=== PATIENT | female | born 1965 | race Caucasian/White ===

== ENCOUNTER 2025-02-22 12:58 | Outpatient (BNV) | payer MEDICAID, SELFPAY | END 2025-02-26 21:43 | PROVIDERS: Admitting Provider Psychiatry & Neurology Psychiatry; Visit Provider Internal Medicine Cardiovascular Disease | DX: R94.31 Abnormal electrocardiogram [ECG] [EKG] (principal); Z86.79 Personal history of other diseases of the circulatory system | CPT/HCPCS: 93010 ==

== ENCOUNTER 2025-02-22 12:58 | Inpatient (IN) | payer MEDICAID, SELFPAY ==
--- OUTSIDE RECORDS SUMMARY | 2025-02-15 17:17 | XMS_ITS | Encounter Summary ---
Author Organization [employer] Address [address] [place] [address] Care Team Providers Care Intellectual Property Paralegal Name Role Phone Physician, No Pcp Primary Care Provider Unavaila ble Reason for Visit * Reason Comments Drug Overdose * Auth/Cert (Routine) Specialty Diagnoses / Procedures Referred By Contac t Referred To Contact Diagnoses Acute on chronic renal insufficiency Acute on chronic renal failure (CMS/HCC V24) Acute drug overdose, intentional self-harm, initial encounter ([facility] V24, [facility] V28) Procedures . Jim Burns MD [address] [place] [id number] Phone: tel: fax: [facility] [address] [place] [phone] Phone: tel: Referral ID Status Reason Start Date Expiration Date Visits Re quested Visits Authorized [id number] 1 1 Encounter Details Date Type Department Care Team (Late st Contact Info) Description 02/15/2025 5:17 PM EDT - Present Hospital Encounter [facility] [address] [place] [phone] Alberto Phelps MD [address] [place] [phone] Jim Burns MD [address] [place] [address] [place] [address] Sunil Tang MD [address] [place] [address] Lex Cain MD [address] [place] [address] Acute on chronic renal insufficiency (Primary Dx); Acute drug overdose, intentional self-harm, initial encounter ([facility] V24, [facility] V28); Type 2 diabetes mellitus without complication, with long-term current use of insulin ([facility] V24, [facility] V28); Secondary hypertension; Depression, unspecified depression type Social History Tobacco Use Types Packs/Day Years Used Date Smoking Tobacco: Former Cigarettes Q uit: 06/27/2005 Alcohol Use Standard Drinks/Week Comments No 0 (1 standard drink = 0.6 oz pur e alcohol) Food Risk Answer Date Recorded Within the past 12 months we worried whether our food would run out before we got money to buy more. Never true 02/18/2025 Within the past 12 months th e food we bought just didn't last and we didn't have money to get more. Never true 02/18/2025 Interpersonal Safety Answer Date Record ed Physical Abuse 02/16/2025 Verbal Abuse 02/16/2025 Comments Unknown Sex and Gender Information Value Date Recorded Sex Assigned at Not on file Legal Sex Female 10:02 AM EST Gender Identity Not on file Sexual Orientation Not on file documented as of this encounter Last Filed Vital Signs Vital Sign Reading Time Taken Comments Blood Pressure 182/95 2025 11:00 AM EDT Pulse 70 2025 11:00 AM EDT Temperature 36.1 C (97 F) 2025 8:13 AM EDT Respiratory Rate 16 2025 8:13 AM EDT Oxygen Saturation 98% 2025 11:00 AM EDT Inhaled Oxygen Concentration - - Weight 95.3 kg (210 lb) 02/15/2025 5:35 PM EDT Height 165.1 cm (5' 5 ) 02/15/2025 5:35 PM EDT Body Mass Index 34.95 02/15/2025 5:35 PM EDT documented in this encounter Functional Status * Are you deaf or do you have serious difficulty hearing? Answer Date of Assessment Author No 12/05/2024 10:12 AM EDT Grayson Fletcher RN * Are you blind or do you have serious difficulty seeing, even when wearing glasses? Answer Date of Assessment Author No 12/05/2024 10:12 AM EDT Grayson Fletcher RN * Do you have serious difficulty walking or climbing stairs? Answer Date of Assessment Author No 12/05/2024 10:12 AM EDT Grayson Fletcher RN * Do you have serious difficulty dressing or bathing? Answer Date of Assessment Author No 12/05/2024 10:12 AM EDT Grayson Fletcher RN * Because of a physical, mental, or emotional condition, do you have serious difficulty doing errandsalone such as visiting the doctor? Answer Date of Assessment Author No 12/05/2024 10:12 AM EDT Grayson Fletcher RN documented as of this encounter Mental Status * Because of a physical, mental, or emotional condition, do you have serious difficulty concentrating, remembering, or making decisions? (5 years old or older) Answer Entry Date Author No 12/05/2024 10:12 AM Grayson Jones RN documented in this encounter Discharge Summaries * Lex Cain MD - 2025 10:46 AM EDT Images from the original note were not included. HOSPITAL MEDICINE DISCHARGE SUMMARY Patient Information Estephania Ryan : 1965 [60 y.o.] Admitting Provider Jim Burns MD Discharge Provider Lex Cain MD Primary Care Physician No Pcp Physician Admission Date 02/15/2025 Discharge Date 2025 Summary of Hospital Problems Primary Discharge Diagnosis: Acute drug overdose Secondary Discharge Diagnosis: Suicidal ideation Discharge Disposition Psychiatric hospital Code Status at Discharge: Full Code - Default Hospital Course Summary Presenting Problem/History of Present Illness Acute on chronic renal insufficiency [N28.9, N18.9] Acute on chronic renal failure (CMS/HCC V24) [N17.9, N18.9] Acute drug overdose, intentional self-harm, initial encounter ([facility] V24, [facility] V28) [I70.594F] Chief Complaint Patient presents with Drug Overdose HPI From admitting provider H&P: Ms. Estephania Ryan is a 59-year-old female with medical history significant for hypertension, hyperlipidemia, diabetes mellitus, atrial fibrillation on Eliquis, seizure disorder, who presented to the emergency department to be evaluated for intentional overdose with intent to cause self-harm. Per EDnotes, EMS were called to the home of the patient after her daughter reported she was lethargic andaltered. She reportedly took ten 500 mg Keppra tablets. Also reportedly took some lisinopril tablets as well. The patient reported suicidal ideation to EMS. GCS score in the ED was 13. On presentation to the ED, vital signs were remarkable for SpO2 87% improved to 94% with 2 L O2 NC,BP soft at 90/49. Laboratory work revealed creatinine 3.5, BUN 59, random glucose 206, alkaline phosphatase 134, white cell count 12.9 predominantly neutrophils, hemoglobin 10.3, hematocrit 33.9. Tylenol, salicylate, alcohol levels negative. Chest x-ray is questionable for mild pulmonary vascular versus bilateral infiltrates congestion. EKG showed normal sinus rhythm no ischemic changes. ED discussed case with poison control who recommended supportive care and electrolyte monitoring in 4 hours.Patient transferred to [place]. The patient was somnolent however arousable to verbal stimulus during our encounter. She denies anyspecific complaints. Only states that she has had many problems. She was tearful when I inquired whether she had any intention to harm herself. She did not elaborate further. Denies any chest or shortness of breath, abdominal pain, nausea, vomiting. Functional status prior to presentation: independent Hospital Course Estephania Ryan is a 59 y.o. female who has history of HTN, DM, A-fib on Eliquis, seizure disorder presented to ED with concern for intentional overdose. 1. Suicidal ideation Patient presented to ED lethargic and reports from EMS report that she took unknown quantity of lisinopril tablets and 10 Keppra tablets each 500 mg. She reported suicidal ideation to EMS. Psychiatrywas consulted. Patient met criteria for section 12. Patient was monitored with bedside sitter and suicide precautions. She has since denied feeling suicidal, also denied overdosing on her medications, insight is limited. She was continued on Zoloft 25 mg for anxiety. Psychiatrist recommended inpatient psychiatric care. 2. SONIA/metabolic acidosis-resolved Creatinine on admission of 3.5 and improved to 0.6 with IV fluid. Patient also had nongap metabolicacidosis which resolved with IV bicarbonate and IV fluid. 3. Hypotension-resolved Patient initially hypotensive which resolved. Is now hypertensive. 4. HTN Antihypertensives were resumed. Continue Imdur 60 mg and clonidine 0.1 mg twice daily, lisinopril 10 mg daily. 5. DM2 Maintained on glargine which was uptitrated to 26 units and sliding scale Humalog. Operative Procedures Performed: Consults: psychiatry LABS/IMAGING XR Chest 1 View Result Date: 02/16/2025 XR CHEST 1 VIEW INDICATION: pain Hypoxemia TECHNIQUE: XR CHEST 1 VIEW COMPARISON: No priors available. FINDINGS/IMPRESSION: Hypoventilatory examination with mild pulmonary vascular congestion and scattered opacities which could represent atelectasis, pneumonia or edema. No significant pleural effusion. Ascending aortic ectasia versus aneurysm. -------- FINAL REPORT -------- Dictated By: Topher Sebastian Dictated Date: 02/16/2025 10:09 ET Assigned Physician: Topher Sebastian Reviewed and Electronically Signed By: Topher Sebastian Signed Date: 02/16/2025 10:10 ET Workstation ID: [id number] Transcribed By: Self Edit Transcribed Date: 02/16/2025 10:09 ET Lab Results Component Value Date INR 0.9 02/16/2025 INR 1.1 12/21/2024 INR 1.2 12/20/2024 Lab Results Component Value Date NA 143 02/18/2025 K 4.6 02/18/2025 CL 110 02/18/2025 CO2 25 02/18/2025 GLUCOSE 152 (H) 2025 BUN 32 (H) 02/18/2025 CREATININE 0.61 02/18/2025 CALCIUM 8.9 02/18/2025 PROT 5.7 (L) 02/16/2025 ALBUMIN 3.1 (L) 02/16/2025 BILITOT 0.3 02/16/2025 AST 34 02/16/2025 ALT 25 02/16/2025 URICACID 12.2 (H) 12/05/2024 PHOS 2.6 02/18/2025 MG 2.3 02/18/2025 ALKPHOS 119 02/16/2025 CKTOTAL 133 12/20/2024 EGFR 104 02/18/2025 Lab Results Component Value Date WBC 8.9 02/21/2025 HGB 11.0 (L) 02/21/2025 HCT 35.5 02/21/2025 MCV 84.9 02/21/2025 PLT 298 02/21/2025 Discharge Medications Your medication list START taking these medications Instructions Last Dose Given Next Dose Due cloNIDine 0.1 mg tablet Commonly known as: CATAPRES Take 1 tablet (0.1 mg total) by mouth 2 (two) times a day. insulin glargine 100 unit/mL injection Commonly known as: LANTUS Replaces: insulin glargine 100 unit/mL (3 mL) injection pen Inject 26 Units under the skin at bedtime. lisinopriL 5 mg tablet Commonly known as: PRINIVIL,ZESTRIL Take 2 tablets (10 mg total) by mouth 1 (one) time each day. CHANGE how you take these medications Instructions Last Dose Given Next Dose Due sertraline 25 mg tablet Commonly known as: ZOLOFT What changed: medication strength how much to take when to take this Take 1 tablet (25 mg total) by mouth at bedtime. CONTINUE taking these medications Instructions Last Dose Given Next Dose Due apixaban 5 mg tablet Commonly known as: ELIQUIS Take 1 tablet (5 mg total) by mouth 2 times daily. aspirin 81 mg chewable tablet Chew 1 tablet (81 mg total) daily. atorvastatin 80 mg tablet Commonly known as: LIPITOR Take 1 tablet (80 mg total) by mouth daily. isosorbide mononitrate 30 mg 24 hr tablet Commonly known as: IMDUR Take 2 tablets (60 mg total) by mouth daily. naloxone 4 mg/0.1 mL nasal spray Commonly known as: NARCAN Administer 1 each (4 mg total) into affected nostril(s) if needed for opioid reversal or respiratory depression. Give 4 mg (1 spray) into one nostril. May repeat every 2-3 minutes if needed, alternating nostrils, until medical assistance becomes available. pantoprazole 40 mg EC tablet Commonly known as: PROTONIX Take 1 tablet (40 mg total) by mouth 1 (one) time each day before breakfast. STOP taking these medications insulin glargine 100 unit/mL (3 mL) injection pen Commonly known as: LANTUS SoloStar Replaced by: insulin glargine 100 unit/mL injection Keppra 500 mg tablet Generic drug: levETIRAcetam traZODone 50 mg tablet Commonly known as: DESYREL Where to Get Your Medications Information about where to get these medications is not yet available Ask your nurse or doctor about these medications cloNIDine 0.1 mg tablet insulin glargine 100 unit/mL injection lisinopriL 5 mg tablet sertraline 25 mg tablet Follow-Up Instructions and Recommendations No follow-up provider specified. No discharge procedures on file. There are no outpatient Patient Instructions on file for this admission. Outpatient Follow-Up No future appointments. @DCLABSOTHER@ Test Results Pending at Discharge Pending Labs Order Current Status Extra Tubes In process SST tube In process Physical Exam at time of Discharge Vitals Visit Vitals BP (!) 166/84 (BP Location: Left arm, Patient Position: Lying) Pulse 60 Temp 36.1 ??C (97 ??F) (Temporal) Resp 16 Temp (24hrs), Av.6 ??C (97.9 ??F), Min:36.1 ??C (97 ??F), Max:36.8 ??C (98.2 ??F) Body mass index is 34.95 kg/m??. No results found for: PTWT , PTHT Physical Exam Vitals and nursing note reviewed. Constitutional: Appearance: She is obese. She is not ill-appearing. HENT: Head: Normocephalic and atraumatic. Nose: Nose normal. Cardiovascular: Rate and Rhythm: Normal rate and regular rhythm. Pulmonary: Effort: Pulmonary effort is normal. Breath sounds: Normal breath sounds. Abdominal: General: There is no distension. Palpations: Abdomen is soft. Tenderness: There is no abdominal tenderness. Musculoskeletal: General: No swelling or deformity. Skin: General: Skin is warm and dry. Neurological: General: No focal deficit present. Mental Status: She is alert. Mental status is at baseline. I spoke with the patient regarding the discharge plan. The discharge plan was discussed with case management and nursing staff. Patient verbalized understanding and was agreeable with the discharge plan. Total Time Spent on Discharge Process: Greater than 30 minutes. Time was spent educating patient, making a comprehensive discharge plan, discussion with staff regarding the discharge plan, medication reconciliation and discharge summary. Lex Cain MD 2025 10:52 AM EDT documented in this encounter Ordered Prescriptions Prescription Sig Dispense Quantity Refills Last Filled Start Date End Date insulin glargine (LANTUS) 100 unit/mL injection Inject 26 Units under the skin at bedtime. 02/21/2025 6 lisinopriL (PRINIVIL,ZESTRIL) 5 mg tabletIndications: Secondary hypertension Take 2 tablets (10 mg total) by mouth 1 (one) time each day. 02/20/2025 6 sertraline (ZOLOFT) 25 mg tabletIndications: Depression, unspecified depression type Take 1 tablet (25 mg total) by mouth at bedtime. 02/19/2025 6 cloNIDine (CATAPRES) 0.1 mg tablet Take 1 tablet (0.1 mg total) by mouth 2 (two) times a day. 02/18/2025 6 insulin glargine (LANTUS) 100 unit/mL injection Inject 20 Units under the skin at bedtime. 02/19/2025 5 lisinopriL (PRINIVIL,ZESTRIL) 5 mg tabletIndications: Secondary hypertension Take 1 tablet (5 mg total) by mouth 1 (one) time each day. 02/19/2025 5 insulin glargine (LANTUS SoloStar) 100 unit/mL (3 mL) injection penIndications:Typ e 2 diabetes mellitus without complication, with long-term current use of insulin (CMS/[facility] V24, CMS/HCC V28) Inject 15 Units under the skin at bedtime. 02/18/2025 5 documented in this encounter Progress Notes * Jessy Warren RN - 2025 12:25 PM EDT D/c report given to ems, iv removed, all questions and concerns have been addressed at this time. * NING Escalante - 2025 11:17 AM EDT Discharge: 02/22/25 1116 Transportation Transportation at discharge [facility] providing transportation [facility] What day is the transport expected? 02/22/25 What time is the transport expected? 1200 Final Discharge Disposition Inpatient Behavioral Health ([facility] M3) Time Spent Time Spent (minutes) 40 minutes Discharge via Section 12 * Jessy Warren RN - 2025 11:09 AM EDT Problem: Falls: Fall Risk (Adult IP BH) Goal: (Goal) Patient will experience maximum safety and reduce risk for falls. Outcome: Adequate for Discharge Problem: Cognitive: Self Harm/Harm to Others Goal: Ability to identify and utilize available resources and services will improve Outcome: Adequate for Discharge Goals: Identify possible barriers to meeting goals/advancing plan of care: none Stability of the patient: Moderately Stable - Low risk of patient condition declining or worsening End of Shift Summary: Pt resting in bed at lowest position, call cain within reach, rings appropriately. Pt has scheduled d/c at noon via EMS to [facility] in pt psych, ready to d/c. * DHEERAJ Rayo - 2025 9:01 AM EDT Patient has been accepted to [facility] [address] Marco Chavira for an ETA of 11am today. [facility] nurse will call patient's nurse to get report. Hospital would like patient to take a PRNprior to transport to help with her anxiety during transport. It was a pleasure to assist in the care of Ms. Estephania Ryan during her stay here at [facility]. ESME Villeda, [facility] Behavioral Health Clinical Scholastic Aptitude Test Grader [facility] * Emma Escobar MD - 2025 8:45 AM EDT Connected to patient's room via I-pad with help from reproduction technician; assistance much appreciated. Patient consented verbally to visit via Telehealth video conferencing modality. Patient educated asto likely differences between Telehealth care and face to face care. Patient informed of the risks and benefits of using Telehealth services and procedures and likely risks and benefits of using alternatives to Telehealth services. Patient informed of the right to refuse Telehealth services at any time without jeopardizing his/her right to future care, services or benefits. Patient was informed that he/she is being seen solely by Emma Escobar MD today via secure audio/visual connection in alocked virtual exam room. Persons present on patient's end: Patient, sitter, patient's daughter Persons present on provider's end in [place]: Emma Escobar MD CHART REVIEWED, PATIENT INTERVIEWED. CHIEF COMPLAINT: Suicide attempt Time spent on encounter: 11 min (6 min face to face, 5 min in chart review and documentation) Billing: [facility] HISTORY OF PRESENT ILLNESS Estephania Ryan is a 60 y.o. female with psychiatric history significant for anxiety and medical history significant for but not limited to atrial fibrillation, DM, CAD, GERD, GI bleed, HTN, kidney stone, meningitis, RA, seizures, and stomach ulcer who was admitted following overdose. Psychiatry was consulted for suicidal ideations and concern for suicide attempt. The patient states that she didn'twant to be transferred so late at night (she reports that it was about 10:30 PM), so she refused tocooperate. She lay in bed worrying about it for a few hours after that and didn't get much sleep. She is amenable to the transfer today now that it is a new day. She feels much less anxious today than she felt last night. The patient denies any suicidal ideations, plan, or intent. REVIEW OF SYSTEMS CONSTITUTIONAL: The patient denies fevers, chills, sweats and body ache. HEENT: Denies CALVILLO, blurry vision, eye pain, tinnitus, vertigo, gingival bleeding, sore throat, neck or thyroid masses. RESPIRATORY: Denies cough, sputum, hemoptysis. CARDIAC: Denies chest pain, pressure, palpitations, irregular heartbeats. Denies lower extremity edema. GASTROINTESTINAL: Denies abdominal pain, changes in bowel habits or any bleeding on toilet paper. GENITOURINARY: Denies dysuria, hematuria, nocturia or frequency. NEUROLOGIC: Denies headaches, dizziness, syncope. MUSCULOSKELETAL: Negative for arthritis. Denies muscle weakness. No limitation in range of motion. VASCULAR: Denies claudication and cramping. ENDOCRINOLOGY: Denies heat or cold intolerance. HEMATOLOGY: Denies easy bleeding or blood transfusion. DERMATOLOGY: Denies changes in moles or pigmentation changes. Psychiatric ROS: Depression: See HPI. Edd: The patient denies elevated/expansive mood, decreased need for sleep, grandiosity, pressuredspeech, flight of ideas, distractibility, increase in goal directed activity, and hypersexuality. Psychosis: The patient denies audio or visual hallucinations, delusions, thought broadcasting, thought insertion, delusions of reference, catatonia, or disorganized speech or behavior. Anxiety: The patient denies any excessive worry, restlessness, fatigue, poor concentration, irritability, muscle tension, or anxiety-related sleep changes. Panic: The patient denies any recent panic episodes. PTSD: The patient does not endorse any current s/s related to PTSD. OCD: The patient denies intrusive thoughts, repetitive behaviors, counting, checking, washing, symmetry, or grouping and ordering that take up more than 1 hour of the day. Eating Disorder: The patient denies feeling overweight, excessive dieting or exercise to lose weight, overuse of laxatives, binging/purging behaviors, and amenorrhea. MEDICAL HISTORY Non-psychiatric medical history: Past Medical History: Diagnosis Date Angina pectoris ([facility] V24) DX:Angina pectoris ([facility]) Anxiety DX:Anxiety;COMMENT:mild Arthritis DX:Arthritis Atrial fibrillation ([facility] V24, [facility] V28) Borderline diabetes DX:Borderline diabetes Cholelithiasis DX:Cholelithiasis Coronary artery disease DX:Coronary artery disease Diabetes mellitus ([facility] V24, [facility] V28) GERD (gastroesophageal reflux disease) DX:GERD (gastroesophageal reflux disease) GI (gastrointestinal bleed) DX:GI (gastrointestinal bleed) Heart murmur DX:Heart murmur Hypertension DX:Hypertension Kidney stone DX:Kidney stone Meningitis spinal 2002 DX:Meningitis spinal Rheumatoid arthritis(714.0) DX:Rheumatoid arthritis(714.0) Seizures ([facility] V24, [facility] V28) 2002 DX:Seizures ([facility]);COMMENT:h/o spinal meningitis Stomach ulcer DX:Stomach ulcer Stomach ulcer DX:Stomach ulcer Current medications: apixaban, 5 mg, oral, BID aspirin, 81 mg, oral, Daily atorvastatin, 80 mg, oral, Nightly cloNIDine, 0.1 mg, oral, BID insulin glargine, 26 Units, subcutaneous, Nightly insulin lispro, 2-12 Units, subcutaneous, Before meals & nightly isosorbide mononitrate, 60 mg, oral, Daily lisinopriL, 10 mg, oral, Daily pantoprazole, 40 mg, oral, q AM AC sertraline, 25 mg, oral, Nightly sodium chloride, 10 mL, intravenous, BID ALLERGIES: Allergies Allergen Reactions Sumatriptan Unknown, Other and Palpitations Rapid heart rate hives Rapid heart rate Rapid heart rate Ibuprofen Nausea And Vomiting and Other History of peptic ulcer disease. MSE: Appearance: AOx4. Appears stated age, well groomed. Pleasant and cooperative. Adequate eye contact.No psychomotor agitation or retardation. No evidence of EPS. Muscle tone/station: WNL. Orientation: To person, place, time, and situation. Attention and Concentration: No deficits in attention and concentration. Speech: Normal rate, rhythm, volume, and tone. Mood: I'm better today. Affect: Dysphoric with restricted range, mood congruent. No lability noted. Thought Process: Coherent, linear, logical, and goal-directed. No FOI or CATIA. No thought blocking. Thought Content: Denies suicidal/homicidal ideation. Denies auditory/visual hallucinations. No delusions. No paranoia. Perception/associations: Denies hallucinations, somatic complaints, or tactile disturbances Suicidal Ideations: Pt denies SI, intent, or plan. Low acute risk. Currently is future oriented, motivated for treatment, and compliant with medications. Homicidal Ideations: Pt denies HI, intent, or plan. Low acute risk. No history of violence. No access to firearms. Behavior: No abnormal behavior during interview. Fund of Knowledge: Appropriate for age and level of education Intellect/Memory: Estimated as average based on interview. Immediate, recent, and remote memory is grossly intact. Language: No deficits Judgment/Insight: limited Musculoskeletal Exam: Movement: [x]normal []abnormal [-]dyskinesias [-]tremors [-]tics Station: [x]upright []hyperflexed/stooped []hyperextended Muscle strength [x]appears normal [-]appears abnormal Muscle tone: [x]normal [-]muscle rigidity LABS: Lab Results Component Value Date WBC 8.9 02/21/2025 HGB 11.0 (L) 02/21/2025 HCT 35.5 02/21/2025 PLT 298 02/21/2025 ALT 25 02/16/2025 AST 34 02/16/2025 NA 143 02/18/2025 K 4.6 02/18/2025 CL 110 02/18/2025 CREATININE 0.61 02/18/2025 BUN 32 (H) 02/18/2025 CO2 25 02/18/2025 TSH 0.27 (L) 12/20/2024 INR 0.9 02/16/2025 HGBA1C 11.5 (H) 12/11/2024 MICROALBUR 56.4 (H) 12/05/2024 VITALS: BP: 149/79 (02/22 351) Heart Rate: 64 (02/22 351) Temp: 36.8 ??C (98.2 ??F) (02/22 351) Temp Source: Oral (02/22 351) SpO2: 97 % (08/29 0351) ASSESSMENT: Estephania Ryan is a 60 y.o. female with psychiatric history significant for anxiety and medical history significant for but not limited to atrial fibrillation, DM, CAD, GERD, GI bleed, HTN, kidney stone, meningitis, RA, seizures, and stomach ulcer who was admitted following overdose. Psychiatry was consulted for suicidal ideations and concern for suicide attempt. DSM-5 DIAGNOSIS: Suspected intentional overdose/suicide attempt R/o borderline personality disorder Anxiety disorder, unspecified Atrial fibrillation, DM, CAD, GERD, GI bleed, HTN, kidney stone, meningitis, RA, seizures, and stomach ulcer Admitted following overdose on medication TREATMENT PLAN: Pt has verbalized understanding and given consent/agreement with medications and plan offered. LEVEL OF CARE: Continue current level of treatment. RECOMMENDATIONS: Continue Zoloft 25 mg PO qHS for anxiety. Discussed/Reviewed mechanism of action of SSRIs, expectedbenefits and time to response, common SEs including GI, CALVILLO, drowsiness or activation, sexual SEs, and more rare but serious adverse effects including agitation, edd, suicidal thoughts and behaviors. Of note, the patient meets criteria for Section 12 and cannot leave the hospital AMA. Continue sitter for safety. Psychiatric inpt bed search currently underway, per adolescent medicine specialist. Medication Education: Risks, benefits, alternatives, and potential side effects were discussed with the patient. Patient voiced understanding and agreed with medication regimen described above. LABS: Reviewed and discussed most recent labs results. MEDICATION CONTRACT: Patient agreed to take medication only as prescribed and acknowledges that services may be terminated if prescription abuse is observed. SAFETY PLAN: Patient is to alert team if symptoms worsen. Team will monitor for development of suicidal ideations or an acute medication reaction. - Call 911 or present to nearest Emergency Room in case of crisis / suicidal thoughts upon discharge. EDUCATION/CONSENT: Discussed and explained all diagnoses including differential diagnosis and treatment options. Discussed risks, benefits, potential side effects, contraindications, potential drug-drug interactions, alternatives to current medications and medication allergies as noted above. Discussed continuing to monitor for side effects and treatment efficacy prospectively and delineated patient's involvement and responsibility in monitoring for side effects and efficacy. Duane colbert expressed understanding of these recommendations. BARRIERS TO LEARNING: Patient demonstrates a readiness to learn. Patient verbalizes understanding and agrees to plan. No barriers to communication noted. MEDICATION RECONCILIATION: Medications were reviewed and reconciled with the patient. PREVENTATIVE RECOMMENDATIONS: Preventative Health Education Counseling: discussed proper diet/nutrition, exercise, and sleep hygiene. The patient was encouraged to avoid nicotine, alcohol and illicitdrugs at all times. The patient was made aware that records from the [facility] can be sent to his/her PCP at any time that he/she requests. * Michelle Lyn RN - 2025 4:19 AM EDT Problem: Falls: Fall Risk (Adult IP BH) Goal: (Goal) Patient will experience maximum safety and reduce risk for falls. Outcome: Progressing Problem: Cognitive: Self Harm/Harm to Others Goal: Ability to identify and utilize available resources and services will improve Outcome: Progressing Problem: Safety: Self Harm/Harm to Others Goal: Will remain free from injury to self Outcome: Progressing Goal: Will verbalize positive feelings about self Outcome: Progressing Goal: Provide emotional support and comfort Outcome: Progressing Goals: Identify possible barriers to meeting goals/advancing plan of care: Stability of the patient: Moderately Stable - Low risk of patient condition declining or worsening End of Shift Summary: VSS overnight. 1:1 sitter at the bedside for pt safety. Pt did request something to help her sleep. X1 dose of trazodone was order with good effect Pt states she takes it at home. Denies n/v or pain. Call cain within reach and encouraged. * Patricia Goins NP - 02/21/2025 10:31 PM EDT Notified by RN that patient was accepted by Dr. Marco Chavira at [facility], [address] - At this time, there is no pending discharge summary or note of transfer other than in psychiatry note stating that patient has a section 12 and would need inpatient psychiatric care. - Unclear if from a medical standpoint patient is cleared for transfer, I do not see that she has been restarted on antiepileptics, most recent documented blood pressure noted to be 170s. - Discussed with attending reed or wind instrument tuner, patient is extremly agitated at this time when she was informed of pending transfer to psychiatric facility and she would need to be heavily sedated for transfer to prevent injury to herself or others. - Risks outweigh the benefits of transferring patient tonight as it is unclear if there is a medical provider on staff at accepting facility who can evaluate patient when she arrives to different facility if sedation is provided. - Will defer transfer to a.m. rounding provider * Paula Clark RN - 02/21/2025 9:25 PM EDT Nurse to Nurse report given to Ángela at [address]. * Jessy Warren RN - 02/21/2025 4:20 PM EDT Updated dtr Lilian via phone call. * Jessy Warren RN - 02/21/2025 2:13 PM EDT Problem: Falls: Fall Risk (Adult IP BH) Goal: (Goal) Patient will experience maximum safety and reduce risk for falls. Outcome: Progressing Goals: Identify possible barriers to meeting goals/advancing plan of care: bed placement Stability of the patient: Moderately Stable - Low risk of patient condition declining or worsening End of Shift Summary: Pt cooperative with care, resting in bed at lowest position, call yaneth mckoy, care ongoing. * Lex Cain MD - 02/21/2025 1:16 PM EDT Images from the original note were not included. DAKSHA PROGRESS NOTE Date: 02/21/2025 Author: Lex Cain MD Patient ID: Estephania Ryan is a 59 y.o. female : 1965 MR#: [id number] ASSESSMENT & PLAN Assessment/Plan Principal Problem: Acute drug overdose Estephania Ryan is a 59 y.o. female who has history of HTN, DM, A-fib on Eliquis, seizure disorder presented to ED with concern for intentional overdose. 1. Suicidal ideation Patient presented to ED lethargic and reports from EMS report that she took unknown quantity of lisinopril tablets and 10 Keppra tablets each 500 mg. She reported suicidal ideation to EMS. Patient currently claims she is feeling well and not suicidal. 2. SONIA/metabolic acidosis-resolved Creatinine improved to 0.6. 3. Hypotension-resolved Patient is now hypertensive. 4. HTN Continue Imdur 60 mg and clonidine 0.1 mg twice daily, lisinopril 10 mg daily. 5. DM2 I will increase glargine to 26 units, continue sliding scale Humalog. SUBJECTIVE Subjective No events overnight. Patient denied any complaints. Denied suicidal ideation. Allergies Sumatriptan and Ibuprofen Current Medications: apixaban, 5 mg, oral, BID aspirin, 81 mg, oral, Daily atorvastatin, 80 mg, oral, Nightly cloNIDine, 0.1 mg, oral, BID insulin glargine, 20 Units, subcutaneous, Nightly insulin lispro, 2-12 Units, subcutaneous, Before meals & nightly isosorbide mononitrate, 60 mg, oral, Daily lisinopriL, 10 mg, oral, Daily pantoprazole, 40 mg, oral, q AM AC sertraline, 25 mg, oral, Nightly sodium chloride, 10 mL, intravenous, BID PRN medications: acetaminophen, dextrose 50%, dextrose 50%, dextrose, dextrose, glucagon injection,hydrALAZINE, ondansetron (ZOFRAN-ODT) disintegrating tablet OR ondansetron, prochlorperazine OR prochlorperazine OR prochlorperazine, [COMPLETED] Insert peripheral IV AND Maintain IV access AND [COMPLETED] Saline lock IV AND sodium chloride AND sodium chloride OBJECTIVE Vitals: 02/20/25 1545 02/20/25 2009 02/21/25 0241 02/21/25 0741 BP: (!) 142/90 (!) 150/84 (!) 157/89 (!) 155/94 BP Location: Right arm Left arm Left arm Right arm Patient Position: Sitting Sitting Lying Pulse: 93 89 64 70 Resp: 18 16 18 18 Temp: 36.4 ??C (97.5 ??F) 36.4 ??C (97.6 ??F) 36.9 ??C (98.4 ??F) 36.7 ??C (98 ??F) TempSrc: Temporal Temporal Temporal Temporal SpO2: 99% 99% 97% 98% Weight: Height: Physical Exam Vitals and nursing note reviewed. Constitutional: Appearance: She is obese. She is not ill-appearing. HENT: Head: Normocephalic and atraumatic. Nose: Nose normal. Cardiovascular: Rate and Rhythm: Normal rate and regular rhythm. Pulmonary: Effort: Pulmonary effort is normal. Breath sounds: Normal breath sounds. Abdominal: General: There is no distension. Palpations: Abdomen is soft. Tenderness: There is no abdominal tenderness. Musculoskeletal: General: No swelling or deformity. Skin: General: Skin is warm and dry. Neurological: General: No focal deficit present. Mental Status: She is alert. Mental status is at baseline. LABS HEMATOLOGY Lab Results Component Value Date WBC 9.1 02/18/2025 HGB 10.2 (L) 02/18/2025 HCT 33.7 (L) 02/18/2025 MCV 86.9 02/18/2025 PLT 274 02/18/2025 CHEMISTRY Lab Results Component Value Date GLUCOSE 308 (H) 02/21/2025 NA 143 02/18/2025 K 4.6 02/18/2025 CO2 25 02/18/2025 CL 110 02/18/2025 BUN 32 (H) 02/18/2025 CREATININE 0.61 02/18/2025 EGFR 104 02/18/2025 CALCIUM 8.9 02/18/2025 MG 2.3 02/18/2025 PHOS 2.6 02/18/2025 ANIONGAP 8 02/18/2025 No results found for this or any previous visit (from the past week). Imaging: XR Chest 1 View Narrative: XR CHEST 1 VIEW INDICATION: pain Hypoxemia TECHNIQUE: XR CHEST 1 VIEW COMPARISON: No priors available. Impression: FINDINGS/IMPRESSION: Hypoventilatory examination with mild pulmonary vascular congestion and scattered opacities which could represent atelectasis, pneumonia or edema. No significant pleural effusion. Ascending aortic ectasia versus aneurysm. -------- FINAL REPORT -------- Dictated By: Topher Sebastian Dictated Date: 02/16/2025 10:09 ET Assigned Physician: Topher Sebastian Reviewed and Electronically Signed By: Topher Sebastian Signed Date: 02/16/2025 10:10 ET Workstation ID: [id number] Transcribed By: Self Edit Transcribed Date: 02/16/2025 10:09 ET DAILY CARE CHECKLIST Length of Stay: 03d 22h 44m VTE Prophylaxis: Apixaban Resuscitation: Full Code - Default IV Access: Peripheral Tubes, Catheters, Devices: none PCP: No Pcp Physician Disposition: Pending inpatient psychiatric admission Lex Cain MD 02/21/25 1:16 PM EDT * Donwesley Ironuma - 02/21/2025 10:53 AM EDT SPIRITUAL CARE Date/Time:02/21/25 at 10:53 AM EDT Type of Visit: Initial Visit and [employer] [facility] Rounding Reason for Visit: Spiritual/Emotional Support and Spiritual Assessment Time Spent: 15 Minutes Location: [address] [place] [address] Sacramental Encounters: Sacrament of Sick-Anointing: Anointed Spiritual Distress Assessment: Spiritual Distress Assessment at beginning of visit Meaning - Overall Life Balance: Some evidence of unmet spiritual need Transcendence: No evidence of unmet spiritual need Values - Acknowledgement: No evidence of unmet spiritual need Values - Control: No evidence of unmet spiritual need Psycho-Social Identity: No evidence of unmet spiritual need SDAT Beginning of Visit Average Score: 0.2 Spiritual Distress Assessment at end of visit Meaning - Overall Life Balance: Some evidence of unmet spiritual need Transcendence: No evidence of unmet spiritual need Values - Acknowledgement: No evidence of unmet spiritual need Values - Control: No evidence of unmet spiritual need Psycho-Social Identity: No evidence of unmet spiritual need SDAT End of Visit Average Score: 0.2 Spiritual Assessment/Distress Spiritual Care Assessment: Assessment: Estephania, was awake, alert, sitting up in bed resting at the time of visit. Patient observer was in the room. Listen as Estephania, shared how she was feeling. Happy with the care given by caregivers, feels much better and doing well. Voiced strong family support and love. Raised no concern except wish and desire to keep getting better. Glo islam is Hoahaoism, expressed desire to receive anointing of the sick. Prayed for recovery and good health. Thankful for the visit. Intervention: NE Spiritual Care Interventions : provided support, explored hope, listened empathically, and provided prayer Outcomes: expressed gratitude and expressed peace Plan of Care: Visit as needed *Reference: Spiritual Distress Assessment Tool: The SDAT is a clinical tool used by chaplains to identify unmet spiritual and emotional needs that can impact Goals of Care in the following categories: Spiritual Distress Assessment Legend Spiritual Needs Related Questions Meaning Are you having difficulties coping with what is happening to your now? Does your hospitalization have any repercussions on the way you live usually? Transcendence Do you have a particular islam, glo, or spirituality? Is your islam/spirituality/glo challenged by what is happening to you now? Values Do you think that the health professionals caring for you know you well enough? Do you feel that you are participating in the decisions made about your care? Psycho-Social Identity Do you have any worries or difficulties regarding your family or other persons close to you? Do you feel lonely? Do you have links to your glo community? SCALE 0= no evidence of unmet spiritual needs 1= some evidence of unmet spiritual needs 2= substantial evidence of unmet spiritual needs 3= evidence of severe unmet spiritual needs * Paula Gamboa RD - 02/21/2025 10:45 AM EDT 02/21/2025 @ 10:45 AM EDT Nutrition Follow Up Note Reason for RD Intervention: Assessment Type: Follow-up Reason for Assessment: High MST Score Anthropometrics: Height: 165.1 cm (65 ) Weight: 95.3 kg (210 lb) Weight Method: Stated BMI (Calculated): 34.9 BMI Class: Obesity Class I IBW (lbs): 125 UBW (lbs): 220 Recent Weight Change: No Current Diet and Supplements: Dietary Orders (From admission, onward) Start Ordered 02/18/25 0831 Adult diet [facility]; Diabetic; 60 gm carb/Meal; Patient Safety Tray; Auto-Select Meals Diet effective now Question Answer Comment Location [facility] Diet Type (req) Diabetic Diabetic 60 gm carb/Meal Miscellaneous Patient Safety Tray Is the patient able to participate in meal ordering? Auto-Select Meals 02/18/25 0831 History of presenting illness: Patient is a 59 y.o. female with a history of Past Medical History: Diagnosis Date Angina pectoris ([facility] V24) DX:Angina pectoris ([facility]) Anxiety DX:Anxiety;COMMENT:mild Arthritis DX:Arthritis Atrial fibrillation ([facility] V24, [facility] V28) Borderline diabetes DX:Borderline diabetes Cholelithiasis DX:Cholelithiasis Coronary artery disease DX:Coronary artery disease Diabetes mellitus ([facility] V24, [facility] V28) GERD (gastroesophageal reflux disease) DX:GERD (gastroesophageal reflux disease) GI (gastrointestinal bleed) DX:GI (gastrointestinal bleed) Heart murmur DX:Heart murmur Hypertension DX:Hypertension Kidney stone DX:Kidney stone Meningitis spinal 2002 DX:Meningitis spinal Rheumatoid arthritis(714.0) DX:Rheumatoid arthritis(714.0) Seizures ([facility] V24, [facility] V28) 2002 DX:Seizures ([facility]);COMMENT:h/o spinal meningitis Stomach ulcer DX:Stomach ulcer Stomach ulcer DX:Stomach ulcer Past Surgical History: Procedure Laterality Date APPENDECTOMY PROCEDURE:APPENDECTOMY CARDIAC CATHETERIZATION 2010 PROCEDURE:CARDIAC CATHETERIZATION SECTION PROCEDURE: SECTION;COMMENT:x 2 CHOLECYSTECTOMY PROCEDURE:CHOLECYSTECTOMY HERNIA REPAIR date unknown PROCEDURE:HERNIA REPAIR KIDNEY STONE SURGERY PROCEDURE:KIDNEY STONE SURGERY SUPERIOR OBLIQUE RECESSION PROCEDURE:HYBRID ANGIOGRAM - FEMORAL TOTAL KNEE ARTHROPLASTY Left UPPER GASTROINTESTINAL ENDOSCOPY N/A 07/18/2015 PROCEDURE:UPPER GASTROINTESTINAL ENDOSCOPY;COMMENT:Procedure: UPPER ENDOSCOPY- EGD; Surgeon: Juve Clinton MD; Location: [facility]; Service: Gastroenterology; Laterality: N/A; admitted 02/15/2025 with Acute drug overdose. Food/Nutrition History: Previous Diet / Nutrition Education / Counseling: Pt reports she eats lots of fresh foods at home, prepares her own meals, and and follows a low sodium/low sugar diet. No reported food allergies. Appetite DEAN OF FACULTY: Good Intake DEAN OF FACULTY: Stable Vitamins/Minerals/Herbs: Pt does not take any supplements at home Weight History: Wt Readings from Last 10 Encounters: 02/15/25 95.3 kg (210 lb) 12/18/24 95.3 kg (210 lb) 12/14/24 96.3 kg (212 lb 6.4 oz) 11/24/24 93 kg (205 lb) Subjective Assessment: Appetite improved. Mild intermittent nausea/heartburn, PRN Zofran with good effect. No vomiting, abdominal pain or bowel issues. +BM 02/18. Last 5 POCT: 157, 246, 266, 206, 150mg/dl. Patient is medically stable for discharge, awaiting placement at a psychiatric facility. Nutrition-Related Lab Values: Results from last 7 days Lab Units 02/21/25 0743 02/18/25 0821 02/18/25 0550 02/16/25 0804 02/16/25 0619 SODIUM mmol/L -- -- 143 < > 138 POTASSIUM mmol/L -- -- 4.6 < > 4.8 PHOSPHORUS mg/dL -- -- 2.6 -- -- MAGNESIUM mg/dL -- -- 2.3 -- -- CHLORIDE mmol/L -- -- 110 < > 109 CO2 mmol/L -- -- 25 < > 19* BUN mg/dL -- -- 32* < > 63* CREATININE mg/dL -- -- 0.61 < > 2.62* EGFR mL/min/1.73m2 -- -- 104 < > 21* CALCIUM mg/dL -- -- 8.9 < > 8.1* BILIRUBIN TOTAL mg/dL -- -- -- -- 0.3 ALK PHOS unit/L -- -- -- -- 119 ALT unit/L -- -- -- -- 25 AST unit/L -- -- -- -- 34 POCT GLUCOSE mg/dL 157* < > -- < > -- GLUCOSE mg/dL -- -- 156* < > 156* WBC AUTO K/mcL -- -- 9.1 < > 11.1* < > = values in this interval not displayed. Lab Results Component Value Date LIPASE 13 12/05/2024 Medications: apixaban, 5 mg, oral, BID aspirin, 81 mg, oral, Daily atorvastatin, 80 mg, oral, Nightly cloNIDine, 0.1 mg, oral, BID insulin glargine, 20 Units, subcutaneous, Nightly insulin lispro, 2-12 Units, subcutaneous, Before meals & nightly isosorbide mononitrate, 60 mg, oral, Daily lisinopriL, 10 mg, oral, Daily pantoprazole, 40 mg, oral, q AM AC sertraline, 25 mg, oral, Nightly sodium chloride, 10 mL, intravenous, BID CONTINUOUS: PRN medications: acetaminophen, dextrose 50%, dextrose 50%, dextrose, dextrose, glucagon injection,hydrALAZINE, ondansetron (ZOFRAN-ODT) disintegrating tablet OR ondansetron, prochlorperazine OR prochlorperazine OR prochlorperazine, [COMPLETED] Insert peripheral IV AND Maintain IV access AND [COMPLETED] Saline lock IV AND sodium chloride AND sodium chloride Height: 165.1 cm (65 ) Minute Ventilation (L/min): 23.3 L/min Temp: 36.7 ??C (98 ??F) Food/Nutrition-Current Status: Intake Type: P.O. Current Diet Status: Appropriate Appetite: Fair Intake Amount (%): 50-75% Intake Assessment: Improved Main IVF: None Nutrition Focused Physical Findings: Overall Appearance: Pt sitting up in bed, no visible findings of fat or muscle loss noted Digestive System (Mouth to Rectum): Nausea (intermittent nausea/heartburn) Nerves and Cognition: Alert, Oriented Skin: No wounds documented Nutrition Diagnosis: Code Type: None Identified Status: Improvement Diagnosis: Inadequate Oral Intake Etiology: Changes in taste and appetite or preference Symptoms: Pt report of decreased appetite, suboptimal meal intake since admission. Nutrition Interventions: Meals/Snacks -Continue with therapeutic diet as ordered for blood sugar control (Diabetic 60gm carb/meal); oral nutrition supplements do not appear necessary at this time given improvement in meal intakes. Goals: Patient will consume greater than or equal to 75% meals., Monitor/control glucose levels, Electrolytes within normal range., Stooling appropriately., and Maintain skin integrity. Coordination of Patient Care: Care plan discussed with patient/family. Monitoring/Evaluation: Fluid/Beverage Intake, Food Intake, Weight, Renal/Electrolyte Profile, Gastrointestinal Profile Follow Up: Nutrition Priority Level: Moderate RD remains available and will continue to follow. Signature: Paula Gamboa RD * Emma Escobar MD - 02/21/2025 9:52 AM EDT Connected to patient's room via I-pad with help from reproduction technician; assistance much appreciated. Patient consented verbally to visit via Telehealth video conferencing modality. Patient educated asto likely differences between Telehealth care and face to face care. Patient informed of the risks and benefits of using Telehealth services and procedures and likely risks and benefits of using alternatives to Telehealth services. Patient informed of the right to refuse Telehealth services at any time without jeopardizing his/her right to future care, services or benefits. Patient was informed that he/she is being seen solely by Emma Escobar MD today via secure audio/visual connection in alocked virtual exam room. Persons present on patient's end: Patient Persons present on provider's end in [place]: Emma Escobar MD CHART REVIEWED, PATIENT INTERVIEWED. CHIEF COMPLAINT: Suicide attempt Time spent on encounter: 10 min (5 min face to face, 5 min in chart review and documentation) Billing: [facility] HISTORY OF PRESENT ILLNESS Estephania Ryan is a 59 y.o. female with psychiatric history significant for anxiety and medical history significant for but not limited to atrial fibrillation, DM, CAD, GERD, GI bleed, HTN, kidney stone, meningitis, RA, seizures, and stomach ulcer who was admitted following overdose. Psychiatry was consulted for suicidal ideations and concern for suicide attempt. The patient states that she is doing good this morning. She is tired of being in the hospital. She notes that her daughter and the SW are looking for a placement for her. She feels that her anxiety is mostly well controlled at present. She states that she can't recount the story of what happened prior to this admission because lucy doesn't remember. The patient denies any suicidal ideations, plan, or intent. REVIEW OF SYSTEMS CONSTITUTIONAL: The patient denies fevers, chills, sweats and body ache. HEENT: Denies CALVILLO, blurry vision, eye pain, tinnitus, vertigo, gingival bleeding, sore throat, neck or thyroid masses. RESPIRATORY: Denies cough, sputum, hemoptysis. CARDIAC: Denies chest pain, pressure, palpitations, irregular heartbeats. Denies lower extremity edema. GASTROINTESTINAL: Denies abdominal pain, changes in bowel habits or any bleeding on toilet paper. GENITOURINARY: Denies dysuria, hematuria, nocturia or frequency. NEUROLOGIC: Denies headaches, dizziness, syncope. MUSCULOSKELETAL: Negative for arthritis. Denies muscle weakness. No limitation in range of motion. VASCULAR: Denies claudication and cramping. ENDOCRINOLOGY: Denies heat or cold intolerance. HEMATOLOGY: Denies easy bleeding or blood transfusion. DERMATOLOGY: Denies changes in moles or pigmentation changes. Psychiatric ROS: Depression: The patient denies any depressed mood, anhedonia, depression-related sleep changes, feelings of guilt/worthlessness, fatigue, poor concentration, appetite changes, psychomotor agitation or retardation, or suicidal ideations. Edd: The patient denies elevated/expansive mood, decreased need for sleep, grandiosity, pressuredspeech, flight of ideas, distractibility, increase in goal directed activity, and hypersexuality. Psychosis: The patient denies audio or visual hallucinations, delusions, thought broadcasting, thought insertion, delusions of reference, catatonia, or disorganized speech or behavior. Anxiety: See HPI. Panic: The patient denies any recent panic episodes. PTSD: The patient does not endorse any current s/s related to PTSD. OCD: The patient denies intrusive thoughts, repetitive behaviors, counting, checking, washing, symmetry, or grouping and ordering that take up more than 1 hour of the day. Eating Disorder: The patient denies feeling overweight, excessive dieting or exercise to lose weight, overuse of laxatives, binging/purging behaviors, and amenorrhea. MEDICAL HISTORY Non-psychiatric medical history: Past Medical History: Diagnosis Date Angina pectoris ([facility] V24) DX:Angina pectoris ([facility]) Anxiety DX:Anxiety;COMMENT:mild Arthritis DX:Arthritis Atrial fibrillation ([facility] [place] V24, [facility] V28) Borderline diabetes DX:Borderline diabetes Cholelithiasis DX:Cholelithiasis Coronary artery disease DX:Coronary artery disease Diabetes mellitus ([facility] [place] V24, [facility] V28) GERD (gastroesophageal reflux disease) DX:GERD (gastroesophageal reflux disease) GI (gastrointestinal bleed) DX:GI (gastrointestinal bleed) Heart murmur DX:Heart murmur Hypertension DX:Hypertension Kidney stone DX:Kidney stone Meningitis spinal 2002 DX:Meningitis spinal Rheumatoid arthritis(714.0) DX:Rheumatoid arthritis(714.0) Seizures ([facility] V24, [facility] V28) 2002 DX:Seizures ([facility]);COMMENT:h/o spinal meningitis Stomach ulcer DX:Stomach ulcer Stomach ulcer DX:Stomach ulcer Current medications: apixaban, 5 mg, oral, BID aspirin, 81 mg, oral, Daily atorvastatin, 80 mg, oral, Nightly cloNIDine, 0.1 mg, oral, BID insulin glargine, 20 Units, subcutaneous, Nightly insulin lispro, 2-12 Units, subcutaneous, Before meals & nightly isosorbide mononitrate, 60 mg, oral, Daily lisinopriL, 10 mg, oral, Daily pantoprazole, 40 mg, oral, q AM AC sertraline, 25 mg, oral, Nightly sodium chloride, 10 mL, intravenous, BID ALLERGIES: Allergies Allergen Reactions Sumatriptan Unknown, Other and Palpitations Rapid heart rate hives Rapid heart rate Rapid heart rate Ibuprofen Nausea And Vomiting and Other History of peptic ulcer disease. MSE: Appearance: AOx4. Appears stated age, well groomed. Pleasant and cooperative. Adequate eye contact.No psychomotor agitation or retardation. No evidence of EPS. Muscle tone/station: WNL. Orientation: To person, place, time, and situation. Attention and Concentration: No deficits in attention and concentration. Speech: Normal rate, rhythm, volume, and tone. Mood: Fine. Affect: Mildly dysphoric and anxious with restricted range, mood congruent. No lability noted. Thought Process: Coherent, linear, logical, and goal-directed. No FOI or CATIA. No thought blocking. Thought Content: Denies suicidal/homicidal ideation. Denies auditory/visual hallucinations. No delusions. No paranoia. Perception/associations: Denies hallucinations, somatic complaints, or tactile disturbances Suicidal Ideations: Pt denies SI, intent, or plan. Low acute risk. Currently is future oriented, motivated for treatment, and compliant with medications. Homicidal Ideations: Pt denies HI, intent, or plan. Low acute risk. No history of violence. No access to firearms. Behavior: No abnormal behavior during interview. Fund of Knowledge: Appropriate for age and level of education Intellect/Memory: Estimated as average based on interview. Immediate, recent, and remote memory is grossly intact. Language: No deficits Judgment/Insight: limited Musculoskeletal Exam: Movement: [x]normal []abnormal [-]dyskinesias [-]tremors [-]tics Station: [x]upright []hyperflexed/stooped []hyperextended Muscle strength [x]appears normal [-]appears abnormal Muscle tone: [x]normal [-]muscle rigidity LABS: Lab Results Component Value Date WBC 9.1 02/18/2025 HGB 10.2 (L) 02/18/2025 HCT 33.7 (L) 02/18/2025 PLT 274 02/18/2025 ALT 25 02/16/2025 AST 34 02/16/2025 NA 143 02/18/2025 K 4.6 02/18/2025 CL 110 02/18/2025 CREATININE 0.61 02/18/2025 BUN 32 (H) 02/18/2025 CO2 25 02/18/2025 TSH 0.27 (L) 12/20/2024 INR 0.9 02/16/2025 HGBA1C 11.5 (H) 12/11/2024 MICROALBUR 56.4 (H) 12/05/2024 VITALS: BP: 155/94 (02/21 741) Heart Rate: 70 (02/21 741) Temp: 36.7 ??C (98 ??F) (02/21 741) Temp Source: Temporal (02/21 741) SpO2: 98 % (02/21 741) ASSESSMENT: Estephania Ryan is a 59 y.o. female with psychiatric history significant for anxiety and medical history significant for but not limited to atrial fibrillation, DM, CAD, GERD, GI bleed, HTN, kidney stone, meningitis, RA, seizures, and stomach ulcer who was admitted following overdose. Psychiatry was consulted for suicidal ideations and concern for suicide attempt. DSM-5 DIAGNOSIS: Suspected intentional overdose/suicide attempt R/o borderline personality disorder Anxiety disorder, unspecified Atrial fibrillation, DM, CAD, GERD, GI bleed, HTN, kidney stone, meningitis, RA, seizures, and stomach ulcer Admitted following overdose on medication TREATMENT PLAN: Pt has verbalized understanding and given consent/agreement with medications and plan offered. LEVEL OF CARE: Continue current level of treatment. RECOMMENDATIONS: Continue Zoloft 25 mg PO qHS for anxiety. Discussed/Reviewed mechanism of action of SSRIs, expectedbenefits and time to response, common SEs including GI, CALVILLO, drowsiness or activation, sexual SEs, and more rare but serious adverse effects including agitation, edd, suicidal thoughts and behaviors. Of note, the patient meets criteria for Section 12 and cannot leave the hospital AMA. Continue sitter for safety. Psychiatric inpt bed search currently underway, per adolescent medicine specialist. Medication Education: Risks, benefits, alternatives, and potential side effects were discussed withthe patient. Patient voiced understanding and agreed with medication regimen described above. LABS: Reviewed and discussed most recent labs results. MEDICATION CONTRACT: Patient agreed to take medication only as prescribed and acknowledges that services may be terminated if prescription abuse is observed. SAFETY PLAN: Patient is to alert team if symptoms worsen. Team will monitor for development of suicidal ideations or an acute medication reaction. - Call 911 or present to nearest Emergency Room in case of crisis / suicidal thoughts upon discharge. EDUCATION/CONSENT: Discussed and explained all diagnoses including differential diagnosis and treatment options. Discussed risks, benefits, potential side effects, contraindications, potential drug-drug interactions, alternatives to current medications and medication allergies as noted above. Discussed continuing to monitor for side effects and treatment efficacy prospectively and delineated patient's involvement and responsibility in monitoring for side effects and efficacy. Duane colbert expressed understanding of these recommendations. BARRIERS TO LEARNING: Patient demonstrates a readiness to learn. Patient verbalizes understanding and agrees to plan. No barriers to communication noted. MEDICATION RECONCILIATION: Medications were reviewed and reconciled with the patient. PREVENTATIVE RECOMMENDATIONS: Preventative Health Education Counseling: discussed proper diet/nutrition, exercise, and sleep hygiene. The patient was encouraged to avoid nicotine, alcohol and illicitdrugs at all times. The patient was made aware that records from the u/s can be sent to his/her PCP at any time that he/she requests. * Kurt Reddy RN - 02/20/2025 6:07 PM EDT Goals: Maintain patient safety until inpatient psychiatric placement can be found. Problem: Falls: Fall Risk (Adult IP BH) Goal: (Goal) Patient will experience maximum safety and reduce risk for falls. Outcome: Progressing Identify possible barriers to meeting goals/advancing plan of care: Drug seeking behavior, possibleself harm to obtain more oxycodone. Stability of the patient: Moderately Stable - Low risk of patient condition declining or worsening End of Shift Summary: Sitter maintained throughout the shift. Patient has not engaged in any additional self-harm or negative behaviors. She was hypertensive this afternoon and this morning requiringIV hydralazine 10 mg, to decreased BP. The patient also stated that she has been taking gabapentin at home three times a day, I was not able to locate any prescriptions or notes in which it was mentioned by a provider. Her room was rechecked for any possible items that could be used to inflict self-harm. As of the time this note was authored all such items have been removed. She is currently sitting up in bed watching television with a family member at the bedside. Call yaneth within reach, seizure pads in room. * Lex Cain MD - 02/20/2025 1:42 PM EDT Images from the original note were not included. DAKSHA PROGRESS NOTE Date: 02/20/2025 Author: Lex Cain MD Patient ID: Estephania Ryan is a 59 y.o. female : 1965 MR#: [id number] ASSESSMENT & PLAN Assessment/Plan Principal Problem: Acute drug overdose Estephania Ryan is a 59 y.o. female who has history of HTN, DM, A-fib on Eliquis, seizure disorder presented to ED with concern for intentional overdose. 1. Suicidal ideation Patient presented to ED lethargic and reports from EMS report that she took unknown quantity of lisinopril tablets and 10 Keppra tablets each 500 mg. She reported suicidal ideation to EMS. Patient currently denying any suicidal ideation, claimed that she does not remember overdosing on pills and everything that happened was a mistake. Pending psychiatric placement. 2. SONIA/metabolic acidosis-resolved Patient presented with creatinine of 3.5 which has improved to 0.6. Metabolic acidosis has resolved. IV fluid discontinued. Patient stable for discharge to inpatient psych facility. 3. Hypotension-resolved Patient is now hypertensive. 4. HTN Continue Imdur 60 mg and clonidine 0.1 mg twice daily. I will increase lisinopril to 10 mg daily. 5. DM2 Continue glargine 20 units and sliding scale Humalog. SUBJECTIVE Subjective No events overnight. Patient denied any complaints. Denied suicidal ideation. Allergies Sumatriptan and Ibuprofen Current Medications: apixaban, 5 mg, oral, BID aspirin, 81 mg, oral, Daily atorvastatin, 80 mg, oral, Nightly cloNIDine, 0.1 mg, oral, BID insulin glargine, 20 Units, subcutaneous, Nightly insulin lispro, 2-12 Units, subcutaneous, Before meals & nightly isosorbide mononitrate, 60 mg, oral, Daily lisinopriL, 5 mg, oral, Daily pantoprazole, 40 mg, oral, q AM AC sertraline, 25 mg, oral, Nightly sodium chloride, 10 mL, intravenous, BID PRN medications: acetaminophen, dextrose 50%, dextrose 50%, dextrose, dextrose, glucagon injection,hydrALAZINE, ondansetron (ZOFRAN-ODT) disintegrating tablet OR ondansetron, prochlorperazine OR prochlorperazine OR prochlorperazine, [COMPLETED] Insert peripheral IV AND Maintain IV access AND [COMPLETED] Saline lock IV AND sodium chloride AND sodium chloride OBJECTIVE Vitals: 02/19/25202702/19/25 2227 02/20/25 0449 02/20/25 0809 BP: (!) 207/89 (!) 157/82 (!) 188/91 (!) 172/88 BP Location: Right arm Right arm Left arm Patient Position: Lying Lying Sitting Pulse: 76 76 70 75 Resp: 16 18 16 Temp: 36.9 ??C (98.4 ??F) 36.9 ??C (98.4 ??F) 36.7 ??C (98.1 ??F) TempSrc: Oral Oral SpO2: 100% 94% 96% 99% Weight: Height: Physical Exam Vitals and nursing note reviewed. Constitutional: Appearance: She is obese. She is not ill-appearing. HENT: Head: Normocephalic and atraumatic. Nose: Nose normal. Cardiovascular: Rate and Rhythm: Normal rate and regular rhythm. Pulmonary: Effort: Pulmonary effort is normal. Breath sounds: Normal breath sounds. Abdominal: General: There is no distension. Palpations: Abdomen is soft. Tenderness: There is no abdominal tenderness. Musculoskeletal: General: No swelling or deformity. Skin: General: Skin is warm and dry. Neurological: General: No focal deficit present. Mental Status: She is alert. Mental status is at baseline. LABS HEMATOLOGY Lab Results Component Value Date WBC 9.1 02/18/2025 HGB 10.2 (L) 02/18/2025 HCT 33.7 (L) 02/18/2025 MCV 86.9 02/18/2025 PLT 274 02/18/2025 CHEMISTRY Lab Results Component Value Date GLUCOSE 206 (H) 02/20/2025 NA 143 02/18/2025 K 4.6 02/18/2025 CO2 25 02/18/2025 CL 110 02/18/2025 BUN 32 (H) 02/18/2025 CREATININE 0.61 02/18/2025 EGFR 104 02/18/2025 CALCIUM 8.9 02/18/2025 MG 2.3 02/18/2025 PHOS 2.6 02/18/2025 ANIONGAP 8 02/18/2025 No results found for this or any previous visit (from the past week). Imaging: XR Chest 1 View Narrative: XR CHEST 1 VIEW INDICATION: pain Hypoxemia TECHNIQUE: XR CHEST 1 VIEW COMPARISON: No priors available. Impression: FINDINGS/IMPRESSION: Hypoventilatory examination with mild pulmonary vascular congestion and scattered opacities which could represent atelectasis, pneumonia or edema. No significant pleural effusion. Ascending aortic ectasia versus aneurysm. -------- FINAL REPORT -------- Dictated By: Topher Sebastian Dictated Date: 02/16/2025 10:09 ET Assigned Physician: Topher Sebastian Reviewed and Electronically Signed By: Topher Sebastian Signed Date: 02/16/2025 10:10 ET Workstation ID: [id number] Transcribed By: Self Edit Transcribed Date: 02/16/2025 10:09 ET DAILY CARE CHECKLIST Length of Stay: 02d 23h 10m VTE Prophylaxis: Apixaban Resuscitation: Full Code - Default IV Access: Peripheral Tubes, Catheters, Devices: none PCP: No Pcp Physician Disposition: Pending inpatient psychiatric admission Lex Cain MD 02/20/25 1:42 PM EDT * NING Escalante - 02/20/2025 12:20 PM EDT Circular Ripsaw Operator- CM Progress Note Patient continues to require acute level hospital care. DENNISE: TBD Barriers: placement Disposition: psychiatric bed placement Patient with [place] insurance, behavioral health service states may be difficult placement in [place] hospital/ unit. They are continuing to search for placement. director patient financial services will remain available to assess, support, provide advocacy and assist with discharge planning as appropriate. * Emma Escobar MD - 02/20/2025 9:14 AM EDT The [facility] attempted to see the patient, but she declined the consult today. Her daughter (Lilian) ispresent and reports in the hallway that the patient is upset about having to go to a mental health unit. Her daughter is also concerned about the patient's drug use and is hopeful that the patient will ultimately agree to some [facility] treatment. Psychiatry will continue to follow. * Kurt Reddy RN - 02/19/2025 4:50 PM EDT Goals: Maintain safety. Identify possible barriers to meeting goals/advancing plan of care: Intentional self-harm to obtainnarcotic pain medication. Stability of the patient: Moderately Stable - Low risk of patient condition declining or worsening End of Shift Summary: The patient has a history of opiate abuse and has been frequently causally asking for Oxycodone. The patient's daughter, who is also her HCP, called and informed myself and the crisis team provider that Oxycodone is her drug of choice and she doctor shops to obtain the pills. Attending provider made aware and the order for Oxycodone has been discontinued to prevent the patient from relapsing. As the day has progressed she has become slightly agitated but otherwise is not exhibiting sign(s) that she is in withdrawal. Section [address] with a sitter at all times. Room checked for potential items that could be used for self harm, any items of such nature have been removed. It was also reported that overnight she struck her head against the wall in the bathroom in an attempt to gain more pain medication. She is currently resting in bed watching televisionin no apparent signs of distress. * Kayleen Cartagena CCC-DRY PAN OPERATOR - 02/19/2025 12:33 PM EDT Images from the original note were not included. Speech Language Pathology [facility] DRY PAN OPERATOR TREATMENT NOTE NAME: Estephania Ryan DATE OF : 1965 ROOM: [address] [place] [address] Pt ID by: Self, Full Name and DATE: 02/19/25 RECOMMENDATIONS: DIET SOLIDS RECOMMENDATIONS: IDDSI Level 7 Regular DIET LIQUIDS RECOMMENDATIONS: Thin liquids ASPIRATION RISK: Recommendations: Dysphagia treatment Diet Solids Recommendation: IDDSI Level 7 Regular Diet Liquids Recommendation: Thin liquids Liquid Administration Via: Spoon, Straw Compensatory Swallowing Strategies: Upright as possible for all oral intake, Remain upright for 20-30 minutes after meals, Alternate solids and liquids, Small bites/sips, Eat/feed slowly Recommended Medication Route: PO Recommended Medication Administration: One pill at a time (with liquid) IMPRESSIONS: DRY PAN OPERATOR ASSESSMENT: DRY PAN OPERATOR Assessment Results: Swallowing impairments Dysphagia Diagnosis: (Oropharyngeal dysphagia) Prognosis: Excellent Evaluation/Treatment Tolerance: Patient tolerated treatment well Comments: Pt tolerated all PO consistencies without any overt clinical s/s of pulmonary compromise.Used compensatory strategies independently. Medical Staff Made Aware: Yes Comments: RN and MD TIME CALCULATION: DRY PAN OPERATOR Start Time: 1145 DRY PAN OPERATOR Stop Time: 1200 DRY PAN OPERATOR Time Calculation (min): 15 min Apple Sorter Required: No ADMISSION DIAGNOSIS: Acute on chronic renal insufficiency [N28.9, N18.9] Acute on chronic renal failure ([facility] V24) [N17.9, N18.9] Acute drug overdose, intentional self-harm, initial encounter ([facility] V24, [facility] V28) [T50.902A] FAMILY/CAREGIVER PRESENT: No SUBJECTIVE SUBJECTIVE: Chart reviewed and cleared by RN for DRY PAN OPERATOR session. Upon arrival, pt seated upright in bed with sitter present. DRY PAN OPERATOR retrieved lunch tray for session. RESPIRATORY STATUS: Room air PRECAUTIONS: MENTAL STATUS Alert Responsive Cooperative OBJECTIVE PAIN: OXYGEN THERAPY: TREATMENTS: Treatments: Swallow Function SWALLOW FUNCTION: Swallow/Oral Function Treatment Time Entry: 15 Swallow Activity 1: Regular x 3 (chicken salad sandwich) Swallow Activity 2: Thin liquid via consecutive cup edge x 3 (~6 swallows) (juice) Swallow Comments: No overt clinical s/s of pulmonay compromise observed. ASPIRATION RISK: Recommendations: Dysphagia treatment Diet Solids Recommendation: IDDSI Level 7 Regular Diet Liquids Recommendation: Thin liquids Liquid Administration Via: Spoon, Straw Compensatory Swallowing Strategies: Upright as possible for all oral intake, Remain upright for 20-30 minutes after meals, Alternate solids and liquids, Small bites/sips, Eat/feed slowly Recommended Medication Route: PO Recommended Medication Administration: One pill at a time (with liquid) SPEECH AND LANGUAGE: CURRENT DIET ORDERED: Dietary Orders (From admission, onward) Start Ordered 02/18/25 0831 Adult diet [facility]; Diabetic; 60 gm carb/Meal; Patient Safety Tray; Auto-Select Meals Diet effective now Question Answer Comment Location [facility] Diet Type (req) Diabetic Diabetic 60 gm carb/Meal Miscellaneous Patient Safety Tray Is the patient able to participate in meal ordering? Auto-Select Meals 02/18/25 0831 PLAN DRY PAN OPERATOR PLAN: Treatment/Interventions: Swallow function DRY PAN OPERATOR Plan: Skilled DRY PAN OPERATOR DRY PAN OPERATOR Frequency: Follow-up visit only DRY PAN OPERATOR Duration of Sessions: 15-30 min per session DRY PAN OPERATOR Treatments per day: 1 time per day DRY PAN OPERATOR - Evaluation Status: Complete Diet Recommendations: Regular/thin (7/0) DRY PAN OPERATOR - OK to Discharge: Yes DISCHARGE RECOMMENDATIONS No Speech-Language Pathology (DRY PAN OPERATOR) services/needs at next level of care. EDUCATION EDUCATION: Education Documentation Modified Diet Training, taught by Kayleen Cartagena CCC-ELI at 02/19/2025 12:32 PM. Learner: Patient Readiness: Acceptance Method: Explanation Response: Verbalizes Understanding Education Comments No comments found. GOALS GOALS: Encounter Problems Encounter Problems (Active) There are no active problems. Encounter Problems (Resolved) Template: Speech Therapy Problem: Swallowing Dates: Start: 02/18/25 Resolved: 02/19/25 Goal: Patient will tolerate the least restrictive diet consistency to allow for safe consumption ofdaily meals (Resolved) Dates: Start: 02/18/25 Expected End: 02/20/25 Resolved: 02/19/25 Description: Goal Type: STG, Performance Level: Independent Outcomes Date/Time User Outcome 02/19/25 1232 ARUNA Ledesma Completed Goal: Patient will demonstrate safe swallowing Intervention/techniques (Resolved) Dates: Start: 02/18/25 Expected End: 02/20/25 Resolved: 02/19/25 Description: Goal Type: STG, Performance Level: Independent Outcomes Date/Time User Outcome 02/19/25 1232 ARUNA Ledesma Completed ARUNA Ledesma 02/19/2025 * Lex Cain MD - 02/19/2025 12:24 PM EDT Images from the original note were not included. DAKSHA PROGRESS NOTE Date: 02/19/2025 Author: Lex Cain MD Patient ID: Estephania Ryan is a 59 y.o. female : 1965 MR#: [id number] ASSESSMENT & PLAN Assessment/Plan Principal Problem: Acute drug overdose Estephania Ryan is a 59 y.o. female who has history of HTN, DM, A-fib on Eliquis, seizure disorder presented to ED with concern for intentional overdose. 1. Suicidal ideation Patient presented to ED lethargic and reports from EMS report that she took unknown quantity of lisinopril tablets and 10 Keppra tablets each 500 mg. She reported suicidal ideation to EMS. Patient currently denying any suicidal ideation, has no insight, claims she did not attempt suicide. Plan is for inpatient psychiatric admission. Patient is medically cleared. 2. SONIA/metabolic acidosis-resolved Patient presented with creatinine of 3.5 which has improved to 0.6. Metabolic acidosis has resolved. IV fluid discontinued. Patient stable for discharge to inpatient psych facility. 3. Hypotension-resolved Patient is now normotensive. Continue with home dose of Imdur 60 mg, lisinopril and clonidine. 4. DM2 Will increase glargine to 20 units. Continue with sliding scale Humalog. SUBJECTIVE Subjective No events overnight. Patient was comfortably in bed. Bedside sitter was present. She denied any complaints. She said she will not go to psychiatric facility. She has no nausea, vomiting, fever, chill, chest pain, shortness of breath, suicidal ideation. Allergies Sumatriptan and Ibuprofen Current Medications: apixaban, 5 mg, oral, BID aspirin, 81 mg, oral, Daily atorvastatin, 80 mg, oral, Nightly cloNIDine, 0.1 mg, oral, BID insulin glargine, 15 Units, subcutaneous, Nightly insulin lispro, 2-12 Units, subcutaneous, Before meals & nightly isosorbide mononitrate, 60 mg, oral, Daily lisinopriL, 5 mg, oral, Daily pantoprazole, 40 mg, oral, q AM AC sertraline, 25 mg, oral, Nightly sodium chloride, 10 mL, intravenous, BID PRN medications: acetaminophen, dextrose 50%, dextrose 50%, dextrose, dextrose, glucagon injection,hydrALAZINE, ondansetron (ZOFRAN-ODT) disintegrating tablet OR ondansetron, oxyCODONE, prochlorperazine OR prochlorperazine OR prochlorperazine, [COMPLETED] Insert peripheral IV AND Maintain IV access AND [COMPLETED] Saline lock IV AND sodium chloride AND sodium chloride OBJECTIVE Vitals: 02/18/25 2157 02/18/25 2336 02/19/25 0218 02/19/25 0801 BP: (!) 173/82 (!) 183/90 136/64 131/66 BP Location: Left arm Right arm Patient Position: Sitting Lying Pulse: 71 80 81 73 Resp: 18 18 18 17 Temp: 37.1 ??C (98.8 ??F) 36.8 ??C (98.2 ??F) TempSrc: Oral SpO2: 96% 98% 96% 99% Weight: Height: Physical Exam Vitals and nursing note reviewed. Constitutional: Appearance: She is obese. She is not ill-appearing. HENT: Head: Normocephalic and atraumatic. Nose: Nose normal. Cardiovascular: Rate and Rhythm: Normal rate and regular rhythm. Pulmonary: Effort: Pulmonary effort is normal. Breath sounds: Normal breath sounds. Abdominal: General: There is no distension. Palpations: Abdomen is soft. Tenderness: There is no abdominal tenderness. Musculoskeletal: General: No swelling or deformity. Skin: General: Skin is warm and dry. Neurological: General: No focal deficit present. Mental Status: She is alert. Mental status is at baseline. LABS HEMATOLOGY Lab Results Component Value Date WBC 9.1 02/18/2025 HGB 10.2 (L) 02/18/2025 HCT 33.7 (L) 02/18/2025 MCV 86.9 02/18/2025 PLT 274 02/18/2025 CHEMISTRY Lab Results Component Value Date GLUCOSE 205 (H) 02/19/2025 NA 143 02/18/2025 K 4.6 02/18/2025 CO2 25 02/18/2025 CL 110 02/18/2025 BUN 32 (H) 02/18/2025 CREATININE 0.61 02/18/2025 EGFR 104 02/18/2025 CALCIUM 8.9 02/18/2025 MG 2.3 02/18/2025 PHOS 2.6 02/18/2025 ANIONGAP 8 02/18/2025 No results found for this or any previous visit (from the past week). Imaging: XR Chest 1 View Narrative: XR CHEST 1 VIEW INDICATION: pain Hypoxemia TECHNIQUE: XR CHEST 1 VIEW COMPARISON: No priors available. Impression: FINDINGS/IMPRESSION: Hypoventilatory examination with mild pulmonary vascular congestion and scattered opacities which could represent atelectasis, pneumonia or edema. No significant pleural effusion. Ascending aortic ectasia versus aneurysm. -------- FINAL REPORT -------- Dictated By: Topher Sebastian Dictated Date: 02/16/2025 10:09 ET Assigned Physician: Topher Sebastian Reviewed and Electronically Signed By: Topher Sebastian Signed Date: 02/16/2025 10:10 ET Workstation ID: [id number] Transcribed By: Self Edit Transcribed Date: 02/16/2025 10:09 ET DAILY CARE CHECKLIST Length of Stay: 01d 21h 52m VTE Prophylaxis: Apixaban Resuscitation: Full Code - Default IV Access: Peripheral Tubes, Catheters, Devices: Alexander PCP: No Pcp Physician Disposition: Pending inpatient psychiatric admission Lex Cain MD 02/19/25 12:24 PM EDT * NING Escalante - 02/19/2025 9:36 AM EDT Circular Ripsaw Operator- CM Progress Note Patient continues to require acute level hospital care. DENNISE: tbd Barriers: inpatient psychiatric bed placement Disposition: Inpt psych This newswriter notified psychiatrist and Yulisa LANDRUM of patient's medical readiness. director patient financial services will remain available to assess, support, provide advocacy and assist with discharge planning as appropriate. * Emma Escobar MD - 02/19/2025 8:02 AM EDT Connected to patient's room via I-pad with help from reproduction technician; assistance much appreciated. Patient consented verbally to visit via Telehealth video conferencing modality. Patient educated asto likely differences between Telehealth care and face to face care. Patient informed of the risks and benefits of using Telehealth services and procedures and likely risks and benefits of using alternatives to Telehealth services. Patient informed of the right to refuse Telehealth services at any time without jeopardizing his/her right to future care, services or benefits. Patient was informed that he/she is being seen solely by Emma Escobar MD today via secure audio/visual connection in alocked virtual exam room. Persons present on patient's end: Patient, sitter Persons present on provider's end in [place]: Emma Escobar MD CHART REVIEWED, PATIENT INTERVIEWED. CHIEF COMPLAINT: AMS following overdose, possible suicide attempt Time spent on encounter: 10 min (5 min face to face, 5 min in chart review and documentation) Billing: [facility] HISTORY OF PRESENT ILLNESS Estephania Ryan is a 59 y.o. female with psychiatric history significant for anxiety and medical history significant for but not limited to atrial fibrillation, DM, CAD, GERD, GI bleed, HTN, kidney stone, meningitis, RA, seizures, and stomach ulcer who was admitted following overdose. Psychiatry was consulted for suicidal ideations and concern for suicide attempt. The patient states that it was dark in her room last night and she ran into the door casing to the bathroom. She feels that her mood is stable, and her anxiety is well controlled. The patient denies any suicidal ideations, plan, or intent. Per conversation with the sitter in the hallway, the patient admitted to her that she purposefully hit her head last night. Per nursing staff, the patient told them that she wanted to see if anyone would notice. REVIEW OF SYSTEMS CONSTITUTIONAL: The patient denies fevers, chills, sweats and body ache. HEENT: Denies CALVILLO, blurry vision, eye pain, tinnitus, vertigo, gingival bleeding, sore throat, neck or thyroid masses. RESPIRATORY: Denies cough, sputum, hemoptysis. CARDIAC: Denies chest pain, pressure, palpitations, irregular heartbeats. Denies lower extremity edema. GASTROINTESTINAL: Denies abdominal pain, changes in bowel habits or any bleeding on toilet paper. GENITOURINARY: Denies dysuria, hematuria, nocturia or frequency. NEUROLOGIC: Denies headaches, dizziness, syncope. MUSCULOSKELETAL: Negative for arthritis. Denies muscle weakness. No limitation in range of motion. VASCULAR: Denies claudication and cramping. ENDOCRINOLOGY: Denies heat or cold intolerance. HEMATOLOGY: Denies easy bleeding or blood transfusion. DERMATOLOGY: Bruise on forehead. Psychiatric ROS: Depression: The patient denies any depressed mood, anhedonia, depression-related sleep changes, feelings of guilt/worthlessness, fatigue, poor concentration, appetite changes, psychomotor agitation or retardation, or suicidal ideations. Edd: The patient denies elevated/expansive mood, decreased need for sleep, grandiosity, pressuredspeech, flight of ideas, distractibility, increase in goal directed activity, and hypersexuality. Psychosis: The patient denies audio or visual hallucinations, delusions, thought broadcasting, thought insertion, delusions of reference, catatonia, or disorganized speech or behavior. Anxiety: See HPI. Panic: The patient denies any recent panic episodes. PTSD: The patient does not endorse any current s/s related to PTSD. OCD: The patient denies intrusive thoughts, repetitive behaviors, counting, checking, washing, symmetry, or grouping and ordering that take up more than 1 hour of the day. Eating Disorder: The patient denies feeling overweight, excessive dieting or exercise to lose weight, overuse of laxatives, binging/purging behaviors, and amenorrhea. MEDICAL HISTORY Non-psychiatric medical history: Past Medical History: Diagnosis Date Angina pectoris ([facility] V24) DX:Angina pectoris ([facility]) Anxiety DX:Anxiety;COMMENT:mild Arthritis DX:Arthritis Atrial fibrillation ([facility] V24, [facility] V28) Borderline diabetes DX:Borderline diabetes Cholelithiasis DX:Cholelithiasis Coronary artery disease DX:Coronary artery disease Diabetes mellitus ([facility] V24, [facility] V28) GERD (gastroesophageal reflux disease) DX:GERD (gastroesophageal reflux disease) GI (gastrointestinal bleed) DX:GI (gastrointestinal bleed) Heart murmur DX:Heart murmur Hypertension DX:Hypertension Kidney stone DX:Kidney stone Meningitis spinal 2002 DX:Meningitis spinal Rheumatoid arthritis(714.0) DX:Rheumatoid arthritis(714.0) Seizures ([facility] V24, [facility] V28) 2002 DX:Seizures ([facility]);COMMENT:h/o spinal meningitis Stomach ulcer DX:Stomach ulcer Stomach ulcer DX:Stomach ulcer Current medications: apixaban, 5 mg, oral, BID aspirin, 81 mg, oral, Daily atorvastatin, 80 mg, oral, Nightly cloNIDine, 0.1 mg, oral, BID insulin glargine, 15 Units, subcutaneous, Nightly insulin lispro, 2-12 Units, subcutaneous, Before meals & nightly isosorbide mononitrate, 60 mg, oral, Daily lisinopriL, 5 mg, oral, Daily pantoprazole, 40 mg, oral, q AM AC sodium chloride, 10 mL, intravenous, BID ALLERGIES: Allergies Allergen Reactions Sumatriptan Unknown, Other and Palpitations Rapid heart rate hives Rapid heart rate Rapid heart rate Ibuprofen Nausea And Vomiting and Other History of peptic ulcer disease. MSE: Appearance: AOx4. Appears stated age, well groomed. Pleasant and cooperative. Adequate eye contact.No psychomotor agitation or retardation. No evidence of EPS. Muscle tone/station: WNL. Orientation: To person, place, time, and situation. Attention and Concentration: No deficits in attention and concentration. Speech: Normal rate, rhythm, volume, and tone. Mood: I'm fine. Affect: Mostly euthymic with access to full range, mood congruent. No lability noted. Thought Process: Coherent, linear, logical, and goal-directed. No FOI or CATIA. No thought blocking. Thought Content: Denies suicidal/homicidal ideation. Denies auditory/visual hallucinations. No delusions. No paranoia. Perception/associations: Denies hallucinations, somatic complaints, or tactile disturbances Suicidal Ideations: Pt denies SI, intent, or plan. Low acute risk. Currently is future oriented, motivated for treatment, and compliant with medications. Homicidal Ideations: Pt denies HI, intent, or plan. Low acute risk. No history of violence. No access to firearms. Behavior: No abnormal behavior during interview. Fund of Knowledge: Appropriate for age and level of education Intellect/Memory: Estimated as average based on interview. Immediate, recent, and remote memory is grossly intact. Language: No deficits Judgment/Insight: fair at present. Musculoskeletal Exam: Movement: [x]normal []abnormal [-]dyskinesias [-]tremors [-]tics Station: [x]upright []hyperflexed/stooped []hyperextended Muscle strength [x]appears normal [-]appears abnormal Muscle tone: [x]normal [-]muscle rigidity LABS: Lab Results Component Value Date WBC 9.1 02/18/2025 HGB 10.2 (L) 02/18/2025 HCT 33.7 (L) 02/18/2025 PLT 274 02/18/2025 ALT 25 02/16/2025 AST 34 02/16/2025 NA 143 02/18/2025 K 4.6 02/18/2025 CL 110 02/18/2025 CREATININE 0.61 02/18/2025 BUN 32 (H) 02/18/2025 CO2 25 02/18/2025 TSH 0.27 (L) 12/20/2024 INR 0.9 02/16/2025 HGBA1C 11.5 (H) 12/11/2024 MICROALBUR 56.4 (H) 12/05/2024 VITALS: BP: 131/66 (02/19 801) Heart Rate: 73 (02/19 801) Temp: 36.8 ??C (98.2 ??F) (02/19 801) Temp Source: Oral (02/19 218) SpO2: 99 % (02/19 801) FiO2 (%): 28 % (02/18 2000) O2 Flow Rate (L/min): 2 L/min (02/18 2000) O2 Delivery Method: Nasal cannula (02/17 306) ASSESSMENT: Estephania Ryan is a 59 y.o. female with psychiatric history significant for anxiety and medical history significant for but not limited to atrial fibrillation, DM, CAD, GERD, GI bleed, HTN, kidney stone, meningitis, RA, seizures, and stomach ulcer who was admitted following overdose. Psychiatry was consulted for suicidal ideations and concern for suicide attempt. The patient currently denies any suicidal ideations, plan, or intent, but she admitted to intentional overdose on some of her home medications upon initial arrival to the ED. She now has a large bruise on her forehead; she tells the u/s that it is from an accident while walking to the bathroom, but staff report that she told them itwas done on purpose and that she was waiting to see if anyone would notice. DSM-5 DIAGNOSIS: Suspected intentional overdose/suicide attempt R/o borderline personality disorder Anxiety disorder, unspecified Atrial fibrillation, DM, CAD, GERD, GI bleed, HTN, kidney stone, meningitis, RA, seizures, and stomach ulcer Admitted following overdose on medication TREATMENT PLAN: Pt has verbalized understanding and given consent/agreement with medications and plan offered. LEVEL OF CARE: Continue current level of treatment. RECOMMENDATIONS: Continue Zoloft 25 mg PO qHS for anxiety. Discussed/Reviewed mechanism of action of SSRIs, expectedbenefits and time to response, common SEs including GI, CALVILLO, drowsiness or activation, sexual SEs, and more rare but serious adverse effects including agitation, edd, suicidal thoughts and behaviors. Of note, the patient meets criteria for Section 12 and cannot leave the hospital AMA. Continue sitter for safety. Please alert the u/s once the patient has been medically cleared. At that time, will ask the adolescent medicine specialist to see the patient for possible transfer to a psychiatric unit following a likely suicide attempt. Medication Education: Risks, benefits, alternatives, and potential side effects were discussed withthe patient. Patient voiced understanding and agreed with medication regimen described above. LABS: Reviewed and discussed most recent labs results. MEDICATION CONTRACT: Patient agreed to take medication only as prescribed and acknowledges that services may be terminated if prescription abuse is observed. SAFETY PLAN: Patient is to alert team if symptoms worsen. Team will monitor for development of suicidal ideations or an acute medication reaction. - Call 911 or present to nearest Emergency Room in case of crisis / suicidal thoughts upon discharge. EDUCATION/CONSENT: Discussed and explained all diagnoses including differential diagnosis and treatment options. Discussed risks, benefits, potential side effects, contraindications, potential drug-drug interactions, alternatives to current medications and medication allergies as noted above. Discussed continuing to monitor for side effects and treatment efficacy prospectively and delineated patient's involvement and responsibility in monitoring for side effects and efficacy. Duane colbert expressed understanding of these recommendations. BARRIERS TO LEARNING: Patient demonstrates a readiness to learn. Patient verbalizes understanding and agrees to plan. No barriers to communication noted. MEDICATION RECONCILIATION: Medications were reviewed and reconciled with the patient. PREVENTATIVE RECOMMENDATIONS: Preventative Health Education Counseling: discussed proper diet/nutrition, exercise, and sleep hygiene. The patient was encouraged to avoid nicotine, alcohol and illicitdrugs at all times. The patient was made aware that records from the u/s can be sent to his/her PCP at any time that he/she requests. * Lex Cain MD - 02/19/2025 7:29 AM EDT [facility] Provider Response Note PATIENT: ESTEPHANIA RYAN : 1965 ADMIT DATE: 02/15/2025 7:25 PM DISCH DATE: RESPONDING PROVIDER #: [id number] PROVIDER RESPONSE TEXT: The patient has secondary hypercoagulable state due to atral fibrillation QUERY TEXT: The patient has an order for the following medication(s): apixaban (ELIQUIS) 5 mg tablet per EMR Please provide the corresponding diagnosis that supports the use of the following medication ordered and administered: H&P 02/15/2025 (4) Estephania Ryan is a 59-year-old female with medical history significant for hypertension, hyperlipidemia, diabetes mellitus, atrial fibrillation on Eliquis, seizure disorder...Atrial fibrillation Rate controlled On Eliquis ocean transportation intermediary use of anticoagulant in the form of Apixaban. [phone] The patient's clinical indicators include: Options provided: -- Secondary hypercoagulable state due to advance age -- Secondary hypercoagulable state due to atrial fibrillation -- Other - I will add my own diagnosis -- Disagree - Not applicable / Not valid Query created by: Abby Lea on 02/18/2025 1:21 PM Electronically signed by: LEX CAIN MD 02/19/2025 7:29 AM * Corrine Andrew RN - 02/19/2025 6:50 AM EDT Problem: Falls: Fall Risk (Adult IP BH) Goal: (Goal) Patient will experience maximum safety and reduce risk for falls. Outcome: Progressing Goals: Identify possible barriers to meeting goals/advancing plan of care: Stability of the patient: Moderately Stable - Low risk of patient condition declining or worsening End of Shift Summary: VSS, No issue overnight * NING Arguello - 02/18/2025 6:00 PM EDT Per psychiatry, patient continues to meet criteria for a Section 12 psychiatric admission. Bed search coordinated by [facility]. * Jessy Warren RN - 02/18/2025 1:50 PM EDT Problem: Falls: Fall Risk (Adult IP BH) Goal: (Goal) Patient will experience maximum safety and reduce risk for falls. Outcome: Progressing Problem: Falls: Fall Risk (Adult IP BH) Goal: (Goal) Patient will experience maximum safety and reduce risk for falls. Outcome: Progressing Goals: Identify possible barriers to meeting goals/advancing plan of care: none Stability of the patient: Moderately Stable - Low risk of patient condition declining or worsening End of Shift Summary: Pt resting comfortably in bed at lowest position, call cain within reach, care ongoing. * Lex Cain MD - 02/18/2025 1:22 PM EDT [facility] Provider Response Note PATIENT: ESTEPHANIA RYAN : 1965 ADMIT DATE: 02/15/2025 7:25 PM DISCH DATE: RESPONDING PROVIDER #: [id number] PROVIDER RESPONSE TEXT: Unable to specify QUERY TEXT: Acute Kidney Failure is documented in the medical record. Please specify the associated condition such as: H&P 02/15/2025 SONIA on CKD Creatinine is 3.5 compared with 1.75 (11/2024). Likely prerenal. Hold lisinopril Gentle IV fluids Recheck creatinine Progress Notes 02/17/2025 Non-anion gap metabolic acidosis SONIA - VBG pH low at 7.19 with serum bicarb of 21 with normal anion gap. No history of diarrhea. Suspecting renal tubular acidosis. Initially patient was on bicarb drip which was discontinued and started on LR today. -Creatinine was elevated on admission to 3.5. Downtrending on hydration Creatinine (mg/dL) 02/18: 0.61 02/17: 0.97 02/16: 3.12 per EMR Creatinine (mg/dL) 02/16: 2.62 02/15: 3.50 per EMR URINALYSIS WITH REFLEX MICROSCOPIC 02/15/2025 23:26 Bacteria, Urine (/HPF) Negative Bilirubin, Urine Negative Blood, Urine Negative Glucose, Urine (mg/dL) >=1000A Hyaline Casts, Urine (/LPF) 7.6 Ketones, Urine (mg/dL) TraceA Leukocytes, Urine Negative Nitrite, Urine Negative pH, Urine (pH) 5.0 Protein, Urine (mg/dL) 30A RBC, Urine (/HPF) 2.3 Specific [place] Urine 1.025 Squamous Epithelial, Urine (/LPF) 39 Urobilinogen, Urine (mg/dL) 0.2 WBC, Urine (/HPF) 5.6 The patient's clinical indicators include: Options provided: -- Acute Cortical Necrosis -- Tubular Necrosis -- Papillary or Medullary Necrosis -- Other - I will add my own diagnosis -- Disagree - Not applicable / Not valid Query created by: Abby Lea on 02/18/2025 1:16 PM Electronically signed by: LEX CAIN MD 02/18/2025 1:21 PM * Lex Cain MD - 02/18/2025 1:16 PM EDT [facility] Provider Response Note PATIENT: ESTEPHANIA RYAN : 1965 ADMIT DATE: 02/15/2025 7:25 PM DISCH DATE: RESPONDING PROVIDER #: [id number] PROVIDER RESPONSE TEXT: SONIA QUERY TEXT: Chronic Kidney Disease (CKD) is documented in the medical record. Please specify the disease stage such as: H&P 02/15/2025 (1) Constitutional: SONIA on CKD Creatinine is 3.5 compared with 1.75 (11/2024). Likely prerenal. Hold lisinopril Gentle IV fluids Recheck creatinine Progress Notes 02/17/2025 Principal Problem: Acute on chronic renal failure ([facility] V24)...Non-anion gap metabolic acidosis SONIA - VBG pH low at 7.19 with serum bicarb of 21 with normal anion gap. No history of diarrhea. Suspecting renal tubular acidosis. Initially patient was on bicarb drip which was discontinued and started on LR today. -Creatinine was elevated on admission to 3.5. Downtrending on hydration 02/18-02/15 eGFR (mL/min/1.73m2) 02/18: 104 02/17: 68 02/16: 17 02/16: 21 02/15: 15 Stages are defined by the [employer] as follows: -- CKD Stage 1: GFR >= 90 ml / min per 1.73 m2 and persistent albuminuria -- CKD Stage 2: GFR between 60 and 89 with persistent albuminuria -- CKD Stage 3 , unspecified: GFR between 30 and 59 -- CKD Stage 3a: GFR between 45 and 59 -- CKD Stage 3b: GFR between 30 and 44 -- CKD Stage 4 GFR between 15 and 29 -- CKD Stage 5 GFR between less than 15 -- End Stage Renal Disease [phone] The patient's clinical indicators include: Options provided: -- Chronic kidney disease Stage 1 -- Chronic kidney disease Stage 2 -- Chronic kidney disease Stage 3 -- Chronic kidney disease Stage 3a -- Chronic kidney disease Stage 3b -- Chronic kidney disease Stage 4 -- Chronic kidney disease Stage 5 -- Chronic kidney disease Stage 5, requiring dialysis -- End stage renal disease -- Other - I will add my own diagnosis -- Disagree - Not applicable / Not valid Query created by: Abby Lea on 02/18/2025 1:10 PM Electronically signed by: LEX CAIN MD 02/18/2025 1:15 PM * Elyssa Smart RD - 02/18/2025 1:05 PM EDT 02/18/2025 @ 1:06 PM EDT Nutrition Initial Assessment Reason for RD Intervention: Assessment Type: Nutrition Trigger Reason for Assessment: High MST Score Anthropometrics: Height: 165.1 cm (65 ) Weight: 95.3 kg (210 lb) Weight Method: Stated BMI (Calculated): 34.9 BMI Class: Obesity Class I IBW (lbs): 125 UBW (lbs): 220 Recent Weight Change: No Current Diet and Supplements: Dietary Orders (From admission, onward) Start Ordered 02/18/25 0831 Adult diet [facility]; Diabetic; 60 gm carb/Meal; Patient Safety Tray; Auto-Select Meals Diet effective now Question Answer Comment Location [facility] Diet Type (req) Diabetic Diabetic 60 gm carb/Meal Miscellaneous Patient Safety Tray Is the patient able to participate in meal ordering? Auto-Select Meals 02/18/25 0831 History of presenting illness: Patient is a 59 y.o. female with a history of Past Medical History: Diagnosis Date Angina pectoris ([facility] V24) DX:Angina pectoris ([facility]) Anxiety DX:Anxiety;COMMENT:mild Arthritis DX:Arthritis Atrial fibrillation ([facility] V24, [facility] V28) Borderline diabetes DX:Borderline diabetes Cholelithiasis DX:Cholelithiasis Coronary artery disease DX:Coronary artery disease Diabetes mellitus ([facility] V24, [facility] V28) GERD (gastroesophageal reflux disease) DX:GERD (gastroesophageal reflux disease) GI (gastrointestinal bleed) DX:GI (gastrointestinal bleed) Heart murmur DX:Heart murmur Hypertension DX:Hypertension Kidney stone DX:Kidney stone Meningitis spinal 2002 DX:Meningitis spinal Rheumatoid arthritis(714.0) DX:Rheumatoid arthritis(714.0) Seizures ([facility] V24, [facility] V28) 2002 DX:Seizures ([facility]);COMMENT:h/o spinal meningitis Stomach ulcer DX:Stomach ulcer Stomach ulcer DX:Stomach ulcer Past Surgical History: Procedure Laterality Date APPENDECTOMY PROCEDURE:APPENDECTOMY CARDIAC CATHETERIZATION 2010 PROCEDURE:CARDIAC CATHETERIZATION SECTION PROCEDURE: SECTION;COMMENT:x 2 CHOLECYSTECTOMY PROCEDURE:CHOLECYSTECTOMY HERNIA REPAIR date unknown PROCEDURE:HERNIA REPAIR KIDNEY STONE SURGERY PROCEDURE:KIDNEY STONE SURGERY SUPERIOR OBLIQUE RECESSION PROCEDURE:HYBRID ANGIOGRAM - FEMORAL TOTAL KNEE ARTHROPLASTY Left UPPER GASTROINTESTINAL ENDOSCOPY N/A 07/18/2015 PROCEDURE:UPPER GASTROINTESTINAL ENDOSCOPY;COMMENT:Procedure: UPPER ENDOSCOPY- EGD; Surgeon: Juve Clinton MD; Location: [facility]; Service: Gastroenterology; Laterality: N/A; admitted 02/15/2025 with Acute on chronic renal failure ([facility] V24). Food/Nutrition History: Previous Diet / Nutrition Education / Counseling: Pt reports she eats lots of fresh foods at home, prepares her own meals, and and follows a low sodium/low sugar diet. No reported food allergies. Appetite DEAN OF FACULTY: Good Intake DEAN OF FACULTY: Stable Vitamins/Minerals/Herbs: Pt does not take any supplements at home Social Influencers of Health & Nutrition - Hunger Vital Signs: Within the past 12 months we worried whether our food would run out before we got money to buy more: Never true Within the past 12 months the food we bought just didn't last and we didn't have money to get more: Never true Who obtained answers? Hunger vital signs completed by RD. Assistance: No assistance needed at this time Weight History: Wt Readings from Last 10 Encounters: 02/15/25 95.3 kg (210 lb) 12/18/24 95.3 kg (210 lb) 12/14/24 96.3 kg (212 lb 6.4 oz) 11/24/24 93 kg (205 lb) Subjective Assessment: Pt admitted for intentional overdose, on suicide precautions. Pt reports appetite is okay, not great, but eating some of meals. She reports her appetite was better prior to admission. Pt reports somenausea in the morning, but ate some of her breakfast. Pt denies chew/swallow issues, denies diarrhea /constipation. Last +BM this morning, reports it was soft. Pt reports usual weight of about 220 lbsand stable. Offered oral nutrition supplement given inadequate intake; pt agreeable to try. Possible anticipated discharge; will request consult for nutrition supplement if pt is not discharged. Nutrition-Related Lab Values: Results from last 7 days Lab Units 02/18/25 1110 02/18/25 0821 02/18/25 0550 02/16/25 0804 02/16/25 0619 SODIUM mmol/L -- -- 143 < > 138 POTASSIUM mmol/L -- -- 4.6 < > 4.8 PHOSPHORUS mg/dL -- -- 2.6 -- -- MAGNESIUM mg/dL -- -- 2.3 -- -- CHLORIDE mmol/L -- -- 110 < > 109 CO2 mmol/L -- -- 25 < > 19* BUN mg/dL -- -- 32* < > 63* CREATININE mg/dL -- -- 0.61 < > 2.62* EGFR mL/min/1.73m2 -- -- 104 < > 21* CALCIUM mg/dL -- -- 8.9 < > 8.1* BILIRUBIN TOTAL mg/dL -- -- -- -- 0.3 ALK PHOS unit/L -- -- -- -- 119 ALT unit/L -- -- -- -- 25 AST unit/L -- -- -- -- 34 POCT GLUCOSE mg/dL 169* < > -- < > -- GLUCOSE mg/dL -- -- 156* < > 156* WBC AUTO K/mcL -- -- 9.1 < > 11.1* < > = values in this interval not displayed. Lab Results Component Value Date LIPASE 13 12/05/2024 Medications: apixaban, 5 mg, oral, BID aspirin, 81 mg, oral, Daily atorvastatin, 80 mg, oral, Nightly cloNIDine, 0.1 mg, oral, BID insulin glargine, 15 Units, subcutaneous, Nightly insulin lispro, 2-12 Units, subcutaneous, Before meals & nightly isosorbide mononitrate, 30 mg, oral, Daily lisinopriL, 5 mg, oral, Daily pantoprazole, 40 mg, oral, q AM AC sodium chloride, 10 mL, intravenous, BID CONTINUOUS: PRN medications: acetaminophen, dextrose 50%, dextrose 50%, dextrose, dextrose, glucagon injection,hydrALAZINE, ondansetron (ZOFRAN-ODT) disintegrating tablet OR ondansetron, prochlorperazine OR prochlorperazine OR prochlorperazine, [COMPLETED] Insert peripheral IV AND Maintain IV access AND [COMPLETED] Saline lock IV AND sodium chloride AND sodium chloride Food/Nutrition-Current Status: Intake Type: P.O. Current Diet Status: Appropriate Appetite: Fair Intake Amount (%): 25-50% (per pt report; %meal intake not recorded) Intake Assessment: Variable Main IVF: None Nutrition Focused Physical Findings: Overall Appearance: Pt sitting up in bed, no visible findings of fat or muscle loss noted Digestive System (Mouth to Rectum): Appetite change, Nausea Nerves and Cognition: Alert, Oriented Skin: No wounds documented Nutrition Diagnosis: Code Type: None Identified Status: New Diagnosis: Inadequate Oral Intake Etiology: Changes in taste and appetite or preference Symptoms: Pt report of decreased appetite, suboptimal meal intake since admission. Nutrition Interventions: Medical Food Supplement, Meals/Snacks Monitor adequacy of PO intake; consider offering snacks/supplements if pt consuming <65% of meals on follow up. Will request nutrition consult for oral nutrition supplements if intake <65% of meals. Monitor labs, POCs Nutrition Education Education not provided at this time. Goals: Patient will consume greater than or equal to 75% meals., Monitor/control glucose levels, Electrolytes within normal range., Maintain weight., Stooling appropriately., and Maintain skin integrity. Coordination of Patient Care: Care plan discussed with patient/family. Monitoring/Evaluation: Fluid/Beverage Intake, Food Intake, Gastrointestinal Profile Follow Up: Nutrition Priority Level: Moderate RD remains available and will continue to follow. Signature: Elyssa Smart RD * Lex Cain MD - 02/18/2025 12:40 PM EDT Images from the original note were not included. DAKSHA PROGRESS NOTE Date: 02/18/2025 Author: Lex Cain MD Patient ID: Estephania Ryan is a 59 y.o. female : 1965 MR#: [id number] ASSESSMENT & PLAN Assessment/Plan Principal Problem: Acute on chronic renal failure (CMS/HCC V24) Estephania Ryan is a 59 y.o. female who has history of HTN, DM, A-fib on Eliquis, seizure disorder presented to ED with concern for intentional overdose. 1. Suicidal ideation Patient presented to ED lethargic and reports from EMS report that she took unknown quantity of lisinopril tablets and 10 Keppra tablets each 500 mg. She reported suicidal ideation to EMS. Patient currently denying any suicidal ideation. Plan is for inpatient psychiatric admission. 2. SONIA/metabolic acidosis-resolved Patient presented with creatinine of 3.5 which has improved to 0.6. Metabolic acidosis has resolved. IV fluid discontinued. Patient stable for discharge to inpatient psych facility. 3. Hypotension-resolved Patient is now hypotensive. I have resumed Imdur 30 mg daily, continue lisinopril 5 mg daily and clonidine 0.1 mg twice daily. Will continue to monitor BP and uptitrate medications. 4. DM2 Continue with glargine 15 units and sliding scale Humalog. SUBJECTIVE Subjective No events overnight. Patient was sitting up in bed. She denied any complaints. She denies suicidal ideation, denied overdosing on her medications, denied depression. She has no fever, chill, nausea, vomit, chest pain, shortness of breath. Allergies Sumatriptan and Ibuprofen Current Medications: apixaban, 5 mg, oral, BID aspirin, 81 mg, oral, Daily atorvastatin, 80 mg, oral, Nightly cloNIDine, 0.1 mg, oral, BID insulin glargine, 15 Units, subcutaneous, Nightly insulin lispro, 2-12 Units, subcutaneous, Before meals & nightly isosorbide mononitrate, 30 mg, oral, Daily lisinopriL, 5 mg, oral, Daily pantoprazole, 40 mg, oral, q AM AC sodium chloride, 10 mL, intravenous, BID PRN medications: acetaminophen, dextrose 50%, dextrose 50%, dextrose, dextrose, glucagon injection,hydrALAZINE, ondansetron (ZOFRAN-ODT) disintegrating tablet OR ondansetron, prochlorperazine OR prochlorperazine OR prochlorperazine, [COMPLETED] Insert peripheral IV AND Maintain IV access AND [COMPLETED] Saline lock IV AND sodium chloride AND sodium chloride OBJECTIVE Vitals: 02/17/25 2225 02/17/25 2351 02/18/25 0303 02/18/25 0820 BP: (!) 175/76 (!) 183/81 (!) 157/80 (!) 168/97 BP Location: Left arm Left arm Patient Position: Lying Lying Pulse: 80 86 75 84 Resp: 18 15 Temp: 36.9 ??C (98.4 ??F) 36.7 ??C (98.1 ??F) TempSrc: Temporal Temporal SpO2: 99% 94% 95% Weight: Height: Physical Exam Vitals and nursing note reviewed. Constitutional: Appearance: She is obese. She is not ill-appearing. HENT: Head: Normocephalic and atraumatic. Nose: Nose normal. Cardiovascular: Rate and Rhythm: Normal rate and regular rhythm. Pulmonary: Effort: Pulmonary effort is normal. Breath sounds: Normal breath sounds. Abdominal: General: There is no distension. Palpations: Abdomen is soft. Tenderness: There is no abdominal tenderness. Musculoskeletal: General: No swelling or deformity. Skin: General: Skin is warm and dry. Neurological: General: No focal deficit present. Mental Status: She is alert. Mental status is at baseline. LABS HEMATOLOGY Lab Results Component Value Date WBC 9.1 02/18/2025 HGB 10.2 (L) 02/18/2025 HCT 33.7 (L) 02/18/2025 MCV 86.9 02/18/2025 PLT 274 02/18/2025 CHEMISTRY Lab Results Component Value Date GLUCOSE 169 (H) 02/18/2025 NA 143 02/18/2025 K 4.6 02/18/2025 CO2 25 02/18/2025 CL 110 02/18/2025 BUN 32 (H) 02/18/2025 CREATININE 0.61 02/18/2025 EGFR 104 02/18/2025 CALCIUM 8.9 02/18/2025 MG 2.3 02/18/2025 PHOS 2.6 02/18/2025 ANIONGAP 8 02/18/2025 No results found for this or any previous visit (from the past week). Imaging: XR Chest 1 View Narrative: XR CHEST 1 VIEW INDICATION: pain Hypoxemia TECHNIQUE: XR CHEST 1 VIEW COMPARISON: No priors available. Impression: FINDINGS/IMPRESSION: Hypoventilatory examination with mild pulmonary vascular congestion and scattered opacities which could represent atelectasis, pneumonia or edema. No significant pleural effusion. Ascending aortic ectasia versus aneurysm. -------- FINAL REPORT -------- Dictated By: Topher Sebastian Dictated Date: 02/16/2025 10:09 ET Assigned Physician: Topher Sebastian Reviewed and Electronically Signed By: Topher Sebastian Signed Date: 02/16/2025 10:10 ET Workstation ID: [id number] Transcribed By: Self Edit Transcribed Date: 02/16/2025 10:09 ET DAILY CARE CHECKLIST Length of Stay: 22h 08m VTE Prophylaxis: Apixaban Resuscitation: Full Code - Default IV Access: Peripheral Tubes, Catheters, Devices: Alexander PCP: No Pcp Physician Disposition: Pending inpatient psychiatric admission Lex Cain MD 02/18/25 12:40 PM EDT * Kayleen Cartagena CCC-DRY PAN OPERATOR - 02/18/2025 10:19 AM EDT Images from the original note were not included. Speech Language Pathology . [facility] DRY PAN OPERATOR BEDSIDE SWALLOW EVALUATION NAME: Estephania Ryan DATE OF : 1965 ROOM: 8/558-1 RECOMMENDATIONS Recommendations: Dysphagia treatment Diet Solids Recommendation: IDDSI Level 7 Regular Diet Liquids Recommendation: Thin liquids Liquid Administration Via: Cup, Straw Compensatory Swallowing Strategies: Upright as possible for all oral intake, Remain upright for 20-30 minutes after meals, Alternate solids and liquids, Small bites/sips, Eat/feed slowly Recommended Medication Route: PO Recommended Medication Administration: One pill at a time (with liquid) DRY PAN OPERATOR ASSESSMENT: DRY PAN OPERATOR Assessment Results: Swallowing impairments Evaluation/Treatment Tolerance: Patient tolerated treatment well Comments: Pt without report of swallowing difficulties with liquids, solids, and medications. Upon inquiry, pt reported reflux medication manages symptoms well. Pt self fed all provided trials. No overt clinical s/s of pulmonary compromise observed across consistencies. Mildly prolonged masticationnoted with solid (toast); however, pt independently completed liquid wash to ais in oral clearance. Pt ID by: Self, Full Name and DRY PAN OPERATOR Received On: 02/18/25 Apple Sorter Required: No TIME IN: 0900 TIME OUT: 09 TOTAL TIME: 30 min SUBJECTIVE: Chart reviewed and patient cleared by RN for swallow evaluation. Patient seen at bedside in room. Pt reported no swallowing difficulties at baseline. Patient goal stated: To swallow foods and liquids SWALLOW SCREEN: Principal Problem: Acute on chronic renal failure ([place] [id number]) Date Noted: 02/15/2025 Resolved Problems: * No resolved hospital problems. * Acute on chronic renal insufficiency [N28.9, N18.9] Acute on chronic renal failure ([place] [id number]) [N17.9, N18.9] Acute drug overdose, intentional self-harm, initial encounter ([facility] V24, [place] [id number]) [T50.902A] No admission procedures for hospital encounter. Past Medical History Past Surgical History Past Medical History: Diagnosis Date Angina pectoris ([place] [id number]) DX:Angina pectoris ([facility]) Anxiety DX:Anxiety;COMMENT:mild Arthritis DX:Arthritis Atrial fibrillation ([facility] V24, [facility] V28) Borderline diabetes DX:Borderline diabetes Cholelithiasis DX:Cholelithiasis Coronary artery disease DX:Coronary artery disease Diabetes mellitus ([facility] V24, [facility] V28) GERD (gastroesophageal reflux disease) DX:GERD (gastroesophageal reflux disease) GI (gastrointestinal bleed) DX:GI (gastrointestinal bleed) Heart murmur DX:Heart murmur Hypertension DX:Hypertension Kidney stone DX:Kidney stone Meningitis spinal 2002 DX:Meningitis spinal Rheumatoid arthritis(714.0) DX:Rheumatoid arthritis(714.0) Seizures ([facility] V24, [facility] V28) 2002 DX:Seizures ([facility]);COMMENT:h/o spinal meningitis Stomach ulcer DX:Stomach ulcer Stomach ulcer DX:Stomach ulcer Past Surgical History: Procedure Laterality Date APPENDECTOMY PROCEDURE:APPENDECTOMY CARDIAC CATHETERIZATION 2010 PROCEDURE:CARDIAC CATHETERIZATION SECTION PROCEDURE: SECTION;COMMENT:x 2 CHOLECYSTECTOMY PROCEDURE:CHOLECYSTECTOMY HERNIA REPAIR date unknown PROCEDURE:HERNIA REPAIR KIDNEY STONE SURGERY PROCEDURE:KIDNEY STONE SURGERY SUPERIOR OBLIQUE RECESSION PROCEDURE:HYBRID ANGIOGRAM - FEMORAL TOTAL KNEE ARTHROPLASTY Left UPPER GASTROINTESTINAL ENDOSCOPY N/A 07/18/2015 PROCEDURE:UPPER GASTROINTESTINAL ENDOSCOPY;COMMENT:Procedure: UPPER ENDOSCOPY- EGD; Surgeon: Juve Clinton MD; Location: [facility]; Service: Gastroenterology; Laterality: N/A; PRIOR LEVEL OF FUNCTIONING: Regular/thin IMAGING RESULTS MRI Brain No results found for this or any previous visit. CT Head Results for orders placed during the hospital encounter of 12/05/24 CT Head wo Contrast Narrative History: Altered mental status of unknown cause. Comparison: 11/24/24 Technique: Contiguous axial images were obtained at 2.5 mm intervals through the posterior fossa and at 5 mm intervals through the remainder of the brain without intravenous contrast. DLP: 716.71 mGy/cm [employer] VCT Iterative reconstruction technique Findings: The study is mildly degraded by motion artifact. The ventricular system is normal in size and configuration. There are mild to moderate cortical involutional changes for the stated age, favoring the frontal and temporal lobes. Field-white differentiation is maintained. No abnormal intra- or extra-axial masses or fluid collections are seen. There is no evidence of acute intracranial hemorrhage. Minimal mucoperiosteal thickening is seen in the left ethmoid sinus, consistent with sinusitis. Themastoid air cells are clear. The calvarium is intact. Impression Impression: No acute hemorrhage or intracranial mass effect. No significant change. [employer] DUANE ([id number]) -------- FINAL REPORT -------- Dictated By: Fatuma Mcfarland Dictated Date: 12/05/2024 08:33 ET Assigned Physician: Fatuma Mcfarland Reviewed and Electronically Signed By: Fatuma Mcfarland Signed Date: 12/05/2024 08:41 ET Workstation ID: [id number] Transcribed By: Self Edit Transcribed Date: 12/05/2024 08:33 ET Chest Portable Results for orders placed during the hospital encounter of 02/15/25 XR Chest 1 View Narrative XR CHEST 1 VIEW INDICATION: pain Hypoxemia TECHNIQUE: XR CHEST 1 VIEW COMPARISON: No priors available. Impression FINDINGS/IMPRESSION: Hypoventilatory examination with mild pulmonary vascular congestion and scattered opacities which could represent atelectasis, pneumonia or edema. No significant pleural effusion. Ascending aortic ectasia versus aneurysm. -------- FINAL REPORT -------- Dictated By: Topher Sebastian Dictated Date: 02/16/2025 10:09 ET Assigned Physician: Topher Sebastian Reviewed and Electronically Signed By: Topher Sebastian Signed Date: 02/16/2025 10:10 ET Workstation ID: [id number] Transcribed By: Self Edit Transcribed Date: 02/16/2025 10:09 ET Chest 2 View Results for orders placed during the hospital encounter of 12/05/24 XR Chest 2 Views Narrative HISTORY: The patient is a 59-year-old female with dyspnea. FINDINGS: Sitting AP radiograph of the chest demonstrates degenerative changes of the thoracic spine as also seen on the prior study performed 12/10/2024. The cardiac silhouette remains at the upper limits of normal allowing for AP technique. The descending thoracic aorta is somewhat tortuous. Therehas been significant improvement in diffuse bilateral alveolar infiltrates since the prior study. No consolidation, mass, pulmonary vascular congestion, or pleural effusion is demonstrated. Impression Significant improvement in diffuse bilateral alveolar infiltrates since 12/10/2024 consistent with improving pneumonia. Code 67989 -------- FINAL REPORT -------- Dictated By: James Mcnamara Dictated Date: 12/12/2024 12:09 ET Assigned Physician: James Mcnamara Reviewed and Electronically Signed By: James Mcnamara Signed Date: 12/12/2024 12:12 ET Workstation ID: [id number] Transcribed By: Self Edit Transcribed Date: 12/12/2024 12:[address] Results for orders placed during the hospital encounter of 12/05/24 CT Angio Chest wo and/or w Contrast Narrative PROCEDURE: CT ANGIO CHEST INDICATION: Respiratory failure r/o PE, eval for deam vs pneumonia. COMPARISON: 12/05/2024. TECHNIQUE: CT pulmonary angiogram performed following uneventful IV administration of ISOVUE contrast material with bolus timing technique from the thoracic inlet through the lung bases. 3-D multiplanar reformations were obtained by the technologist on an independent workstation. [employer] VCT dose reduction utilizing iterative reconstruction. Total exam DLP 730 (mGy-cm) FINDINGS: There is no CT evidence of acute pulmonary embolism to the lobar level. Evaluation of the segmentaland subsegmental pulmonary arteries is limited due to motion artifact and small peripheral pulmonary emboli cannot be excluded. Cardiomegaly with coronary artery and valvular calcifications. No aortic dissection.. There is no evidence for mediastinal or hilar lymphadenopathy. Worsening confluent opacities throughout the lungs some of these demonstrate a crazy paving pattern. There are no pleural effusions. Stable left adrenal nodule. Cholecystectomy The included skeletal structures are within normal limits for technique. Impression No acute pulmonary embolism. Worsening multifocal infectious/inflammatory process. -------- FINAL REPORT -------- Dictated By: Topher Sebastian Dictated Date: 12/08/2024 12:18 ET Assigned Physician: Topher Sebastian Reviewed and Electronically Signed By: Topher Sebastian Signed Date: 12/08/2024 12:20 ET Workstation ID: [id number] Transcribed By: Self Edit Transcribed Date: 12/08/2024 12:18 ET ALLERGIES: Allergies Allergen Reactions Sumatriptan Unknown, Other and Palpitations Rapid heart rate hives Rapid heart rate Rapid heart rate Ibuprofen Nausea And Vomiting and Other History of peptic ulcer disease. OBJECTIVE OXYGEN THERAPY: Oxygen Therapy: None (Room air) PAIN ASSESSMENT: TRACHEOSTOMY: DYSPHAGIA SYMPTOMS REPORTED: None FEEDING METHOD: Independent ENDURANCE DURING MEALS: Good MENTAL STATUS: Alert Responsive Cooperative SWALLOW BASELINE ASSESSMENT: Respiratory Status: Room air Behavior/Cognition: Alert, Cooperative, Pleasant mood Dentition: Some missing teeth Patient Positioning: Upright in bed Baseline Vocal Quality: Within Functional Limits Baseline Comments: Pt reported she eats regular/thin at home; currently on regular/thin diet. CURRENT DIET: Dietary Orders (From admission, onward) Start Ordered 02/18/25 0831 Adult diet [facility]; Diabetic; 60 gm carb/Meal; Patient Safety Tray; Auto-Select Meals Diet effective now Question Answer Comment Location [facility] Diet Type (req) Diabetic Diabetic 60 gm carb/Meal Miscellaneous Patient Safety Tray Is the patient able to participate in meal ordering? Auto-Select Meals 02/18/25 0831 MOTOR SPEECH: Labial ROM: Within Functional Limits Labial Symmetry: Within Functional Limits Labial Strength: Within Functional Limits Lingual ROM: Within Functional Limits Lingual Symmetry: Within Functional Limits Lingual Strength: Within Functional Limits Facial Symmetry: Within Functional Limits Vocal Quality: Within Functional Limits Intelligibility: Intelligible 100% CONSISTENCIES ASSESSED Yes Thin Presentation: Cup, Straw Oral: Within functional limits Pharyngeal: Within Functional Limits Amount: x 3 small, single sips cup edge, x 4 small, single sips straw Puree Presentation: Self Fed, Spoon Oral: Within functional limits Pharyngeal: Within Functional Limits Amount: x 3 bites Solid/Regular Presentation: Self Fed, Bite Oral: Other (Comment) (mildly prolonged mastication) Pharyngeal: Within Functional Limits Amount: x 3 bites COGNITION: Arousal/Alertness: Appropriate responses to stimuli Orientation Level: (Oriented x 2) Following Commands: Follows all commands and directions without difficulty DRY PAN OPERATOR ASSESSMENT: DRY PAN OPERATOR Assessment Results: Swallowing impairments Evaluation/Treatment Tolerance: Patient tolerated treatment well Comments: Pt without report of swallowing difficulties with liquids, solids, and medications. Upon inquiry, pt reported reflux medication manages symptoms well. Pt self fed all provided trials. No overt clinical s/s of pulmonary compromise observed across consistencies. Mildly prolonged masticationnoted with solid (toast); however, pt independently completed liquid wash to ais in oral clearance. PLAN OF CARE DRY PAN OPERATOR PLAN Treatment/Interventions: Swallow function DRY PAN OPERATOR Plan: Skilled DRY PAN OPERATOR DRY PAN OPERATOR Frequency: Follow-up visit only DRY PAN OPERATOR Duration of Sessions: 15-30 min per session DRY PAN OPERATOR Treatments per day: 1 time per day DRY PAN OPERATOR - Evaluation Status: Complete Diet Recommendations: Regular/thin (7/0) DISCHARGE RECOMMENDATIONS No Speech-Language Pathology (DRY PAN OPERATOR) services/needs at next level of care. EDUCATION Education Documentation Modified Diet Training, taught by Kayleen Cartagena CCC-ELI at 02/18/2025 10:25 AM. Learner: Patient Readiness: Acceptance Method: Explanation Response: Verbalizes Understanding Comment: Education provided regarding seizure disorder and risks for aspiration if food/drink is inoral cavity during seizure. Upon inquiry, pt reported she has not had a seizure or ~1.5 years, and she can feel them coming on before they occur and stops all PO. Modified Diet Training, taught by ARUNA Ledesma at 02/18/2025 10:17 AM. Learner: Patient Readiness: Acceptance Method: Explanation Response: Verbalizes Understanding Education Comments No comments found. GOALS Encounter Problems Encounter Problems (Active) Template: Speech Therapy Problem: Swallowing Dates: Start: 02/18/25 Goal: Patient will tolerate the least restrictive diet consistency to allow for safe consumption ofdaily meals Dates: Start: 02/18/25 Expected End: 02/20/25 Description: Goal Type: STG, Performance Level: Independent Goal: Patient will demonstrate safe swallowing Intervention/techniques Dates: Start: 02/18/25 Expected End: 02/20/25 Description: Goal Type: STG, Performance Level: Independent Encounter Problems (Resolved) There are no resolved problems. VALE LedesmaDRY PAN OPERATOR 02/18/2025 * Corrine Andrew RN - 02/18/2025 6:46 AM EDT Problem: Falls: Fall Risk (Adult IP BH) Goal: (Goal) Patient will experience maximum safety and reduce risk for falls. Outcome: Progressing Goals: Identify possible barriers to meeting goals/advancing plan of care: Medical clearance for inpatientbehavioral health Stability of the patient: Moderately Stable - Low risk of patient condition declining or worsening End of Shift Summary: VSS, no issue overnight. * Sunil Tang MD - 02/17/2025 12:02 PM EDT Images from the original note were not included. DAKSHA PROGRESS NOTE Date: 02/17/2025 Author: Sunil Tang MD Patient ID: Estephania Ryan is a 59 y.o. female : 1965 MR#: [id number] SUBJECTIVE Subjective Patient seen and examined bedside this morning. She has bedside sitter present. Patient denies any suicidal ideation. Does not want to go to psych facility and wants to go home. Oriented to time place and person but she is not sure how she ended up in the hospital. She denies any overdose Objective Allergy- Sumatriptan and Ibuprofen OBJECTIVE Vitals: 02/16/25 2302 02/17/25 0306 02/17/25 0723 02/17/25 0800 BP: 119/56 113/62 (!) 147/72 BP Location: Left arm Left arm Patient Position: Lying Lying Pulse: 78 78 79 Resp: 18 18 16 Temp: 36.2 ??C (97.2 ??F) 36.6 ??C (97.9 ??F) 36.4 ??C (97.5 ??F) TempSrc: Temporal Temporal SpO2: 99% 98% 94% 94% Weight: Height: Temp (24hrs), Av.2 ??C (97.2 ??F), Min:35.9 ??C (96.6 ??F), Max:36.6 ??C (97.9 ??F) Physical Exam General-appears not in any acute distress, lying in the bed comfortably. Bedside sitter present HEENT-NCAT Eyes-anicteric Lungs-clear to auscultation bilaterally Heart-no significant cardiac murmur appreciated Abdomen-nondistended nontender Extremity-no significant lower extremity edema noted Neuro-patient is awake and alert. Oriented to time place and person Skin-warm and dry Lab Results: CBC BMP Results from last 7 days Lab Units 02/17/25 04402/16/25 0619 02/15/25 1745 WBC AUTO K/mcL 9.0 11.1* 12.9* HEMOGLOBIN g/dL 9.1* 9.1* 10.3* HEMATOCRIT % 29.9* 30.7* 33.9* PLATELETS K/mcL 232 226 287 LYMPHS PCT AUTO % -- 10.0 8.8 MONO PCT AUTO % -- 8.6 7.7 EOS PCT AUTO % -- 1.3 1.3 Results from last 7 days Lab Units 02/17/25 0446 02/16/25 0619 02/16/25 0003 02/15/25 1745 SODIUM mmol/L 142 138 136 134 POTASSIUM mmol/L 4.6 4.8 4.8 4.8 CHLORIDE mmol/L 112* 109 107 104 CO2 mmol/L 25 19* 19* 21 ANION GAP 5 10 10 9 BUN mg/dL 52* 63* 64* 59* CREATININE mg/dL 0.97 2.62* 3.12* 3.50* CALCIUM mg/dL 8.2* 8.1* 7.7* 8.3* MAGNESIUM mg/dL -- -- -- 2.5 Results from last 7 days Lab Units 02/17/25 0724 02/17/25 0446 02/16/25 1958 02/16/25 1700 02/16/25 1239 POCT GLUCOSE mg/dL 138* -- 226* 131* 149* GLUCOSE mg/dL -- 126* -- -- -- Results from last 7 days Lab Units 02/16/25 0619 02/15/25 1745 AST unit/L 34 26 ALT unit/L 25 24 Scheduled Medications PRN Medications IV Medications apixaban, 5 mg, BID insulin lispro, 2-12 Units, Before meals & nightly sodium chloride, 10 mL, BID acetaminophen, 650 mg, q4h PRN dextrose 50%, 12.5 g, q15 min PRN dextrose 50%, 25 g, q15 min PRN dextrose, 15 g, q15 min PRN dextrose, 30 g, q15 min PRN glucagon injection, 1 mg, Once PRN ondansetron (ZOFRAN-ODT) disintegrating tablet, 4 mg, q8h PRN Or ondansetron, 4 mg, q8h PRN prochlorperazine, 10 mg, q6h PRN Or prochlorperazine, 10 mg, q6h PRN Or prochlorperazine, 25 mg, q12h PRN sodium chloride, 10 mL, PRN lactated Ringer's, Last Rate: 100 mL/hr (02/17/25 0910) ASSESSMENT & PLAN Assessment/Plan Principal Problem: Acute on chronic renal failure (CMS/[facility] V24) No problem-specific Assessment & Plan notes found for this encounter. Patient a 59-year-old female with medical history significant for hypertension, hyperlipidemia, diabetes mellitus, atrial fibrillation on Eliquis, seizure disorder, who presented to the emergency department to be evaluated for intentional overdose with intent to cause self-harm. Intentional substance overdose Suicidal ideation - History of overdose. Presents with concern of Keppra overdose. -Conservative management. Continue monitoring. Suicide precautions; one-to-one sitter. - Psychiatry consulted; plan for inpatient admission. Patient cannot leave AMA. Added Keppra levels Non-anion gap metabolic acidosis SONIA - VBG pH low at 7.19 with serum bicarb of 21 with normal anion gap. No history of diarrhea. Suspecting renal tubular acidosis. Initially patient was on bicarb drip which was discontinued and started on LR today. -Creatinine was elevated on admission to 3.5. Downtrending on hydration Hypotension-blood pressure on the lower side. Asymptomatic. On IV fluid. Holding antihypertensive medications Paroxysmal atrial fibrillation-on Eliquis. Monitor on cardiac telemetry. Diabetes-insulin sliding scale. VTE Prophylaxis: Eliquis Diet: Regular Resuscitation: Full code Discharge barrier-once medically clear for discharge plan is to transfer patient to inpatient psychfacility. Section 12 All labs, imaging, relevant history personally reviewed by me. Please be aware that the above note was completed using voice recognition software. If you have anyquestions please contact the author of this note for clarification. * Yary Gooden RN - 02/16/2025 8:39 PM EDT Goals: Improve mood Identify possible barriers to meeting goals/advancing plan of care: Medical clearance for inpatientbehavioral health. Electrolytes Stability of the patient: Moderately Stable - Low risk of patient condition declining or worsening End of Shift Summary: Pt Alert to self,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 Vomiting and Other History of peptic ulcer disease. FAMILY HISTORY: Family History Problem Relation Name Age of Onset Stroke Father Heart disease Father Hypertension Sister Mya Diabetes Sister Mya Stroke Sister Odilis Heart disease Sister Odilis Hypertension Sister Niomi Hyperlipidemia Sister Niomi Cancer Sister Lizeth Hypertension Sister Lizeth Heart disease Sister Lizeth Opioid use disorder - daughter MSE: Appearance: AOx4. Appears stated age, well groomed. Pleasant and cooperative. Adequate eye contact.No psychomotor agitation or retardation. No evidence of EPS. Muscle tone/station: WNL. Orientation: To person, place, time, and situation. Attention and Concentration: No deficits in attention and concentration. Speech: Normal rate, rhythm, volume, and tone. Mood: I'm fine. Affect: Mostly euthymic with access to full range, mood congruent. No lability noted. Thought Process: Coherent, linear, logical, and goal-directed. No FOI or CATIA. No thought blocking. Thought Content: Denies suicidal/homicidal ideation. Denies auditory/visual hallucinations. No delusions. No paranoia. Perception/associations: Denies hallucinations, somatic complaints, or tactile disturbances Suicidal Ideations: Pt denies SI, intent, or plan. Low acute risk. Currently is future oriented, motivated for treatment, and compliant with medications. Homicidal Ideations: Pt denies HI, intent, or plan. Low acute risk. No history of violence. No access to firearms. Behavior: No abnormal behavior during interview. Fund of Knowledge: Appropriate for age and level of education Intellect/Memory: Estimated as average based on interview. Immediate, recent, and remote memory is grossly intact. Language: No deficits Judgment/Insight: fair at present. Musculoskeletal Exam: Movement: [x]normal []abnormal [-]dyskinesias [-]tremors [-]tics Station: [x]upright []hyperflexed/stooped []hyperextended Muscle strength [x]appears normal [-]appears abnormal Muscle tone: [x]normal [-]muscle rigidity LABS: Lab Results Component Value Date WBC 9.1 02/18/2025 HGB 10.2 (L) 02/18/2025 HCT 33.7 (L) 02/18/2025 PLT 274 02/18/2025 ALT 25 02/16/2025 AST 34 02/16/2025 NA 143 02/18/2025 K 4.6 02/18/2025 CL 110 02/18/2025 CREATININE 0.61 02/18/2025 BUN 32 (H) 02/18/2025 CO2 25 02/18/2025 TSH 0.27 (L) 12/20/2024 INR 0.9 02/16/2025 HGBA1C 11.5 (H) 12/11/2024 MICROALBUR 56.4 (H) 12/05/2024 VITALS: BP: 157/80 (02/18 303) Heart Rate: 75 (02/18 303) Heart Rate Source: Monitor (02/17 312) Temp: 36.9 ??C (98.4 ??F) (02/18 303) Temp Source: Temporal (02/18 303) SpO2: 94 % (02/18 303) FiO2 (%): 28 % (02/18 2000) O2 Flow Rate (L/min): 2 L/min (02/18 2000) O2 Delivery Method: Nasal cannula (02/17 306) ASSESSMENT: Estephania Ryan is a 59 y.o. female with psychiatric history significant for anxiety and medical history significant for but not limited to atrial fibrillation, DM, CAD, GERD, GI bleed, HTN, kidney stone, meningitis, RA, seizures, and stomach ulcer who was admitted following intentional overdose. Psychiatry was consulted for suicidal ideations and concern for suicide attempt. The patient now downplays the events leading up to her overdose, and the report she gives today is not consistent with information in the chart and her previous reports. DSM-5 DIAGNOSIS: Suspected intentional overdose/suicide attempt Anxiety disorder, unspecified Atrial fibrillation, DM, CAD, GERD, GI bleed, HTN, kidney stone, meningitis, RA, seizures, and stomach ulcer Admitted following overdose on medication TREATMENT PLAN: Pt has verbalized understanding and given consent/agreement with medications and plan offered. LEVEL OF CARE: Continue current level of treatment. RECOMMENDATIONS: The patient agrees to a retrial of Zoloft. Initiate Zoloft 25 mg PO qHS for anxiety. Discussed/Reviewed mechanism of action of SSRIs, expected benefits and time to response, common SEs including GI, CALVILLO, drowsiness or activation, sexual SEs, and more rare but serious adverse effects including agitation, edd, suicidal thoughts and behaviors. Of note, the patient meets criteria for Section 12 and cannot leave the hospital AMA. Continue sitter for safety. Please alert the u/s once the patient has been medically cleared. At that time, will ask the adolescent medicine specialist to see the patient for possible transfer to a psychiatric unit following a likely suicide attempt. Medication Education: Risks, benefits, alternatives, and potential side effects were discussed withthe patient. Patient voiced understanding and agreed with medication regimen described above. LABS: Reviewed and discussed most recent labs results. MEDICATION CONTRACT: Patient agreed to take medication only as prescribed and acknowledges that services may be terminated if prescription abuse is observed. SAFETY PLAN: Patient is to alert team if symptoms worsen. Team will monitor for development of suicidal ideations or an acute medication reaction. - Call 911 or present to nearest Emergency Room in case of crisis / suicidal thoughts upon discharge. EDUCATION/CONSENT: Discussed and explained all diagnoses including differential diagnosis and treatment options. Discussed risks, benefits, potential side effects, contraindications, potential drug-drug interactions, alternatives to current medications and medication allergies as noted above. Discussed continuing to monitor for side effects and treatment efficacy prospectively and delineated patient's involvement and responsibility in monitoring for side effects and efficacy. Duane colbert expressed understanding of these recommendations. BARRIERS TO LEARNING: Patient demonstrates a readiness to learn. Patient verbalizes understanding and agrees to plan. No barriers to communication noted. MEDICATION RECONCILIATION: Medications were reviewed and reconciled with the patient. PREVENTATIVE RECOMMENDATIONS: Preventative Health Education Counseling: discussed proper diet/nutrition, exercise, and sleep hygiene. The patient was encouraged to avoid nicotine, alcohol and illicitdrugs at all times. The patient was made aware that records from the u/s can be sent to his/her PCP at any time that he/she requests. * Idalmis Terrazas NP - 02/16/2025 10:01 AM EDT Consults Psychiatry Consultation Reason For Consult Suicide attempt via overdose History Of Present Illness Estephania Ryan is a 59 y.o. female who presented to [facility] after intentionally overdosing on her medications. Patient continues to present confused. She states My boyfriend wasn't coming to see me and Ifelt he was doing that not to become family. When inquiring about the medication she intentionallyingested, she responds by stating I think it was [employer] . Psychiatric and Substance Abuse History Unable to assess. Past Medical History She has a past medical history of Angina pectoris (CMS/HCC V24), Anxiety, Arthritis, Atrial fibrillation (CMS/HCC V24, CMS/HCC V28), Borderline diabetes, Cholelithiasis, Coronary artery disease, Diabetes mellitus (CMS/HCC V24, CMS/HCC V28), GERD (gastroesophageal reflux disease), GI (gastrointestinal bleed), Heart murmur, Hypertension, Kidney stone, Meningitis spinal (2002), Rheumatoid arthritis(714.0), Seizures (CMS/HCC V24, CMS/HCC V28) (2002), Stomach ulcer, and Stomach ulcer. She has no past medical history of Bronchitis, chronic (CMS/HCC V24, CMS/HCC V28), Diverticulosis, Gout, Hyperlipidemia, Infectious viral hepatitis, or Pancreatitis. Surgical History She has a past surgical history that includes Cholecystectomy; Appendectomy; Superior oblique recession; Kidney stone surgery; Hernia repair (date unknown); Section; Cardiac catheterization (2010); Upper gastrointestinal endoscopy (N/A, 07/18/2015); and Total knee arthroplasty (Left). Social History Patient was able to tell me she lives in [place]. Allergies Sumatriptan and Ibuprofen Medications Medications Prior to Admission Medication Sig Dispense Refill Last Dose/Taking apixaban (ELIQUIS) 5 mg tablet Take 1 tablet (5 mg total) by mouth 2 times daily. aspirin 81 mg chewable tablet Chew 1 tablet (81 mg total) daily. atorvastatin (LIPITOR) 80 mg tablet Take 1 tablet (80 mg total) by mouth daily. insulin glargine (LANTUS SoloStar) 100 unit/mL (3 mL) injection pen Inject 24 Units under the skin daily. isosorbide mononitrate (IMDUR) 30 mg 24 hr tablet Take 2 tablets (60 mg total) by mouth daily. Keppra 500 mg tablet Take 1 tablet (500 mg total) by mouth 2 times daily. naloxone (NARCAN) 4 mg/0.1 mL nasal spray Administer 1 each (4 mg total) into affected nostril(s) if needed for opioid reversal or respiratory depression. Give 4 mg (1 spray) into one nostril. May repeat every 2-3 minutes if needed, alternating nostrils, until medical assistance becomes available. 2 each 11 pantoprazole (PROTONIX) 40 mg EC tablet Take 1 tablet (40 mg total) by mouth 1 (one) time each day before breakfast. 30 tablet 0 sertraline (ZOLOFT) 50 mg tablet Take 3 tablets (150 mg total) by mouth daily. traZODone (DESYREL) 50 mg tablet Take 1 tablet (50 mg total) by mouth daily. New Medications Ordered This Visit Medications sodium chloride 0.9 % bolus 1,000 mL AND Linked Order Group sodium chloride 0.9 % flush 10 mL sodium chloride 0.9 % flush 10 mL acetaminophen (TYLENOL) tablet 650 mg OR Linked Order Group ondansetron ODT (ZOFRAN-ODT) disintegrating tablet 4 mg ondansetron (PF) (ZOFRAN) injection 4 mg OR Linked Order Group prochlorperazine (COMPAZINE) tablet 10 mg prochlorperazine (COMPAZINE) injection 10 mg prochlorperazine (COMPAZINE) suppository 25 mg lactated Ringer's infusion insulin lispro injection 2-12 Units Order Specific Question: Correction Scale: Answer: Moderate Dose Order Specific Question: Blood Glucose Level LESS than OR equal to 150 mg/dL Answer: 0 Units Order Specific Question: Blood Glucose Level 151 - 200 mg/dL Answer: 2 Units Order Specific Question: Blood Glucose Level 201 - 250 mg/dL Answer: 4 Units Order Specific Question: Blood Glucose Level 251 - 300 mg/dL Answer: 6 Units Order Specific Question: Blood Glucose Level 301 - 350 mg/dL Answer: 8 Units Order Specific Question: Blood Glucose Level 351 - 400 mg/dL Answer: 10 Units Order Specific Question: Blood Glucose Level GREATER than OR equal to 401 mg/dL Answer: 12 Units Order Specific Question: Blood Glucose Level GREATER than OR equal to 401 mg/dL Answer: *Notify Provider* dextrose 15 gram/60 mL oral solution 15 g Order Specific Question: *Patient conscious AND able to drink and swallow safely* Answer: Blood Glucose in mg/dL Order Specific Question: For Blood Glucose 54 - 69 mg/dL Answer: *15g of glucose* = ?? cup (4 ounces) apple juice or ?? cup (4 ounces) cranberry juice or ??cup (4 ounces) reg, non-cola soda Order Specific Question: For Blood Glucose LESS than 54 mg/dL Answer: *30g of glucose* = 1 cup (8 ounces) apple juice or 1 cup (8 ounces) cranberry juice or 1 cup (8 ounces) regular, non-cola soda dextrose 15 gram/60 mL oral solution 30 g Order Specific Question: *Patient conscious AND able to drink and swallow safely* Answer: Blood Glucose in mg/dL Order Specific Question: For Blood Glucose 54 - 69 mg/dL Answer: *15g of glucose* = ?? cup (4 ounces) apple juice or ?? cup (4 ounces) cranberry juice or ??cup (4 ounces) reg, non-cola soda Order Specific Question: For Blood Glucose LESS than 54 mg/dL Answer: *30g of glucose* = 1 cup (8 ounces) apple juice or 1 cup (8 ounces) cranberry juice or 1 cup (8 ounces) regular, non-cola soda dextrose (D50W) 50% injection 12.5 g Order Specific Question: *Patient is Unconscious, NPO, unable to swallow: BG LESS than 54 mg/dL* Answer: Blood Glucose in mg/dL Order Specific Question: *Patient is Unconscious, NPO, unable to swallow: BG LESS than 54 mg/dL* Answer: D50W Dose Order Specific Question: For Blood Glucose 54 - 69 mg/dL Answer: 25 mL (12.5 grams) IV PUSH syringe, Once, STAT Order Specific Question: For Blood Glucose LESS than 54 mg/dL Answer: 50 mL (25 grams) IV PUSH syringe, Once, STAT dextrose (D50W) 50% injection 25 g Order Specific Question: *Patient is Unconscious, NPO, unable to swallow: BG LESS than 54 mg/dL* Answer: Blood Glucose in mg/dL Order Specific Question: *Patient is Unconscious, NPO, unable to swallow: BG LESS than 54 mg/dL* Answer: D50W Dose Order Specific Question: For Blood Glucose 54 - 69 mg/dL Answer: 25 mL (12.5 grams) IV PUSH syringe, Once, STAT Order Specific Question: For Blood Glucose LESS than 54 mg/dL Answer: 50 mL (25 grams) IV PUSH syringe, Once, STAT glucagon HCL injection 1 mg sodium bicarbonate 1 mEq/mL (8.4 %) 75 mEq in sodium chloride 0.45 % 1,075 mL infusion Review of Systems Physical Exam Mental Status Exam: General Observations Appearance and Build: overweight Eye Contact: Average Activity: Slowed Speech: soft Behavior: psychomotor retardation Mood: Unable to assess Affect: Restricted Thought Process: poor concentration, confused, disorganized Thought Content: Delusions: Unable to assess Self Abuse: Unable to assess Aggressive: none reported Cognition: Impairment of: orientation, memory, and attention/concentration Intelligence Estimate: Not formally assessed Sensorium/Orientation: Said she was born in year 1977 ; said she was in [facility] Hallucinations: Unable to assess Insight/Judgment: Impaired/poor Last Recorded Vitals Blood pressure (!) 82/46, pulse 86, temperature 36.2 ??C (97.2 ??F), temperature source Temporal, resp. rate 12, height 1.651 m (65 ), weight 95.3 kg (210 lb), SpO2 97%. Collateral call with Lilian (patient's daughter-[phone]) Lilian states All I know she abuses her medications. Recently she expressed she wanted help but not really wanting help. Last time she was at the hospital they ended up giving her Suboxone. That was a month and a half ago. I don't know what happened after that. She told me she wanted to come to [place] for help. But she's an addict and that's what addicts do. She is super depressed. She's an addict and I'm not sure what comes first. She has a boyfriend, Javier. They do live together. He doesn't use drugs. He's kind of new to the relationship. Impression: Acute encephalopathy (delirium) Depression Plan: 1) Once determined medically appropriate contact BH team for inpatient psychiatric hospitalization for patient safety and medication management. 2) Maintain 1:1 for safety, patient on Section 12 and may not leave AMA. Idalmis Terrazas NP documented in this encounter Plan of Treatment Pending Results Name Type Priority Associated Diagnoses Date /Time Extra Tubes Lab Routine 02/16/2025 11 :53 PM EDT SST tube Lab Routine 02/16/2025 11: 53 PM EDT Scheduled Orders Name Type Priority Associated Diagnoses Order Schedule POC glucose manually resulted Point of Care Testing STAT Once for 1 Occurrences starting 02/15/2025 until 02/15/2025 ECG 12 lead PRN ECG Routine As needed until discontinued starting 02/15/2025 Oxygen Therapy, Adult - Device: Nasal Cannula; Rate in liters per minute: 2 lpm Respiratory Care Routine For RT freque ncy use only for continuous procedures with task-based reminders at 8a and 8p until discontinued starting 02/15/2025, 14 completed POCT Glucose, blood Point of Care Testing-Docked Device Routine TID AC until discontinued starting 02/16/2025, 20 completed Extra Tubes Lab Routine Once for 1 Occurrences starting 02/16/2025 until 02/16/2025 SST tube Lab Routine Once for 1 Occurrences starting 02/16/2025 until 02/16/2025, 1 completed documented as of this encounter Procedures * The patient is currently admitted. The information in this section might not be complete until the patient is discharged. Procedure Name Priority Date/Time Associated Diagnosis Comments POCT GLUCOSE BLOOD Routine 2025 11 :29 AM EDT POCT GLUCOSE BLOOD Routine 2025 8: 25 AM EDT POCT GLUCOSE BLOOD Routine 02/21/2025 8: 23 PM EDT COMPLETE BLOOD COUNT Routine 02/21/2025 6:32 PM EDT POCT GLUCOSE BLOOD Routine 02/21/2025 4: 11 PM EDT POCT GLUCOSE BLOOD Routine 02/21/2025 11 :49 AM EDT OXYGEN THERAPY, ADULT Routine 02/21/2025 8:02 AM EDT POCT GLUCOSE BLOOD Routine 02/21/2025 7: 43 AM EDT POCT GLUCOSE BLOOD Routine 02/20/2025 8: 31 PM EDT OXYGEN THERAPY, ADULT Routine 02/20/2025 8:00 PM EDT POCT GLUCOSE BLOOD Routine 02/20/2025 4: 21 PM EDT POCT GLUCOSE BLOOD Routine 02/20/2025 11 :27 AM EDT POCT GLUCOSE BLOOD Routine 02/20/2025 8: 09 AM EDT OXYGEN THERAPY, ADULT Routine 02/20/2025 8:02 AM EDT OXYGEN THERAPY, ADULT Routine 02/19/2025 8:00 PM EDT POCT GLUCOSE BLOOD Routine 02/19/2025 7: 59 PM EDT POCT GLUCOSE BLOOD Routine 02/19/2025 4: 19 PM EDT POCT GLUCOSE BLOOD Routine 02/19/2025 11 :11 AM EDT POCT GLUCOSE BLOOD Routine 02/19/2025 8: 03 AM EDT OXYGEN THERAPY, ADULT Routine 02/19/2025 8:02 AM EDT POCT GLUCOSE BLOOD Routine 02/18/2025 8: 27 PM EDT OXYGEN THERAPY, ADULT Routine 02/18/2025 8:00 PM EDT POCT GLUCOSE BLOOD Routine 02/18/2025 4: 02 PM EDT POCT GLUCOSE BLOOD Routine 02/18/2025 11 :10 AM EDT POCT GLUCOSE BLOOD Routine 02/18/2025 8: 21 AM EDT OXYGEN THERAPY, ADULT Routine 02/18/2025 8:02 AM EDT COMPLETE BLOOD COUNT Routine 02/18/2025 5:50 AM EDT PHOSPHORUS Routine 02/18/2025 5:50 AM EDT MAGNESIUM Routine 02/18/2025 5:50 AM EDT BASIC METABOLIC PANEL Routine 02/18/2025 5:50 AM EDT POCT GLUCOSE BLOOD Routine 02/17/2025 8: 55 PM EDT OXYGEN THERAPY, ADULT Routine 02/17/2025 8:00 PM EDT POCT GLUCOSE BLOOD Routine 02/17/2025 4: 28 PM EDT POCT GLUCOSE BLOOD Routine 02/17/2025 12 :08 PM EDT OXYGEN THERAPY, ADULT Routine 02/17/2025 8:00 AM EDT POCT GLUCOSE BLOOD Routine 02/17/2025 7: 24 AM EDT COMPLETE BLOOD COUNT Routine 02/17/2025 4:46 AM EDT BASIC METABOLIC PANEL Routine 02/17/2025 4:46 AM EDT OXYGEN THERAPY, ADULT Routine 02/16/2025 8:00 PM EDT POCT GLUCOSE BLOOD Routine 02/16/2025 7: 58 PM EDT POCT GLUCOSE BLOOD Routine 02/16/2025 5: 00 PM EDT LEVETIRACETAM LEVEL Timed 02/16/2025 1 :28 PM EDT POCT GLUCOSE BLOOD Routine 02/16/2025 12 :39 PM EDT LACTATE Routine 02/16/2025 12:26 PM EDT POCT GLUCOSE BLOOD Routine 02/16/2025 8: 04 AM EDT OXYGEN THERAPY, ADULT Routine 02/16/2025 8:00 AM EDT VENOUS BLOOD GAS Routine 02/16/2025 7:53 AM EDT CBC WITH AUTO DIFFERENTIAL Routine 02/16/2025 6:19 AM EDT CBC AND DIFFERENTIAL Routine 02/16/2025 6:19 AM EDT COMPREHENSIVE METABOLIC PANEL Routine 02/16/2025 6:19 AM EDT POCT GLUCOSE BLOOD Routine 02/16/2025 4: 47 AM EDT VENOUS BLOOD GAS Routine 02/16/2025 12:0 8 AM EDT PROTHROMBIN TIME WITH INR Routine 02/16/2025 12:04 AM EDT BASIC METABOLIC PANEL Routine 02/16/2025 12:03 AM EDT URINALYSIS WITH REFLEX MICROSCOPIC Routine 02/15/2025 11:26 PM EDT URINALYSIS WITH REFLEX MICROSCOPIC Routine 02/15/2025 11:26 PM EDT DRUG ABUSE SCREEN 8A PANEL, URINE STAT 02/15/2025 11:26 PM EDT BUPRENORPHINE SCREEN, URINE STAT 02/15/2025 11:26 PM EDT METHADONE SCREEN, URINE STAT 02/15/2025 11:26 PM EDT PROTEIN AND CREATININE WITH RATIO, URINE STAT 02/15/2025 11:26 PM EDT SODIUM, URINE, RANDOM STAT 02/15/2025 11:26 PM EDT PHENCYCLIDINE, URINE STAT 02/15/2025 11:26 PM EDT CREATININE, URINE, RANDOM STAT 02/15/2025 11:26 PM EDT POCT GLUCOSE BLOOD Routine 02/15/2025 9: 50 PM EDT OXYGEN THERAPY, ADULT Routine 02/15/2025 8:00 PM EDT OXYGEN THERAPY, ADULT Routine 02/15/2025 7:25 PM EDT OXYGEN THERAPY, ADULT Routine 02/15/2025 7:25 PM EDT XR CHEST 1 VIEW STAT 02/15/2025 6:24 PM EDT ECG 12-LEAD STAT 02/15/2025 6:10 PM EDT PROCALCITONIN STAT Add-on 02/15/2025 5:45 PM EDT CBC WITH AUTO DIFFERENTIAL STAT 02/15/2025 5:45 PM EDT CBC AND DIFFERENTIAL STAT 02/15/2025 5:45 PM EDT MAGNESIUM Add-On 02/15/2025 5:45 PM EDT ETHANOL STAT 02/15/2025 5:45 PM EDT ACETAMINOPHEN LEVEL STAT 02/15/2025 5 :45 PM EDT SALICYLATE LEVEL STAT 02/15/2025 5:45 PM EDT COMPREHENSIVE METABOLIC PANEL STAT 02/15/2025 5:45 PM EDT documented in this encounter Results * (ABNORMAL) POCT Glucose, blood (2025 11:29 AM EDT) [facility] Signature Glucose POCT 275(H) 70 - 100 mg/dL 2025 11:30 AM EDT [facility] Blood Capillary blood specimen / Unknown 2025 11:29 AM EDT 2025 11:31 AM EDT us Lex Cain MD LAB POINT OF CARE TE ST DOCKED DEVICE UNSOLICITED RESULTS Final Result Performing Organization Address City/[facility]/ZIP Co de Phone Number [facility] [address] [place] [address], [place] [phone] * (ABNORMAL) POCT Glucose, blood (2025 8:25 AM EDT) Glucose POCT 152(H) 70 - 100 mg/dL 2025 8:29 AM EDT [facility] Blood Capillary blood specimen / Unknown 2025 8:25 AM EDT 2025 8:30 AM EDT us Lex Cain MD LAB POINT OF CARE TE ST DOCKED DEVICE UNSOLICITED RESULTS Final Result Performing Organization Address [facility] Co de Phone Number [facility] [address] [place] [address], [place] [phone] * (ABNORMAL) POCT Glucose, blood (02/21/2025 8:23 PM EDT) Glucose POCT 303(H) 70 - 100 mg/dL 02/21/2025 8:23 PM EDT [facility] Blood Capillary blood specimen / Unknown 02/21/2025 8:23 PM EDT 02/21/2025 8:24 PM EDT us Lex Cain MD LAB POINT OF CARE TE ST DOCKED DEVICE UNSOLICITED RESULTS Final Result Performing Organization Address City/[facility]/ZIP Co de Phone Number [facility] [address] [place] [address], * (ABNORMAL) Complete blood count (02/21/2025 6:32 PM EDT) [facility] WBC 8.9 4.8 - 10.8 K/mcL LAB HEMETOLOGY METHOD 02/21/2025 6:41 PM EDT [facility] RBC 4.20 3.80 - 4.80 M/mcL LAB HEMETOLOGY METHOD 02/21/2025 6:41 PM EDT [facility] Hemoglobin 11.0(L) 11.5 - 16.0 g/dL LAB HEMETOLOGY METHOD 02/21/2025 6[facility] Hematocrit 35.5 35.0 - 47.0 % LAB HEMETOLOGY METHOD 02/21/2025 6:[facility] MCV 84.9 79.0 - 98.0 FL LAB HEMETOLOGY METHOD 02/21/2025 6:[facility] MCH 26.3(L) 27.0 - 32.0 pcg LAB HEMETOLOGY METHOD 02/21/2025 6:41 [facility] MCHC 31.0(L) 32.0 - 37.0 g/dL LAB HEMETOLOGY METHOD 02/21/2025 6:41 PM [facility] RDW 15.8(H) 11.0 - 15.0 % LAB HEMETOLOGY METHOD 02/21/2025 6:41 PM EDT [facility] Platelets 298 130 - 400 K/mcL LAB HEMETOLOGY METHOD 02/21/2025 6:[facility] MPV 9.6 7.0 - 11.0 FL LAB HEMETOLOGY METHOD 02/21/2025 6:41 [facility] NRBC 0.0 <1.0 % LAB HEMETOLOGY METHOD 02/21/2025 6:41 PM EDT [facility] NRBC Absolute 0.00 <0.10 K/[facility] LAB HEMETOLOGY METHOD 02/21/2025 6:41 PM EDT [facility] Blood Venous blood specimen / Unknown Venipuncture / Unknown 02/21/2025 6:32 PM EDT 02/21/2025 6:37 PM EDT us Lex Cain MD LAB BLOOD ORDERABLES Final Re sult Performing Organization Address [facility]/ZIP Co de Phone Number [facility] [address] [place] [address], [place] [phone] * (ABNORMAL) POCT Glucose, blood (02/21/2025 4:11 PM EDT) Glucose POCT 164(H) 70 - 100 mg/dL 02/21/2025 4:12 PM EDT [facility] Blood Capillary blood specimen / Unknown 02/21/2025 4:11 PM EDT 02/21/2025 4:13 PM EDT us Lex Cain MD LAB POINT OF CARE TE ST DOCKED DEVICE UNSOLICITED RESULTS Final Result Performing Organization Address [facility]/ZIP Co de Phone Number [facility] [address] [place] [address], [place] [phone] * (ABNORMAL) POCT Glucose, blood (02/21/2025 11:49 AM EDT) Glucose POCT 308(H) 70 - 100 mg/dL 02/21/2025 11:49 AM EDT [facility] Blood Capillary blood specimen / Unknown 02/21/2025 11:49 AM EDT 02/21/2025 11:50 AM EDT us Lex Cain MD LAB POINT OF CARE TE ST DOCKED DEVICE UNSOLICITED RESULTS Final Result Performing Organization Address City/[facility]/ZIP Co de Phone Number [facility] [address] [place] [address], [place] [phone] * (ABNORMAL) POCT Glucose, blood (02/21/2025 7:43 AM EDT) Glucose POCT 157(H) 70 - 100 mg/dL 02/21/2025 7:45 AM EDT [facility] Blood Capillary blood specimen / Unknown 02/21/2025 7:43 AM EDT 02/21/2025 7:46 AM EDT us Lex Cain MD LAB POINT OF CARE TE ST DOCKED DEVICE UNSOLICITED RESULTS Final Result Performing Organization Address [facility]/ZIP Co de Phone Number [facility] [address] [place] [address], [place] [phone] * (ABNORMAL) POCT Glucose, blood (02/20/2025 8:31 PM EDT) Glucose POCT 246(H) 70 - 100 mg/dL 02/20/2025 8:31 PM EDT [facility] Blood Capillary blood specimen / Unknown 02/20/2025 8:31 PM EDT 02/20/2025 8:32 PM EDT us Lex Cain MD LAB POINT OF CARE TE ST DOCKED DEVICE UNSOLICITED RESULTS Final Result Performing Organization Address City/[facility]/ZIP Co de Phone Number [facility] [address] [place] [address], [place] [phone] * (ABNORMAL) POCT Glucose, blood (02/20/2025 4:21 PM EDT) Glucose POCT 266(H) 70 - 100 mg/dL 02/20/2025 4:22 PM EDT [facility] Blood Capillary blood specimen / Unknown 02/20/2025 4:21 PM EDT 02/20/2025 4:23 PM EDT us Lex Cain MD LAB POINT OF CARE TE ST DOCKED DEVICE UNSOLICITED RESULTS Final Result Performing Organization Address [facility]/ZIP Co de Phone Number [facility] [address] [place] [address], [place] [phone] * (ABNORMAL) POCT Glucose, blood (02/20/2025 11:27 AM EDT) Glucose POCT 206(H) 70 - 100 mg/dL 02/20/2025 11:33 AM EDT [facility] Blood Capillary blood specimen / Unknown 02/20/2025 11:27 AM EDT 02/20/2025 11:35 AM EDT us Lex Cain MD LAB POINT OF CARE TE ST DOCKED DEVICE UNSOLICITED RESULTS Final Result Performing Organization Address City/[facility]/ZIP Co de Phone Number [facility] [address] [place] [address], [place] [phone] * (ABNORMAL) POCT Glucose, blood (02/20/2025 8:09 AM EDT) Glucose POCT 150(H) 70 - 100 mg/dL 02/20/2025 11:15 AM EDT [facility] Blood Capillary blood specimen / Unknown 02/20/2025 8:09 AM EDT 02/20/2025 11:17 AM EDT us Lex Cain MD LAB POINT OF CARE TE ST DOCKED DEVICE UNSOLICITED RESULTS Final Result Performing Organization Address City/[facility]/ZIP Co de Phone Number [facility] [address] [place] [address], [place] [phone] * (ABNORMAL) POCT Glucose, blood (02/19/2025 7:59 PM EDT) Glucose POCT 168(H) 70 - 100 mg/dL 02/19/2025 8:00 PM EDT [facility] Blood Capillary blood specimen / Unknown 02/19/2025 7:59 PM EDT 02/19/2025 8:01 PM EDT us Lex Cain MD LAB POINT OF CARE TE ST DOCKED DEVICE UNSOLICITED RESULTS Final Result [facility] [address] [place] [address], [place] [phone] * (ABNORMAL) POCT Glucose, blood (02/19/2025 4:19 PM EDT) Glucose POCT 154(H) 70 - 100 mg/dL 02/19/2025 4:21 PM EDT [facility] Blood Capillary blood specimen / Unknown 02/19/2025 4:19 PM EDT 02/19/2025 4:22 PM EDT us Lex Cain MD LAB POINT OF CARE TE ST DOCKED DEVICE UNSOLICITED RESULTS Final Result [facility] [address] [place] [address], [place] [phone] * (ABNORMAL) POCT Glucose, blood (02/19/2025 11:11 AM EDT) Glucose POCT 205(H) 70 - 100 mg/dL 02/19/2025 11:12 AM EDT [facility] Blood Capillary blood specimen / Unknown 02/19/2025 11:11 AM EDT 02/19/2025 11:14 AM EDT us Lex Cain MD LAB POINT OF CARE TE ST DOCKED DEVICE UNSOLICITED RESULTS Final Result Performing Organization Address [facility]/ZIP Co de Phone Number [facility] [address] [place] [address], [place] [phone] * (ABNORMAL) POCT Glucose, blood (02/19/2025 8:03 AM EDT) Glucose POCT 153(H) 70 - 100 mg/dL 02/19/2025 8:03 AM EDT [facility] Blood Capillary blood specimen / Unknown 02/19/2025 8:03 AM EDT 02/19/2025 8:06 AM EDT us Lex Cain MD LAB POINT OF CARE TE ST DOCKED DEVICE UNSOLICITED RESULTS Final Result Performing Organization Address [facility]/ZIP Co de Phone Number [facility] [address] [place] [address], [place] [phone] * (ABNORMAL) POCT Glucose, blood (02/18/2025 8:27 PM EDT) Glucose POCT 193(H) 70 - 100 mg/dL 02/18/2025 8:28 PM EDT [facility] Blood Capillary blood specimen / Unknown 02/18/2025 8:27 PM EDT 02/18/2025 8:29 PM EDT us Lex Cain MD LAB POINT OF CARE TE ST DOCKED DEVICE UNSOLICITED RESULTS Final Result [facility] [address] [place] [address], [place] [phone] * (ABNORMAL) POCT Glucose, blood (02/18/2025 4:02 PM EDT) Glucose POCT 152(H) 70 - 100 mg/dL 02/18/2025 4:04 PM EDT [facility] Blood Capillary blood specimen / Unknown 02/18/2025 4:02 PM EDT 02/18/2025 4:05 PM EDT us Lex Cain MD LAB POINT OF CARE TE ST DOCKED DEVICE UNSOLICITED RESULTS Final Result Performing Organization Address City/[facility]/ZIP Co de Phone Number [facility] [address] [place] [address], * (ABNORMAL) POCT Glucose, blood (02/18/2025 11:10 AM EDT) Glucose POCT 169(H) 70 - 100 mg/dL 02/18/2025 11:12 AM EDT [facility] Blood Capillary blood specimen / Unknown 02/18/2025 11:10 AM EDT 02/18/2025 11:13 AM EDT us Lex Cain MD LAB POINT OF CARE TE ST DOCKED DEVICE UNSOLICITED RESULTS Final Result Performing Organization Address [facility] Co de Phone Number [facility] [address] [place] [address], * (ABNORMAL) POCT Glucose, blood (02/18/2025 8:21 AM EDT) Glucose POCT 225(H) 70 - 100 mg/dL 02/18/2025 8:21 AM EDT [facility] Blood Capillary blood specimen / Unknown 02/18/2025 8:21 AM EDT 02/18/2025 8:23 AM EDT us Lex Cain MD LAB POINT OF CARE TE ST DOCKED DEVICE UNSOLICITED RESULTS Final Result Performing Organization Address City/[facility]/ZIP Co de Phone Number [facility] [address] [place] [address], [place] [phone] * Magnesium (02/18/2025 5:50 AM EDT) [facility] Magnesium 2.3 1.9 - 2.6 mg/dL LAB CHEMISTRY METHOD 02/18/2025 7:10 AM [facility] Blood Venous blood specimen / Unknown Venipuncture / Unknown 02/18/2025 5:50 AM EDT 02/18/2025 6:16 AM EDT Sunil Tang MD LAB BLOOD ORDERABLE S Final Result [facility] [address] [place] [address], [place] [phone] * (ABNORMAL) Basic metabolic panel (02/18/2025 5:50 AM EDT) [facility] Sodium 143 133 - 145 mmol/L LAB CHEMISTRY METHOD 02/18/2025 7:10 AM [facility] Potassium 4.6 3.5 - 5.5 mmol/L LAB CHEMISTRY METHOD 02/18/2025 7:10 AM [facility] Chloride 110 96 - 110 mmol/L LAB CHEMISTRY METHOD 02/18/2025 7:10 AM [facility] CO2 25 21 - 32 mmol/L LAB CHEMISTRY METHOD 02/18/2025 7:10 AM [facility] Anion Gap 8 3 - 11 LAB CHEMISTRY METHOD 02/18/2025 7:10 AM [facility] Glucose 156(H) 70 - 100 mg/dL LAB CHEMISTRY METHOD 02/18/2025 7:10 AM [facility] BUN 32(H) 5 - 25 mg/dL LAB CHEMISTRY METHOD 02/18/2025 7:10 AM [facility] Creatinine 0.61 0.50 - 1.10 mg/dL LAB CHEMISTRY METHOD 02/18/2025 7:10 AM EDT [facility] eGFR 104 >=60 mL/min/1. 73m2 LAB CHEMISTRY METHOD 02/18/2025 7:10 AM EDT [facility] Comment:Calculation based on the Chronic Kidney Disease Epidemiology Collaboration (CKD-EPI) equation refit without adjustment for race. BUN/Creatinine Ratio 52.5 LAB CHEMISTRY METHOD 02/18/2025 7:10 AM EDT [facility] Calcium 8.9 8.5 - 10.5 mg/dL LAB CHEMISTRY METHOD 02/18/2025 7:10 AM EDT [facility] Blood Venous blood specimen / Unknown Venipuncture / Unknown 02/18/2025 5:50 AM EDT 02/18/2025 6:16 AM EDT Sunil Tang MD LAB BLOOD ORDERABLE S Final Result [facility] [address] [place] [address], [place] [phone] * (ABNORMAL) Complete blood count (02/18/2025 5:50 AM EDT) WBC 9.1 4.8 - 10.8 K/[facility] HEMETOLOGY METHOD 02/18/2025 6:31 AM EDT [facility] RBC 3.90 3.80 - 4.80 M/[facility] LAB HEMETOLOGY METHOD 02/18/2025 6:31 AM EDT [facility] Hemoglobin 10.2(L) 11.5 - 16.0 g/dL LAB HEMETOLOGY METHOD 02/18/2025 6:31 AM EDT [facility] Hematocrit 33.7(L) 35.0 - 47.0 % LAB HEMETOLOGY METHOD 02/18/2025 6:31 AM EDT [facility] MCV 86.9 79.0 - 98.0 FL LAB HEMETOLOGY METHOD 02/18/2025 6:31 AM EDT [facility] MCH 26.3(L) 27.0 - 32.0 pcg LAB HEMETOLOGY METHOD 02/18/2025 6:31 AM EDT [facility] MCHC 30.3(L) 32.0 - 37.0 g/dL LAB HEMETOLOGY METHOD 02/18/2025 6:31 AM EDT [facility] RDW 15.9(H) 11.0 - 15.0 % LAB HEMETOLOGY METHOD 02/18/2025 6:31 AM EDT [facility] Platelets 274 130 - 400 K/mcL LAB HEMETOLOGY METHOD 02/18/2025 6:31 AM EDT [facility] MPV 10.1 7.0 - 11.0 FL LAB HEMETOLOGY METHOD 02/18/2025 6:31 AM EDT [facility] NRBC 0.0 <1.0 % LAB HEMETOLOGY METHOD 02/18/2025 6:31 AM EDT [facility] NRBC Absolute 0.00 <0.10 K/mcL LAB HEMETOLOGY METHOD 02/18/2025 6:[facility] Blood Venous blood specimen / Unknown Venipuncture / Unknown 02/18/2025 5:50 AM EDT 02/18/2025 6:16 AM EDT us Sunil Tang MD LAB BLOOD ORDERABLE S Final Result [facility] [address] [place] [address], * Phosphorus (02/18/2025 5:50 AM EDT) Phosphorus 2.6 2.5 - 4.5 mg/dL LAB CHEMISTRY METHOD 02/18/2025 7:10 AM EDT [facility] Blood Venous blood specimen / Unknown Venipuncture / Unknown 02/18/2025 5:50 AM EDT 02/18/2025 6:16 AM EDT us Sunil Tang MD LAB BLOOD ORDERABLE S Final Result Performing Organization Address City/[facility]/ZIP Co de Phone Number [facility] [address] [place] [address], [place] [phone] * (ABNORMAL) POCT Glucose, blood (02/17/2025 8:55 PM EDT) Glucose POCT 181(H) 70 - 100 mg/dL 02/17/2025 8:56 PM EDT [facility] Blood Capillary blood specimen / Unknown 02/17/2025 8:55 PM EDT 02/17/2025 8:57 PM EDT us Sunil Tang MD LAB POINT O F CARE TEST DOCKED DEVICE UNSOLICITED RESULTS Final Result Performing Organization Address [facility] Co de Phone Number [facility] [address] [place] [address], [place] [phone] * (ABNORMAL) POCT Glucose, blood (02/17/2025 4:28 PM EDT) Glucose POCT 153(H) 70 - 100 mg/dL 02/17/2025 4:29 PM EDT [facility] Blood Capillary blood specimen / Unknown 02/17/2025 4:28 PM EDT 02/17/2025 4:30 PM EDT us Sunil Tang MD LAB POINT O F CARE TEST DOCKED DEVICE UNSOLICITED RESULTS Final Result Performing Organization Address City/[facility] Co de Phone Number [facility] [address] [place] [address], [place] [phone] * (ABNORMAL) POCT Glucose, blood (02/17/2025 12:08 PM EDT) Glucose POCT 133(H) 70 - 100 mg/dL 02/17/2025 12:09 PM EDT [facility] Blood Capillary blood specimen / Unknown 02/17/2025 12:08 PM EDT 02/17/2025 12:10 PM EDT us Sunil Tang MD LAB POINT O F CARE TEST DOCKED DEVICE UNSOLICITED RESULTS Final Result Performing Organization Address [facility]/ZIP Co de Phone Number [facility] [address] [place] [address], [place] [phone] * (ABNORMAL) POCT Glucose, blood (02/17/2025 7:24 AM EDT) Glucose POCT 138(H) 70 - 100 mg/dL 02/17/2025 7:25 AM EDT [facility] Blood Capillary blood specimen / Unknown 02/17/2025 7:24 AM EDT 02/17/2025 7:26 AM EDT us Sunil Tang MD LAB POINT O F CARE TEST DOCKED DEVICE UNSOLICITED RESULTS Final Result [facility] [address] [place] [address], [place] [phone] * (ABNORMAL) Basic metabolic panel (02/17/2025 4:46 AM EDT) Sodium 142 133 - 145 mmol/L LAB CHEMISTRY METHOD 02/17/2025 6:31 AM EDT [facility] Potassium 4.6 3.5 - 5.5 mmol/L LAB CHEMISTRY METHOD 02/17/2025 6:31 AM [facility] Chloride 112(H) 96 - 110 mmol/L LAB CHEMISTRY METHOD 02/17/2025 6:31 AM [facility] CO2 25 21 - 32 mmol/L LAB CHEMISTRY METHOD 02/17/2025 6:31 AM [facility] Anion Gap 5 3 - 11 LAB CHEMISTRY METHOD 02/17/2025 6:31 AM [facility] Glucose 126(H) 70 - 100 mg/dL LAB CHEMISTRY METHOD 02/17/2025 6:31 AM [facility] BUN 52(H) 5 - 25 mg/dL LAB CHEMISTRY METHOD 02/17/2025 6:31 AM [facility] Creatinine 0.97 0.50 - 1.10 mg/dL LAB CHEMISTRY METHOD 02/17/2025 6:31 AM [facility] eGFR 68 >=60 mL/min/1. 73m2 LAB CHEMISTRY METHOD 02/17/2025 6:31 AM [facility] Comment:Calculation based on the Chronic Kidney Disease Epidemiology Collaboration (CKD-EPI) equation refit without adjustment for race. BUN/Creatinine Ratio 53.6 LAB CHEMISTRY METHOD 02/17/2025 6:31 AM [facility] Calcium 8.2(L) 8.5 - 10.5 mg/dL LAB CHEMISTRY METHOD 02/17/2025 6:31 AM [facility] Blood Venous blood specimen / Unknown Venipuncture / Unknown 02/17/2025 4:46 AM EDT 02/17/2025 5:55 AM EDT us Sunil Tang MD LAB BLOOD ORDERABLE S Final Result [facility] [address] [place] [address], * (ABNORMAL) Complete blood count (02/17/2025 4:46 AM EDT) [facility] WBC 9.0 4.8 - 10.8 K/mcL LAB HEMETOLOGY METHOD 02/17/2025 6:02 AM [facility] RBC 3.40(L) 3.80 - 4.80 M/mcL LAB HEMETOLOGY METHOD 02/17/2025 6:02 AM [facility] Hemoglobin 9.1(L) 11.5 - 16.0 g/dL LAB HEMETOLOGY METHOD 02/17/2025 6:02 AM [facility] Hematocrit 29.9(L) 35.0 - 47.0 % LAB HEMETOLOGY METHOD 02/17/2025 6:02 AM [facility] MCV 87.4 79.0 - 98.0 FL LAB HEMETOLOGY METHOD 02/17/2025 6:02 AM [facility] MCH 26.6(L) 27.0 - 32.0 pcg LAB HEMETOLOGY METHOD 02/17/2025 6:02 AM [facility] MCHC 30.4(L) 32.0 - 37.0 g/dL LAB HEMETOLOGY METHOD 02/17/2025 6:02 AM [facility] RDW 16.1(H) 11.0 - 15.0 % LAB HEMETOLOGY METHOD 02/17/2025 6:02 AM [facility] Platelets 232 130 - 400 K/mcL LAB HEMETOLOGY METHOD 02/17/2025 6:02 AM [facility] MPV 10.3 7.0 - 11.0 FL LAB HEMETOLOGY METHOD 02/17/2025 6:02 AM [facility] NRBC 0.0 <1.0 % LAB HEMETOLOGY METHOD 02/17/2025 6:02 AM [facility] NRBC Absolute 0.00 <0.10 K/mcL LAB HEMETOLOGY METHOD 02/17/2025 6:02 AM EDT [facility] Blood Venous blood specimen / Unknown Venipuncture / Unknown 02/17/2025 4:46 AM EDT 02/17/2025 5:55 AM EDT us Sunil Tang MD LAB BLOOD ORDERABLE S Final Result Performing Organization Address [facility]/ZIP Co de Phone Number [facility] [address] [place] [address], [place] [phone] * (ABNORMAL) POCT Glucose, blood (02/16/2025 7:58 PM EDT) Glucose POCT 226(H) 70 - 100 mg/dL 02/16/2025 7:58 PM EDT [facility] Blood Capillary blood specimen / Unknown 02/16/2025 7:58 PM EDT 02/16/2025 8:00 PM EDT us Sunil Tang MD LAB POINT O F CARE TEST DOCKED DEVICE UNSOLICITED RESULTS Final Result Performing Organization Address [facility] Co de Phone Number [facility] [address] [place] [address], [place] [phone] * (ABNORMAL) POCT Glucose, blood (02/16/2025 5:00 PM EDT) Glucose POCT 131(H) 70 - 100 mg/dL 02/16/2025 5:01 PM EDT [facility] POCT Comment RN Notified 02/16/2025 5:01 PM EDT [facility] Blood Capillary blood specimen / Unknown 02/16/2025 5:00 PM EDT 02/16/2025 5:02 PM EDT Sunil Tang MD LAB POINT O F CARE TEST DOCKED DEVICE UNSOLICITED RESULTS Final Result [facility] [address] [place] [address], [place] [phone] * Levetiracetam level (02/16/2025 1:28 PM EDT) Levetiracetam <1.0 3.0 - 60.0 ug/mL 02/20/2025 5:35 AM EDT [facility] Comment: Steady state trough serum or plasma levels following doses of 1000 to 3000 mg/Day: 3 to 37 ug/mL. The same dosage regimen will typically result in peak levels of 10 to 60 ug/mL, at approximately 1.5 hours post dose. If applicable, any drug confirmation testing reported here was developed and the performance characteristics determined by [facility]. This confirmation testing has not been cleared or approved by the FDA. The laboratory is regulated under CLIA as qualified to perform high-complexity testing. This test is used for patient testing purposes. It should not be regarded as investigational or for research. Test performed at [facility], [address] , [place] [address] Neris Ramirez MD, PhD - Training Director Blood Venous blood specimen / Unknown Venipuncture / Unknown 02/16/2025 1:28 PM EDT 02/16/2025 1:50 PM EDT Sunil Tang MD LAB BLOOD ORDERABLE S Final Result [facility] [address] [place] [address] * (ABNORMAL) POCT Glucose, blood (02/16/2025 12:39 PM EDT) Glucose POCT 149(H) 70 - 100 mg/dL 02/16/2025 12:40 PM EDT [facility] POCT Comment RN Notified 02/16/2025 12:40 PM EDT [facility] Blood Capillary blood specimen / Unknown 02/16/2025 12:39 PM EDT 02/16/2025 12:41 PM EDT us Sunil Tang MD LAB POINT O F CARE TEST DOCKED DEVICE UNSOLICITED RESULTS Final Result Performing Organization Address [facility]/ZIP Co de Phone Number [facility] [address] [place] [address], [place] [phone] * Lactate (02/16/2025 12:26 PM EDT) Lactate 0.7 0.4 - 2.0 mmol/L LAB CHEMISTRY METHOD 02/16/2025 1:03 PM EDT [facility] Blood Venous blood specimen / Unknown Venipuncture / Unknown 02/16/2025 12:26 PM EDT 02/16/2025 12:49 PM EDT us Sunil Tang MD LAB BLOOD ORDERABLE S Final Result Performing Organization Address [facility] de Phone Number [facility] [address] [place] [address], [place] [phone] * (ABNORMAL) POCT Glucose, blood (02/16/2025 8:04 AM EDT) Glucose POCT 146(H) 70 - 100 mg/dL 02/16/2025 8:05 AM EDT [facility] Blood Capillary blood specimen / Unknown 02/16/2025 8:04 AM EDT 02/16/2025 8:06 AM EDT us Sunil Tang MD LAB POINT O F CARE TEST DOCKED DEVICE UNSOLICITED RESULTS Final Result Performing Organization Address City/[facility] Co de Phone Number [facility] [address] [place] [address], * (ABNORMAL) Venous blood gas (02/16/2025 7:53 AM EDT) pH, Cory 7.20(L) 7.32 - 7.42 pH 02/16/2025 8:04 AM EDT [facility] pCO2, Cory 50 41 - 51 mmHg 02/16/2025 8:04 AM EDT [facility] [facility] pO2, Cory 46(H) 25 - 40 mmHg 02/16/2025 8:04 AM EDT [facility] HCO3, Venous 17.9(L) 22.0 - 26.0 mmol/L 02/16/2025 8:04 AM EDT [facility] O2 Sat, Cory 78.7 % 02/16/2025 8:04 AM EDT [facility] Base Excess, Cory -8.4(L) -2.0 - 2.0 mmol/L 02/16/2025 8:04 AM EDT [facility] Blood Venous blood specimen / Unknown Venipuncture / Unknown 02/16/2025 7:53 AM EDT 02/16/2025 7:59 AM EDT Jim Burns MD LAB BLOOD ORDERABLES Final Result [facility] [address] [place] [address], * (ABNORMAL) CBC auto differential (02/16/2025 6:19 AM EDT) Pathologist [facility] [place] WBC 11.1(H) 4.8 - 10.8 K/[facility] LAB HEMETOLOGY METHOD 02/16/2025 7:52 AM EDT [facility] RBC 3.50(L) 3.80 - 4.80 M/mcL LAB HEMETOLOGY METHOD 02/16/2025 7:52 AM [facility] Hemoglobin 9.1(L) 11.5 - 16.0 g/dL LAB HEMETOLOGY METHOD 02/16/2025 7:52 AM [facility] Hematocrit 30.7(L) 35.0 - 47.0 % LAB HEMETOLOGY METHOD 02/16/2025 7:52 AM [facility] MCV 88.2 79.0 - 98.0 FL LAB HEMETOLOGY METHOD 02/16/2025 7:52 AM [facility] MCH 26.1(L) 27.0 - 32.0 pcg LAB HEMETOLOGY METHOD 02/16/2025 7:52 AM [facility] MCHC 29.6(L) 32.0 - 37.0 g/dL LAB HEMETOLOGY METHOD 02/16/2025 7:52 AM [facility] RDW 16.4(H) 11.0 - 15.0 % LAB HEMETOLOGY METHOD 02/16/2025 7:52 AM [facility] Platelets 226 130 - 400 K/mcL LAB HEMETOLOGY METHOD 02/16/2025 7:52 AM [facility] MPV 10.2 7.0 - 11.0 FL LAB HEMETOLOGY METHOD 02/16/2025 7:52 AM [facility] NRBC 0.0 <1.0 % LAB HEMETOLOGY METHOD 02/16/2025 7:52 AM [facility] NRBC Absolute 0.00 <0.10 K/mcL LAB HEMETOLOGY METHOD 02/16/2025 7:52 AM [facility] Neutrophils Relative 79.1 % LAB HEMETOLOGY METHOD 02/16/2025 7:52 AM [facility] Lymphocytes Relative 10.0 % LAB HEMETOLOGY METHOD 02/16/2025 7:52 AM [facility] Monocytes Relative 8.6 % LAB HEMETOLOGY METHOD 02/16/2025 7:52 AM [facility] Eosinophils Relative 1.3 % LAB HEMETOLOGY METHOD 02/16/2025 7:52 AM [facility] Basophils Relative 0.3 % LAB HEMETOLOGY METHOD 02/16/2025 7:52 AM [facility] Immature Granulocytes Relative 0.7 % LAB HEMETOLOGY METHOD 02/16/2025 7:52 AM [facility] Neutrophils Absolute 8.80(H) 1.50 - 7.00 K/mcL LAB HEMETOLOGY METHOD 02/16/2025 7:52 AM [facility] Lymphocytes Absolute 1.11 1.00 - 5.00 K/mcL LAB HEMETOLOGY METHOD 02/16/2025 7:52 AM [facility] Monocytes Absolute 0.96 0.20 - 1.00 K/mcL LAB HEMETOLOGY METHOD 02/16/2025 7:52 AM [facility] Eosinophils Absolute 0.15 0.00 - 0.50 K/mcL LAB HEMETOLOGY METHOD 02/16/2025 7:52 AM [facility] Basophils Absolute 0.03 0.00 - 0.20 K/mcL LAB HEMETOLOGY METHOD 02/16/2025 7:52 AM [facility] Immature Granulocytes Absolute 0.08(H) 0.00 - 0.03 K/mcL LAB HEMETOLOGY METHOD 02/16/2025 7:52 AM [facility] Blood Venous blood specimen / Unknown Venipuncture / Unknown 02/16/2025 6:19 AM EDT 02/16/2025 7:38 AM EDT us Jim Burns MD LAB BLOOD ORDERABLES Final Result [facility] [address] [place] [address], * (ABNORMAL) Comprehensive metabolic panel (02/16/2025 6:19 AM EDT) Sodium 138 133 - 145 mmol/L LAB CHEMISTRY METHOD 02/16/2025 8:42 AM [facility] Potassium 4.8 3.5 - 5.5 mmol/L LAB CHEMISTRY METHOD 02/16/2025 8:42 AM [facility] Chloride 109 96 - 110 mmol/L LAB CHEMISTRY METHOD 02/16/2025 8:42 AM [facility] CO2 19(L) 21 - 32 mmol/L LAB CHEMISTRY METHOD 02/16/2025 8:42 AM [facility] Anion Gap 10 3 - 11 LAB CHEMISTRY METHOD 02/16/2025 8:42 AM [facility] Glucose 156(H) 70 - 100 mg/dL LAB CHEMISTRY METHOD 02/16/2025 8:42 AM [facility] BUN 63(H) 5 - 25 mg/dL LAB CHEMISTRY METHOD 02/16/2025 8:42 AM [facility] Creatinine 2.62(H) 0.50 - 1.10 mg/dL LAB CHEMISTRY METHOD 02/16/2025 8:42 AM [facility] eGFR 21(L) >=60 mL/min/1. 73m2 LAB CHEMISTRY METHOD 02/16/2025 8:42 AM [facility] Comment:Calculation based on the Chronic Kidney Disease Epidemiology Collaboration (CKD-EPI) equation refit without adjustment for race. BUN/Creatinine Ratio 24.0 LAB CHEMISTRY METHOD 02/16/2025 8:42 AM [facility] Calcium 8.1(L) 8.5 - 10.5 mg/dL LAB CHEMISTRY METHOD 02/16/2025 8:42 AM EDT [facility] AST (SGOT) 34 10 - 42 unit/L LAB CHEMISTRY METHOD 02/16/2025 8:42 AM EDT [facility] ALT (SGPT) 25 10 - 60 unit/L LAB CHEMISTRY METHOD 02/16/2025 8:42 AM EDT [facility] Alkaline Phosphatase 119 42 - 121 unit/L LAB CHEMISTRY METHOD 02/16/2025 8:42 AM EDT [facility] Total Protein 5.7(L) 6.0 - 8.0 g/dL LAB CHEMISTRY METHOD 02/16/2025 8:42 AM EDT [facility] Albumin 3.1(L) 3.2 - 5.0 g/dL LAB CHEMISTRY METHOD 02/16/2025 8:42 AM [facility] Total Bilirubin 0.3 0.0 - 1.4 mg/dL LAB CHEMISTRY METHOD 02/16/2025 8:42 AM T [facility] Blood Venous blood specimen / Unknown Venipuncture / Unknown 02/16/2025 6:19 AM EDT 02/16/2025 7:38 AM EDT us Jim Burns MD LAB BLOOD ORDERABLES Final Result [facility] [address] [place] [address], * (ABNORMAL) POCT Glucose, blood (02/16/2025 4:47 AM EDT) Glucose POCT 174(H) 70 - 100 mg/dL 02/16/2025 4:47 AM EDT [facility] Blood Capillary blood specimen / Unknown 02/16/2025 4:47 AM EDT 02/16/2025 4:48 AM EDT us Jim Burns MD LAB POINT OF CARE T EST DOCKED DEVICE UNSOLICITED RESULTS Final Result [facility] [address] [place] [address], [place] [phone] * (ABNORMAL) Venous blood gas (02/16/2025 12:08 AM EDT) pH, Cory 7.19(LL) 7.32 - 7.42 pH 02/16/2025 12:26 AM EDT [facility] pCO2, Cory 53(H) 41 - 51 mmHg 02/16/2025 12:26 AM EDT [facility] pO2, Cory 52(H) 25 - 40 mmHg 02/16/2025 12:26 AM EDT [facility] HCO3, Venous 18.3(L) 22.0 - 26.0 mmol/L 02/16/2025 12:26 AM EDT [facility] O2 Sat, Cory 82.0 % 02/16/2025 12:26 AM EDT [facility] Base Excess, Cory -8.0(L) -2.0 - 2.0 mmol/L 02/16/2025 12:26 AM EDT [facility] Blood Venous blood specimen / Unknown Venipuncture / Unknown 02/16/2025 12:08 AM EDT 02/16/2025 12:13 AM EDT [facility] BLOOD ORDERABLES Final Res ult [facility] [address] [place] [address], [place] [phone] * Prothrombin time with INR (02/16/2025 12:04 AM EDT) Protime 11.6 10.6 - 13.9 sec LAB COAGULATION METHOD 02/16/2025 12:22 AM EDT [facility] INR 0.9 LAB COAGULATION METHOD 02/16/2025 12:22 AM [facility] Blood Venous blood specimen / Unknown Venipuncture / Unknown 02/16/2025 12:04 AM EDT 02/16/2025 12:13 AM EDT us Jim Burns MD LAB BLOOD ORDERABLES Final Result [facility] [address] [place] [address], [place] [phone] * (ABNORMAL) Basic metabolic panel (02/16/2025 12:03 AM EDT) Sodium 136 133 - 145 mmol/L LAB CHEMISTRY METHOD 02/16/2025 12:36 AM [facility] Potassium 4.8 3.5 - 5.5 mmol/L LAB CHEMISTRY METHOD 02/16/2025 12:36 AM [facility] Chloride 107 96 - 110 mmol/L LAB CHEMISTRY METHOD 02/16/2025 12:36 AM [facility] CO2 19(L) 21 - 32 mmol/L LAB CHEMISTRY METHOD 02/16/2025 12:36 AM [facility] Anion Gap 10 3 - 11 LAB CHEMISTRY METHOD 02/16/2025 12:36 AM [facility] Glucose 152(H) 70 - 100 mg/dL LAB CHEMISTRY METHOD 02/16/2025 12:36 AM [facility] BUN 64(H) 5 - 25 mg/dL LAB CHEMISTRY METHOD 02/16/2025 12:36 AM [facility] Creatinine 3.12(H) 0.50 - 1.10 mg/dL LAB CHEMISTRY METHOD 02/16/2025 12:36 AM [facility] eGFR 17(L) >=60 mL/min/1. 73m2 LAB CHEMISTRY METHOD 02/16/2025 12:36 AM T [facility] Comment:Calculation based on the Chronic Kidney Disease Epidemiology Collaboration (CKD-EPI) equation refit without adjustment for race. BUN/Creatinine Ratio 20.5 LAB CHEMISTRY METHOD 02/16/2025 12:36 AM [facility] Calcium 7.7(L) 8.5 - 10.5 mg/dL LAB CHEMISTRY METHOD 02/16/2025 12:36 AM T [facility] Blood Venous blood specimen / Unknown Venipuncture / Unknown 02/16/2025 12:03 AM EDT 02/16/2025 12:13 AM EDT us Jim Burns MD LAB BLOOD ORDERABLES Final Result [facility] [address] [place] [address], * (ABNORMAL) Urinalysis with reflex microscopic (02/15/2025 11:26 PM EDT) Specific [place] Urine 1.025 1.003 - 1.030 LAB URINALYSIS - AUTOMATED METHOD 02/16/2025 12:59 AM [facility] pH, Urine 5.0 5.0 - 8.0 pH LAB URINALYSIS - AUTOMATED METHOD 02/16/2025 12:59 AM [facility] Leukocytes, Urine Negative Negative LAB URINALYSIS - AUTOMATED METHOD 02/16/2025 12:59 AM [facility] Nitrite, Urine Negative Negative LAB URINALYSIS - AUTOMATED METHOD 02/16/2025 12:59 AM [facility] Protein, Urine 30(A) <=Trace mg/dL LAB URINALYSIS - AUTOMATED METHOD 02/16/2025 12:59 AM [facility] Glucose, Urine >=1000(A) Negative mg/dL LAB URINALYSIS - AUTOMATED METHOD 02/16/2025 12:59 AM [facility] Ketones, Urine Trace(A) Negative mg/dL LAB URINALYSIS - AUTOMATED METHOD 02/16/2025 12:59 AM [facility] Urobilinogen , Urine 0.2 0.2 - 1.0 mg/dL LAB URINALYSIS - AUTOMATED METHOD 02/16/2025 12:59 AM [facility] Bilirubin, Urine Negative Negative LAB URINALYSIS - AUTOMATED METHOD 02/16/2025 12:59 AM [facility] Blood, Urine Negative Negative LAB URINALYSIS - AUTOMATED METHOD 02/16/2025 12:59 AM [facility] RBC, Urine 2.3 0 - 4 /HPF LAB URINALYSIS - AUTOMATED METHOD 02/16/2025 12:59 AM [facility] WBC, Urine 5.6(H) 0 - 4 /HPF LAB URINALYSIS - AUTOMATED METHOD 02/16/2025 12:59 AM [facility] Squamous Epithelial, Urine 39 0 - 60 /LPF LAB URINALYSIS - AUTOMATED METHOD 02/16/2025 12:59 AM [facility] Bacteria, Urine Negative Negative /HPF LAB URINALYSIS - AUTOMATED METHOD 02/16/2025 12:59 AM [facility] Hyaline Casts, Urine 7.6(H) 0 - 3 /LPF LAB URINALYSIS - AUTOMATED METHOD 02/16/2025 12:59 AM [facility] Urine Urine specimen from urinary conduit / Unknown Non-blood Collection / Unknown 02/15/2025 11:26 PM EDT 02/16/2025 12:17 AM EDT us Jim Burns MD LAB URINE ORDERABLES Final Result [facility] [address] [place] [address], [place] [phone] * Creatinine, urine, random (02/15/2025 11:26 PM EDT) Creatinine, Urine 165.0 mg/dL LAB CHEMISTRY METHOD 02/16/2025 12:54 AM EDT [facility] Urine Urine specimen from urinary conduit / Unknown Non-blood Collection / Unknown 02/15/2025 11:26 PM EDT 02/16/2025 12:17 AM EDT Jim Burns MD LAB URINE ORDERABLES Final Result [facility] [address] [place] [address], [place] [phone] * (ABNORMAL) Protein and creatinine with ratio, urine (02/15/2025 11:26 PM EDT) Protein, Urine 48 mg/dL LAB CHEMISTRY METHOD 02/16/2025 12:54 AM EDT [facility] Prot/Creat, Ur 0.29(H) <=0.20 mg/mg creat LAB CHEMISTRY METHOD 02/16/2025 12:54 AM EDT [facility] Creatinine, Urine 165.0 mg/dL LAB CHEMISTRY METHOD 02/16/2025 12:54 AM EDT [facility] Urine Urine specimen from urinary conduit / Unknown Non-blood Collection / Unknown 02/15/2025 11:26 PM EDT 02/16/2025 12:17 AM EDT Jim Burns MD LAB URINE ORDERABLES Final Result Performing Organization Address City/[facility]/ZIP Co de Phone Number [facility] [address] [place] [address], [place] [phone] * Sodium, urine, random (02/15/2025 11:26 PM EDT) Sodium, Ur 7 mmol/L LAB CHEMISTRY METHOD 02/16/2025 12:54 AM EDT [facility] Urine Urine specimen from urinary conduit / Unknown Non-blood Collection / Unknown 02/15/2025 11:26 PM EDT 02/16/2025 12:17 AM EDT us Jim Burns MD LAB URINE ORDERABLES Final Result [facility] [address] [place] [address], * (ABNORMAL) Drug abuse screen 8a panel, urine (02/15/2025 11:26 PM EDT) Amphetamine Screen, Ur Negative Negative LAB CHEMISTRY METHOD 12:56 AM [facility] Comment:Certain OTC medicati ons containing ephedrine, phenylephrine, pseudoephedrine and phenylpropanolamine can cause false positive results. Barbiturate Screen, Ur Negative Negative LAB CHEMISTRY METHOD 5 12:56 AM [facility] Benzodiazepine Screen, Ur Negative Negative LAB CHEMISTRY METHOD 5 12:56 AM [facility] Cocaine Screen, Ur Negative Negative LAB CHEMISTRY METHOD 5 12:56 AM [facility] Opiate Screen, Ur Positive(A ) Negative LAB CHEMISTRY METHOD 5 12:56 AM [facility] Cannabinoid (THC) Screen, Ur Negative Negative LAB CHEMISTRY METHOD 5 12:56 AM [facility] Comment:Specimens from patie nts taking pantoprazole sodium (Protonix) have been shown to produce false positive results. Oxycodone Screen, Ur Positive(A ) Negative LAB CHEMISTRY METHOD 5 12:56 AM [facility] Fentanyl, Ur Negative Negative LAB CHEMISTRY METHOD 5 12:56 AM [facility] Urine Urine specimen from urinary conduit / Unknown Non-blood Collection / Unknown 02/15/2025 11:26 PM EDT 02/16/2025 12:17 AM EDT Narrative [facility] - 02/16/2025 12:56 AM EDT Assay cutoffs: Amphetamines 1000 ng/mL Barbiturates 200 ng/mL Benzodiazepines 200 ng/mL Cocaine 300 ng/mL Fentanyl 1 ng/mL Opiates 300 ng/mL Oxycodone 100 ng/mL THC 50 ng/mL Semi-quantitative assay for screening purposes only. Unconfirmed screening result should not be used for non-medical purposes. *ALTERNATE METHOD CONFIRMATION DONE UPON REQUEST ONLY* us Jim Burns MD LAB URINE ORDERABLES Final Result Performing Organization Address [facility] Co de Phone Number [facility] [address] [place] [address], [place] [phone] * Methadone, urine (02/15/2025 11:26 PM EDT) Methadone Screen, Urine Negative Negative LAB CHEMISTRY METHOD 02/16/2025 12:54 AM EDT [facility] Comment: Assay cutoff 300 ng/mL Semi-quantitative assay for screening purposes only. Unconfirmed screening result should not be used for non-medical purposes. *ALTERNATE METHOD CONFIRMATION DONE UPON REQUEST ONLY* Urine Urine specimen from urinary conduit / Unknown Non-blood Collection / Unknown 02/15/2025 11:26 PM EDT 02/16/2025 12:17 AM EDT us Jim Burns MD LAB URINE ORDERABLES Final Result Performing Organization Address [facility]/ZIP Co de Phone Number [facility] [address] [place] [address], [place] [phone] * Phencyclidine, urine (02/15/2025 11:26 PM EDT) PCP Scrn, Ur Negative Negative LAB CHEMISTRY METHOD 02/16/2025 12:54 AM EDT [facility] Comment: Assay cutoff 25 ng/mL Semi-quantitative assay for screening purposes only. Unconfirmed screening result should not be used for non-medical purposes. *ALTERNATE METHOD CONFIRMATION DONE UPON REQUEST ONLY* Urine Urine specimen from urinary conduit / Unknown Non-blood Collection / Unknown 02/15/2025 11:26 PM EDT 02/16/2025 12:17 AM EDT us Jim Burns MD LAB URINE ORDERABLES Final Result Performing Organization Address [facility]/ZIP Co de Phone Number [facility] [address] [place] [address], [place] [phone] * Buprenorphine screen, urine (02/15/2025 11:26 PM EDT) Buprenorphine Screen Urine Negative Negative LAB CHEMISTRY METHOD 02/16/2025 12:54 AM EDT [facility] Urine Urine specimen from urinary conduit / Unknown Non-blood Collection / Unknown 02/15/2025 11:26 PM EDT 02/16/2025 12:17 AM EDT Narrative [facility] - 02/16/2025 12:54 AM EDT Assay cutoff 5 ng/mL Semi-quantitative assay for screening purposes only. Unconfirmed screening result should not be used for non-medical purposes. *ALTERNATE METHOD CONFIRMATION DONE UPON REQUEST ONLY* us Jim Burns MD LAB URINE ORDERABLES Final Result Performing Organization Address [facility]/ZIP Co de Phone Number [facility] [address] [place] [address], [place] [phone] * (ABNORMAL) POCT Glucose, blood (02/15/2025 9:50 PM EDT) Glucose POCT 207(H) 70 - 100 mg/dL 02/15/2025 9:51 PM EDT [facility] Blood Capillary blood specimen / Unknown 02/15/2025 9:50 PM EDT 02/15/2025 9:52 PM EDT us Jim Burns MD LAB POINT OF CARE T EST DOCKED DEVICE UNSOLICITED RESULTS Final Result [facility] [address] [place] [address], [place] [phone] * XR Chest 1 View (02/15/2025 6:24 PM EDT) Anatomical Region Laterality Modality Body Radiographic Amina ging 02/16/2025 10:0 9 AM EDT Impressions 02/16/2025 10:10 AM EDT FINDINGS/IMPRESSION: Hypoventilatory examination with mild pulmonary vascular congestion and scattered opacities which could represent atelectasis, pneumonia or edema. No significant pleural effusion. Ascending aortic ectasia versus aneurysm. -------- FINAL REPORT -------- Dictated By: Topher Sebastian Dictated Date: 02/16/2025 10:09 ET Assigned Physician: Topher Sebastian Reviewed and Electronically Signed By: Topher Sebastian Signed Date: 02/16/2025 10:10 ET Workstation ID: [id number] Transcribed By: Self Edit Transcribed Date: 02/16/2025 10:09 ET Narrative 02/16/2025 10:10 AM EDT XR CHEST 1 VIEW INDICATION: pain Hypoxemia TECHNIQUE: XR CHEST 1 VIEW COMPARISON: No priors available. Procedure Note Topher Sebastian MD - 02/16/2025 XR CHEST 1 VIEW INDICATION: pain Hypoxemia TECHNIQUE: XR CHEST 1 VIEW COMPARISON: No priors available. IMPRESSION: FINDINGS/IMPRESSION: Hypoventilatory examination with mild pulmonaryvascular congestion and scattered opacities which could representatelectasis, pneumonia or edema. No significant pleural effusion.Ascending aortic ectasia versus aneurysm. -------- FINAL REPORT -------- Dictated By: Topher Sebastian Dictated Date: 02/16/2025 10:09 ET Assigned Physician: Topher Sebastian Reviewed and Electronically Signed By: Topher Sebastian Signed Date: 02/16/2025 10:10 ET Workstation ID: [id number] Transcribed By: Self Edit Transcribed Date: 02/16/2025 10:09 ET us Jim Burns MD IMG XR PROCEDURES Final Res ult * ECG 12 lead (02/15/2025 6:10 PM EDT) Ventricular Rate ECG 88 BPM GEMUSE Atrial Rate 88 BPM GEMUSE P-R Interval 152 ms GEMUSE QRS Duration 90 ms GEMUSE Q-T Interval 378 ms GEMUSE QTc 457 ms GEMUSE P Wave [place] 39 degrees GEMUSE R [place] -21 degrees GEMUSE T [place] 50 degrees GEMUSE ECG Interpretation Normal sinus rhythm When compared with ECG of 18-DEC-2024 08:13, No significant change was found Confirmed by RUFUS BRAND ([id number]) on 02/16/2025 6:52:52 AM GEMUSE 02/15/2025 6:10 PM EDT 02/16/2025 6:52 AM EDT us Alberto Phelps MD ECG ORDERABLES Final Result G[facility] * (ABNORMAL) Procalcitonin (02/15/2025 5:45 PM EDT) Pathologist [facility] [place] Procalcitonin 0.36(H) <=0.16 ng/mL LAB CHEMISTRY METHOD 02/16/2025 7:27 AM EDT [facility] Blood Venous blood specimen / Unknown Venipuncture / Unknown 02/15/2025 5:45 PM EDT 02/15/2025 6:01 PM EDT Narrative [facility] - 02/16/2025 7:27 AM EDT Procalcitonin > 2.00 ng/ml: Procalcitonin Levels above 2.00 ng/ml, on the first day of ICU admission represent a high risk for progression to severe sepsis and/or septic shock. Procalcitonin < 0.50 ng/ml: Procalcitonin levels below 0.50 ng/ml on the first day of ICU admission represent a low risk for progression to severe sepsis and/or septic shock. Concentrations <0.5 ng/mL do not exclude an infection, on account of local ized infections (without systemic signs) which can be associated with such low concentrations, or a systemic infection in its initial stages (<6 hours). Furthermore, increased procalcitonin can occur without infection. PCT concentrations between 0.5 and 2.0 ng/mL should be interpreted taking into account the patient's history. It is recommended to retest PCT within 6-24 hours if any concentrations <2.0 ng/mL are obtained. [facility] BLOOD ORDERABLES Final Res ult Performing Organization Address City/[facility]/ZIP Co de Phone Number [facility] [address] [place] [address], [place] [phone] * Magnesium (02/15/2025 5:45 PM EDT) Magnesium 2.5 1.9 - 2.6 mg/dL LAB CHEMISTRY METHOD 02/15/2025 6:51 PM EDT [facility] Blood Venous blood specimen / Unknown Venipuncture / Unknown 02/15/2025 5:45 PM EDT 02/15/2025 6:01 PM EDT Alberto Phelps MD LAB BLOOD ORDERABLES Final Res ult Performing Organization Address [facility]/ZIP Co de Phone Number [facility] [address] [place] [address], [place] [phone] * (ABNORMAL) CBC auto differential (02/15/2025 5:45 PM EDT) WBC 12.9(H) 4.8 - 10.8 K/mcL LAB HEMETOLOGY METHOD 02/15/2025 6:15 PM EDT [facility] RBC 3.80 3.80 - 4.80 M/mcL LAB HEMETOLOGY METHOD 02/15/2025 6:15 PM EDT [facility] Hemoglobin 10.3(L) 11.5 - 16.0 g/dL LAB HEMETOLOGY METHOD 02/15/2025 6:15 PM EDT [facility] Hematocrit 33.9(L) 35.0 - 47.0 % LAB HEMETOLOGY METHOD 02/15/2025 6:[facility] MCV 89.0 79.0 - 98.0 FL LAB HEMETOLOGY METHOD 02/15/2025 6:15 PM EDT [facility] MCH 27.0 27.0 - 32.0 pcg LAB HEMETOLOGY METHOD 02/15/2025 6:15 PM [facility] MCHC 30.4(L) 32.0 - 37.0 g/dL LAB HEMETOLOGY METHOD 02/15/2025 6:15 PM [facility] RDW 15.9(H) 11.0 - 15.0 % LAB HEMETOLOGY METHOD 02/15/2025 6:[facility] Platelets 287 130 - 400 K/mcL LAB HEMETOLOGY METHOD 02/15/2025 6:15 PM [facility] MPV 10.5 7.0 - 11.0 FL LAB HEMETOLOGY METHOD 02/15/2025 6:15 PM [facility] NRBC 0.0 <1.0 % LAB HEMETOLOGY METHOD 02/15/2025 6:15 PM T [facility] NRBC Absolute 0.00 <0.10 K/mcL LAB HEMETOLOGY METHOD 02/15/2025 6:15 PM [facility] Neutrophils Relative 81.5 % LAB HEMETOLOGY METHOD 02/15/2025 6:15 [facility] Lymphocytes Relative 8.8 % LAB HEMETOLOGY METHOD 02/15/2025 6:15 PM [facility] Monocytes Relative 7.7 % LAB HEMETOLOGY METHOD 02/15/2025 6:15 PM EDT [facility] Eosinophils Relative 1.3 % LAB HEMETOLOGY METHOD 02/15/2025 6:15 PM EDT [facility] Basophils Relative 0.2 % LAB HEMETOLOGY METHOD 02/15/2025 6:15 PM EDT [facility] Immature Granulocytes Relative 0.5 % LAB HEMETOLOGY METHOD 02/15/2025 6:15 PM EDT [facility] Neutrophils Absolute 10.50(H) 1.50 - 7.00 K/mcL LAB HEMETOLOGY METHOD 02/15/2025 6:15 PM EDT [facility] Lymphocytes Absolute 1.14 1.00 - 5.00 K/mcL LAB HEMETOLOGY METHOD 02/15/2025 6:15 PM EDT [facility] Monocytes Absolute 0.99 0.20 - 1.00 K/mcL LAB HEMETOLOGY METHOD 02/15/2025 6:15 PM EDT [facility] Eosinophils Absolute 0.17 0.00 - 0.50 K/mcL LAB HEMETOLOGY METHOD 02/15/2025 6:15 PM EDT [facility] Basophils Absolute 0.03 0.00 - 0.20 K/mcL LAB HEMETOLOGY METHOD 02/15/2025 6:15 PM EDT [facility] Immature Granulocytes Absolute 0.07(H) 0.00 - 0.03 K/mcL LAB HEMETOLOGY METHOD 02/15/2025 6:15 PM EDT [facility] Blood Venous blood specimen / Unknown Venipuncture / Unknown 02/15/2025 5:45 PM EDT 02/15/2025 6:01 PM EDT us Alberto Phelps MD LAB BLOOD ORDERABLES Final Res ult [facility] [address] [place] [address], [place] [phone] * Salicylate level (02/15/2025 5:45 PM EDT) Salicylate Level 2.3 2.0 - 29.0 mg/dL LAB CHEMISTRY METHOD 02/15/2025 6:29 PM EDT [facility] Blood Venous blood specimen / Unknown Venipuncture / Unknown 02/15/2025 5:45 PM EDT 02/15/2025 6:01 PM EDT us Alberto Phelps MD LAB BLOOD ORDERABLES Final Res ult Performing Organization Address [facility]/ZIP Co de Phone Number [facility] [address] [place] [address], [place] [phone] * (ABNORMAL) Acetaminophen level (02/15/2025 5:45 PM EDT) Acetaminophen Level <2.0(L) 10.0 - 30.0 mcg/mL LAB CHEMISTRY METHOD 02/15/2025 6:29 PM EDT [facility] Blood Venous blood specimen / Unknown Venipuncture / Unknown 02/15/2025 5:45 PM EDT 02/15/2025 6:01 PM EDT us Alberto Phelps MD LAB BLOOD ORDERABLES Final Res ult [facility] [address] [place] [address], [place] [phone] * Ethanol (02/15/2025 5:45 PM EDT) Ethanol Level <3 0 - 10 mg/dL LAB CHEMISTRY METHOD 02/15/2025 6:29 PM EDT [facility] Blood Venous blood specimen / Unknown Venipuncture / Unknown 02/15/2025 5:45 PM EDT 02/15/2025 6:01 PM EDT us Alberto Phelps MD LAB BLOOD ORDERABLES Final Res ult [facility] [address] [place] [address], [place] [phone] * (ABNORMAL) Comprehensive metabolic panel (02/15/2025 5:45 PM EDT) Sodium 134 133 - 145 mmol/L LAB CHEMISTRY METHOD 02/15/2025 6:30 PM EDT [facility] Potassium 4.8 3.5 - 5.5 mmol/L LAB CHEMISTRY METHOD 02/15/2025 6:30 PM [facility] Chloride 104 96 - 110 mmol/L LAB CHEMISTRY METHOD 02/15/2025 6:30 PM [facility] CO2 21 21 - 32 mmol/L LAB CHEMISTRY METHOD 02/15/2025 6:30 PM [facility] Anion Gap 9 3 - 11 LAB CHEMISTRY METHOD 02/15/2025 6:30 PM [facility] Glucose 206(H) 70 - 100 mg/dL LAB CHEMISTRY METHOD 02/15/2025 6:30 PM [facility] BUN 59(H) 5 - 25 mg/dL LAB CHEMISTRY METHOD 02/15/2025 6:30 PM [facility] Creatinine 3.50(H) 0.50 - 1.10 mg/dL LAB CHEMISTRY METHOD 02/15/2025 6:30 PM [facility] eGFR 15(L) >=60 mL/min/1. 73m2 LAB CHEMISTRY METHOD 02/15/2025 6:30 PM [facility] Comment:Calculation based on the Chronic Kidney Disease Epidemiology Collaboration (CKD-EPI) equation refit without adjustment for race. BUN/Creatinine Ratio 16.9 LAB CHEMISTRY METHOD 02/15/2025 6:30 PM EDT [facility] Calcium 8.3(L) 8.5 - 10.5 mg/dL LAB CHEMISTRY METHOD 02/15/2025 6:30 PM EDT [facility] AST (SGOT) 26 10 - 42 unit/L LAB CHEMISTRY METHOD 02/15/2025 6:30 PM [facility] ALT (SGPT) 24 10 - 60 unit/L LAB CHEMISTRY METHOD 02/15/2025 6:30 PM EDT [facility] Alkaline Phosphatase 134(H) 42 - 121 unit/L LAB CHEMISTRY METHOD 02/15/2025 6:30 PM [facility] Total Protein 6.2 6.0 - 8.0 g/dL LAB CHEMISTRY METHOD 02/15/2025 6:30 PM [facility] Albumin 3.5 3.2 - 5.0 g/dL LAB CHEMISTRY METHOD 02/15/2025 6:30 PM [facility] Total Bilirubin 0.3 0.0 - 1.4 mg/dL LAB CHEMISTRY METHOD 02/15/2025 6:30 PM [facility] Blood Venous blood specimen / Unknown Venipuncture / Unknown 02/15/2025 5:45 PM EDT 02/15/2025 6:01 PM EDT Alberto Phelps MD LAB BLOOD ORDERABLES Final Res ult [facility] [address] [place] [address], [place] [phone] documented in this encounter Visit Diagnoses Diagnosis Acute drug overdose- Primary Poisoning by unspecified drug or medicinal substance Acute on chronic renal insufficiency Acute kidney failure, unspecified Acute drug overdose, intentional self-harm, initial encounter ([facility] V24, [facility] V28) Type 2 diabetes mellitus without complication, with long-term current use of insulin ([facility] V24, [facility] V28) Secondary hypertension Other secondary hypertension, unspecified Depression, unspecified depression type Acute on chronic renal failure ([facility] V24) Acute kidney failure, unspecified documented in this encounter Admitting Diagnoses Diagnosis Acute on chronic renal failure ([facility] V24) Acute kidney failure, unspecified Acute drug overdose Poisoning by unspecified drug or medicinal substance documented in this encounter Administered Medications Active Administered Medications - up to 3 most recent administrations Medication Order MAR Action Action Date Dose Rate Site acetaminophen (TYLENOL) tablet 650 mg 650 mg, oral, Every 4 hours PRN, mild pain, headaches, fever - temperature GREATER than 38 C (100.4 F), Starting on Tue02/15/25 at 1925 Given 02/21/2025 5:35 PM EDT 650 mg Given 02/20/2025 12:03 PM EDT 650 mg Given 02/19/2025 1:42 PM EDT 650 mg apixaban (ELIQUIS) tablet 5 mg 5 mg, oral, 2 times daily, First dose (after last modification) on Tue02/16/25 at 2100, Indication: Atrial Fibrillation Given 2025 9:05 AM EDT 5 mg Given 02/21/2025 8:41 PM EDT 5 mg Given 02/21/2025 9:42 AM EDT 5 mg aspirin chewable tablet 81 mg 81 mg, oral, Daily, First dose on Tue02/18/25 at 0900 Given 2025 9:05 AM EDT 81 mg Given 02/21/2025 9:42 AM EDT 81 mg Given 02/20/2025 8:30 AM EDT 81 mg atorvastatin (LIPITOR) tablet 80 mg 80 mg, oral, Nightly, First dose on Tue02/18/25 at 2100 Given 02/21/2025 8:41 PM EDT 80 mg Given 02/20/2025 10:12 PM EDT 80 mg Given 02/19/2025 8:54 PM EDT 80 mg cloNIDine (CATAPRES) tablet 0.1 mg 0.1 mg, oral, 2 times daily, First dose on Tue02/17/25 at 1945 Given 2025 9:05 AM EDT 0.1 mg Given 02/21/2025 8:41 PM EDT 0.1 mg Given 02/21/2025 9:42 AM EDT 0.1 mg gabapentin (NEURONTIN) capsule 400 mg 400 mg, oral, 3 times daily, First dose on Tue02/22/25 at 1015 Given 2025 12:17 PM EDT 400 mg hydrALAZINE (APRESOLINE) injection 10 mg 10 mg, intravenous, Every 6 hours PRN, systolic BP greater than:, SBP>160, Starting on 02/17/25 at 1917 Given 2025 12:18 PM EDT 10 mg Given 02/21/2025 8:40 PM EDT 10 mg Given 02/20/2025 5:01 PM EDT 10 mg insulin glargine (LANTUS) injection 26 Units 26 Units, subcutaneous, Nightly, First dose (after last modification) on Tue02/21/25 at 2100, Notify provider: -If patient is currently or will become NPO -If TPN was or will be interrupted or discontinued -For approval to hold long acting insulin Given 02/21/2025 8:40 PM EDT 26 Units Right Lower Abdomen insulin lispro injection 2-12 Units 2-12 Units, subcutaneous, 4 times daily before meals and nightly, First dose on Tue02/15/25 at 2100, Indication: Total Daily Dose (TDD) 40 - 80 units. Correction Scale: Moderate Dose Administer with meal and/or mealtime dose of insulin to correct high blood glucose If mealtime insulin dose not given (e.g. patient NPO or not eating), still administer correction factor for high blood glucose Given 2025 12:19 PM EDT 6 Units Right Upper Arm (Lisbet k) Given 2025 9:04 AM EDT 2 Units Le ft Upper Arm (Back) Given 02/21/2025 8:40 PM EDT 8 Units Ri ght Upper Arm (Back) isosorbide mononitrate (IMDUR) 24 hr tablet 60 mg 60 mg, oral, Daily, First dose (after last modification) on Tue02/19/25 at 0900, Do not crush or chew. Given 2025 9:05 AM EDT 60 mg Given 02/21/2025 9:42 AM EDT 60 mg Given 02/20/2025 8:30 AM EDT 60 mg lisinopriL (PRINIVIL,ZESTRIL) tablet 10 mg 10 mg, oral, Daily, First dose (after last modification) on Arlette 02/21/25 at 0900, Hold if systolic blood pressure is less than 90 mmHg Given 2025 9:05 AM EDT 10 mg Given 02/21/2025 9:42 AM EDT 10 mg ondansetron (PF) (ZOFRAN) injection 4 mg 4 mg, intravenous, Every 8 hours PRN, vomiting, nausea, Starting on Tue02/15/25 at 1925, -ONLY give IV if patient is unable to take orally. -If inadequate response within 30 minutes, proceed to next-line agent or contact provider if no further options ordered. Given 02/20/2025 5:13 PM EDT 4 mg Given 02/19/2025 6:50 PM EDT 4 mg Given 02/17/2025 11:47 PM EDT 4 mg ondansetron ODT (ZOFRAN-ODT) disintegrating tablet 4 mg 4 mg, oral, Every 8 hours PRN, vomiting, nausea, Starting on Tue02/15/25 at 1925, -Give IV if patient is unable to take orally. -If inadequate response within 30 minutes, proceed to next-line agent or contact provider if no further options ordered. For ODT tablets: -Do not remove from blister pack until just before administering. -Patient should allow tablet to dissolve on tongue. pantoprazole (PROTONIX) EC tablet 40 mg 40 mg, oral, Every morning before breakfast, First dose on 02/18/25 at 0830, Do not crush, chew, or split. Given 2025 6:27 AM EDT 40 mg Given 02/21/2025 6:29 AM EDT 40 mg Given 02/20/2025 6:09 AM EDT 40 mg prochlorperazine (COMPAZINE) injection 10 mg 10 mg, intravenous, Every 6 hours PRN, nausea, vomiting, Starting on Tue02/15/25 at 1925, 2nd Line Option: -ONLY give IV if patient is unable to take orally. -Give IM if patient does not have IV Access -If inadequate response within 30 minutes, proceed to next-line agent or contact provider if no further options ordered. prochlorperazine (COMPAZINE) suppository 25 mg 25 mg, rectal, Every 12 hours PRN, nausea, vomiting, Starting on Tue02/15/25 at 1925, 2nd Line Option: -ONLY give NJ if patient is unable to take orally and cannot receive IV/IM. -If inadequate response within 30 minutes, proceed to next-line agent or contact provider if no further options ordered. prochlorperazine (COMPAZINE) tablet 10 mg 10 mg, oral, Every 6 hours PRN, nausea, vomiting, Starting on Tue02/15/25 at 1925, 2nd Line Option: -Give IV or IM if patient is unable to take orally. -If inadequate response within 30 minutes, proceed to next-line agent or contact provider if no further options ordered. sertraline (ZOLOFT) tablet 25 mg 25 mg, oral, Nightly, First dose on Tue02/19/25 at 2100 Given 02/21/2025 8:41 PM EDT 25 mg Given 02/20/2025 10:11 PM EDT 25 mg Given 02/19/2025 8:54 PM EDT 25 mg sodium chloride 0.9 % flush 10 mL 10 mL, intravenous, 2 times daily, First dose on Tue02/15/25 at 2100 Given 2025 9:05 AM EDT 10 mL Given 02/21/2025 8:41 PM EDT 10 mL Given 02/21/2025 9:44 AM EDT 10 mL sodium chloride 0.9 % flush 10 mL 10 mL, intravenous, As needed, line care, Starting on Tue02/15/25 at 1925 Inactive Administered Medications - up to 3 most recent administrations Medication Order MAR Action Action Date Dose Rate Site insulin glargine (LANTUS) injection 15 Units 15 Units, subcutaneous, Nightly, First dose on Tue02/18/25 at 2100, Notify provider: -If patient is currently or will become NPO -If TPN was or will be interrupted or discontinued -For approval to hold long acting insulin Given 02/18/2025 8:40 PM EDT 15 Units Right Upper Arm (Back) insulin glargine (LANTUS) injection 20 Units 20 Units, subcutaneous, Nightly, First dose (after last modification) on Tue02/19/25 at 2100, Notify provider: -If patient is currently or will become NPO -If TPN was or will be interrupted or discontinued -For approval to hold long acting insulin Given 02/20/2025 10:12 PM EDT 20 Units Right Upper Arm (Back) Given 02/19/2025 8:54 PM EDT 20 Units Le ft Upper Arm (Back) isosorbide mononitrate (IMDUR) 24 hr tablet 30 mg 30 mg, oral, Daily, First dose on Tue02/18/25 at 0900, Do not crush or chew. Given 02/18/2025 8:50 AM EDT 30 mg lactated Ringer's infusion 75 mL/hr, intravenous, Continuous, Starting on Tue02/15/25 at 1926, For 10 hours Rate/Dose Change 02/15/2025 8:38 PM EDT 75 mL/hr 75 mL/hr New Bag 02/15/2025 8:07 PM EDT 100 mL/hr 100 mL/hr lactated Ringer's infusion 100 mL/hr, intravenous, Continuous, Starting on Tue02/17/25 at 0915, For 2 days New Bag 02/18/2025 5:25 AM EDT 100 mL/hr 100 mL/hr New Bag 02/17/2025 9:10 AM EDT 100 mL/hr 100 mL/hr lisinopriL (PRINIVIL,ZESTRIL) tablet 5 mg 5 mg, oral, Daily, First dose on Tue02/17/25 at 1345, Hold if systolic blood pressure is less than 90 mmHg Given 02/20/2025 8:30 AM EDT 5 mg Given 02/19/2025 8:31 AM EDT 5 mg Given 02/18/2025 8:50 AM EDT 5 mg LORazepam (ATIVAN) injection 1 mg 1 mg, intravenous, Once, On Tue02/22/25 at 1115, For 1 dose, Before ambulance transfer Prior to IV use, lorazepam injection should be DILUTED with an equal volume of compatible solution; Rate of administration should NOT exceed 2 mg/min. Given 2025 12:18 PM EDT 1 mg oxyCODONE (ROXICODONE) immediate release tablet 10 mg 10 mg, oral, Once, On Tue02/18/25 at 0115, For 1 dose Given 02/18/2025 1:30 AM EDT 10 mg oxyCODONE (ROXICODONE) immediate release tablet 5 mg 5 mg, oral, Every 6 hours PRN, severe pain, Starting on Tue02/18/25 at 1829 Given 02/19/2025 8:36 AM EDT 5 mg Given 02/18/2025 8:39 PM EDT 5 mg oxyCODONE (ROXICODONE) immediate release tablet 5 mg 5 mg, oral, Once, On Tu02/19/25 at 0030, For 1 dose Given 02/19/2025 1:01 AM EDT 5 mg oxyCODONE (ROXICODONE) immediate release tablet 5 mg 5 mg, oral, Once, On Arlette 02/21/25 at 2000, For 1 dose Given 02/21/2025 8:39 PM EDT 5 mg sodium bicarbonate 1 mEq/mL (8.4 %) 75 mEq in sodium chloride 0.45 % 1,075 mL infusion 75 mEq, intravenous, at 75 mL/hr, Continuous, Starting on 02/16/25 at 0830 New Bag 02/16/2025 11:00 PM EDT 75 mEq 75 mL/hr New Bag 02/16/2025 9:18 AM EDT 75 mEq 75 mL/hr sodium chloride 0.9 % bolus 1,000 mL 1,000 mL, intravenous, at 1,000 mL/hr, Administer over 1 Hours, Once, On Tue02/15/25 at 1846, For 1 dose New Bag 02/15/2025 6:51 PM EDT 1,000 mL 1000 mL/hr traZODone (DESYREL) tablet 25 mg 25 mg, oral, Once, On Tue02/18/25 at 0100, For 1 dose Given 02/18/2025 1:30 AM EDT 25 mg traZODone (DESYREL) tablet 25 mg 25 mg, oral, Once, On Tue02/18/25 at 2315, For 1 dose Given 02/18/2025 11:33 PM EDT 25 mg traZODone (DESYREL) tablet 25 mg 25 mg, oral, Once, On Tue02/20/25 at 2315, For 1 dose Given 02/21/2025 12:22 AM EDT 25 mg traZODone (DESYREL) tablet 25 mg 25 mg, oral, Once, On Tue02/22/25 at 0015, For 1 dose Given 2025 12:16 AM EDT 25 mg documented in this encounter Discontinued Medications Medication Sig Discontinue Reason Start Date End Da te insulin glargine (LANTUS SoloStar) 100 unit/mL (3 mL) injection pen Inject 24 Units under the skin daily. 11/16/2024 02/18/2025 insulin glargine (LANTUS SoloStar) 100 unit/mL (3 mL) injection penIndications:Type 2 diabetes mellitus without complication, with long-term current use of insulin ([facility] V24, [facility] V28) Inject 15 Units under the skin at bedtime. Stop Taking at Discharge 02/18/2025 02/19/2025 lisinopriL (PRINIVIL,ZESTRIL) 5 mg tabletIndications:Second chet hypertension Take 1 tablet (5 mg total) by mouth 1 (one) time each day. 02/19/2025 02/20/2025 insulin glargine (LANTUS) 100 unit/mL injection Inject 20 Units under the skin at bedtime. Stop Taking at Discharge 02/19/2025 02/21/2025 documented as of this encounter Historical Medications * This list may reflect changes made after this encounter. gabapentin (NEURONTIN) 400 mg capsule Take 1 capsule (400 mg total) by mouth 3 (three) times a day. 01/18/2025 added in this encounter Active and Recently Administered Medications Times are shown in EDT. Scheduled Medication Order 02/20/2025 02/21/2025 2025 apixaban (ELIQUIS) tablet 5 mg 5 mg, oral, 2 times daily, First dose (after last modification) on 02/16/25 at 2100, Indication: Atrial Fibrillation 0830 (Given - Provider: Kurt Reddy RN)2212 (Given - Provider: Mavis Bullard RN) 0942 (Given - Provider: Jessy Warren, ADDIS)204 (Given - Provider: Paula Clark RN) 0905 (Given - Provider: Jessy Warren RN)2100 (Due) aspirin chewable tablet 81 mg 81 mg, oral, Daily, First dose on 02/18/25 at 0900 0830 (Given - Provider: Kurt Reddy RN) 0942 (Given - Provider: Jessy Warren RN) 0905 (Given - Provider: Jessy Warren RN) atorvastatin (LIPITOR) tablet 80 mg 80 mg, oral, Nightly, First dose on Tue02/18/25 at 2100 2212 (Given - Provider: Mavis Bullard RN) 2040 (Given - Provider: Paula Clark RN) 2099 (Due) cloNIDine (CATAPRES) tablet 0.1 mg 0.1 mg, oral, 2 times daily, First dose on Tue02/17/25 at 1945 0830 (Given - Provider: Kurt Reddy RN)2211 (Given - Provider: Mavis Bullard RN) 0942 (Given - Provider: Jessy Warren RN)2040 (Given - Provider: Paula Clark RN) 09 (Given - Provider: Jessy Warren RN)2099 (Due) gabapentin (NEURONTIN) capsule 400 mg 400 mg, oral, 3 times daily, First dose on Tue02/22/25 at 1015 1217 (Given - Provider: Jessy Warren RN)1400 (Due)2099 (Due) insulin glargine (LANTUS) injection 20 Units (CANCELED) 20 Units, subcutaneous, Nightly, First dose (after last modification) on Tue02/19/25 at 2100, Notify provider: -If patient is currently or will become NPO -If TPN was or will be interrupted or discontinued -For approval to hold long acting insulin 2211 (Given - Provider: Mavis Bullard RN) insulin glargine (LANTUS) injection 26 Units 26 Units, subcutaneous, Nightly, First dose (after last modification) on Tue02/21/25 at 2100, Notify provider: -If patient is currently or will become NPO -If TPN was or will be interrupted or discontinued -For approval to hold long acting insulin 2039 (Given - Provider: Paula Clark RN) 2099 (Due) insulin lispro injection 2-12 Units 2-12 Units, subcutaneous, 4 times daily before meals and nightly, First dose on Tue02/15/25 at 2100, Indication: Total Daily Dose (TDD) 40 - 80 units. Correction Scale: Moderate Dose Administer with meal and/or mealtime dose of insulin to correct high blood glucose If mealtime insulin dose not given (e.g. patient NPO or not eating), still administer correction factor for high blood glucose 0835 (Not Given - Provider: Kurt Reddy RN - Reason: Order parameters not met - Comment: [phone] (Given - Provider: Kurt Reddy RN)1702 (Given - Provider: Kurt Reddy RN)2212 (Given - Provider: Mavis Bullard RN) 0941 (Given - Provider: Jessy Warren RN)1224 (Given - Provider: Jessy Warren RN)1730 (Given - Provider: Jessy Warren RN)2040 (Given - Provider: Paula Clark RN) 0904 (Given - Provider: Jessy Warren RN)1219 (Given - Provider: Jessy Warren RN)1630 (Due)2100 (Due) isosorbide mononitrate (IMDUR) 24 hr tablet 60 mg 60 mg, oral, Daily, First dose (after last modification) on Tue02/19/25 at 0900, Do not crush or chew. 0830 (Given - Provider: Kurt Reddy RN) 0942 (Given - Provider: Jessy Warren RN) 0905 (Given - Provider: Jessy Warren RN) lisinopriL (PRINIVIL,ZESTRIL) tablet 10 mg 10 mg, oral, Daily, First dose (after last modification) on Tue02/21/25 at 0900, Hold if systolic blood pressure is less than 90 mmHg 0942 (Given - Provider: Jessy Warren RN) 0905 (Given - Provider: Jessy Warren RN) lisinopriL (PRINIVIL,ZESTRIL) tablet 5 mg (CANCELED) 5 mg, oral, Daily, First dose on Tue02/17/25 at 1345, Hold if systolic blood pressure is less than 90 mmHg 0830 (Given - Provider: Kurt Reddy RN) LORazepam (ATIVAN) injection 1 mg (COMPLETED) 1 mg, intravenous, Once, On Tue02/22/25 at 1115, For 1 dose, Before ambulance transfer Prior to IV use, lorazepam injection should be DILUTED with an equal volume of compatible solution; Rate of administration should NOT exceed 2 mg/min. 1218 (Given - Provider: Jessy Warren, ADDIS) oxyCODONE (ROXICODONE) immediate release tablet 5 mg (COMPLETED) 5 mg, oral, Once, On Tue02/21/25 at 2000, For 1 dose 2038 (Given - Provider: Paula Clark, ADDIS) pantoprazole (PROTONIX) EC tablet 40 mg 40 mg, oral, Every morning before breakfast, First dose on Tue02/18/25 at 0830, Do not crush, chew, or split. 0609 (Given - Provider: Corrine Andrew RN) 0629 (Given - Provider: Mavis Bullard, ADDIS) 06 (Given - Provider: Michelle Lyn, ADDIS) sertraline (ZOLOFT) tablet 25 mg 25 mg, oral, Nightly, First dose on Tue02/19/25 at 2100 2211 (Given - Provider: Mavis Bullard RN) 2040 (Given - Provider: Paula Clark, ADDIS) 2099 (Due) sodium chloride 0.9 % flush 10 mL(Linked Group 1) 10 mL, intravenous, 2 times daily, First dose on Tue02/15/25 at 2100 0831 (Given - Provider: Kurt Reddy RN)2216 (Given - Provider: Mavis Bullard RN) 0944 (Given - Provider: Jessy Warren, ADDIS)2040 (Given - Provider: Paula Clark, ADDIS) 0905 (Given - Provider: Jessy Warren RN)2100 (Due) traZODone (DESYREL) tablet 25 mg (COMPLETED) 25 mg, oral, Once, On Tue02/20/25 at 2315, For 1 dose 0022 (Given - Provider: Mavis Bullard RN) traZODone (DESYREL) tablet 25 mg (COMPLETED) 25 mg, oral, Once, On Tue02/22/25 at 0015, For 1 dose 0016 (Given - Provider: Michelle Lyn RN) PRN Medication Order 02/20/2025 02/21/2025 2025 acetaminophen (TYLENOL) tablet 650 mg 650 mg, oral, Every 4 hours PRN, mild pain, headaches, fever - temperature GREATER than 38 C (100.4 F), Starting on Tue02/15/25 at 1925 1203 (Given - Provider: Kurt Reddy, RN) 1735 (Given - Provider: Jessy Warren, ADDIS) dextrose (D50W) 50% injection 12.5 g 12.5 g, intravenous, Every 15 min PRN, low blood sugar, moderate hypoglycemia *Patient is Unconscious, NPO, unable to swallow: BG 54 - 69 mg/dl*, Starting on Tue02/15/25 at 1925 dextrose (D50W) 50% injection 25 g 25 g, intravenous, Every 15 min PRN, low blood sugar, severe hypoglycemia *Patient is Unconscious, NPO, unable to swallow: BG LESS than 54 mg/dL*, Starting on Tue02/15/25 at 1924 dextrose 15 gram/60 mL oral solution 15 g 15 g, oral, Every 15 min PRN, low blood sugar, hypoglycemia *Patient conscious AND able to drink and swallow safely*, Starting on Tue02/15/25 at 1924 dextrose 15 gram/60 mL oral solution 30 g 30 g, oral, Every 15 min PRN, low blood sugar, hypoglycemia *Patient conscious AND able to drink and swallow safely*, Starting on Tue02/15/25 at 1925 glucagon HCL injection 1 mg 1 mg, intramuscular, Once as needed, low blood sugar, severe hypoglycemia, Starting on Tue02/15/25 at 1926, For 1 dose hydrALAZINE (APRESOLINE) injection 10 mg 10 mg, intravenous, Every 6 hours PRN, systolic BP greater than:, SBP>160, Starting on Tue02/17/25 at 1917 0608 (Given - Provider: Corrine Andrew RN)1701 (Given - Provider: Kurt Reddy, ADDIS) 2040 (Given - Provider: Paula Clark, ADDIS) 1218 (Given - Provider: Jessy Warren, ADDIS) ondansetron (PF) (ZOFRAN) injection 4 mg(Linked Group 2) 4 mg, intravenous, Every 8 hours PRN, vomiting, nausea, Starting on Tue02/15/25 at 1925, -ONLY give IV if patient is unable to take orally. -If inadequate response within 30 minutes, proceed to next-line agent or contact provider if no further options ordered. 1713 (Given - Provider: Kurt Reddy, ADDIS) ondansetron ODT (ZOFRAN-ODT) disintegrating tablet 4 mg(Linked Group 2) 4 mg, oral, Every 8 hours PRN, vomiting, nausea, Starting on Tue02/15/25 at 1925, -Give IV if patient is unable to take orally. -If inadequate response within 30 minutes, proceed to next-line agent or contact provider if no further options ordered. For ODT tablets: -Do not remove from blister pack until just before administering. -Patient should allow tablet to dissolve on tongue. 1713 (See Alternative - Provider: Kurt Reddy, RN) prochlorperazine (COMPAZINE) injection 10 mg(Linked Group 3) 10 mg, intravenous, Every 6 hours PRN, nausea, vomiting, Starting on Tue02/15/25 at 1924, 2nd Line Option: -ONLY give IV if patient is unable to take orally. -Give IM if patient does not have IV Access -If inadequate response within 30 minutes, proceed to next-line agent or contact provider if no further options ordered. prochlorperazine (COMPAZINE) suppository 25 mg(Linked Group 3) 25 mg, rectal, Every 12 hours PRN, nausea, vomiting, Starting on Tue02/15/25 at 1925, 2nd Line Option: -ONLY give NJ if patient is unable to take orally and cannot receive IV/IM. -If inadequate response within 30 minutes, proceed to next-line agent or contact provider if no further options ordered. prochlorperazine (COMPAZINE) tablet 10 mg(Linked Group 3) 10 mg, oral, Every 6 hours PRN, nausea, vomiting, Starting on Tue02/15/25 at 1925, 2nd Line Option: -Give IV or IM if patient is unable to take orally. -If inadequate response within 30 minutes, proceed to next-line agent or contact provider if no further options ordered. sodium chloride 0.9 % flush 10 mL(Linked Group 1) 10 mL, intravenous, As needed, line care, Starting on Tue02/15/25 at 1925 Linked Groups Order Group 1: Insert peripheral IV (COMPLETED) STAT, Once, On Tue02/15/25 at 1926, For 1 occurrence And Maintain IV access Until discontinued, Starting on Tue02/15/25 at 192, Until Specified And Saline lock IV (COMPLETED) Routine, Once, On Tue02/15/25 at 1926, For 1 occurrence And sodium chloride 0.9 % flush 10 mLJump to med 10 mL, intravenous, 2 times daily, First dose on Tue02/15/25 at 2100 And sodium chloride 0.9 % flush 10 mLJump to med 10 mL, intravenous, As needed, line care, Starting on Tue02/15/25 at 1925 Group 2: ondansetron ODT (ZOFRAN-ODT) disintegrating tablet 4 mgJump to med 4 mg, oral, Every 8 hours PRN, vomiting, nausea, Starting on Tue02/15/25 at 1925, -Give IV if patient is unable to take orally. -If inadequate response within 30 minutes, proceed to next-line agent or contact provider if no further options ordered. For ODT tablets: -Do not remove from blister pack until just before administering. -Patient should allow tablet to dissolve on tongue. Or ondansetron (PF) (ZOFRAN) injection 4 mgJump to med 4 mg, intravenous, Every 8 hours PRN, vomiting, nausea, Starting on Tue02/15/25 at 1925, -ONLY give IV if patient is unable to take orally. -If inadequate response within 30 minutes, proceed to next-line agent or contact provider if no further options ordered. Group 3: prochlorperazine (COMPAZINE) tablet 10 mgJump to med 10 mg, oral, Every 6 hours PRN, nausea, vomiting, Starting on Tue02/15/25 at 192, 2nd Line Option: -Give IV or IM if patient is unable to take orally. -If inadequate response within 30 minutes, proceed to next-line agent or contact provider if no further options ordered. Or prochlorperazine (COMPAZINE) injection 10 mgJump to med 10 mg, intravenous, Every 6 hours PRN, nausea, vomiting, Starting on Tue02/15/25 at 192, 2nd Line Option: -ONLY give IV if patient is unable to take orally. -Give IM if patient does not have IV Access -If inadequate response within 30 minutes, proceed to next-line agent or contact provider if no further options ordered. Or prochlorperazine (COMPAZINE) suppository 25 mgJump to med 25 mg, rectal, Every 12 hours PRN, nausea, vomiting, Starting on Tue02/15/25 at 1925, 2nd Line Option: -ONLY give NJ if patient is unable to take orally and cannot receive IV/IM. -If inadequate response within 30 minutes, proceed to next-line agent or contact provider if no further options ordered. documented in this encounter Orders Medications Ordered That Beto ht Not Have Been Administered Count Last Ordered Date First Ordered Date hydrALAZINE (APRESOLINE) injection 10 mg 1 02/21/2025 apixaban (ELIQUIS) tablet 5 mg 1 02/16/2025 lactated Ringer's infusion 1 02/16/2025 dextrose (D50W) 50% injection 12.5 g 1 01/26 dextrose (D50W) 50% injection 25 g 1 2024 dextrose 15 gram/60 mL oral solution 15 g 1 02/15/2025 dextrose 15 gram/60 mL oral solution 30 g 1 02/15/2025 glucagon HCL injection 1 mg 1 02/15/2025 ondansetron ODT (ZOFRAN-ODT) disintegrating tablet 4 mg 1 02/15/2025 prochlorperazine (COMPAZINE) injection 10 mg 1 02/15/2025 prochlorperazine (COMPAZINE) suppository 25 mg 1 02/15/2025 prochlorperazine (COMPAZINE) tablet 10 mg 1 02/15/2025 sodium chloride 0.9 % flush 10 mL 1 025 Diet Count Last Ordered Date First Orde red Date ADULT DIET 1 02/18/2025 Nursing Count Last Ordered Date First Orde red Date [id number] 1 02/18/2025 NEURO CHECKS 1 02/16/2025 STRAIGHT CATH 2 02/16/2025 ACTIVITY 1 02/15/2025 ELEVATE HOB 1 02/15/2025 INCENTIVE SPIROMETRY NURSING 1 02/15/2025 INTAKE AND OUTPUT 1 02/15/2025 MAINTAIN IV ACCESS 1 02/15/2025 NOTIFY PROVIDER - HYPO/HYPER GLYCEMIA 1 NOTIFY PROVIDER - IF PATIENT CHANGES TO NPO 1 02/15/2025 NOTIFY PROVIDER - VITAL SIGNS 1 02/15/2025 SEQUENTIAL COMPRESSION DEVICE 1 02/15/2025 VITAL SIGNS 1 02/15/2025 Code Status Count Last Ordered Date First Orde red Date FULL CODE DEFAULT 1 02/15/2025 Consult Count Last Ordered Date First Orde red Date IP CONSULT TO SOCIAL WORK 1 02/16/2025 IP CONSULT TO PSYCHIATRY 1 02/15/2025 DRY PAN OPERATOR Count Last Ordered Date First Orde red Date DRY PAN OPERATOR EVAL AND TREAT 1 02/16/2025 IV Count Last Ordered Date First Orde red Date INSERT PERIPHERAL IV 1 02/15/2025 SALINE LOCK IV 1 02/15/2025 Admission Count Last Ordered Date First Orde red Date ADMIT TO INPATIENT 1 02/15/2025 Transfer Count Last Ordered Date First Orde red Date TRANSFER PATIENT TO NEW UNIT 1 02/17/2025 ED TO FLOOR BED REQUEST 1 02/15/2025 Discharge Count Last Ordered Date First Orde red Date DISCHARGE PATIENT 1 2025 Precaution Count Last Ordered Date First Orde red Date ASPIRATION PRECAUTIONS 1 02/15/2025 FALL PRECAUTIONS 1 02/15/2025 SUICIDE PRECAUTIONS 2 02/15/2025 Privilege Level Count Last Ordered Date First O rdered Date PATIENT AN/SQQ 89(V)15 SONAR SYSTEM JOURNEYMAN 1 02/15/2025 PATIENT AN/SQQ 89(V)15 SONAR SYSTEM JOURNEYMAN 1:1 1 02/15/2025 documented in this encounter Care Teams Intellectual Property Paralegal Relationship Specialty Start Date End Date Physician, No Pcp PCP - General 11/24/24 documented as of this encounter
[2025-02-22 13:20] VITALS: BP 153/86; PULSE 83; RESP 16; TEMP 36.4; O2SAT 98
--- OUTSIDE RECORDS SUMMARY | 2025-02-22 13:27 | XMS_ITS | Encounter Summary ---
Author Organization [facility] Address [address] [place] [address] Care Team Providers Care Health Information Management Director Name Role Phone Unknown Primary Care Provider [phone] Pcp, No Primary Care Provider [facility] Primary Care Provider + Pcp, No [facility]inne Chappell APRN Primary Care Provider + Encounter Details Date Type Department Care Team (Late st Contact Info) Description 12/30/2016 Scanned Document [facility] Bariatric Surgery [address] [place] [address] Cierra Rich MD [address] [place] [address] Social History Tobacco Use Types Packs/Day Years Used Date Smoking Tobacco: Former Cigarettes 0.3 10 1 - 03/27/2015 Alcohol Use Standard Drinks/Week Comments No 0 (1 standard drink = 0.6 oz pur e alcohol) Comments Unknown Sex and Gender Information Value Date Recorded Sex Assigned at Female 11/08/2024 7:39 AM EDT Legal Sex Female 6:26 PM EDT Gender Identity Female 11/08/2024 7:39 AM EDT Sexual Orientation Heterosexual (straight) 11/08 7:39 AM EDT documented as of this encounter Plan of Treatment Upcoming Encounters Date Type Department Care Team (Late st Contact Info) Description 04/17/2025 1:15 PM EDT Office Visit [address], [place] [phone] Corinne Chappell APRN [address] [place] [address] documented as of this encounter Goals Goal Patient Goal Type Associated Problems Recent Progress Patient-Stated? Author Eat more fruits and vegetables Diet On track( 8:28 AM EDT) Marbella Kitchen RD Have 3 meals a day Diet On track( 8:28 AM EDT) Marbella Kitchen RD Increase physical activity Lifestyle On track( 8:28 AM EDT) Marbella Kitchen RD documented as of this encounter Visit Diagnoses Not on filedocumented in this encounter Care Teams Health Information Management Director Relationship Specialty Start Date End Date Unknown Unknow Provider Address PCP - General 11/17/17 02/19/20 Pcp, No PCP - General General Medicine 02/20/20 03/24/20 [facility] [address] [place] [id number] PCP - General 03/25/20 11/07/24 Pcp, No PCP - General 11/08/24 02/12/25 Corinne Chappell APRN [address] [place] [id number] PCP - General Internal Medicine 02/13/25 documented as of this encounter
--- OUTSIDE RECORDS SUMMARY | 2025-02-22 13:27 | XMS_ITS | Encounter Summary ---
Author Organization [facility] Address [address] [place] [address] Care Team Providers Care Turbine Subassembler Name Role Phone Unknown Primary Care Provider [phone] Pcp, No Primary Care Provider [facility] Primary Care Provider + Pcp, No Primary Care Provider [facility] APRN Primary Care Provider + Encounter Details Date Type Department Care Team (Late st Contact Info) Description 09/23/2017 Scanned Document [facility] Bariatric Surgery [address] [place] [place] [address] Provider, Generic Social History Tobacco Use Types Packs/Day Years Used Date Smoking Tobacco: Former Cigarettes 0.3 10 1 08/14/2005 - 06/13/2016 Smokeless Tobacco: Never Alcohol Use Standard Drinks/Week Comments No 0 (1 standard drink = 0.6 oz pur e alcohol) Comments No Sex and Gender Information Value Date Recorded Sex Assigned at Female 11/08/2024 7:39 AM EDT Legal Sex Female 6:26 PM EDT Gender Identity Female 11/08/2024 7:39 AM EDT Sexual Orientation Heterosexual (straight) 11/08 7:39 AM EDT documented as of this encounter Plan of Treatment Upcoming Encounters Date Type Department Care Team (Late st Contact Info) Description 04/17/2025 1:15 PM EDT Office Visit [facility] [address] [place] [address] Corinne Chappell APRN [address] [place] [address] documented as of this encounter Goals Goal [...] on filedocumented in this encounter Care Teams Turbine Subassembler Relationship Specialty Start Date End Date Unknown Unknow Provider Address PCP - General 11/17/17 02/19/20 Pcp, No PCP - General General Medicine 02/20/20 03/24/20 [facility] [address] [place] [id number] PCP - General 03/25/20 11/07/24 Pcp, No PCP - General 11/08/24 02/12/25 Corinne Chappell APRN [address] [place] [id number] PCP - General Internal Medicine 02/13/25 documented as of this encounter
--- OUTSIDE RECORDS SUMMARY | 2025-02-22 13:27 | XMS_ITS | Encounter Summary ---
Author Organization [facility] Address [address] [place] [address] Care Team Providers Care Soda Column Operator Name Role Phone Unknown Primary Care Provider [phone] Pcp, No Primary Care Provider [facility] Primary Care Provider + Pcp, No [facility]N Primary Care Provider + Encounter Details Date Type Department Care Team (Late st Contact Info) Description 05/10/2016 Prep for Surgery [facility] Bariatric Surgery [address] [place] [address] Cierra Rich MD [address] [place] [address] Social History Tobacco Use Types Packs/Day Years [...] Description 04/17/2025 1:15 PM EDT Office Visit [address], [place] [phone] Corinne Chappell APRN [address] [place] [address] documented as of this encounter Visit Diagnoses Not on filedocumented in this encounter Care Teams Soda Column Operator Relationship Specialty Start Date End Date Unknown Unknow Provider Address PCP - General 11/17/17 02/19/20 Pcp, No PCP - General General Medicine 02/20/20 03/24/[address] [facility] [place] [place] [address] [place] [id number] PCP - General 03/25/20 11/07/24 Pcp, No PCP - General 11/08/24 02/12/25 Corinne Chappell APRN [address] [place] [id number] PCP - General Internal Medicine 02/13/25 documented as of this encounter
--- OUTSIDE RECORDS SUMMARY | 2025-02-22 13:27 | XMS_ITS | Encounter Summary ---
Author Organization [facility] Address [address] [place] [address] Care Team Providers Care Fractionation Plant Supervisor Name Role Phone Unknown Primary Care Provider Pcp, No Primary Care Provider [facility] Primary Care Provider + Pcp, No [facility]inne Chappell APRN Primary Care Provider + Encounter Details Date Type Department Care Team (Late st Contact Info) Description 03/28/2017 Scanned Document [facility] Bariatric Surgery [address] [place] [address] Cierra Rich MD [address] [place] [address] Social History Tobacco Use Types Packs/Day Years Used Date Smoking Tobacco: Every Day Cigarettes 0.3 10 Started: 03/27/2005; Last attempted to quit: 03/27/2015 Smokeless Tobacco: Never Alcohol Use Standard Drinks/Week [...] Description 04/17/2025 1:15 PM EDT Office Visit [facility] [address] [facility], [place] [phone] Corinne Chappell APRN [address] [place], [place] documented as of this encounter Goals Goal [...] on filedocumented in this encounter Care Teams Fractionation Plant Supervisor Relationship Specialty Start Date End Date Unknown Unknow Provider Address PCP - General 11/17/17 02/19/20 Pcp, No PCP - General General Medicine 02/20/20 03/24/20 [facility] [address] [place] [address] PCP - General 03/25/20 11/07/24 Pcp, No PCP - General 11/08/24 02/12/25 Corinne Chappell APRN [address] [place], [place] PCP - General Internal Medicine 02/13/25 documented as of this encounter
--- OUTSIDE RECORDS SUMMARY | 2025-02-22 13:27 | XMS_ITS | Encounter Summary ---
Author Organization [facility] Address [address] [place] [address] Care Team Providers Care Emery Wheel Molder Name Role Phone Unknown Primary Care Provider [phone] Pcp, No Primary Care Provider [facility] Primary Care Provider + Pcp, No [facility]inne Chappell APRN Primary Care Provider + Encounter Details Date Type Department Care Team (Late st Contact Info) Description 09/24/2016 Scanned Document [facility] Specialty Clinics [address] [place] [address] [address] [place] [phone] Sandra Kunz MD [address] [place] [id number] Social History Tobacco Use Types Packs/Day Years [...] Description 04/17/2025 1:15 PM EDT Office Visit [address] [phone] Corinne Chappell APRN [address] [place] [address] documented as of this encounter Goals Goal [...] on filedocumented in this encounter Care Teams Emery Wheel Molder Relationship Specialty Start Date End Date Unknown Unknow Provider Address PCP - General 11/17/17 02/19/20 Pcp, No PCP - General General Medicine 02/20/20 03/24/20 [facility] [address] [place] [address] PCP - General 03/25/20 11/07/24 Pcp, No PCP - General 11/08/24 02/12/25 Corinne Chappell APRN [address] [place], [place] PCP - General Internal Medicine 02/13/25 documented as of this encounter
--- OUTSIDE RECORDS SUMMARY | 2025-02-22 13:27 | XMS_ITS | Encounter Summary ---
Author Organization [facility] Address [address] [place] [address] Care Team Providers Care Cement Sprayer Helper Name Role Phone Unknown Primary Care Provider Pcp, No Primary Care Provider [facility] Primary Care Provider + Pcp, No [facility] Corinne Chappell APRN Primary Care Provider + Encounter Details Date Type Department Care Team (Late st Contact Info) Description 03/09/2017 Scanned Document [facility] Bariatric Surgery [address] [place] [place] [address] Cierra Rich MD [address] [place] [address] Social History Tobacco Use Types Packs/Day Years [...] Description 04/17/2025 1:15 PM EDT Office Visit [facility] [address] [facility], [place] [phone] Corinne Chappell APRN [address] [place], [place] documented as of this encounter Goals [...] on filedocumented in this encounter Care Teams Cement Sprayer Helper Relationship Specialty Start Date End Date Unknown Unknow Provider Address PCP - General 11/17/17 02/19/20 Pcp, No PCP - General General Medicine 02/20/20 03/24/20 [facility] [address] [place] [address] PCP - General 03/25/20 11/07/24 Pcp, No PCP - General 11/08/24 02/12/25 Corinne Chappell APRN [address] [place], [place] PCP - General Internal Medicine 02/13/25 documented as of this encounter
--- OUTSIDE RECORDS SUMMARY | 2025-02-22 13:27 | XMS_ITS | Clinical Summary ---
Author Organization [facility] Address [address] [place] [address] Care Team Providers Care Metal Mixer Name Role Phone Unavailable Primary Care Provider Unavailabl e Allergies Active Allergy Reactions Criticality Noted Date Comments Sumatriptan Succinate 03/31/2020 hives Medications glimepiride (AMARYL) 4 mg tablet Take 0.5 tablets (2 mg total) by mouth Daily before breakfast. 30 tablet 1 8 Active Additional Information Patient taking differently: 4 mgoral Daily before breakfast, Reported on 03/31/2020 sitaGLIPtin (JANUVIA) 100 mg tablet Take 1 tablet (100 mg total) by mouth daily. 90 tablet 3 8 Active Additional Information Patient not taking.Reported on 03/31/2020 JARDIANCE 10 mg tablet TAKE 1 TABLET BY MOUTH EVERY DAY 30 tablet 8 Active amLODIPine (NORVASC) 10 mg tablet Take 1 tablet (10 mg total) by mouth daily. 90 tablet 3 8 Active losartan (COZAAR) 100 mg tablet TAKE 1 TABLET BY ORAL ROUTE EVERY DAY 90 tablet 3 8 Active spironolactone (ALDACTONE) 25 mg tablet Take 1 tablet (25 mg total) by mouth daily. 90 tablet 3 8 Active atorvastatin (LIPITOR) 20 mg tablet TAKE 1 TABLET BY MOUTH EVERY DAY 30 tablet 1 8 Active Additional Information Patient taking differently: 40 mg, Reported on 03/31/2020 carvedilol (COREG) 25 mg tablet TAKE 1 TABLET (25 MG TOTAL) BY MOUTH 2 (TWO) TIMES A DAY WITH MEALS. 30 tablet 8 Active oxyCODONE-aceta minophen (PERCOCET) 10-325 mg per tablet Take 1 every 12 hours for severe pain. 20 tablet 8 Active omeprazole (PriLOSEC) 20 mg capsule TAKE 1 CAPSULE BY MOUTH EVERY DAY 30 capsule 8 Active JARDIANCE 10 mg tablet TAKE 1 TABLET BY MOUTH EVERY DAY 30 tablet 8 Active cloNIDine (CATAPRES) 0.3 mg tablet Take 0.3 mg by mouth 2 (two) times a day. Active glyBURIDE (DIABETA) 2.5 mg tablet Take 2.5 mg by mouth daily with breakfast. Active levETIRAcetam (KEPPRA) 500 mg tabletIndicatio ns:Seizure disorder (HCC) Take 1 tablet (500 mg total) by mouth 2 (two) times a day. Take 750 mg bid 180 tablet 3 0 Active Active Problems Problem Noted Date Diagnosed Date Degenerative disc disease, lumbar 03/31/2020 Seizure disorder 03/31/2020 Gastroesophageal reflux dise ase with esophagitis and hemorrhage 03/31/2020 Gastroesophageal reflux dise ase with esophagitis and hemorrhage 03/31/2020 Type 2 diabetes mellitus wit hout complication, without long-term current use of insulin 03/31/2020 Essential hypertension 03/31/2020 Accidental drug overdose 11/17/2017 Overview (03/31/2020): Overview: Accidentally took double of all antihypertensives Acute respiratory failure with hypoxia and hyper capnia 11/17/2017 SONIA (acute kidney injury) 11/17/2017 Hypoglycemia due to insulin 11/17/2017 Cuenca's esophagus without dysplasia 06/06/2017 Contusion, hip and thigh 04/17/2017 Fall down stairs 04/17/2017 Acute pain due to trauma 04/17/2017 Arthritis of knee 05/10/2016 Family history of deep venous thrombosis 016 Hyperlipemia 05/10/2016 Morbid obesity with body mas s index (BMI) of 40.0 to 44.9 in adult 05/10/2016 Urinary, incontinence, stress female 01/27/2015 Pseudotumor cerebri syndrome 01/27/2015 Morbid obesity 01/27/2015 Acute peptic ulcer of stomach 12/11/2014 Overview (03/31/2020): Overview: Six months prior to admission she had 3 ulcers in her stomach. Chest pain 12/11/2014 Intermittent palpitations 12/11/2014 Radial styloid tenosynovitis 08/28/2014 Wrist joint pain 08/20/2014 Closed fracture of distal end of radius 07/11/19 15 Immunizations Immunization Administration Dates Next Due Pneumococcal Polysaccharide PCV-23 03/31/2020 Family History Medical History Relation Comments No Known Problems Daughter Heart disease Father Stroke Father No Known Problems Son Relation Status Comments Daughter Alive Father Mother Sister Alive Son Alive Social History Tobacco Use Types Packs/Day Years Used Date Smoking Tobacco: Light Smoker Smokeless Tobacco: Never Alcohol Use Standard Drinks/Week Comments Not Currently 0 (1 standard drink = 0.6 oz pur e alcohol) Comments Unknown Sex and Gender Information Value Date Recorded Sex Assigned at Not on file Legal Sex Female 5:11 AM EST Gender Identity Not on file Sexual Orientation Not on file Last Filed Vital Signs Vital Sign Reading Time Taken Comments Blood Pressure 134/89 03/31/2020 9:46 AM EDT Pulse 56 03/31/2020 9:46 AM EDT Temperature 33.4 C (92.1 F) 03/31/2020 9:46 AM EDT Respiratory Rate - - Oxygen Saturation 99% 03/31/2020 9:46 AM EDT Inhaled Oxygen Concentration - - Weight 95.7 kg (211 lb) 03/31/2020 9:46 AM EDT Height 165.1 cm (5' 5 ) 03/31/2020 9:46 AM EDT Body Mass Index 35.11 03/31/2020 9:46 AM EDT Plan of Treatment Upcoming Encounters Date Type Department Care Team (Late st Contact Info) Description 03/06/2025 3:00 PM EDT Office Visit [facility] Department of Internal Medicine [address] [place] [address] Kim Berumen MD [address] [place] [address] Health Maintenance Due Date Last Done Comments Breast Cancer Screening 1966 CT Colonography 1966 Colonoscopy 1966 Colorectal Cancer Screening 1966 Diabetes: Kidney Health Evaluation 1966 FIT-DNA (Cologuard) 1966 FIT 1966 FOBT 1966 Flex Sigmoidoscopy - 5y 1966 HIV Screening 1966 DTaP,Tdap,and Td Vaccines (1 - Tdap) 02/23/1984 Diabetes: Retinopathy Screening 02/23/1984 Hepatitis C Screening 02/23/1984 Hepatitis B Vaccines (1 of 3 - 19+ 3-dose series) 1985 Pap Smear 1987 Cervical Cancer Screening 02/23/1996 HPV/Cotest 02/23/1996 Zoster Vaccines (1 of 2) 02/23/2016 Pneumococcal Vaccine, 50+ Years (2 of 2 - PCV) 03/31/2021 03/31/2020 COVID-19 Vaccine (1 - 2023- season) 2024 Influenza Vaccine (#1) 2025 09/16/2024 Diabetes: Hemoglobin A1C 06/12/2025 025, 03/31/2020, 11/17/2017, Additional history exists Diabetes: Urine Microalbumin Discontinued 12/05/2024, 03/31/2020 HPV Vaccines Aged Out No longer eligi ble based on patient's age to complete this topic Hepatitis A Vaccines Aged Out No long er eligible based on patient's age to complete this topic MMR Vaccines Aged Out No longer eligi ble based on patient's age to complete this topic Meningococcal Vaccine Aged Out No diogenes teresita eligible based on patient's age to complete this topic Procedures Procedure Name Priority Date/Time Associated Diagnosis Comments MICROALBUMIN, URINE, RANDOM WITH CREATININE Routine 03/31/2020 11:15 AM EDT Type 2 diabetes mellitus without complication, without long-term current use of insulin ([facility]) Annual physical exam HEMOGLOBIN A1C Routine 03/31/2020 11:15 AM EDT Type 2 diabetes mellitus without complication, without long-term current use of insulin (HCC) Annual physical exam from Last 3 Months or Most Recently Relevant to Health Maintenance Results * Microalbumin/creatinine ratio (03/31/2020 11:15 AM EDT) Microalbumin/Creat Ratio 03/31/2020 1:[address] [facility] Comment:Unable to perform ca lculation, Urine Microalbumin < 0.5 mg/dl. Creatinine, Urine, Random 62 mg/dL 03/31/2020 1:[address] [facility] Comment:The laboratory does not have established reference ranges for this test. Interpretation of results is at the discretion of the ordering physician. Urine specimen (specimen) Urine specimen obtained by clean catch procedure / Unknown Non-blood Collection / Unknown 03/31/2020 11:15 AM EDT 03/31/2020 11:15 AM EDT us Nereida Lopez MD LAB URINE ORDERABLES Final Resu lt Performing Organization Address [facility]/ZIP Co de Phone Number [facility] [address] [place] [address], [place] [phone] * (ABNORMAL) Hemoglobin A1c (03/31/2020 11:15 AM EDT) Hemoglobin A1C 7.3(H) 4.4 - 6.4 % 03/31/2020 2:[address] [facility] Blood Venous blood specimen / Unknown Venipuncture / Unknown 03/31/2020 11:15 AM EDT 03/31/2020 11:[address] [facility] - 03/31/2020 2:05 PM EDT HbA1C greater than or equal to 6.5% diagnosis for Diabetes Mellitus. In the absence of unequivocal hyperglycemia, test should be confirmed by repeat testing. ADA Guidelines: Diagnosis and Classification of Diabetes Mellitus (position statement), Diabetes Care 2010; 33:S62-9. Hemoglobin A1C results may be inaccurate if abnormal hemoglobins are present. us Nereida Lopez MD LAB BLOOD ORDERABLES NO STAT Fi nal Result Performing Organization Address City/[facility]/ZIP Co de Phone Number [facility] [address] [place] [address], [place] [phone] from Last 3 Months or Most Recently Relevant to Health Maintenance
--- OUTSIDE RECORDS SUMMARY | 2025-02-22 13:27 | XMS_ITS | Clinical Summary ---
Author Organization [facility] Address [address] [address] Phone Care Team Providers Care Senior Abap Developer Name Role Phone Unavailable Primary Care Provider Unavailabl e Social History Tobacco Use Types Packs/Day Years Used Date Smoking Tobacco: Never Assessed Comments Unknown Sex and Gender Information Value Date Recorded Sex Assigned at Not on file Legal Sex Female 8:24 AM EDT Gender Identity Not on file Sexual Orientation Not on file Plan of Treatment Health Maintenance Due Date Last Done Comments Breast Cancer Screening 1966 Hepatitis B Vaccine (1 of 3 - 19+ 3-dose series) 02/22 Pneumococcal Vaccine: 50+ Years (1 of 2 - PCV) 985 Colorectal Cancer Screening: Annual FOBT 2015 Colorectal Cancer Screening: Colonoscopy 2015 Colorectal Cancer Screening: Sigmoidoscopy 2015 Influenza Vaccine (#1) [address] [facility] [place] [address] [place]
--- OUTSIDE RECORDS SUMMARY | 2025-02-22 13:27 | XMS_ITS | Encounter Summary ---
Author Organization [facility] Address [address] [place] [address] Care Team Providers Care Land Leasing Information Clerk Name Role Phone Unknown Primary Care Provider [phone] Pcp, No Primary Care Provider [facility] Primary Care Provider + Pcp, No [facility]inne Chappell APRN Primary Care Provider + Encounter Details Date Type Department Care Team (Late Contact Info) Description 10/27/2016 Scanned Document [facility] Bariatric Surgery [address] [place] [address] Manisha Shrestha, PhD [address] Psychiatry Dept [place] [phone] Social History Tobacco Use Types Packs/Day Years [...] Description 04/17/2025 1:15 PM EDT Office Visit [address] [place] [phone] Corinne Chappell APRN [address] [place] [address] documented as of this encounter Goals Goal [...] on filedocumented in this encounter Care Teams Land Leasing Information Clerk Relationship Specialty Start Date End Date Unknown Unknow Provider Address PCP - General 11/17/17 02/19/20 Pcp, No PCP - General General Medicine 02/20/20 03/24/20 [facility] [address] [id number] PCP - General 03/25/20 11/07/24 Pcp, No PCP - General 11/08/24 02/12/25 Corinne Chappell APRN [address] [place] [address] PCP - General Internal Medicine 02/13/25 documented as of this encounter
--- OUTSIDE RECORDS SUMMARY | 2025-02-22 13:27 | XMS_ITS | Encounter Summary ---
Author Organization [facility] Address [address] [place] [address] Care Team Providers Care Buffing Wheel Operator Name Role Phone Unknown Primary Care Provider Pcp, No Primary Care Provider [facility] Primary Care Provider + Pcp, No [facility] APRN Primary Care Provider + Encounter Details Date Type Department Care Team (Late st Contact Info) Description 03/09/2017 Scanned Document [facility] Bariatric Surgery [address] [place] [address] Cierra Rich MD [address] [place] [address] Social History Tobacco Use Types Packs/Day Years [...] Description 04/17/2025 1:15 PM EDT Office Visit [facility] [address] [facility] [place] [phone] Corinne Chappell APRN [address], [place] documented as of this encounter Goals [...] on filedocumented in this encounter Care Teams Buffing Wheel Operator Relationship Specialty Start Date End Date Unknown Unknow Provider Address PCP - General 11/17/17 02/19/20 Pcp, No PCP - General General Medicine 02/20/20 03/24/20 [facility] [address] [place] [address] PCP - General 03/25/20 11/07/24 Pcp, No PCP - General 11/08/24 02/12/25 Corinne Chappell APRN [address], [place] PCP - General Internal Medicine 02/13/25 documented as of this encounter
--- OUTSIDE RECORDS SUMMARY | 2025-02-22 13:28 | XMS_ITS ---
Author Name [facility] Organization Unknown Results Test Name/Text Value Interpretation Date Range Source Delta NO CHANGE 5 - 3 [facility] Troponin T SerPl-mCnc 19.0 ng/L Above high normal 5 - 15 [facility] Delta NO PREVIOUS RESULT 5 - 3 [facility] Troponin T SerPl-mCnc 19.0 ng/L Above high normal 5 - 15 [facility] BUN SerPl-mCnc 25.0 mg/dL Above high normal 11/24/19 2 5 8 - 21 [facility] Sodium SerPl-sCnc 141.0 mmol/L 5 136 - 145 [facility] Creat SerPl-mCnc 1.0 mg/dL 5 0.4 - 1.1 [facility] Calcium SerPl-mCnc 10.0 mg/dL 5 8.7 - 10.5 [facility] GFR/BSA.pred SerPlBld [id number] 65.0 5 59 - [facility] BUN/Creat SerPl 25.0 Ratio 5 10 - 25 [facility] CO2 SerPl-sCnc 21.0 mmol/L Below low normal 5 22 - 33 [facility] Anion Gap Bld-sCnc 16.0 5 7 - 17 [facility] Chloride SerPl-sCnc 104.0 mmol/L 11/24/19 2 5 98 - 107 [facility] Glucose SerPl-mCnc 283.0 mg/dL Above high normal 10/27 5 65 - 99 [facility] Potassium SerPl-sCnc 4.0 mmol/L 02 5 3.4 - 5.3 [facility] Basophils/leuk NFr Bld Auto 0.7 % 5 [facility] Basophils num Bld Auto 0.07 Thou/uL 5 0 - 0.2 [facility] Hct VFr Bld Auto 45.8 % 5 35 - 47 [facility]CT MCHC RBC Auto-mCnc 31.4 g/dL 5 30 - 36 [facility] Imm Granulocytes num Bld Auto 0.11 Thou/uL Above high normal 5 0 - 0.1 [facility]CT Eosinophil/leuk NFr Bld Auto 5.0 % 5 [facility] PMV Bld Auto 10.5 fL 5 7.5 - 12.5 [facility] Monocytes num Bld Auto 0.78 Thou/uL 5 0.2 - 1.5 [facility] RDW RBC Auto-Rto 13.6 % 5 11.5 - 14.5 [facility] Hgb Bld-mCnc 14.4 g/dL 5 11.7 - 15.7 [facility]CT MCH RBC Qn Auto 27.6 pg 5 27 - 31 [facility] Neutrophils num Bld Auto 6.55 Thou/uL 5 2 - 7.5 [facility] WBC num Bld Auto 10.0 Thou/uL 5 4 - 11 [facility] Lymphocytes/leuk NFr Bld Auto 19.5 % 5 [facility]CT Eosinophil num Bld Auto 0.5 Thou/uL 5 0 - 0.7 [facility]CT Lymphocytes num Bld Auto 1.94 Thou/uL 5 1.5 - 4.5 [facility] RBC num Bld Auto 5.21 Mil/uL 5 4 - 5.4 [facility] MCV RBC Auto 88.0 fL 5 80 - 100 [facility] Neutrophils/leuk NFr Bld Auto 65.9 % 5 [facility] Platelet num Bld Auto 286.0 Thou/uL 5 150 - 450 [facility] Monocytes/leuk NFr Bld Auto 7.8 % 5 [facility] Imm Granulocytes/leuk NFr Bld Auto 1.1 % 5 [facility] GFR/BSA.pred SerPlBld [id number] 74.0 5 59 - [facility]CT Chloride SerPl-sCnc 102.0 mmol/L 11/17/19 2 5 98 - 107 [facility] Calcium SerPl-mCnc 9.0 mg/dL 5 8.7 - 10.5 [facility] Glucose SerPl-mCnc 148.0 mg/dL Above high normal 10/26 5 65 - 99 [facility] Potassium SerPl-sCnc 4.3 mmol/L 02 5 3.4 - 5.3 [facility] Anion Gap Bld-sCnc 13.0 5 7 - 17 [facility] CO2 SerPl-sCnc 24.0 mmol/L 5 22 - 33 [facility] Sodium SerPl-sCnc 139.0 mmol/L 5 136 - 145 [facility] Creat SerPl-mCnc 0.9 mg/dL 5 0.4 - 1.1 [facility]CT BUN/Creat SerPl 28.0 Ratio Above high normal 02 5 10 - 25 [facility] BUN SerPl-mCnc 25.0 mg/dL Above high normal 11/17/19 2 5 8 - 21 [facility]CT Magnesium SerPl-mCnc 2.3 mg/dL 02 5 1.6 - 2.7 [facility] POC Glucose 165.0 mg/dL Above high normal 5 65 - 99 [facility] POC Glucose 211.0 mg/dL Above high normal 5 65 - 99 [facility] POC Glucose 237.0 mg/dL Above high normal 5 65 - 99 [facility] POC Glucose 100.0 mg/dL Above high normal 5 65 - 99 [facility] ISTAT Activated Clotting Time,Celite 282.0 seconds Above high normal 5 84 - 139 [facility] ISTAT Potassium 3.9 mmol/L 5 3.4 - 5.3 [facility] POC Glucose 143.0 mg/dL Above high normal 5 65 - 99 [facility] POC Glucose 157.0 mg/dL Above high normal 5 65 - 99 [facility] Anion Gap Bld-sCnc 14.0 5 7 - 17 [facility]CT Calcium SerPl-mCnc 8.7 mg/dL 5 8.7 - 10.5 [facility]CT Glucose SerPl-mCnc 144.0 mg/dL Above high normal 10/26 5 65 - 99 [facility] CO2 SerPl-sCnc 30.0 mmol/L 5 22 - 33 [facility]CT Potassium SerPl-sCnc 3.2 mmol/L Below low normal 5 3.4 - 5.3 [facility]CT BUN/Creat SerPl 28.0 Ratio Above high normal 02 5 10 - 25 [facility]CT BUN SerPl-mCnc 37.0 mg/dL Above high normal 11/16/19 2 5 8 - 21 [facility]CT Creat SerPl-mCnc 1.3 mg/dL Above high normal 5 0.4 - 1.1 [facility]CT GFR/BSA.pred SerPlBld [id number] 48.0 Below low normal 5 59 - HHCCT Sodium SerPl-sCnc 141.0 mmol/L 5 136 - 145 [facility]CT Chloride SerPl-sCnc 97.0 mmol/L Below low normal 10/26 5 98 - 107 [facility]CT Magnesium SerPl-mCnc 2.5 mg/dL 02 5 1.6 - 2.7 H[facility]CT LMWH PPP R And D Lab Technician-aCnc 0.53 IU/mL 5 HHCCT Anticoagulant IV HEPARIN, UNFRACTIONATED 5 [facility]CT Neutrophils/leuk NFr Bld Auto 49.5 % 5 [facility]CT PMV Bld Auto 10.6 fL 5 7.5 - 12.5 [facility]CT RBC num Bld Auto 4.7 Mil/uL 5 4 - 5.4 [facility]CT Eosinophil num Bld Auto 0.52 Thou/uL 5 0 - 0.7 [facility]CT Neutrophils num Bld Auto 3.78 Thou/uL 5 2 - 7.5 [facility]CT Basophils num Bld Auto 0.05 Thou/uL 5 0 - 0.2 [facility]CT MCH RBC Qn Auto 27.7 pg 5 27 - 31 [facility]CT Basophils/leuk NFr Bld Auto 0.7 % 5 [facility]CT Lymphocytes num Bld Auto 2.18 Thou/uL 5 1.5 - 4.5 [facility]CT RDW RBC Auto-Rto 14.2 % 5 11.5 - 14.5 [facility]CT Lymphocytes/leuk NFr Bld Auto 28.6 % 5 [facility]CT MCHC RBC Auto-mCnc 31.1 g/dL 5 30 - 36 [facility]CT Hgb Bld-mCnc 13.0 g/dL 5 11.7 - 15.7 HHCCT Hct VFr Bld Auto 41.8 % 5 35 - 47 [facility]CT Eosinophil/leuk NFr Bld Auto 6.8 % 5 [facility]CT WBC num Bld Auto 7.6 Thou/uL 5 4 - 11 [facility]CT Monocytes/leuk NFr Bld Auto 13.0 % 5 [facility] Platelet num Bld Auto 180.0 Thou/uL 5 150 - 450 [facility] Monocytes num Bld Auto 0.99 Thou/uL 5 0.2 - 1.5 [facility]CT Imm Granulocytes num Bld Auto 0.11 Thou/uL Above high normal 5 0 - 0.1 [facility]CT MCV RBC Auto 89.0 fL 5 80 - 100 [facility] Imm Granulocytes/leuk NFr Bld Auto 1.4 % 5 [facility] POC Glucose 288.0 mg/dL Above high normal 5 65 - 99 [facility] POC Glucose 199.0 mg/dL Above high normal 5 65 - 99 [facility]CT LMWH PPP R And D Lab Technician-aCnc 0.59 IU/mL 05/22/202 5 [facility]CT Anticoagulant IV HEPARIN, UNFRACTIONATED 5 [facility]HCCT POC Glucose 232.0 mg/dL Above high normal 5 65 - 99 [facility]CT LMWH PPP R And D Lab Technician-aCnc 0.68 IU/mL 5 HHCCT Anticoagulant IV HEPARIN, UNFRACTIONATED 5 [facility]HCCT POC Glucose 284.0 mg/dL Above high normal 5 65 - 99 [facility]CT Magnesium SerPl-mCnc 2.5 mg/dL 02 5 1.6 - 2.7 H[facility]CT BUN/Creat SerPl 34.0 Ratio Above high normal 02 5 10 - 25 [facility]CT BUN SerPl-mCnc 37.0 mg/dL Above high normal 11/15/19 2 5 8 - 21 [facility]CT CO2 SerPl-sCnc 27.0 mmol/L 5 22 - 33 [facility]CT Anion Gap Bld-sCnc 13.0 5 7 - 17 [facility]CT Potassium SerPl-sCnc 3.9 mmol/L 02 5 3.4 - 5.3 [facility]CT Calcium SerPl-mCnc 8.9 mg/dL 5 8.7 - 10.5 [facility]CT GFR/BSA.pred SerPlBld [id number] 58.0 Below low normal 5 59 - [facility]HCCT Creat SerPl-mCnc 1.1 mg/dL 5 0.4 - 1.1 [facility]CT Glucose SerPl-mCnc 174.0 mg/dL Above high normal 10/26 5 65 - 99 [facility]CT Sodium SerPl-sCnc 139.0 mmol/L 5 136 - 145 [facility]CT Chloride SerPl-sCnc 99.0 mmol/L 11/15/19 2 5 98 - 107 [facility] POC Glucose 188.0 mg/dL Above high normal 5 65 - 99 [facility]CT LMWH PPP R And D Lab Technician-aCnc 1.12 IU/mL 5 HHCCT Anticoagulant IV HEPARIN, UNFRACTIONATED 5 [facility]HCCT POC Glucose 227.0 mg/dL Above high normal 5 65 - 99 [facility]CT LMWH PPP R And D Lab Technician-aCnc 0.78 IU/mL 5 HHCCT Anticoagulant APIXABAN (ELIQUIS) 11/14/19 2 5 HHCCT aPTT PPP 38.0 seconds Above high normal 5 25 - 36 [facility] Anticoagulant IV HEPARIN, UNFRACTIONATED 5 HHCCT Prothrombin time 11.2 seconds 5 10 - 13.5 HHCCT INR PPP 1.0 5 [facility]CT Anticoagulant IV HEPARIN, UNFRACTIONATED 5 [facility]HCCT Eosinophil num Bld Auto 0.4 Thou/uL 5 0 - 0.7 [facility]CT Eosinophil/leuk NFr Bld Auto 5.5 % 5 [facility]CT MCV RBC Auto 88.0 fL 5 80 - 100 [facility]CT Lymphocytes/leuk NFr Bld Auto 26.8 % 5 [facility]CT Neutrophils/leuk NFr Bld Auto 53.8 % 5 [facility]CT Basophils num Bld Auto 0.05 Thou/uL 5 0 - 0.2 HHCCT MCH RBC Qn Auto 27.9 pg 5 27 - 31 [facility]CT Lymphocytes num Bld Auto 1.95 Thou/uL 5 1.5 - 4.5 HHCCT Hgb Bld-mCnc 13.3 g/dL 5 11.7 - 15.7 [facility]CT Basophils/leuk NFr Bld Auto 0.7 % 5 [facility] Platelet num Bld Auto 186.0 Thou/uL 5 150 - 450 [facility] Imm Granulocytes num Bld Auto 0.07 Thou/uL 5 0 - 0.1 [facility]HCCT RDW RBC Auto-Rto 14.2 % 5 11.5 - 14.5 H[facility]CT Monocytes num Bld Auto 0.89 Thou/uL 5 0.2 - 1.5 HHCCT Neutrophils num Bld Auto 3.91 Thou/uL 5 2 - 7.5 HHCCT Hct VFr Bld Auto 41.8 % 5 35 - 47 HHCCT PMV Bld Auto 10.8 fL 5 7.5 - 12.5 HHCCT RBC num Bld Auto 4.77 Mil/uL 5 4 - 5.4 HHCCT Imm Granulocytes/leuk NFr Bld Auto 1.0 % 5 [facility]CT MCHC RBC Auto-mCnc 31.8 g/dL 5 30 - 36 H[facility]CT WBC num Bld Auto 7.3 Thou/uL 5 4 - 11 [facility]CT Monocytes/leuk NFr Bld Auto 12.2 % 5 [facility]CT POC Glucose 106.0 mg/dL Above high normal 5 65 - 99 [facility]CT POC Glucose 167.0 mg/dL Above high normal 5 65 - 99 [facility]CT POC Glucose 125.0 mg/dL Above high normal 5 65 - 99 [facility]CT POC Glucose 182.0 mg/dL Above high normal 5 65 - 99 H[facility]CT Magnesium SerPl-mCnc 2.3 mg/dL 02 5 1.6 - 2.7 HHCCT GFR/BSA.pred SerPlBld BJN-[id number] 65.0 5 59 - HHCCT BUN SerPl-mCnc 34.0 mg/dL Above high normal 11/14/19 2 5 8 - 21 [facility]CT Calcium SerPl-mCnc 9.2 mg/dL 5 8.7 - 10.5 HHCCT Creat SerPl-mCnc 1.0 mg/dL 5 0.4 - 1.1 HHCCT BUN/Creat SerPl 34.0 Ratio Above high normal 02 5 10 - 25 [facility]CT Sodium SerPl-sCnc 139.0 mmol/L 5 136 - 145 H[facility]CT CO2 SerPl-sCnc 23.0 mmol/L 5 22 - 33 [facility]CT Chloride SerPl-sCnc 99.0 mmol/L 11/14/19 2 5 98 - 107 [facility]CT Glucose SerPl-mCnc 159.0 mg/dL Above high normal 10/26 0 5 65 - 99 [facility]CT Anion Gap Bld-sCnc 17.0 5 7 - 17 [facility]CT Potassium SerPl-sCnc 3.8 mmol/L 02 5 3.4 - 5.3 HHCCT RBC num Bld Auto 5.14 Mil/uL 5 4 - 5.4 [facility]CT Platelet num Bld Auto 205.0 Thou/uL 5 150 - 450 [facility]CT MCHC RBC Auto-mCnc 31.5 g/dL 5 30 - 36 HHCCT PMV Bld Auto 10.7 fL 5 7.5 - 12.5 HHCCT Hgb Bld-mCnc 14.2 g/dL 5 11.7 - 15.7 HHCCT MCV RBC Auto 88.0 fL 5 80 - 100 HHCCT WBC num Bld Auto 8.5 Thou/uL 5 4 - 11 HHCCT Hct VFr Bld Auto 45.1 % 5 35 - 47 HHCCT RDW RBC Auto-Rto 14.0 % 5 11.5 - 14.5 HHCCT MCH RBC Qn Auto 27.6 pg 5 27 - 31 [facility]CT POC Glucose 327.0 mg/dL Above high normal 5 65 - 99 [facility]CT POC Glucose 153.0 mg/dL Above high normal 5 65 - 99 [facility]CT POC Glucose 169.0 mg/dL Above high normal 5 65 - 99 [facility]CT POC Glucose 190.0 mg/dL Above high normal 5 65 - 99 HHCCT Alpha 1 globulin/Protein.tot al by Electrophoresis in Urine collected for unspecified duration 0.0 % 5 H[facility]CT Protein.monoclonal REPORT 5 H[facility]CT Albumin/Protein.tota l by Electrophoresis in Urine collected for unspecified duration 100.0 % 5 [facility]CT Creat Ur-mCnc 9.0 mg/dL Below low normal 5 20 - 275 H[facility]CT Prot Ur-mCnc <4.0 mg/dL 5 5 - 24 [facility]CT Prot/Creat Ur REPORT 5 [facility]HCCT Beta globulin/Protein.tot al by Electrophoresis in Urine collected for unspecified duration 0.0 % 5 [facility]CT Alpha 2 globulin/Protein.tot al by Electrophoresis in Urine collected for unspecified duration 0.0 % 5 H[facility]CT Gamma globulin/Protein.tot al by Electrophoresis in Urine collected for unspecified duration 0.0 % 5 [facility] Interpretation: REPORT 5 [facility]CT Protein/Creatinine Ratio REPORT 5 [facility]CT POC Glucose 171.0 mg/dL Above high normal 5 65 - 99 HHCCT pro BNP, N-terminal 121.0 pg/mL 11/13/19 2 5 - 125 [facility]CT Troponin T SerPl-mCnc 20.0 ng/L Above high normal 5 - 15 [facility]CT Delta NO PREVIOUS RESULT 5 - 3 HHCCT D dimer FEU PPP-mCnc 152.0 ng/mL DDU 10/25 5 - 230 [facility]HCCT POC Glucose 182.0 mg/dL Above high normal 5 65 - 99 HHCCT Magnesium SerPl-mCnc 2.3 mg/dL 02 5 1.6 - 2.7 HHCCT ALT SerPl-cCnc 58.0 U/L Above high normal 11/13/19 2 5 10 - 50 HHCCT GFR/BSA.pred SerPlBld [id number] 74.0 5 59 - HHCCT ALP SerPl-cCnc 142.0 U/L Above high normal 11/13/19 2 5 32 - 122 H[facility]CT Calcium SerPl-mCnc 9.4 mg/dL 5 8.7 - 10.5 HHCCT Creat SerPl-mCnc 0.9 mg/dL 5 0.4 - 1.1 HHCCT Albumin/Glob SerPl 1.6 Ratio 5 1 - 3 HHCCT BUN SerPl-mCnc 33.0 mg/dL Above high normal 11/13/19 2 5 8 - 21 HHCCT CO2 SerPl-sCnc 22.0 mmol/L 5 22 - 33 H[facility]CT BUN/Creat SerPl 37.0 Ratio Above high normal 02 5 10 - 25 HHCCT Bilirub SerPl-mCnc 0.2 mg/dL 5 0.2 - 1 HHCCT Potassium SerPl-sCnc 4.3 mmol/L 02 5 3.4 - 5.3 HHCCT Prot SerPl-mCnc 6.7 g/dL 5 6.3 - 8.3 HHCCT Glucose SerPl-mCnc 173.0 mg/dL Above high normal 10/25 5 65 - 99 HHCCT Sodium SerPl-sCnc 139.0 mmol/L 5 136 - 145 HHCCT Globulin Ser Calc-mCnc 2.6 g/dL 5 1.5 - 3.9 HHCCT Albumin SerPl-mCnc 4.1 g/dL 5 3.5 - 5 HHCCT Chloride SerPl-sCnc 102.0 mmol/L 11/13/19 2 5 98 - 107 HHCCT Anion Gap Bld-sCnc 15.0 5 7 - 17 HHCCT AST SerPl-cCnc 43.0 U/L 5 10 - 50 HHCCT Phosphate SerPl-mCnc 4.8 mg/dL Above high normal 5 2.7 - 4.5 HHCCT MCH RBC Qn Auto 28.0 pg 5 27 - 31 HHCCT RBC num Bld Auto 5.08 Mil/uL 5 4 - 5.4 HHCCT Hgb Bld-mCnc 14.2 g/dL 5 11.7 - 15.7 HHCCT Platelet num Bld Auto 193.0 Thou/uL 5 150 - 450 HHCCT RDW RBC Auto-Rto 13.9 % 5 11.5 - 14.5 HHCCT MCV RBC Auto 89.0 fL 5 80 - 100 HHCCT WBC num Bld Auto 7.5 Thou/uL 5 4 - 11 HHCCT Hct VFr Bld Auto 45.0 % 5 35 - 47 HHCCT MCHC RBC Auto-mCnc 31.6 g/dL 5 30 - 36 HHCCT PMV Bld Auto 11.0 fL 5 7.5 - 12.5 HHCCT POC Glucose 400.0 mg/dL Above high normal 5 65 - 99 [facility]HCCT POC Glucose 210.0 mg/dL Above high normal 5 65 - 99 [facility]CT POC Glucose 183.0 mg/dL Above high normal 5 65 - 99 [facility]HCCT POC Glucose 260.0 mg/dL Above high normal 5 65 - 99 [facility]HCCT POC Glucose 182.0 mg/dL Above high normal 5 65 - 99 HHCCT Magnesium SerPl-mCnc 2.3 mg/dL 02 5 1.6 - 2.7 HHCCT Phosphate SerPl-mCnc 4.8 mg/dL Above high normal 5 2.7 - 4.5 HHCCT BUN SerPl-mCnc 31.0 mg/dL Above high normal 11/12/19 2 5 8 - 21 HHCCT Calcium SerPl-mCnc 8.7 mg/dL 5 8.7 - 10.5 HHCCT Sodium SerPl-sCnc 139.0 mmol/L 5 136 - 145 HHCCT Bilirub SerPl-mCnc 0.2 mg/dL 5 0.2 - 1 HHCCT Albumin SerPl-mCnc 3.7 g/dL 5 3.5 - 5 HHCCT Potassium SerPl-sCnc 4.0 mmol/L 02 5 3.4 - 5.3 HHCCT Globulin Ser Calc-mCnc 2.1 g/dL 5 1.5 - 3.9 HHCCT Chloride SerPl-sCnc 105.0 mmol/L 11/12/19 2 5 98 - 107 HHCCT ALT SerPl-cCnc 49.0 U/L 5 10 - 50 HHCCT Glucose SerPl-mCnc 178.0 mg/dL Above high normal 10/25 5 65 - 99 HHCCT BUN/Creat SerPl 34.0 Ratio Above high normal 02 5 10 - 25 HHCCT Anion Gap Bld-sCnc 11.0 5 7 - 17 HHCCT AST SerPl-cCnc 39.0 U/L 5 10 - 50 HHCCT ALP SerPl-cCnc 126.0 U/L Above high normal 11/12/19 2 5 32 - 122 HHCCT Albumin/Glob SerPl 1.8 Ratio 5 1 - 3 HHCCT CO2 SerPl-sCnc 23.0 mmol/L 5 22 - 33 HHCCT Creat SerPl-mCnc 0.9 mg/dL 5 0.4 - 1.1 HHCCT Prot SerPl-mCnc 5.8 g/dL Below low normal 11/12/19 2 5 6.3 - 8.3 HHCCT GFR/BSA.pred SerPlBld VXL-IFN-SlLCuu 74.0 5 59 - HHCCT MCV RBC Auto 89.0 fL 5 80 - 100 HHCCT Hct VFr Bld Auto 41.7 % 5 35 - 47 HHCCT MCH RBC Qn Auto 27.7 pg 5 27 - 31 HHCCT WBC num Bld Auto 6.9 Thou/uL 5 4 - 11 HHCCT RDW RBC Auto-Rto 13.9 % 5 11.5 - 14.5 HHCCT Hgb Bld-mCnc 13.0 g/dL 5 11.7 - 15.7 HHCCT Platelet num Bld Auto 154.0 Thou/uL 5 150 - 450 HHCCT MCHC RBC Auto-mCnc 31.2 g/dL 5 30 - 36 HHCCT RBC num Bld Auto 4.7 Mil/uL 5 4 - 5.4 HHCCT PMV Bld Auto 11.1 fL 5 7.5 - 12.5 HHCCT POC Glucose 270.0 mg/dL Above high normal 5 65 - 99 [facility]HCCT POC Glucose 175.0 mg/dL Above high normal 5 65 - 99 [facility]HCCT POC Glucose 162.0 mg/dL Above high normal 5 65 - 99 [facility]CT POC Glucose 312.0 mg/dL Above high normal 5 65 - 99 [facility]HCCT POC Glucose 244.0 mg/dL Above high normal 5 65 - 99 HHCCT Calcium SerPl-mCnc 8.8 mg/dL 5 8.7 - 10.5 HHCCT ALP SerPl-cCnc 157.0 U/L Above high normal 11/11/19 2 5 32 - 122 HHCCT AST SerPl-cCnc 42.0 U/L 5 10 - 50 HHCCT Albumin SerPl-mCnc 3.9 g/dL 5 3.5 - 5 HHCCT BUN/Creat SerPl 30.0 Ratio Above high normal 02 5 10 - 25 HHCCT Prot SerPl-mCnc 6.2 g/dL Below low normal 11/11/19 2 5 6.3 - 8.3 HHCCT Sodium SerPl-sCnc 139.0 mmol/L 5 136 - 145 HHCCT BUN SerPl-mCnc 27.0 mg/dL Above high normal 11/11/19 2 5 8 - 21 HHCCT Potassium SerPl-sCnc 4.3 mmol/L 02 5 3.4 - 5.3 HHCCT GFR/BSA.pred SerPlBld [id number]-HyAHal 74.0 5 59 - HHCCT Globulin Ser Calc-mCnc 2.3 g/dL 5 1.5 - 3.9 HHCCT Anion Gap Bld-sCnc 13.0 5 7 - 17 HHCCT Creat SerPl-mCnc 0.9 mg/dL 5 0.4 - 1.1 HHCCT Chloride SerPl-sCnc 104.0 mmol/L 11/11/19 2 5 98 - 107 HHCCT Albumin/Glob SerPl 1.7 Ratio 5 1 - 3 HHCCT ALT SerPl-cCnc 52.0 U/L Above high normal 11/11/19 2 5 10 - 50 HHCCT Bilirub SerPl-mCnc 0.3 mg/dL 5 0.2 - 1 [facility]HCCT Glucose SerPl-mCnc 246.0 mg/dL Above high normal 10/25 5 65 - 99 HHCCT CO2 SerPl-sCnc 22.0 mmol/L 5 22 - 33 HHCCT Magnesium SerPl-mCnc 2.2 mg/dL 02 5 1.6 - 2.7 HHCCT Lymphocytes num Bld Auto 1.73 Thou/uL 5 1.5 - 4.5 HHCCT PMV Bld Auto 10.9 fL 5 7.5 - 12.5 HHCCT Platelet num Bld Auto 174.0 Thou/uL 5 150 - 450 HHCCT Monocytes/leuk NFr Bld Auto 8.0 % 5 HHCCT RDW RBC Auto-Rto 13.8 % 5 11.5 - 14.5 HHCCT MCV RBC Auto 88.0 fL 5 80 - 100 HHCCT Imm Granulocytes/leuk NFr Bld Auto 1.6 % 5 HHCCT MCH RBC Qn Auto 27.8 pg 5 27 - 31 HHCCT WBC num Bld Auto 7.0 Thou/uL 5 4 - 11 HHCCT Eosinophil num Bld Auto 0.48 Thou/uL 5 0 - 0.7 HHCCT Monocytes num Bld Auto 0.56 Thou/uL 5 0.2 - 1.5 HHCCT RBC num Bld Auto 4.97 Mil/uL 5 4 - 5.4 HHCCT Basophils/leuk NFr Bld Auto 0.7 % 5 HHCCT Eosinophil/leuk NFr Bld Auto 6.8 % 5 HHCCT Neutrophils/leuk NFr Bld Auto 58.3 % 5 HHCCT Lymphocytes/leuk NFr Bld Auto 24.6 % 5 HHCCT Hct VFr Bld Auto 43.9 % 5 35 - 47 HHCCT Basophils num Bld Auto 0.05 Thou/uL 5 0 - 0.2 HHCCT Imm Granulocytes num Bld Auto 0.11 Thou/uL Above high normal 5 0 - 0.1 HHCCT Neutrophils num Bld Auto 4.1 Thou/uL 5 2 - 7.5 HHCCT MCHC RBC Auto-mCnc 31.4 g/dL 5 30 - 36 HHCCT Hgb Bld-mCnc 13.8 g/dL 5 11.7 - 15.7 HHCCT POC Glucose 322.0 mg/dL Above high normal 5 65 - 99 HHCCT POC Glucose 317.0 mg/dL Above high normal 5 65 - 99 HHCCT POC Glucose 392.0 mg/dL Above high normal 5 65 - 99 HHCCT POC Glucose 296.0 mg/dL Above high normal 5 65 - 99 HHCCT POC Glucose 262.0 mg/dL Above high normal 5 65 - 99 HHCCT BUN/Creat SerPl 19.0 Ratio 5 10 - 25 HHCCT CO2 SerPl-sCnc 23.0 mmol/L 5 22 - 33 HHCCT Albumin SerPl-mCnc 3.6 g/dL 5 3.5 - 5 HHCCT GFR/BSA.pred SerPlBld [id number] 74.0 5 59 - HHCCT Anion Gap Bld-sCnc 12.0 5 7 - 17 HHCCT ALT SerPl-cCnc 25.0 U/L 5 10 - 50 HHCCT Potassium SerPl-sCnc 3.6 mmol/L 02 5 3.4 - 5.3 HHCCT ALP SerPl-cCnc 101.0 U/L 5 32 - 122 HHCCT Sodium SerPl-sCnc 136.0 mmol/L 5 136 - 145 HHCCT BUN SerPl-mCnc 17.0 mg/dL 5 8 - 21 HHCCT Globulin Ser Calc-mCnc 2.4 g/dL 5 1.5 - 3.9 HHCCT AST SerPl-cCnc 24.0 U/L 5 10 - 50 HHCCT Glucose SerPl-mCnc 246.0 mg/dL Above high normal 10/25 5 65 - 99 HHCCT Albumin/Glob SerPl 1.5 Ratio 5 1 - 3 HHCCT Creat SerPl-mCnc 0.9 mg/dL 5 0.4 - 1.1 HHCCT Calcium SerPl-mCnc 8.5 mg/dL Below low normal 11/09 5 8.7 - 10.5 HHCCT Prot SerPl-mCnc 6.0 g/dL Below low normal 11/10/19 2 5 6.3 - 8.3 HHCCT Chloride SerPl-sCnc 101.0 mmol/L 11/10/19 2 5 98 - 107 HHCCT Bilirub SerPl-mCnc 0.4 mg/dL 5 0.2 - 1 HHCCT Magnesium SerPl-mCnc 2.0 mg/dL 02 5 1.6 - 2.7 HHCCT Phosphate SerPl-mCnc 3.7 mg/dL 02 5 2.7 - 4.5 HHCCT WBC num Bld Auto 6.5 Thou/uL 5 4 - 11 HHCCT RBC num Bld Auto 4.91 Mil/uL 5 4 - 5.4 HHCCT PMV Bld Auto 10.6 fL 5 7.5 - 12.5 HHCCT MCV RBC Auto 87.0 fL 5 80 - 100 HHCCT MCHC RBC Auto-mCnc 32.1 g/dL 5 30 - 36 HHCCT MCH RBC Qn Auto 27.9 pg 5 27 - 31 HHCCT RDW RBC Auto-Rto 13.8 % 5 11.5 - 14.5 HHCCT Platelet num Bld Auto 161.0 Thou/uL 5 150 - 450 HHCCT Hct VFr Bld Auto 42.7 % 5 35 - 47 HHCCT Hgb Bld-mCnc 13.7 g/dL 5 11.7 - 15.7 HHCCT POC Glucose 232.0 mg/dL Above high normal 5 65 - 99 HHCCT Delta 4.0 Above high normal 5 - 3 HHCCT Troponin T SerPl-mCnc 25.0 ng/L Above high normal 5 - 15 HHCCT POC Glucose 362.0 mg/dL Above high normal 5 65 - 99 CCT POC Glucose 380.0 mg/dL Above high normal 5 65 - 99 HHCCT POC Glucose 464.0 mg/dL Above high normal 5 65 - 99 HHCCT AST SerPl-cCnc 20.0 U/L 5 10 - 50 HHCCT Est. average glucose Bld gHb Est-mCnc 361.0 mg/dL 5 HHCCT Hgb A1c MFr Bld 14.2 % Above high normal 02 5 - 5.7 HHCCT Monocytes num Bld Auto 0.57 Thou/uL 5 0.2 - 1.5 HHCCT Hgb Bld-mCnc 14.6 g/dL 5 11.7 - 15.7 HHCCT Hct VFr Bld Auto 44.6 % 5 35 - 47 HHCCT Basophils num Bld Auto 0.05 Thou/uL 5 0 - 0.2 HHCCT Monocytes/leuk NFr Bld Auto 7.3 % 5 HHCCT Eosinophil num Bld Auto 0.35 Thou/uL 5 0 - 0.7 HHCCT MCV RBC Auto 86.0 fL 5 80 - 100 HHCCT Lymphocytes/leuk NFr Bld Auto 23.6 % 5 HHCCT Imm Granulocytes num Bld Auto 0.1 Thou/uL 5 0 - 0.1 [facility] Neutrophils num Bld Auto 4.89 Thou/uL 5 2 - 7.5 [facility] Basophils/leuk NFr Bld Auto 0.6 % 5 [facility] MCHC RBC Auto-mCnc 32.7 g/dL 5 30 - 36 [facility] Eosinophil/leuk NFr Bld Auto 4.5 % 5 [facility] PMV Bld Auto 10.5 fL 5 7.5 - 12.5 [facility] Lymphocytes num Bld Auto 1.84 Thou/uL 5 1.5 - 4.5 [facility] MCH RBC Qn Auto 28.1 pg 5 27 - 31 [facility] WBC num Bld Auto 7.8 Thou/uL 5 4 - 11 [facility] RDW RBC Auto-Rto 13.5 % 5 11.5 - 14.5 [facility] Neutrophils/leuk NFr Bld Auto 62.7 % 5 [facility] RBC num Bld Auto 5.19 Mil/uL 5 4 - 5.4 [facility] Platelet num Bld Auto 162.0 Thou/uL 5 150 - 450 [facility] Imm Granulocytes/leuk NFr Bld Auto 1.3 % 5 [facility] CO2 BldV-sCnc 26.0 mmol/L 5 23 - 29 [facility] Base deficit BldA-sCnc 0.7 mmol/L 5 [facility] pCO2 BldV 44.0 mmHG 5 35 - 50 [facility] pH BldV 7.36 5 7.33 - 7.43 [facility] pO2 BldV 80.0 mmHG Above high normal 5 0 - 60 [facility] Respiratory Information ROOM AIR 5 [facility] POC Glucose >500.0 mg/dL Above high normal 5 65 - 99 [facility] Osmolality SerPl 312.0 mOsm/Kg Above high normal 11/08 5 275 - 295 [facility] Delta NO PREVIOUS RESULT 5 - 3 [facility] Troponin T SerPl-mCnc 21.0 ng/L Above high normal 5 - 15 [facility] B-OH-Butyr SerPl-sCnc 0.06 mmol/L 5 - 0.28 [facility] Magnesium SerPl-mCnc 2.0 mg/dL 02 5 1.6 - 2.7 [facility] GFR/BSA.pred SerPlBld IMG-GMN-GiICrd >90.0 5 59 - [facility] ALT SerPl-cCnc 30.0 U/L 5 10 - 50 [facility] Bilirub SerPl-mCnc 0.4 mg/dL 5 0.2 - 1 [facility] Albumin SerPl-mCnc 4.4 g/dL 5 3.5 - 5 [facility] ALP SerPl-cCnc 157.0 U/L Above high normal 11/09/19 2 5 32 - 122 [facility] CO2 SerPl-sCnc 20.0 mmol/L Below low normal 5 22 - 33 [facility] Sodium SerPl-sCnc 129.0 mmol/L Below low normal 5 136 - 145 [facility] BUN/Creat SerPl 24.0 Ratio 5 10 - 25 [facility] Creat SerPl-mCnc 0.7 mg/dL 5 0.4 - 1.1 [facility] Prot SerPl-mCnc 7.3 g/dL 5 6.3 - 8.3 [facility] Glucose SerPl-mCnc 488.0 mg/dL Critically high 5 65 - 99 [facility] Anion Gap Bld-sCnc 15.0 5 7 - 17 [facility] Potassium SerPl-sCnc 4.9 mmol/L 02 5 3.4 - 5.3 [facility] Calcium SerPl-mCnc 9.1 mg/dL 5 8.7 - 10.5 [facility] Globulin Ser Calc-mCnc 2.9 g/dL 5 1.5 - 3.9 [facility] AST SerPl-cCnc Specimen hemolyzed. Test not performed. 5 10 - 50 [facility] Albumin/Glob SerPl 1.5 Ratio 5 1 - 3 [facility] BUN SerPl-mCnc 17.0 mg/dL 5 8 - 21 [facility] Chloride SerPl-sCnc 94.0 mmol/L Below low normal 10/25 5 98 - 107 [facility] Hgb Bld-mCnc Specimen clotted. Test not performed. 5 11.7 - 15.7 [facility] nRBC num Bld Auto Specimen clotted. Test not performed. 5 0 - 0.02 [facility] Platelet num Bld Auto Specimen clotted. Test not performed. 5 150 - 450 [facility] WBC num Bld Auto Specimen clotted. Test not performed. 5 4 - 11 [facility] nRBC/100 WBC Bld Auto-Rto Specimen clotted. Test not performed. 5 0 - 0.1 [facility] Comment Specimen clotted. Test not performed. Abnormal 5 - [facility] Hct VFr Bld Auto Specimen clotted. Test not performed. 5 35 - 47 [facility] RBC num Bld Auto Specimen clotted. Test not performed. 5 4 - 5.4 [facility] Immature Platelet Fraction Specimen clotted. Test not performed. 5 1.2 - 8.6 [facility] RDW RBC Auto-Rto Specimen clotted. Test not performed. 5 11.5 - 14.5 [facility] MCH RBC Qn Auto Specimen clotted. Test not performed. 5 27 - 31 [facility] MCV RBC Auto Specimen clotted. Test not performed. 5 80 - 100 [facility] PMV Bld Auto Specimen clotted. Test not performed. 5 7.5 - 12.5 [facility] RBC Auto-mCnc Specimen clotted. Test not performed. 5 30 - 36 [facility] GLU[facility]SE 431.0 mg/dL Critically high 5 74 - 100 [facility] TROPONIN I HIGH SENSITIVE 15.86 pg/mL Normal 5 2.5 - 34 [facility] D-DIMER HIGH SENSITIVITY < 230 Normal 5 0 - 243 [facility] ABSOLUTE MONOS 0.6 K/uL Normal 5 0.2 - 1.5 [facility] RDW 14.2 % Above high normal 5 11.1 - 13.3 [facility] LYMPHS 19.0 % Normal 5 16 - 50 [facility] BASOPHILS 1.0 % Normal 5 0 - 2 [facility] WBC 7.3 K/uL Normal 5 3.7 - 10.3 [facility] MCV 88.0 fL Normal 5 83 - 102 [facility] MONOCYTES 8.0 % Normal 5 0 - 12 [facility] ABSOLUTE NUCLEATED RBC 0.0 K/uL Normal 5 0 - 0.012 [facility] NUCLEATED RBC 0.0 % Normal 5 0 - 0.2 [facility] IMMATURE GRANULOCYTES 1.0 % Above high normal 5 0 - 0.45 [facility] EOSINOPHILS 3.0 % Normal 5 0 - 6 [facility] HCT 48.5 % Above high normal 5 36 - 46 [facility] GRANULOCYTES 68.0 % Normal 5 23 - 78 [facility] MCH 29.0 PG Normal 5 27 - 34 [facility] PLATELET COUNT 185.0 K/uL Normal 5 150 - 480 [facility] MPV 11.0 fL Normal 5 8 - 12 [facility] ABSOLUTE BASO 0.1 K/uL Normal 5 0 - 0.2 [facility] HGB 15.9 g/dL Above high normal 5 12.1 - 15.7 [facility] MCHC 32.8 g/dL Normal 5 31 - 36 [facility] ABSOLUTE GRANULOCYTES 4.9 K/uL Normal 5 2.2 - 7.3 [facility] ABSOLUTE IMMATURE GRANULOCYTES 0.1 K/uL Normal 5 0 - 0.3 [facility] ABSOLUTE LYMPHS 1.4 K/uL Below low normal 09/13/19 2 5 1.5 - 4.9 [facility] RBC 5.53 M/uL Above high normal 5 4 - 5.4 [facility] ABSOLUTE EOS 0.3 K/uL Normal 5 0 - 0.7 [facility] ALBUMIN 4.8 g/dL Normal 5 3.2 - 4.8 [facility] GLOBULIN 2.1 g/dL Below low normal 5 2.2 - 3.5 [facility] BUN 19.0 mg/dL Normal 5 9 - 23 [facility] ALKALINE PHOSPHATASE 156.0 U/L Above high normal 5 45 - 129 [facility] SODIUM 136.0 mmol/L Normal 5 136 - 145 [facility] AST (SGOT) 19.0 U/L Normal 5 0 - 34 [facility] POTASSIUM SERUM 4.4 mmol/L Normal 5 3.5 - 5.1 [facility] ALT (SGPT) 27.0 U/L Normal 5 10 - 49 [facility] BUN/CREAT.RATIO 16.5 Normal 5 [facility] CREATININE 1.15 mg/dL Above high normal 5 0.55 - 1.02 [facility] GLUCOSE 455.0 mg/dL Above high normal 5 74 - 106 [facility] CHLORIDE 99.0 mmol/L Normal 5 98 - 107 [facility] CO2 26.0 mmol/L Normal 5 20 - 31 [facility] BILIRUBIN,TOTAL 0.4 mg/dL Normal 5 0.3 - 1.2 [facility] PROTEIN, TOTAL 6.9 g/dL Normal 5 5.7 - 8.2 [facility] A/G RATIO 2.3 g/dL Normal 5 [facility] PATIENT FASTING? UNKNOWN Normal 5 [facility] GFRE 52.0 Below low normal 5 60 - [facility] PHOSPHOROUS 3.5 mg/dL Normal 5 2.4 - 5.1 [facility] MAGNESIUM 1.96 mg/dL Normal 5 1.6 - 2.6 [facility] PRO B-TYPE NATRIURETIC PEPTIDE 492.0 pg/mL Normal 5 0 - 900 [facility] TROPONIN I HIGH SENSITIVE 17.33 pg/mL Normal 5 2.5 - 34 [facility] BY PCR INFLUENZA A NEGATIVE. Normal 5 [facility] INFLUENZA B BY PCR INFLUENZA B NEGATIVE. Normal 5 [facility] History of Medication Use Medication Directions Dispensed Refills Start Date End Date Stat cloNIDine (VSBAIGRC-MYV-8) 0.1 mg/[address] 1 patch on the skin once a week. 11/27/2024 active isosorbide mononitrate (IMDUR) 30 MG 24 hr tablet Take 2 tablets (60 mg total) by mouth daily. 11/27/2024 active atorvastatin (LIPITOR) 80 MG tablet Take 1 tablet (80 mg total) by mouth daily. 11/20/2024 active cephalexin (KEFLEX) 500 MG capsule Take 1 capsule (500 mg total) by mouth 4 (four) times a day. 11/20/2024 active Keppra 500 MG tablet Take 1 tablet (500 mg total) by mouth 2 (two) times a day. 11/20/2024 active aspirin 81 MG chewable tablet Chew 1 tablet (81 mg total) daily. 11/17/2024 active empagliflozin (JARDIANCE) 25 MG tablet Take 1 tablet (25 mg total) by mouth daily. 11/17/2024 active lisinopril (PRINIVIL,ZeSTRIL) 20 MG tablet Take 1 tablet (20 mg total) by mouth daily. Do not start before November 17, 2024. 11/17/2024 active PANTOprazole (PROTONIX) 40 MG EC tablet Take 1 tablet (40 mg total) by mouth daily. 11/17/2024 active Alcohol Swabs 70 % Pads Use as directed. active apixaban (ELIQUIS) 5 MG tablet Take 1 tablet (5 mg total) by mouth every 12 (twelve) hours around the clock. 11/16/2024 active cloNIDine (CATAPRES) 0.1 MG tablet Take 1 tablet (0.1 mg total) by mouth 2 (two) times a day. 11/16/2024 active furosemide (LASIX) 40 MG tablet Take 1 tablet (40 mg total) by mouth daily. 11/16/2024 active insulin glargine (LANtus/SEMGLEE SOLOSTAR) 100 units/mL prefilled pen injection Inject 24 Units under the skin daily. 11/16/2024 active insulin lispro (HumaLOG KWIKPEN) 100 UNIT/ML prefilled pen injection Inject 10 Units under the skin 3 (three) times a day before meals. 11/16/2024 active isosorbide mononitrate (IMDUR) 30 MG 24 hr tablet Take 1 tablet (30 mg total) by mouth daily. 11/16/2024 active oxyCODONE (ROXICODONE) 5 MG immediate release tablet Take 1 tablet (5 mg total) by mouth 3 times daily (every 8 hours) as needed for severe pain. Max Daily Amount: 15 mg 11/16/2024 active spironolactone (ALDACTONE) 25 MG tablet Take 1 tablet (25 mg total) by mouth every morning with breakfast. 11/16/2024 active Blood Glucose Monitoring Suppl (Yapta Verio Flex System) w/Device Kit 1 Device by Does not apply route 1 time. Use as directed. For lifetime. 11/12/2024 active Blood Pressure Monitoring (Blood Pressure Monitor Automat) Device For life use for hypertension. Check Bp once daily everyday for lifetime 11/12/2024 active ALPRAZolam (XANAX) 0.5 MG tablet Take 1 tablet (0.5 mg total) by mouth 2 (two) times a day as needed. 09/17/2024 active gabapentin (NEURONTIN) 400 MG capsule Take 1 capsule (400 mg total) by mouth 3 (three) times a day. 09/17/2024 active sertraline (ZOLOFT) 50 MG tablet Take 3 tablets (150 mg total) by mouth daily. 09/17/2024 active traZODone (DESYREL) 50 MG tablet Take 1 tablet (50 mg total) by mouth nightly. 09/17/2024 active cyclobenzaprine (FLEXERIL) 10 MG tablet Take 1 tablet (10 mg total) by mouth 2 times daily (every 12 hours) as needed for muscle spasms. 02/26/2020 active famotidine (PEPCID) 20 MG tablet Take 1 tablet (20 mg total) by mouth 2 (two) times a day. 02/23/2020 active ondansetron (ZOFRAN-ODT) 4 MG disintegrating tablet Take 1 tablet (4 mg total) by mouth 3 times daily (every 8 hours) as needed for nausea or vomiting. Place tablet on tongue to dissolve. 02/23/2020 active dicyclomine (BENTYL) 10 MG capsule Take 1 capsule (10 mg total) by mouth 4 (four) times a day. 2020 active HYDROcodone-acetaminoph en (NORCO) 5-325 mg per tablet Take 1 tablet by mouth 4 times daily (every 6 hours) as needed for severe pain (pain). Max Daily Amount: 4 tablets 02/20/2020 active JANUVIA 100 MG tablet Take 100 mg by mouth daily. 12/27/2016 active amLODIPine (NORVASC) 10 MG tablet Take 10 mg by mouth daily. 04/08/2016 active acetaminophen (TYLENOL) 325 MG tablet Take 650 mg by mouth 4 times daily (every 6 hours) as needed for mild pain. active albuterol (PROVENTIL HFA; VENTOLIN HFA) 108 (90 Base) MCG/ACT inhaler Inhale 2 puffs 4 (four) times a day as needed for wheezing or shortness of breath. active vilazodone (VIIBRYD) 40 MG tablet Take 40 mg by mouth daily. active Allergies Allergen Reaction Severity Comment Documented Date Source Statu s SUMATRIPTAN PALPITATIONS Rapid heart rate 05/10/2016 CCT active IBUPROFEN GI INTOLERANCE/NAUSEA/V OMITING [facility] of [facility] Problems Problem Status Onset Date Problem Type Date of Resoluti on Source Gastroesophageal reflux disease active 2016-05-10 [facility]Act [facility] Arthritis of knee active 2016-05-10 ProblemAct [facility] Hypoglycemia due to insulin active 2017-11-17 ProblemAct [facility] Paroxysmal atrial fibrillation active 2024-11-09 ProblemAct [facility] Morbid obesity with body mass index (BMI) of 40.0 to 44.9 in adult active 2016-05-10 ProblemAct [facility] Hypotension active 2017-11-17 ProblemAct [facility] SONIA (acute kidney injury) active 2017-11-17 ProblemAct [facility] Family history of deep venous thrombosis active 2016-05-10 ProblemAct [facility] Cuenca's esophagus without dysplasia active 2017-06-06 ProblemAct [facility] Controlled type 2 diabetes mellitus without complication active 2016-05-10 ProblemAct [facility] Hyperlipemia active 2016-05-10 ProblemAct [facility] Acute respiratory failure with hypoxia and hypercapnia active 2017-11-17 ProblemAct [facility] Essential hypertension active 2016-05-10 ProblemAct [facility] Accidental drug overdose active 2017-11-17 ProblemAct [facility] Hypertensive emergency active 2024-11-08 ProblemAct [facility] Encounters Encounter Type Encounter Reason Primary Diagnosis Location Date [facility] 02/15/2025 Ambulatory Persons encountering health services in other specified circumstances Persons encountering health services in other specified circumstances [facility] 02/13/2025 Ambulatory [facility] 01/17/2025 Ambulatory Pain in left hip Pain in left hip [facility] 01/17/2025 Ambulatory Unilateral primary osteoarthritis, unspecified knee Unilateral primary osteoarthritis, unspecified knee [facility] 11/27/2024 Emergency Headache, unspecified Headache, unspecified [facility] 11/23/2024 Ambulatory Other Other [facility] 11/21/2024 Ambulatory Cellulitis of unspecified part of limb Cellulitis of unspecified part of limb [facility] 11/20/2024 Inpatient Essential (primary) hypertension Essential (primary) hypertension [employer] 11/08/2024 Emergency [facility] 09/12/2024 Care Team Organization Name Specialty Phone Email Start Date End Da te [employer] [facility] MOI SCHULTZ Primary Care 02/13/2025 [facility] Social Media Marketing Analyst (ECMP) HECTOR Primary Care 02/11/2025 [facility] 01/24/2025 [employer] PCP Brick Baker 01/18/2025 [employer] [facility] CLYDE METCALF Primary Care 11/08/2024 [facility] NO PCP Primary Care 11/08/2024 [facility] CLYDE METCALF Primary Care 11/08/2024 [facility] provided,No Primary Care 09/13/2024 01/08/2025 [facility]. No provided Primary Care 09/12/2024 [facility] 10/25/2023 [facility] 01/07/2023
--- OUTSIDE RECORDS SUMMARY | 2025-02-22 13:28 | XMS_ITS | Encounter Summary ---
Author Organization [facility] Address [address] [place] [address] Care Team Providers Care Thermal Surfacing Machine Operator Name Role Phone Corinne Chappell APRN Primary Care Provider + Reason for Visit * Reason Comments Med Change Request Encounter Details Date Type Department Care Team ([facility] st Contact Info) Description 02/13/2025 [facility] [address] [place], [place] [phone] Corinne Chappell APRN [address] [place], [place] Type 2 diabetes mellitus with other specified complication, unspecified whether superintendent marine oil terminal insulin use (HCC) Social History Tobacco Use Types Packs/Day Years Used Date Smoking Tobacco: Former Cigarettes 0.3 10 1 08/14/2005 - 06/13/2016 Smokeless Tobacco: Never Alcohol Use Standard Drinks/Week Comments No 0 (1 standard drink = 0.6 oz pur e alcohol) [facility] Utilities Answer Date Recorded In the past 12 months has [employer] electric, gas, oil, or water company threatened to shut off services in your home? No 02/13/2025 Social Connection and Isolation Panel [NHANES] A nswer Date Recorded In a typical week, how many times do you talk on the phone with family, friends, or neighbors? Once a week 02/13/2025 Frequency of Social Gatherings with Friends and Family Not on file 02/13/2025 Attends [facility] Not on file 02/13 Active Member of Clubs or Organizations Not on f ile 02/13/2025 Attends Club or Organization Meetings Not on genny e 02/13/2025 Marital Status Not on file 02/13/2025 AUDIT-C Answer Date Recorded Q1: How often do you have a drink containing alc ohol? Monthly or less 02/13/2025 Q2: How many drinks containi ng alcohol do you have on a typical day when you are drinking? 1 or 2 02/13/2025 Q3: How often do you have si x or more drinks on one occasion? Less than monthly 02/13/2025 PHQ-2 Answer Date Recorded PHQ-2 Total Score 4 02/13/2025 Hunger Vital Sign Answer Date Recorded Within the past 12 months, y ou worried that your food would run out before you got the money to buy more. Sometimes true Within the past 12 months, t he food you bought just didn't last and you didn't have money to get more. Sometimes true PRAPARE - Transportation Answer Date Re corded In the past 12 months, has l ack of transportation kept you from medical appointments or from getting medications? Yes 01/26 In the past 12 months, has l ack of transportation kept you from meetings, work, or from getting things needed for daily living? Yes 02/13/2025 Housing Stability Vital Sign Answer Parvez e Recorded In the last 12 months, was t here a time when you were not able to pay the mortgage or rent on time? No 02/13/2025 In the past 12 months, how m any times have you moved where you were living? 0 02/13/2025 At any time in the past 12 m [facility], were you homeless or living in a penitentiary (including now)? No 02/13/2025 Education Answer Date Recorded What is the highest level of school you have completed or the highest degree you have received? 12th grade 02/13/2025 Comments No Sex and Gender Information Value Date Recorded Sex Assigned at Female 11/08/2024 7:39 AM EDT Legal Sex Female 6:26 PM EDT Gender Identity Female 11/08/2024 7:39 AM EDT Sexual Orientation Heterosexual (straight) 11/08 7:39 AM EDT documented as of this encounter Functional Status * Q1: How often do you have a drink containing alcohol? Answer Date of Assessment Author Monthly or less 02/13/2025 2:10 AM EDT [facility], Generic * Q2: How many drinks containing alcohol do you have on a typical day when you are drinking? Answer Date of Assessment Author 1 or 2 02/13/2025 2:10 AM EDT [facility], Generic * Over the past 2 weeks, how often have you been bothered by any of the following problems? Question Answer Date of Assessment Author Patient Health Questionnaire-2 Score 4 01/26 2:05 AM EDT [facility], Generic * Little interest or pleasure in doing things Answer Date of Assessment Author More than half the days 02/13/2025 2:05 AM EDT Kalyan reardont, Generic * Feeling down, depressed, or hopeless Answer Date of Assessment Author More than half the days 02/13/2025 2:05 AM EDT Kalyan reardont, Generic * Question Answer Date of Assessment Author Patient Health Questionnaire-9 Score 16 01/26 2:05 AM EDT [facility], Generic * Trouble falling or staying asleep, or sleeping too much Answer Date of Assessment Author More than half the days 02/13/2025 2:05 AM EDT Kalyan reardont, Generic * Feeling tired or having little energy Answer Date of Assessment Author Nearly every day 02/13/2025 2:05 AM EDT [facility], Generic * Poor appetite or overeating Answer Date of Assessment Author More than half the days 02/13/2025 2:05 AM EDT Kalyan reardont, Generic * Feeling bad about yourself - or that you are a failure or have let yourself or your family down Answer Date of Assessment Author More than half the days 02/13/2025 2:05 AM EDT Kalyan reardont, Generic * Trouble concentrating on things, such as reading the newspaper or watching television Answer Date of Assessment Author More than half the days 02/13/2025 2:05 AM EDT Kalyan reardont, Generic * Moving or speaking so slowly that other people could have noticed? Or the opposite - being so fidgety or restless that you have been moving around a lot more than usual. Answer Date of Assessment Author Several days 02/13/2025 2:05 AM EDT [facility], Generic * How difficult have these problems made it for you to do your work, take care of things at home, or get along with other people? Answer Date of Assessment Author Somewhat difficult 02/13/2025 2:05 AM EDT [facility], Generic * Over the last 2 weeks, how often have you been bothered by any of the following problems? Question Answer Date of Assessment Author WILLIE-7 Total Score 13 02/13/2025 2:06 AM EDT [facility], Generic * Feeling nervous, anxious, or on edge Answer Date of Assessment Author 3 02/13/2025 2:06 AM EDT [facility], Generic * Not being able to stop or control worrying Answer Date of Assessment Author 2 02/13/2025 2:06 AM EDT [facility], Generic * Worrying too much about different things Answer Date of Assessment Author 2 02/13/2025 2:06 AM EDT [facility], Generic * Trouble relaxing Answer Date of Assessment Author 2 02/13/2025 2:06 AM EDT [facility], Generic * Being so restless that it is hard to sit still Answer Date of Assessment Author 1 02/13/2025 2:06 AM EDT [facility], Generic * Becoming easily annoyed or irritable Answer Date of Assessment Author 2 02/13/2025 2:06 AM EDT [facility], Generic * Feeling afraid as if something awful might happen Answer Date of Assessment Author 1 02/13/2025 2:06 AM EDT [facility], Generic * Question Answer Date of Assessment Author Thoughts that you would be better off or hurting yourself in some way Not at all 02/13/2025 2:05 AM EDT Amy Olvera MA documented as of this encounter Miscellaneous Notes * Telephone Encounter - Lars Aquino RN - 02/18/2025 1:20 PM EDT [place] waiting documented in this encounter Plan of Treatment Upcoming Encounters Date Type Department Care Team (Late st Contact Info) Description 04/17/2025 1:15 PM EDT Office Visit [address] [phone] Corinne Chappell APRN [address] [place] [address] documented as of this encounter Goals Goal Patient Goal Type Associated Problems Recent Progress Patient-Stated? Author Eat more fruits and vegetables Diet On track( 8:28 AM EDT) Marbella Kitchen RD Have 3 meals a day Diet On track( 8:28 AM EDT) Marbella Kitchen RD Increase physical activity Lifestyle On track( 8:28 AM EDT) Marbella Kitchen RD documented as of this encounter Visit Diagnoses Diagnosis Type 2 diabetes mellitus with other specified complication, unspecified whether superintendent marine oil terminal insulin use (HCC) documented in this encounter Care Teams Thermal Surfacing Machine Operator Relationship Specialty Start Date End Date Corinne Chappell APRN [address] [place] [address] PCP - General Internal Medicine 02/13/25 documented as of this encounter
--- OUTSIDE RECORDS SUMMARY | 2025-02-22 13:28 | XMS_ITS | Encounter Summary ---
Author Organization [facility] Address [address] [place] [address] Care Team Providers Care Machine Fur Cleaner Name Role Phone Unknown Primary Care Provider [phone] Pcp, No Primary Care Provider [facility] Primary Care Provider + Pcp, No [facility]inne Chappell APRN Primary Care Provider + Encounter Details Date Type Department Care Team (Late st Contact Info) Description 07/13/2017 Scanned Document [facility] Bariatric Surgery [address] [place] [address] Cierra Rich MD [address] [place] [address] Social History Tobacco Use Types Packs/Day Years [...] 04/17/2025 1:15 PM EDT Office Visit [address] [place], [place] [phone] Corinne Chappell APRN [address] [place], [place] documented as of this encounter Goals [...] on filedocumented in this encounter Care Teams Machine Fur Cleaner Relationship Specialty Start Date End Date Unknown Unknow Provider Address PCP - General 11/17/17 02/19/20 Pcp, No PCP - General General Medicine 02/20/20 03/24/20 [facility] [address] [place] [address] PCP - General 03/25/20 11/07/24 Pcp, No PCP - General 11/08/24 02/12/25 Corinne Chappell APRN [address] [place] [address] PCP - General Internal Medicine 02/13/25 documented as of this encounter
--- OUTSIDE RECORDS SUMMARY | 2025-02-22 13:28 | XMS_ITS | Encounter Summary ---
Author Organization [facility] Address [address] [place] [address] Care Team Providers Care Co Founder Name Role Phone Unknown Primary Care Provider [phone] Pcp, No Primary Care Provider [facility] Primary Care Provider + Pcp, No [facility]inne [facility]appell APRN Primary Care Provider + Encounter Details Date Type Department Care Team (Late st Contact Info) Description 07/28/[address] [facility] Bariatric Surgery [address] [place] [address] Cierra Rich MD [address] [place] [address] Social History Tobacco Use Types Packs/Day Years [...] Description 04/17/2025 1:15 PM EDT Office Visit [address] [place], [place] [phone] Corinne Chappell APRN [address] [place], [place] documented as of this encounter Goals [...] on filedocumented in this encounter Care Teams Co Founder Relationship Specialty Start Date End Date Unknown Unknow Provider Address PCP - General 11/17/17 02/19/20 Pcp, No PCP - General General Medicine 02/20/20 03/24/20 [facility] [address] [place] [address] PCP - General 03/25/20 11/07/24 Pcp, No PCP - General 11/08/24 02/12/25 Corinne Chappell APRN [address] [place] [address] PCP - General Internal Medicine 02/13/25 documented as of this encounter
--- OUTSIDE RECORDS SUMMARY | 2025-02-22 13:28 | XMS_ITS | Encounter Summary ---
Author Organization [facility] Address [address] [place] [address] Care Team Providers Care Roofer Helper Vinyl Coating Name Role Phone Unknown Primary Care Provider [phone] Pcp, No Primary Care Provider [facility] Primary Care Provider + Pcp, No [facility]inne [facility]appell APRN Primary Care Provider + Encounter Details Date Type Department Care Team (Late st Contact Info) Description 06/10/2017 Scanned Document [facility] Bariatric Surgery [address] [place] [address] Cierra Rich MD [address] [place] [address] Social History Tobacco Use Types Packs/Day Years [...] Description 04/17/2025 1:15 PM EDT Office Visit [address] [place], [place] [phone] Corinne Chappell APRN [address] [place], [place] documented as of this encounter Goals [...] on filedocumented in this encounter Care Teams Roofer Helper Vinyl Coating Relationship Specialty Start Date End Date Unknown Unknow Provider Address PCP - General 11/17/17 02/19/20 Pcp, No PCP - General General Medicine 02/20/20 03/24/[address] [facility] [place] [address] [place] [address] PCP - General 03/25/20 11/07/24 Pcp, No PCP - General 11/08/24 02/12/25 Corinne Chappell APRN [address] [place] [address] PCP - General Internal Medicine 02/13/25 documented as of this encounter
--- OUTSIDE RECORDS SUMMARY | 2025-02-22 13:28 | XMS_ITS | Encounter Summary ---
Author Organization [facility] Address [address] [place] [address] Care Team Providers Care Mannequin Decorator Name Role Phone Unknown Primary Care Provider [phone] Pcp, No Primary Care Provider [facility] Primary Care Provider + Pcp, No [facility]inne Chappell APRN Primary Care Provider + Encounter Details Date Type Department Care Team (Late st Contact Info) Description 06/10/2017 Scanned Document [facility] Bariatric Surgery [address] [place] [address] Cierra Rich MD [address] [place] [address] Social History Tobacco Use Types Packs/Day Years [...] Description 04/17/2025 1:15 PM EDT Office Visit [address] [place], [place] [phone] Corinne Chappell APRN [address] [place], [place] documented as of this encounter Goals [...] on filedocumented in this encounter Care Teams Mannequin Decorator Relationship Specialty Start Date End Date Unknown Unknow Provider Address PCP - General 11/17/17 02/19/20 Pcp, No PCP - General General Medicine 02/20/20 03/24/20 [facility] [address] [place] [address] PCP - General 03/25/20 11/07/24 Pcp, No PCP - General 11/08/24 02/12/25 Corinne Chappell APRN [address] [place] [address] PCP - General Internal Medicine 02/13/25 documented as of this encounter
--- OUTSIDE RECORDS SUMMARY | 2025-02-22 13:28 | XMS_ITS | Clinical Summary ---
Author Organization [facility] Address [address] [place] [address] Care Team Providers Care Die Inspector Name Role Phone Lisa Grady MD Primary Care Provider [phone] Allergies Active Allergy Reactions Criticality Noted Date Comments Ibuprofen Other (See Comments) 12/11/2014 History of peptic ulcer disease. Sumatriptan Other (See Comments) 12/20/2014 Rapid heart rate Medications Medication Sig Dispensed Refills Start Date End Date Status omeprazole (PRILOSEC) 20 MG capsule Take 40 mg by mouth every 12 (twelve) hours. 0 Active carvedilol (COREG) 25 MG tablet Take 1 tablet (25 mg total) by mouth 2 (two) times a day with meals. 180 tablet 1 10/06/2015 Active cloNIDine (CATAPRES) tablet 0.1 mg Take 1 tablet (0.1 mg total) by mouth 2 (two) times a day. 180 tablet 1 10/06/2015 Active hydrochlorothiazide (MICROZIDE) 12.5 MG capsule Take 1 capsule (12.5 mg total) by mouth daily. 90 capsule 3 02/11/2016 Active cloNIDine (CATAPRES) tablet 0.1 mg Take 1 tablet (0.1 mg total) by mouth 2 (two) times a day. 180 tablet 3 03/09/2016 Active amLODIPine (NORVASC) tablet 10 mg Take 1 tablet (10 mg total) by mouth daily. Pt needs an appt no more refills 30 tablet 0 04/08/2016 Active losartan (COZAAR) 100 MG tablet TAKE 1 TABLET (100 MG TOTAL) BY MOUTH DAILY. 30 tablet 0 04/08/2016 Active Active Problems Problem Noted Date Diagnosed Date Fall down stairs 04/17/2017 Acute pain due to trauma 04/17/2017 Contusion, hip and thigh 04/17/2017 Diabetes mellitus type 2 in obese 05/12/2015 Morbid obesity 01/27/2015 GERD without esophagitis 01/27/2015 Urinary, incontinence, stress female 01/27/2015 Pseudotumor cerebri syndrome 01/27/2015 Chest pain 12/11/2014 Intermittent palpitations 12/11/2014 Hypertension 12/11/2014 Acute peptic ulcer of stomach 12/11/2014 Overview: Six months prior to admission she had 3 ulcers in her stomach. Family History Medical History Relation Name Comments Heart disease Father Stroke Father Diabetes Sister 1 Mya Hypertension Sister 1 Mya Heart disease Sister 2 Odilis Stroke Sister 2 Odilis Hyperlipidemia Sister 3 Niomi Hypertension Sister 3 Niomi Cancer Sister 4 Lizeth Heart disease Sister 4 Lizeth Hypertension Sister 4 Lizeth Relation Name Status Comments Father (Age 43) Sister 1 Mya Sister 2 Odilis (Age 41) Sister 3 Niomi Alive Sister 4 Lizeth Alive Social History Tobacco Use Types Packs/Day Years Used Date Smoking Tobacco: Former Cigarettes Q uit: 06/27/2005 Tobacco Cessation:Counseling Given: No Alcohol Use Standard Drinks/Week Comments No 0 (1 standard drink = 0.6 oz pur e alcohol) Sex and Gender Information Value Date Recorded Sex Assigned at Not on file Gender Identity Not on file Sexual Orientation Not on file Job Start Date Occupation Industry Not on file Not on file Not on file Last Filed Vital Signs Vital Sign Reading Time Taken Comments Blood Pressure 135/64 04/16/2017 4:00 AM EDT Pulse 64 04/16/2017 4:00 AM EDT Temperature 36.8 C (98.2 F) 04/16/2017 4:00 AM EDT Respiratory Rate 20 04/16/2017 4:00 AM EDT Oxygen Saturation 93% 04/16/2017 4:00 AM EDT Inhaled Oxygen Concentration - - Weight 123.4 kg (272 lb) 08/20/2015 10:12 AM EST Height 165.1 cm (5' 5 ) 08/20/2015 10:12 AM EST Body Mass Index 45.26 08/20/2015 10:12 AM EST Plan of Treatment Health Maintenance Due Date Last Done Comments Hepatitis B Vaccines (1 of 3 - 3-dose series) 1966 Hepatitis C Screening 1966 COVID-19 Vaccine (#1) 1966 Pneumococcal Vaccine (1 of 2 - PCV) 02/23/1972 Depression Screening 1978 Preventative Health Evaluation 02/23/1984 DTap / Tdap / Td (1 - Tdap) 1985 Cervical Cancer Screening (P ap Smear) 1987 Colon Cancer Screening (Colonoscopy) 2011 Breast Cancer Screening (Mammogram) 02/23/2016 Shingrix-Zoster Vaccine (1 of 2) 02/23/2016 Influenza Vaccine (#1) 2025 RSV Ped < 20 months Aged Out No longe r eligible based on patient's age to complete this topic Advance Directives For more information, please contact: [phone] Documents on File Type Date Recorded Patient Anaesthesiologist Expl anation Advance Directive and Living Will 02/12/2015 1:35 PM Latest Code Status on File Code Status Date Activated Date Inactivated Comments Full Code 04/16/2017 1:26 AM 04/16/2017 10:15 AM Th is code status was ascertained in the following way: discussion with patient . Code Status History Code Status Date Activated Date Inactivated Comments Full Code 07/18/2015 10:43 AM 07/18/2015 6:15 PM This code status was ascertained in the following way: discussion with patient. Full Code 07/18/2015 10:01 AM 07/18/2015 10:43 AM Thi s code status was ascertained in the following way: discussion with patient. Full Code 12/11/2014 6:29 PM 12/13/2014 1:13 AM This code status was ascertained in the following way: discussion with patient. Care Teams Die Inspector Relationship Specialty Start Date End Date Lisa Grady MD [address] [place] [address] PCP - General Internal Medicine 12/20/14
--- OUTSIDE RECORDS SUMMARY | 2025-02-22 13:29 | XMS_ITS | Clinical Summary ---
Author Organization [place] [email or web address] Address [address] [facility] [address] [place], [place] [address] Phone Care Team Providers Care Linux Engineer Name Role Phone Physician, No Pcp Primary Care Provider Unavaila ble Allergies Active Allergy Reactions Criticality Noted Date Comments Ibuprofen Nausea And Vomiting,Other Low 12/11/2014 History of peptic ulcer disease. Sumatriptan Unknown,Other,Palpit atio ns High 12/20/2014 Rapid heart rate hives Rapid heart rate Rapid heart rate Medications cloNIDine (CATAPRES) 0.1 mg tablet Take 1 tablet (0.1 mg total) by mouth 2 (two) times a day. 02/19/20 25 2025 Active sertraline (ZOLOFT) 25 mg tabletIndicatio ns:Depression, unspecified depression type Take 1 tablet (25 mg total) by mouth at bedtime. 02/20/20 25 2025 Active lisinopriL (PRINIVIL,ZESTR IL) 5 mg tabletIndicatio ns:Secondary hypertension Take 2 tablets (10 mg total) by mouth 1 (one) time each day. 02/21/20 25 2025 Active insulin glargine (LANTUS) 100 unit/mL injection Inject 26 Units under the skin at bedtime. 02/22/20 25 2025 Active apixaban (ELIQUIS) 5 mg tablet Take 1 tablet (5 mg total) by mouth 2 times daily. 04/17/20 Suspended aspirin 81 mg chewable tablet Chew 1 tablet (81 mg total) daily. 11/18/19 Suspended atorvastatin (LIPITOR) 80 mg tablet Take 1 tablet (80 mg total) by mouth daily. 04/17/20 Suspended insulin glargine (LANTUS SoloStar) 100 unit/mL (3 mL) injection pen Inject 24 Units under the skin daily. 11/17/19 25 2024 Discontinued isosorbide mononitrate (IMDUR) 30 mg 24 hr tablet Take 2 tablets (60 mg total) by mouth daily. 11/28/19 Suspended Keppra 500 mg tablet Take 1 tablet (500 mg total) by mouth 2 times daily. 03/31/20 Suspended sertraline (ZOLOFT) 50 mg tablet Take 3 tablets (150 mg total) by mouth daily. 09/18/19 Suspended traZODone (DESYREL) 50 mg tablet Take 1 tablet (50 mg total) by mouth daily. 09/18/19 Suspended pantoprazole (PROTONIX) 40 mg EC tabletIndicatio ns:Acute renal failure, unspecified acute renal failure type ([facility] V24) Take 1 tablet (40 mg total) by mouth 1 (one) time each day before breakfast. 30 tablet 12/22/19 Suspended naloxone (NARCAN) 4 mg/0.1 mL nasal sprayIndication s:opioid overdose,opioid -induced respiratory depression Administer 1 each (4 mg total) into affected nostril(s) if needed for opioid reversal or respiratory depression. Give 4 mg (1 spray) into one nostril. May repeat every 2-3 minutes if needed, alternating nostrils, until medical assistance becomes available. 2 each 12/22/19 25 2025 Suspended insulin glargine (LANTUS SoloStar) 100 unit/mL (3 mL) injection penIndications: Type 2 diabetes mellitus without complication, with long-term current use of insulin ([facility] V24, [facility] V28) Inject 15 Units under the skin at bedtime. 02/19/20 25 2024 Discontinued(S top Taking at Discharge) lisinopriL (PRINIVIL,ZESTR IL) 5 mg tabletIndicatio ns:Secondary hypertension Take 1 tablet (5 mg total) by mouth 1 (one) time each day. 02/20/202024 Discontinued insulin glargine (LANTUS) 100 unit/mL injection Inject 20 Units under the skin at bedtime. 02/20/202024 Discontinued(S top Taking at Discharge) gabapentin (NEURONTIN) 400 mg capsule Take 1 capsule (400 mg total) by mouth 3 (three) times a day. 01/19/20 Suspended Active Problems Problem Noted Date Diagnosed Date Acute drug overdose 02/18/2025 ARF (acute renal failure) ([facility] [place]) 12/19/19 SONIA (acute kidney injury) ([facility] V24) 12/06/19 Resolved Problems Problem Noted Date Diagnosed Date Resolved Date Acute on chronic renal failure ([facility]24) 02/18/2025 Encounters Date Type Department Care Team Description 02/15/2025 5:17 PM EDT - Present Hospital Encounter [facility] Urology [address] [place] [phone] Alberto Phelps MD Jones, Christopher, MD Kela, Kashyap Devendrabhai, MD Bell, Alistair A, MD Acute on chronic renal insufficiency (Primary Dx); Acute drug overdose, intentional self-harm, initial encounter ([facility] V24, [facility] V28); Type 2 diabetes mellitus without complication, with long-term current use of insulin ([facility] V24, [facility] V28); Secondary hypertension; Depression, unspecified depression type 12/18/2024 8:00 AM EDT - 12/21/2024 5:21 PM EDT Hospital Encounter [facility] Intermediate Care Unit [address] [place] [phone] Ravi Gan DO Bukalo, Nermina, MD Nasser, Nada S, MD SONIA (acute kidney injury) ([facility] V24) (Primary Dx); Hyperkalemia; Acidosis; Acute renal failure, unspecified acute renal failure type ([facility] V24) Discharge Disposition: Home-Health Care Svc 12/05/2024 7:44 AM EDT - 12/14/2024 4:23 PM EDT Hospital Encounter [facility] Medical Surgical [address] [place] [phone] Lukas Yan MD Kokosadze, Estate, MD Ishtiaq, Rizwan, MD Rasul, Yar M, MD Acute renal failure, unspecified acute renal failure type ([facility] V24) (Primary Dx); Acute respiratory failure with hypoxia ([facility] V24, [facility] V28); SONIA (acute kidney injury) ([facility] V24) Discharge Disposition: Home or Self Care 11/24/2024 5:33 PM EDT - 11/24/2024 9:59 PM EDT Emergency [facility] Emergency [address] [place] [phone] Karina Euceda, Hypertension, unspecified type (Primary Dx); Paronychia of finger of right hand; Nonintractable headache, unspecified chronicity pattern, unspecified headache type; Acute back pain, unspecified back location, unspecified back pain laterality Discharge Disposition: Home or Self Care from Last 3 Months Surgical History Surgery Date Site/Laterality Comments CHOLECYSTECTOMY PROCEDURE:CHOLECYSTECTOMY APPENDECTOMY PROCEDURE:APPENDECTOMY SUPERIOR OBLIQUE RECESSION PROCEDURE:HYBRID ANGIOGRAM - FEMORAL KIDNEY STONE SURGERY PROCEDURE:KIDNEY STONE SURGERY HERNIA REPAIR date unknown PROCEDURE:HERNIA REPAIR SECTION PROCEDURE: SECTION;COMMENT:x 2 CARDIAC CATHETERIZATION 2010 PROCEDURE:CARDIAC CATHETERIZATION UPPER GASTROINTESTINAL ENDOSCOPY 07/18/2015 N/A PROCEDURE:UPPER GASTROINTESTINAL ENDOSCOPY;COMMENT:Procedure: UPPER ENDOSCOPY-EGD; Surgeon: Juve Clinton MD; Location: [facility] ENDOSCOPY; Service: Gastroenterology; Laterality: N/A; TOTAL KNEE ARTHROPLASTY Left Medical History Medical History Date Comments Hypertension DX:Hypertension Heart murmur DX:Heart murmur Arthritis DX:Arthritis Stomach ulcer DX:Stomach ulcer Rheumatoid arthritis(714.0) DX:R heumatoid arthritis(714.0) Cholelithiasis DX:Cholelithiasi s GERD (gastroesophageal reflux disease) DX:GERD (gastroesophageal reflux disease) GI (gastrointestinal bleed) DX:G I (gastrointestinal bleed) Angina pectoris ([facility]24) DX :Angina pectoris ([facility]) Coronary artery disease DX:Coron chet artery disease Kidney stone DX:Kidney stone Stomach ulcer DX:Stomach ulcer Seizures ([facility] V24, [facility] V28) 2002 DX:Seizures ([facility]);COMMENT:h/o spinal meningitis Borderline diabetes DX:Borderlin e diabetes Meningitis spinal 2002 DX:Meningitis spinal Anxiety DX:Anxiety;COMME NT:mild Diabetes mellitus ([facility] V 24, [facility] V28) Atrial fibrillation ([facility] V24, [facility] V28) Family History Medical History Relation Name Comments Heart disease Father Stroke Father Hypertension Sister 1 Mya Diabetes Sister 2 Mya Stroke Sister 3 Odilis Heart disease Sister 4 Odilis Hypertension Sister 5 Niomi Hyperlipidemia Sister 6 Niomi Cancer Sister 7 Lizeth Hypertension Sister 8 Lizeth Heart disease Sister 9 Lizeth Relation Name Status Comments Father (Age 43) Sister 1 Mya Sister 2 Mya Sister 3 Odilis Sister 4 Odilis Sister 5 Niomi Sister 6 Niomi Sister 7 Lizeth Sister 8 Lizeth Sister 9 Lizeth Sister 10 Lizeth Alive Sister 11 Odilis (Age 41) Sister 12 Mya Sister 13 Niomi Alive Social History Tobacco Use Types Packs/Day [...] on file Sexual Orientation Not on file Obstetrics History Last Filed Vital Signs Vital Sign Reading [...] Mass Index 34.95 02/15/2025 5:35 PM EDT Plan of Treatment Health Maintenance Due Date Last Done Comments Breast Cancer Screening 1966 Diabetes: Annual Foot Exam 02/23/1976 Diabetes: Annual Retina Eye Exam 02/23/1976 DTaP,Tdap,and Td Vaccines (1 - Tdap) 1985 Hepatitis A Vaccines (1 of 2 - Risk 2-dose series) 1985 Hepatitis B Vaccines (1 of 3 - 19+ 3-dose series) 1985 Cervical Cancer Screening: Pap Smear 1987 Zoster Vaccines (1 of 2) 02/23/2016 Pneumococcal Vaccine: 50+ Years (2 of 2 - PCV) 03/31/2021 03/31/2020 Colorectal Cancer Screening: Colonoscopy 05/25/2022 HIV Screening 05/25/2022 COVID-19 Vaccine ( season) 2024 Depression Screening 06/27/2024 Influenza Vaccine (#1) 2025 09/16/2024 Cholesterol Screening (Lipid Panel) 03/31/2025 03/31/2020, 12/11/2014 Diabetes: Blood Sugar Control Test (HGBA1C) 06/12/2025 12/11/2024, 03/31/2020, 12/11/2014 Diabetes: Annual Urine Albumin-Creatinine Ratio (uACR) 12/05/2025 12/05/2024, 03/31/2020, 03/31/2020 Diabetes: Annual GFR (Glomerular Filtration Rate) 02/18/2026 02/18/2025, 02/17/2025, 02/16/2025, Additional history exists Hypertension/CHF/CAD Annual BMP Blood Test 02/18/2026 02/18/2025, 02/17/2025, 02/16/2025, Additional history exists Social Influencers of Health Screening 02/18/2026 02/18/2025 RSV Immunization Adult Patients (1 - 1-dose 75+ series) 2041 Hepatitis C Screening Completed 12/05/2024 HIB Vaccines Aged Out No longer eligi ble based on patient's age to complete this topic HPV Vaccines Aged Out No longer eligi ble based on patient's age to complete this topic IPV Vaccines Aged Out No longer eligi ble based on patient's age to complete this topic MMR Vaccines Aged Out No longer eligi ble based on patient's age to complete this topic Meningococcal ACWY Vaccine Aged Out N o longer eligible based on patient's age to complete this topic Meningococcal B Vaccine Aged Out No l onger eligible based on patient's age to complete this topic RSV Immunization Patients Under 20 months Aged Out No longer eligible based on patient's age to complete this topic Varicella Vaccines Aged Out No longer eligible based on patient's age to complete this topic Procedures * The patient is currently admitted. [...] THERAPY, ADULT Routine 02/18/2025 8:02 AM EDT MAGNESIUM Routine 02/18/2025 5:50 AM EDT BASIC METABOLIC PANEL Routine 02/18/2025 5:50 AM EDT COMPLETE BLOOD COUNT Routine 02/18/2025 5:50 AM EDT PHOSPHORUS Routine 02/18/2025 5:50 AM EDT POCT GLUCOSE BLOOD Routine 02/17/2025 8: 55 PM EDT OXYGEN THERAPY, ADULT Routine 02/17/2025 8:00 PM EDT POCT GLUCOSE BLOOD Routine 02/17/2025 4: 28 PM EDT POCT GLUCOSE BLOOD Routine 02/17/2025 12 :08 PM EDT OXYGEN THERAPY, ADULT Routine 02/17/2025 8:00 AM EDT POCT GLUCOSE BLOOD Routine 02/17/2025 7: 24 AM EDT BASIC METABOLIC PANEL Routine 02/17/2025 4:46 AM EDT COMPLETE BLOOD COUNT Routine 02/17/2025 4:46 AM EDT OXYGEN THERAPY, [...] AUTO DIFFERENTIAL Routine 02/16/2025 6:19 AM EDT COMPREHENSIVE METABOLIC PANEL Routine 02/16/2025 6:19 AM EDT CBC AND DIFFERENTIAL Routine 02/16/2025 6:19 AM EDT POCT GLUCOSE BLOOD Routine 02/16/2025 4: 47 AM EDT VENOUS BLOOD GAS Routine 02/16/2025 12:0 8 AM EDT PROTHROMBIN TIME WITH INR Routine 02/16/2025 12:04 AM EDT BASIC METABOLIC PANEL Routine 02/16/2025 12:03 AM EDT URINALYSIS WITH REFLEX MICROSCOPIC Routine 02/15/2025 11:26 PM EDT CREATININE, URINE, RANDOM STAT 02/15/2025 11:26 PM EDT PROTEIN AND CREATININE WITH RATIO, URINE STAT 02/15/2025 11:26 PM EDT SODIUM, URINE, RANDOM STAT 02/15/2025 11:26 PM EDT URINALYSIS WITH REFLEX MICROSCOPIC Routine 02/15/2025 11:26 PM EDT DRUG ABUSE SCREEN 8A PANEL, URINE STAT 02/15/2025 11:26 PM EDT METHADONE SCREEN, URINE STAT 02/16/20 11:26 PM EDT PHENCYCLIDINE, URINE STAT 02/15/2025 11:26 PM EDT BUPRENORPHINE SCREEN, URINE STAT 02/15/2025 11:26 PM EDT POCT GLUCOSE BLOOD Routine 02/15/2025 9: 50 PM EDT OXYGEN THERAPY, ADULT Routine 02/15/2025 8:00 PM EDT OXYGEN THERAPY, ADULT Routine 02/15/2025 7:25 PM EDT OXYGEN THERAPY, ADULT Routine 02/15/2025 7:25 PM EDT XR CHEST 1 VIEW STAT 02/15/2025 6:24 PM EDT ECG 12-LEAD STAT 02/15/2025 6:10 PM EDT PROCALCITONIN STAT Add-on 02/15/2025 5:45 PM EDT MAGNESIUM Add-On 02/15/2025 5:45 PM EDT CBC WITH AUTO DIFFERENTIAL STAT 02/15/2025 5:45 PM EDT SALICYLATE LEVEL STAT 02/15/2025 5:45 PM EDT ACETAMINOPHEN LEVEL STAT 02/15/2025 5 :45 PM EDT ETHANOL STAT 02/15/2025 5:45 PM EDT COMPREHENSIVE METABOLIC PANEL STAT 02/15/2025 5:45 PM EDT CBC AND DIFFERENTIAL STAT 02/15/2025 5:45 PM EDT POCT GLUCOSE BLOOD Routine 12/21/2024 11 :10 AM EDT POCT GLUCOSE BLOOD Routine 12/21/2024 7: 44 AM EDT CBC WITH AUTO DIFFERENTIAL Routine 12/21/2024 5:48 AM EDT C-REACTIVE PROTEIN Routine 12/21/2024 5: 48 AM EDT PHOSPHORUS Routine 12/21/2024 5:48 AM EDT MAGNESIUM Routine 12/21/2024 5:48 AM EDT COMPREHENSIVE METABOLIC PANEL Routine 12/21/2024 5:48 AM EDT PROTHROMBIN TIME WITH INR Routine 12/21/2024 5:48 AM EDT CBC AND DIFFERENTIAL Routine 12/21/2024 5:48 AM EDT POCT GLUCOSE BLOOD Routine 12/20/2024 8: 00 PM EDT POCT GLUCOSE BLOOD Routine 12/20/2024 3: 21 PM EDT POCT GLUCOSE BLOOD Routine 12/20/2024 11 :27 AM EDT PROTHROMBIN TIME WITH INR Routine 12/20/2024 8:21 AM EDT COMPLETE BLOOD COUNT Routine 12/20/2024 8:21 AM EDT SST - GOLD Routine 12/20/2024 8:15 AM EDT EXTRA TUBES Routine 12/20/2024 8:15 AM EDT POCT GLUCOSE BLOOD Routine 12/20/2024 7: 33 AM EDT TRIIODOTHYRONINE FREE Routine 12/20/2024 6:38 AM EDT FREE THYROXINE WITH REFLEX TO FREE TRIIODOTHYRONINE Routine 12/20/2024 6:38 AM EDT THYROID STIMULATING HORMONE WITH REFLEX TO FREE T4 AND FREE T3 Routine 12/20/2024 6:38 AM EDT MAGNESIUM Routine 12/20/2024 6:38 AM EDT PHOSPHORUS Routine 12/20/2024 6:38 AM EDT BASIC METABOLIC PANEL Routine 12/20/2024 6:38 AM EDT CREATINE KINASE Routine 12/20/2024 6:38 AM EDT POCT GLUCOSE BLOOD Routine 12/19/2024 8: 10 PM EDT POCT GLUCOSE BLOOD Routine 12/19/2024 3: 39 PM EDT CLOSTRIDIUM DIFFICILE TOXIN STAT 12/19/2024 2:49 PM EDT POCT GLUCOSE BLOOD Routine 12/19/2024 11 :25 AM EDT POCT GLUCOSE BLOOD Routine 12/19/2024 8: 16 AM EDT C-REACTIVE PROTEIN Add-On 12/19/2024 7: 10 AM EDT CREATINE KINASE Add-On 12/19/2024 7:10 AM EDT LACTATE Routine 12/19/2024 7:10 AM EDT COMPLETE BLOOD COUNT Routine 12/19/2024 7:10 AM EDT BASIC METABOLIC PANEL Routine 12/19/2024 7:10 AM EDT ECG ANNOTATED 12/19/2024 CBC WITH AUTO DIFFERENTIAL STAT 12/18/2024 11:31 PM EDT CBC AND DIFFERENTIAL STAT 12/18/2024 11:31 PM EDT MAGNESIUM STAT 12/18/2024 11:31 PM EDT BASIC METABOLIC PANEL STAT 12/18/2024 11:31 PM EDT POCT GLUCOSE BLOOD Routine 12/18/2024 7: 11 PM EDT CORTISOL Add-On 12/18/2024 3:03 PM EDT LT BLUE - NA CITRATE Routine 12/18/2024 3:03 PM EDT EXTRA TUBES Routine 12/18/2024 3:03 PM EDT BASIC METABOLIC PANEL Timed 12/18/2024 3:03 PM EDT POCT GLUCOSE BLOOD Routine 12/18/2024 2: 34 PM EDT PROTEIN, URINE, RANDOM Routine 1:12 PM EDT CREATININE, URINE, RANDOM STAT 12/18/2024 1:12 PM EDT DRUG ABUSE SCREEN 8A PANEL, URINE Routine 12/18/2024 1:12 PM EDT SODIUM, URINE, RANDOM STAT 12/18/2024 1:12 PM EDT POCT GLUCOSE BLOOD Routine 12/18/2024 11 :[address] ABDOMEN PELVIS WO CONTRAST STAT 12/18/2024 11:12 AM EDT FIELD URINE CULTURE TUBE STAT 12/19/19 10:57 AM EDT URINALYSIS WITH REFLEX MICROSCOPIC AND CULTURE STAT 12/18/2024 10:57 AM EDT URINALYSIS WITH REFLEX MICROSCOPIC AND CULTURE STAT 12/18/2024 10:57 AM EDT CULTURE URINE STAT 12/18/2024 10:57 AM EDT BASIC METABOLIC PANEL STAT 12/18/2024 10:44 AM EDT VENOUS BLOOD GAS STAT 12/18/2024 10:2 7 AM EDT TROPONIN I HIGH SENSITIVITY STAT 12/18/2024 10:27 AM EDT XR CHEST 1 VIEW STAT 12/18/2024 9:05 AM EDT MANUAL DIFFERENTIAL - SYSMEX WAM STAT 12/18/2024 8:41 AM EDT CREATINE KINASE Add-On 12/18/2024 8:41 AM EDT PATHOLOGIST REVIEW BLOOD SMEAR STAT 12/18/2024 8:41 AM EDT LACTATE, WITH REFLEX STAT 12/18/2024 8:41 AM EDT HEPATIC FUNCTION PANEL STAT 8:41 AM EDT TROPONIN I HIGH SENSITIVITY STAT 12/18/2024 8:41 AM EDT CBC WITH AUTO DIFFERENTIAL STAT 12/18/2024 8:41 AM EDT MAGNESIUM STAT 12/18/2024 8:41 AM EDT BASIC METABOLIC PANEL STAT 12/18/2024 8:41 AM EDT CBC AND DIFFERENTIAL STAT 12/18/2024 8:41 AM EDT CULTURE BLOOD STAT 12/18/2024 8:41 AM EDT LT GREEN - LI HEPARIN Routine 12/18/2024 8:39 AM EDT EXTRA TUBES Routine 12/18/2024 8:39 AM EDT CULTURE BLOOD STAT 12/18/2024 8:39 AM EDT ECG 12-LEAD STAT 12/18/2024 8:13 AM EDT MI CRITICAL CARE 30-74 MINUTES Routine 12/18/2024 7:56 AM EDT ECG ANNOTATED 12/15/2024 POCT GLUCOSE BLOOD Routine 12/14/2024 10 :32 AM EDT POCT GLUCOSE BLOOD Routine 12/14/2024 7: 47 AM EDT POCT GLUCOSE BLOOD Routine 12/13/2024 7: 43 PM EDT POCT GLUCOSE BLOOD Routine 12/13/2024 4: 14 PM EDT POCT GLUCOSE BLOOD Routine 12/13/2024 12 :42 PM EDT POCT GLUCOSE BLOOD Routine 12/13/2024 11 :01 AM EDT POCT GLUCOSE BLOOD Routine 12/13/2024 7: 46 AM EDT POCT GLUCOSE BLOOD Routine 12/12/2024 8: 16 PM EDT POCT GLUCOSE BLOOD Routine 12/12/2024 4: 06 PM EDT POCT GLUCOSE BLOOD Routine 12/12/2024 1: 11 PM EDT XR CHEST 2 VIEWS Routine 12/12/2024 11:5 4 AM EDT POCT GLUCOSE BLOOD Routine 12/12/2024 11 :13 AM EDT POCT GLUCOSE BLOOD Routine 12/12/2024 8: 20 AM EDT POCT GLUCOSE BLOOD Routine 12/12/2024 1: 28 AM EDT POCT GLUCOSE BLOOD Routine 12/11/2024 8: 03 PM EDT POCT GLUCOSE BLOOD Routine 12/11/2024 4: 09 PM EDT POCT GLUCOSE BLOOD Routine 12/11/2024 11 :07 AM EDT POCT GLUCOSE BLOOD Routine 12/11/2024 7: 36 AM EDT POCT GLUCOSE BLOOD Routine 12/11/2024 6: 30 AM EDT HEMOGLOBIN A1C Add-On 12/11/2024 5:15 AM EDT C-REACTIVE PROTEIN Add-On 12/11/2024 5: 15 AM EDT CBC WITH AUTO DIFFERENTIAL Routine 12/11/2024 5:15 AM EDT BASIC METABOLIC PANEL Routine 12/11/2024 5:15 AM EDT MAGNESIUM Routine 12/11/2024 5:15 AM EDT CBC AND DIFFERENTIAL Routine 12/11/2024 5:15 AM EDT POCT GLUCOSE BLOOD Routine 12/11/2024 2: 44 AM EDT POCT GLUCOSE BLOOD Routine 12/10/2024 8: 26 PM EDT POCT GLUCOSE BLOOD Routine 12/10/2024 3: 42 PM EDT POCT GLUCOSE BLOOD Routine 12/10/2024 10 :57 AM EDT XR CHEST 2 VIEWS Routine 12/10/2024 10:0 2 AM EDT POCT GLUCOSE BLOOD Routine 12/10/2024 7: 26 AM EDT POCT GLUCOSE BLOOD Routine 12/09/2024 7: 50 PM EDT POCT GLUCOSE BLOOD Routine 12/09/2024 3: 57 PM EDT POCT GLUCOSE BLOOD Routine 12/09/2024 11 :18 AM EDT POCT GLUCOSE BLOOD Routine 12/09/2024 7: 41 AM EDT CBC WITH AUTO DIFFERENTIAL Routine 12/09/2024 5:48 AM EDT MAGNESIUM Routine 12/09/2024 5:48 AM EDT CBC AND DIFFERENTIAL Routine 12/09/2024 5:48 AM EDT BASIC METABOLIC PANEL Routine 12/09/2024 5:48 AM EDT POCT GLUCOSE BLOOD Routine 12/08/2024 7: 48 PM EDT POCT GLUCOSE BLOOD Routine 12/08/2024 3: 43 PM EDT VAS US DUPLEX UPPER EXT VENOUS LEFT Routine 12/08/2024 2:37 PM EDT Acute respiratory failure with hypoxia (CMS/HCC V24, CMS/HCC V28) TROPONIN I HIGH SENSITIVITY Routine 12/08/2024 1:[address] ANGIO CHEST WO AND/OR W CONTRAST STAT 12/08/2024 12:14 PM EDT Acute respiratory failure with hypoxia (CMS/HCC V24, CMS/HCC V28) ECG 12-LEAD STAT 12/08/2024 10:30 AM EDT POCT GLUCOSE BLOOD Routine 12/08/2024 10 :27 AM EDT POCT GLUCOSE BLOOD Routine 12/08/2024 8: 18 AM EDT MAGNESIUM Add-On 12/08/2024 5:18 AM EDT CBC WITH AUTO DIFFERENTIAL Routine 12/08/2024 5:18 AM EDT CREATINE KINASE Routine 12/08/2024 5:18 AM EDT HEPATIC FUNCTION PANEL Routine 5:18 AM EDT CBC AND DIFFERENTIAL Routine 12/08/2024 5:18 AM EDT BASIC METABOLIC PANEL Routine 12/08/2024 5:18 AM EDT POCT GLUCOSE BLOOD Routine 12/07/2024 7: 36 PM EDT POCT GLUCOSE BLOOD Routine 12/07/2024 4: 06 PM EDT POCT GLUCOSE BLOOD Routine 12/07/2024 10 :54 AM EDT POCT GLUCOSE BLOOD Routine 12/07/2024 8: 04 AM EDT CBC WITH AUTO DIFFERENTIAL Routine 12/07/2024 7:30 AM EDT HEPATIC FUNCTION PANEL Routine 7:30 AM EDT CBC AND DIFFERENTIAL Routine 12/07/2024 7:30 AM EDT BASIC METABOLIC PANEL Routine 12/07/2024 7:30 AM EDT POCT GLUCOSE BLOOD Routine 12/06/2024 8: 16 PM EDT POCT GLUCOSE BLOOD Routine 12/06/2024 4: 09 PM EDT ROUTINE EEG Routine 12/06/2024 2:39 PM EDT ARTERIAL BLOOD GAS Routine 12/06/2024 1: 09 PM EDT POCT GLUCOSE BLOOD Routine 12/06/2024 11 :09 AM EDT TRANSTHORACIC ECHOCARDIOGRAM (TTE) COMPLETE W/ CONTRAST Routine 12/06/2024 9:04 AM EDT Acute renal failure, unspecified acute renal failure type (CMS/HCC V24) POCT GLUCOSE BLOOD Routine 12/06/2024 8: 11 AM EDT CREATINE KINASE Add-On 12/06/2024 7:10 AM EDT CBC WITH AUTO DIFFERENTIAL Routine 12/06/2024 7:10 AM EDT CBC AND DIFFERENTIAL Routine 12/06/2024 7:10 AM EDT MAGNESIUM Routine 12/06/2024 7:10 AM EDT BASIC METABOLIC PANEL Routine 12/06/2024 7:10 AM EDT POCT GLUCOSE BLOOD Routine 12/05/2024 8: 20 PM EDT POCT GLUCOSE BLOOD Routine 12/05/2024 5: 08 PM EDT TRIIODOTHYRONINE FREE Routine 12/05/2024 4:17 PM EDT FREE THYROXINE WITH REFLEX TO FREE TRIIODOTHYRONINE Routine 12/05/2024 4:17 PM EDT THYROID STIMULATING HORMONE WITH REFLEX TO FREE T4 AND FREE T3 Routine 12/05/2024 4:17 PM EDT BASIC METABOLIC PANEL Routine 12/05/2024 4:17 PM EDT LAVENDER - EDTA Routine 12/05/2024 4:16 PM EDT EXTRA TUBES Routine 12/05/2024 4:16 PM EDT LEVETIRACETAM LEVEL Timed 12/05/2024 4 :16 PM EDT MICROALBUMIN CREATININE URINE RATIO Routine 12/05/2024 4:13 PM EDT SODIUM, URINE, RANDOM Routine 12/05/2024 4:13 PM EDT LEGIONELLA ANTIGEN URINE, EIA STAT Add-on 12/05/2024 4:13 PM EDT CULTURE BLOOD Routine 12/05/2024 1:34 PM EDT CULTURE BLOOD STAT 12/05/2024 1:27 PM EDT LACTATE STAT 12/05/2024 12:48 PM EDT B-TYPE NATRIURETIC PEPTIDE STAT 12/05/2024 12:48 PM EDT TROPONIN I HIGH SENSITIVITY STAT 12/05/2024 12:[address] CHEST WO CONTRAST STAT 12/05/2024 12:[address] ABDOMEN PELVIS WO CONTRAST STAT 12/05/2024 11:06 AM EDT BUPRENORPHINE SCREEN, URINE STAT 12/05/2024 9:37 AM EDT METHADONE SCREEN, URINE STAT 12/06/19 9:37 AM EDT DRUG ABUSE SCREEN 8A PANEL, URINE STAT 12/05/2024 9:37 AM EDT FIELD URINE CULTURE TUBE STAT 12/06/19 9:37 AM EDT URINALYSIS WITH REFLEX MICROSCOPIC AND CULTURE STAT 12/05/2024 9:37 AM EDT URINALYSIS WITH REFLEX MICROSCOPIC AND CULTURE STAT 12/05/2024 9:37 AM EDT CULTURE URINE STAT 12/05/2024 9:37 AM EDT URIC ACID Add-On 12/05/2024 8:47 AM EDT BETA HYDROXYBUTYRATE Add-On 12/05/2024 8:47 AM EDT HEPATITIS B SURFACE ANTIBODY Add-On 12/05/2024 8:47 AM EDT HEPATITIS C ANTIBODY Add-On 12/05/2024 8:47 AM EDT HEPATITIS B SURFACE ANTIGEN WITH CONFIRMATION Add-On 12/05/2024 8:47 AM EDT HEPATITIS B CORE ANTIBODY IGM Add-On 12/05/2024 8:47 AM EDT HEPATITIS A ANTIBODY IGM Add-On 12/05/2024 8:47 AM EDT CREATINE KINASE Add-On 12/05/2024 8:47 AM EDT PROCALCITONIN Add-On 12/05/2024 8:47 AM EDT C-REACTIVE PROTEIN Add-On 12/05/2024 8: 47 AM EDT PROLACTIN STAT 12/05/2024 8:47 AM EDT LIPASE STAT 12/05/2024 8:47 AM EDT CBC WITH AUTO DIFFERENTIAL STAT 12/05/2024 8:47 AM EDT AMMONIA STAT 12/05/2024 8:47 AM EDT COMPREHENSIVE METABOLIC PANEL STAT 12/05/2024 8:47 AM EDT CBC AND DIFFERENTIAL STAT 12/05/2024 8:47 AM EDT XR CHEST 2 VIEWS STAT 12/05/2024 8:[address] HEAD WO CONTRAST STAT 12/05/2024 8 :18 AM EDT RESPIRATORY VIRUS PANEL MOLECULAR STUDY STAT 12/05/2024 8:04 AM EDT ECG 12-LEAD STAT 12/05/2024 8:03 AM EDT ECG ANNOTATED 11/25/2024 HC I&D/EXCISION/BIOPSY BONE MARROW/TISSUE/TUMOR/HTO MA/ABSC/CYST LEVEL 1 Routine 11/24/2024 9:51 PM EDT MI DRAINAGE ABSCESS FINGER SIMPLE Routine 11/24/2024 9:[address] HEAD WO CONTRAST STAT 11/24/2024 7 :[address] ABDOMEN PELVIS WO CONTRAST STAT 11/24/2024 7:02 PM EDT LACTATE STAT 11/24/2024 6:42 PM EDT ECG 12-LEAD STAT 11/24/2024 6:40 PM EDT TROPONIN I HIGH SENSITIVITY STAT 11/24/2024 6:34 PM EDT XR CHEST 2 VIEWS STAT 11/24/2024 6:02 PM EDT BETA HYDROXYBUTYRATE Add-On 11/24/2024 5:28 PM EDT CBC WITH AUTO DIFFERENTIAL STAT 11/24/2024 5:28 PM EDT B-TYPE NATRIURETIC PEPTIDE STAT 11/24/2024 5:28 PM EDT MAGNESIUM STAT 11/24/2024 5:28 PM EDT LIPASE STAT 11/24/2024 5:28 PM EDT COMPREHENSIVE METABOLIC PANEL STAT 11/24/2024 5:28 PM EDT CBC AND DIFFERENTIAL STAT 11/24/2024 5:28 PM EDT TROPONIN I HIGH SENSITIVITY STAT 11/24/2024 5:28 PM EDT ECG 12-LEAD STAT 11/24/2024 5:11 PM EDT from Last 3 Months Results * (ABNORMAL) POCT Glucose, blood (2025 11:29 AM EDT) Only the most recent of82 resultswithin the time period is included. [facility] Glucose POCT 275(H) 70 - 100 mg/dL 2025 11:30 AM EDT [facility] Blood Capillary blood specimen / Unknown 2025 11:29 AM EDT 2025 11:31 AM EDT Lex Cain MD LAB POINT OF CARE TE ST DOCKED DEVICE UNSOLICITED RESULTS Final Result [facility] [address] [place] [address], * (ABNORMAL) Complete blood count (02/21/2025 6:32 PM EDT) Only the most recent of5 resultswithin the time period is included. [facility] WBC 8.9 4.8 - 10.8 K/mcL LAB HEMETOLOGY METHOD 02/21/2025 6:41 PM EDT [facility] RBC 4.20 3.80 - 4.80 M/mcL LAB HEMETOLOGY METHOD 02/21/2025 6:41 PM EDT [facility] Hemoglobin 11.0(L) 11.5 - 16.0 g/dL LAB HEMETOLOGY METHOD 02/21/2025 6:41 PM EDT [facility] Hematocrit 35.5 35.0 - 47.0 % LAB HEMETOLOGY METHOD 02/21/2025 6:41 PM EDT [facility] MCV 84.9 79.0 - 98.0 FL LAB HEMETOLOGY METHOD 02/21[facility]25 [facility] MCH 26.3(L) 27.0 - 32.0 pcg LAB HEMETOLOGY METHOD 02/21/2025 6:[facility] MCHC 31.0(L) 32.0 - 37.0 g/dL LAB HEMETOLOGY METHOD 02/21/2025 6:41 PM EDT [facility] RDW 15.8(H) 11.0 - 15.0 % LAB HEMETOLOGY METHOD 02/21/2025 6:41 PM EDT [facility] Platelets 298 130 - 400 K/mcL LAB HEMETOLOGY METHOD 02/21/2025 6:41 PM EDT [facility] MPV 9.6 7.0 - 11.0 FL LAB HEMETOLOGY METHOD 02/21/2025 6:41 PM EDT [facility] NRBC 0.0 <1.0 % LAB HEMETOLOGY METHOD 02/21/2025 6:41 PM EDT [facility] NRBC Absolute 0.00 <0.10 K/mcL LAB HEMETOLOGY METHOD 02/21/2025 6:41 PM EDT [facility] Blood Venous blood specimen / Unknown Venipuncture / Unknown 02/21/2025 6:32 PM EDT 02/21/2025 6:37 PM EDT Lex Cain MD LAB BLOOD ORDERABLES Final Re sult [facility] [address] [place] [address], * Phosphorus (02/18/2025 5:50 AM EDT) Only the most recent of3 resultswithin the time period is included. Phosphorus 2.6 2.5 - 4.5 mg/dL LAB CHEMISTRY METHOD 02/18/2025 7:10 AM EDT [facility] Blood Venous blood specimen / Unknown Venipuncture / Unknown 02/18/2025 5:50 AM EDT 02/18/2025 6:16 AM EDT us Sunil Tang MD LAB BLOOD ORDERABLE S Final Result Performing Organization Address City/[facility]/ZIP Co de Phone Number [facility] [address] [place] [address], [place] [phone] * Magnesium (02/18/2025 5:50 AM EDT) Only the most recent of11 resultswithin the time period is included. [facility] Magnesium 2.3 1.9 - 2.6 mg/dL LAB CHEMISTRY METHOD 02/18/2025 7:10 AM EDT [facility] Blood Venous blood specimen / Unknown Venipuncture / Unknown 02/18/2025 5:50 AM EDT 02/18/2025 6:16 AM EDT us Sunil Tang MD LAB BLOOD ORDERABLE S Final Result Performing Organization Address [facility]/ZIP Co de Phone Number [facility] [address] [place] [address], [place] [phone] * (ABNORMAL) Basic metabolic panel (02/18/2025 5:50 AM EDT) Only the most recent of15 resultswithin the time period is included. [facility] Sodium 143 133 - 145 mmol/L LAB CHEMISTRY METHOD 02/18/2025 7:10 AM EDT [facility] Potassium 4.6 3.5 - 5.5 mmol/L LAB CHEMISTRY METHOD 02/18/2025 7:10 AM EDT [facility] Chloride 110 96 - 110 mmol/L LAB CHEMISTRY METHOD 02/18/2025 7:10 AM EDT [facility] CO2 25 21 - 32 mmol/L LAB CHEMISTRY METHOD 02/18/2025 7:10 AM T [facility] Anion Gap 8 3 - 11 LAB CHEMISTRY METHOD 02/18/2025 7:[facility] Glucose 156(H) 70 - 100 mg/dL LAB CHEMISTRY METHOD 02/18/2025 7:10 AM EDT [facility] BUN 32(H) 5 - 25 mg/dL LAB CHEMISTRY METHOD 02/18/2025 7:10 AM EDT [facility] Creatinine 0.61 0.50 - 1.10 mg/dL LAB CHEMISTRY METHOD 02/18/2025 7:10 AM EDT [facility] eGFR 104 >=60 mL/min/1. 73m2 LAB CHEMISTRY METHOD 02/18/2025 7:10 AM EDT [facility] Comment:Calculation based on the Chronic Kidney Disease Epidemiology Collaboration (CKD-EPI) equation refit without adjustment for race. BUN/Creatinine Ratio 52.5 LAB CHEMISTRY METHOD 02/18/2025 7:10 AM EDT [facility] Calcium 8.9 8.5 - 10.5 mg/dL LAB CHEMISTRY METHOD 02/18/2025 7:10 AM EDT [facility] Blood Venous blood specimen / Unknown Venipuncture / Unknown 02/18/2025 5:50 AM EDT 02/18/2025 6:16 AM EDT Sunil Tang MD LAB BLOOD ORDERABLE S Final Result [facility] [address] [place] [address], * Levetiracetam level (02/16/2025 1:28 PM EDT) Only the most recent of2 resultswithin the time period is included. Levetiracetam <1.0 3.0 - 60.0 ug/mL 02/20/2025 5:35 AM EDT [facility] Comment: Steady state trough serum or plasma levels following doses of 1000 to 3000 mg/Day: 3 to 37 ug/mL. The same dosage regimen will typically result in peak levels of 10 to 60 ug/mL, at approximately 1.5 hours post dose. If applicable, any drug confirmation testing reported here was developed and the performance characteristics determined by [facility]. This confirmation testing has not been cleared or approved by the FDA. The laboratory is regulated under CLIA as qualified to perform high-complexity testing. This test is used for patient testing purposes. It should not be regarded as investigational or for research. Test performed at [facility], [address] , [place] [address] Neris Ramirez MD, PhD - Transportation Manager Blood Venous blood specimen / Unknown Venipuncture / Unknown 02/16/2025 1:28 PM EDT 02/16/2025 1:50 PM EDT us Sunil Tang MD LAB BLOOD ORDERABLE S Final Result Performing Organization Address City/[facility]/ZIP Co de Phone Number [facility] [address] [place] [address] * Lactate (02/16/2025 12:26 PM EDT) Only the most recent of4 resultswithin the time period is included. Lactate 0.7 0.4 - 2.0 mmol/L LAB CHEMISTRY METHOD 02/16/2025 1:03 PM EDT [facility] Blood Venous blood specimen / Unknown Venipuncture / Unknown 02/16/2025 12:26 PM EDT 02/16/2025 12:49 PM EDT us Sunil Tang MD LAB BLOOD ORDERABLE S Final Result Performing Organization Address City/[facility]/ZIP Co de Phone Number [facility] [address] [place] [address], * (ABNORMAL) Venous blood gas (02/16/2025 7:53 AM EDT) Only the most recent of3 resultswithin the time period is included. pH, Cory 7.20(L) 7.32 - 7.42 pH 02/16/2025 8:04 AM EDT [facility] pCO2, Cory 50 41 - 51 mmHg 02/16/2025 8:04 [facility] pO2, Cory 46(H) 25 - 40 mmHg 02/16/2025 8:04 AM T [facility] HCO3, Venous 17.9(L) 22.0 - 26.0 mmol/L 02/16/2025 8:04 AM EDT [facility] O2 Sat, Cory 78.7 % 02/16/2025 8:04 AM [facility] Base Excess, Cory -8.4(L) -2.0 - 2.0 mmol/L 02/16/2025 8:04 AM [facility] Blood Venous blood specimen / Unknown Venipuncture / Unknown 02/16/2025 7:53 AM EDT 02/16/2025 7:59 AM EDT us Jim Burns MD LAB BLOOD ORDERABLES Final Result [facility] [address] [place] [address], * (ABNORMAL) CBC auto differential (02/16/2025 6:19 AM EDT) Only the most recent of12 resultswithin the time period is included. WBC 11.1(H) 4.8 - 10.8 K/[facility] HEMETOLOGY METHOD 02/16/2025 7:52 AM [facility] RBC 3.50(L) 3.80 - 4.80 M/[facility] LAB HEMETOLOGY METHOD 02/16/2025 7:52 AM [facility] Hemoglobin 9.1(L) 11.5 - 16.0 g/dL LAB HEMETOLOGY METHOD 02/16/2025 7:52 AM T [facility] Hematocrit 30.7(L) 35.0 - 47.0 % LAB HEMETOLOGY METHOD 02/16/2025 7:52 AM [facility] MCV 88.2 79.0 - 98.0 FL LAB HEMETOLOGY METHOD 02/16/2025 7:52 AM [facility] MCH 26.1(L) 27.0 - 32.0 pcg LAB HEMETOLOGY METHOD 02/16/2025 7:52 AM [facility] MCHC 29.6(L) 32.0 - 37.0 g/dL LAB HEMETOLOGY METHOD 02/16/2025 7:52 AM [facility] RDW 16.4(H) 11.0 - 15.0 % LAB HEMETOLOGY METHOD 02/16/2025 7:52 AM [facility] Platelets 226 130 - 400 K/mcL LAB HEMETOLOGY METHOD 02/16/2025 7:52 AM [facility] MPV 10.2 7.0 - 11.0 FL LAB HEMETOLOGY METHOD 02/16/2025 7:52 AM [facility] NRBC 0.0 <1.0 % LAB HEMETOLOGY METHOD 02/16/2025 7:52 AM [facility] NRBC Absolute 0.00 <0.10 K/mcL LAB HEMETOLOGY METHOD 02/16/2025 7:52 AM [facility] Neutrophils Relative 79.1 % LAB HEMETOLOGY METHOD 02/16/2025 7:52 AM [facility] Lymphocytes Relative 10.0 % LAB HEMETOLOGY METHOD 02/16/2025 7:52 AM [facility] Monocytes Relative 8.6 % LAB HEMETOLOGY METHOD 02/16/2025 7:52 AM [facility] Eosinophils Relative 1.3 % LAB HEMETOLOGY METHOD 02/16/2025 7:52 AM EDT [facility] Basophils Relative 0.3 % LAB HEMETOLOGY METHOD 02/16/2025 7:52 AM EDT [facility] Immature Granulocytes Relative 0.7 % LAB HEMETOLOGY METHOD 02/16/2025 7:52 AM EDT [facility] Neutrophils Absolute 8.80(H) 1.50 - 7.00 K/mcL LAB HEMETOLOGY METHOD 02/16/2025 7:52 AM EDT [facility] Lymphocytes Absolute 1.11 1.00 - 5.00 K/mcL LAB HEMETOLOGY METHOD 02/16/2025 7:52 AM EDT [facility] Monocytes Absolute 0.96 0.20 - 1.00 K/mcL LAB HEMETOLOGY METHOD 02/16/2025 7:52 AM EDT [facility] Eosinophils Absolute 0.15 0.00 - 0.50 K/mcL LAB HEMETOLOGY METHOD 02/16/2025 7:52 AM EDT [facility] Basophils Absolute 0.03 0.00 - 0.20 K/mcL LAB HEMETOLOGY METHOD 02/16/2025 7:52 AM EDT [facility] Immature Granulocytes Absolute 0.08(H) 0.00 - 0.03 K/mcL LAB HEMETOLOGY METHOD 02/16/2025 7:52 AM T [facility] Blood Venous blood specimen / Unknown Venipuncture / Unknown 02/16/2025 6:19 AM EDT 02/16/2025 7:38 AM EDT us Jim Burns MD LAB BLOOD ORDERABLES Final Result [facility] [address] [place] [address], * (ABNORMAL) Comprehensive metabolic panel (02/16/2025 6:19 AM EDT) Only the most recent of5 resultswithin the time period is included. Sodium 138 133 - 145 mmol/L LAB CHEMISTRY METHOD 02/16/2025 8:42 AM [facility] Potassium 4.8 3.5 - 5.5 mmol/L LAB CHEMISTRY METHOD 02/16/2025 8:42 AM [facility] Chloride 109 96 - 110 mmol/L LAB CHEMISTRY METHOD 02/16/2025 8:42 AM [facility] CO2 19(L) 21 - 32 mmol/L LAB CHEMISTRY METHOD 02/16/2025 8:42 AM [facility] Anion Gap 10 3 - 11 LAB CHEMISTRY METHOD 02/16/2025 8:42 AM [facility] Glucose 156(H) 70 - 100 mg/dL LAB CHEMISTRY METHOD 02/16/2025 8:42 AM [facility] BUN 63(H) 5 - 25 mg/dL LAB CHEMISTRY METHOD 02/16/2025 8:42 AM [facility] Creatinine 2.62(H) 0.50 - 1.10 mg/dL LAB CHEMISTRY METHOD 02/16/2025 8:42 AM [facility] eGFR 21(L) >=60 mL/min/1. 73m2 LAB CHEMISTRY METHOD 02/16/2025 8:42 AM [facility] Comment:Calculation based on the Chronic Kidney Disease Epidemiology Collaboration (CKD-EPI) equation refit without adjustment for race. BUN/Creatinine Ratio 24.0 LAB CHEMISTRY METHOD 02/16/2025 8:42 AM [facility] Calcium 8.1(L) 8.5 - 10.5 mg/dL LAB CHEMISTRY METHOD 02/16/2025 8:42 AM [facility] AST (SGOT) 34 10 - 42 unit/L LAB CHEMISTRY METHOD 02/16/2025 8:42 AM [facility] ALT (SGPT) 25 10 - 60 unit/L LAB CHEMISTRY METHOD 02/16/2025 8:42 AM EDT [facility] Alkaline Phosphatase 119 42 - 121 unit/L LAB CHEMISTRY METHOD 02/16/2025 8:42 AM EDT [facility] Total Protein 5.7(L) 6.0 - 8.0 g/dL LAB CHEMISTRY METHOD 02/16/2025 8:42 AM EDT [facility] Albumin 3.1(L) 3.2 - 5.0 g/dL LAB CHEMISTRY METHOD 02/16/2025 8:42 AM EDT [facility] Total Bilirubin 0.3 0.0 - 1.4 mg/dL LAB CHEMISTRY METHOD 02/16/2025 8:42 AM EDT [facility] Blood Venous blood specimen / Unknown Venipuncture / Unknown 02/16/2025 6:19 AM EDT 02/16/2025 7:38 AM EDT us Jim Burns MD LAB BLOOD ORDERABLES Final Result [facility] [address] [place] [address], [place] [phone] * Prothrombin time with INR (02/16/2025 12:04 AM EDT) Only the most recent of3 resultswithin the time period is included. Protime 11.6 10.6 - 13.9 sec LAB COAGULATION METHOD 02/16/2025 12:22 AM EDT [facility] INR 0.9 LAB COAGULATION METHOD 02/16/2025 12:22 AM EDT [facility] Blood Venous blood specimen / Unknown Venipuncture / Unknown 02/16/2025 12:04 AM EDT 02/16/2025 12:13 AM EDT us Jim Burns MD LAB BLOOD ORDERABLES Final Result [facility] [address] [place] [address], [place] [phone] * (ABNORMAL) Urinalysis with reflex microscopic (02/15/2025 11:26 PM EDT) Specific [place] Urine 1.025 1.003 - 1.030 LAB URINALYSIS - AUTOMATED METHOD 02/16/2025 12:59 AM [facility] pH, Urine 5.0 5.0 - 8.0 pH LAB URINALYSIS - AUTOMATED METHOD 02/16/2025 12:59 AM [facility] Leukocytes, Urine Negative Negative LAB URINALYSIS - AUTOMATED METHOD 02/16/2025 12:59 AM [facility] Nitrite, Urine Negative Negative LAB URINALYSIS - AUTOMATED METHOD 02/16/2025 12:59 AM [facility] Protein, Urine 30(A) <=Trace mg/dL LAB URINALYSIS - AUTOMATED METHOD 02/16/2025 12:59 AM [facility] Glucose, Urine >=1000(A) Negative mg/dL LAB URINALYSIS - AUTOMATED METHOD 02/16/2025 12:59 AM [facility] Ketones, Urine Trace(A) Negative mg/dL LAB URINALYSIS - AUTOMATED METHOD 02/16/2025 12:59 AM [facility] Urobilinogen , Urine 0.2 0.2 - 1.0 mg/dL LAB URINALYSIS - AUTOMATED METHOD 02/16/2025 12:59 AM [facility] Bilirubin, Urine Negative Negative LAB URINALYSIS - AUTOMATED METHOD 02/16/2025 12:59 AM [facility] Blood, Urine Negative Negative LAB URINALYSIS - AUTOMATED METHOD 02/16/2025 12:59 AM [facility] RBC, Urine 2.3 0 - 4 /HPF LAB URINALYSIS - AUTOMATED METHOD 02/16/2025 12:59 AM EDT [facility] WBC, Urine 5.6(H) 0 - 4 /HPF LAB URINALYSIS - AUTOMATED METHOD 02/16/2025 12:59 AM EDT [facility] Squamous Epithelial, Urine 39 0 - 60 /LPF LAB URINALYSIS - AUTOMATED METHOD 02/16/2025 12:59 AM [facility] Bacteria, Urine Negative Negative /HPF LAB URINALYSIS - AUTOMATED METHOD 02/16/2025 12:59 AM T [facility] Hyaline Casts, Urine 7.6(H) 0 - 3 /LPF LAB URINALYSIS - AUTOMATED METHOD 02/16/2025 12:59 AM [facility] Urine Urine specimen from urinary conduit / Unknown Non-blood Collection / Unknown 02/15/2025 11:26 PM EDT 02/16/2025 12:17 AM EDT us Jim Burns MD LAB URINE ORDERABLES Final Result [facility] [address] [place] [address], * (ABNORMAL) Drug abuse screen 8a panel, urine (02/15/2025 11:26 PM EDT) Only the most recent of3 resultswithin the time period is included. Amphetamine Screen, Ur Negative Negative LAB CHEMISTRY METHOD 12:56 AM T [facility] Comment:Certain OTC medicati ons containing ephedrine, phenylephrine, pseudoephedrine and phenylpropanolamine can cause false positive results. Barbiturate Screen, Ur Negative Negative LAB CHEMISTRY METHOD 12:56 AM [facility] Benzodiazepine Screen, Ur Negative Negative LAB CHEMISTRY METHOD 12:56 AM [facility] Cocaine Screen, Ur Negative Negative LAB CHEMISTRY METHOD 12:56 AM EDT [facility] Opiate Screen, Ur Positive(A ) Negative LAB CHEMISTRY METHOD 12:56 AM EDT [facility] Cannabinoid (THC) Screen, Ur Negative Negative LAB CHEMISTRY METHOD 12:56 AM EDT [facility] Comment:Specimens from patie nts taking pantoprazole sodium (Protonix) have been shown to produce false positive results. Oxycodone Screen, Ur Positive(A ) Negative LAB CHEMISTRY METHOD 12:56 AM EDT [facility] Fentanyl, Ur Negative Negative LAB CHEMISTRY METHOD 12:56 AM T [facility] Urine Urine specimen from urinary conduit / Unknown Non-blood Collection / Unknown 02/15/2025 11:26 PM EDT 02/16/2025 12:17 AM EDT Narrative [facility] - 02/16/2025 12:56 AM EDT Assay cutoffs: Amphetamines 1000 ng/mL Barbiturates 200 ng/mL Benzodiazepines 200 ng/mL Cocaine 300 ng/mL Fentanyl 1 ng/mL Opiates 300 ng/mL Oxycodone 100 ng/mL THC 50 ng/mL Semi-quantitative assay for screening purposes only. Unconfirmed screening result should not be used for non-medical purposes. *ALTERNATE METHOD CONFIRMATION DONE UPON REQUEST ONLY* Jim Burns MD LAB URINE ORDERABLES Final Result [facility] [address] [place] [address], * Buprenorphine screen, urine (02/15/2025 11:26 PM EDT) Only the most recent of2 resultswithin the time period is included. Buprenorphine Screen Urine Negative Negative LAB CHEMISTRY METHOD 02/16/2025 12:54 AM EDT [facility] Urine Urine specimen from urinary conduit / Unknown Non-blood Collection / Unknown 02/15/2025 11:26 PM EDT 02/16/2025 12:17 AM EDT Narrative [facility] - 02/16/2025 12:54 AM EDT Assay cutoff 5 ng/mL Semi-quantitative assay for screening purposes only. Unconfirmed screening result should not be used for non-medical purposes. *ALTERNATE METHOD CONFIRMATION DONE UPON REQUEST ONLY* us Jim Burns MD LAB URINE ORDERABLES Final Result Performing Organization Address [facility] de Phone Number [facility] [address] [place] [address], [place] [phone] * Methadone, urine (02/15/2025 11:26 PM EDT) Only the most recent of2 resultswithin the time period is included. Methadone Screen, Urine Negative Negative LAB CHEMISTRY METHOD 02/16/2025 12:54 AM EDT [facility] Comment: Assay cutoff 300 ng/mL Semi-quantitative assay for screening purposes only. Unconfirmed screening result should not be used for non-medical purposes. *ALTERNATE METHOD CONFIRMATION DONE UPON REQUEST ONLY* Urine Urine specimen from urinary conduit / Unknown Non-blood Collection / Unknown 02/15/2025 11:26 PM EDT 02/16/2025 12:17 AM EDT us Jim Burns MD LAB URINE ORDERABLES Final Result Performing Organization Address [facility] de Phone Number [facility] [address] [place] [address], [place] [phone] * (ABNORMAL) Protein and creatinine with ratio, urine (02/15/2025 11:26 PM EDT) Protein, Urine 48 mg/dL LAB CHEMISTRY METHOD 02/16/2025 12:54 AM EDT [facility] Prot/Creat, Ur 0.29(H) <=0.20 mg/mg creat LAB CHEMISTRY METHOD 02/16/2025 12:54 AM EDT [facility] Creatinine, Urine 165.0 mg/dL LAB CHEMISTRY METHOD 02/16/2025 12:54 AM EDT [facility] Urine Urine specimen from urinary conduit / Unknown Non-blood Collection / Unknown 02/15/2025 11:26 PM EDT 02/16/2025 12:17 AM EDT us Jim Burns MD LAB URINE ORDERABLES Final Result Performing Organization Address City/[facility]/ZIP Co de Phone Number [facility] [address] [place] [address], [place] [phone] * Sodium, urine, random (02/15/2025 11:26 PM EDT) Only the most recent of3 resultswithin the time period is included. Sodium, Ur 7 mmol/L LAB CHEMISTRY METHOD 02/16/2025 12:54 AM T [facility] Urine Urine specimen from urinary conduit / Unknown Non-blood Collection / Unknown 02/15/2025 11:26 PM EDT 02/16/2025 12:17 AM EDT us Jim Burns MD LAB URINE ORDERABLES Final Result Performing Organization Address [facility] Co de Phone Number [facility] [address] [place] [address], [place] [phone] * Phencyclidine, urine (02/15/2025 11:26 PM EDT) PCP Scrn, Ur Negative Negative LAB CHEMISTRY METHOD 02/16/2025 12:54 AM EDT [facility] Comment: Assay cutoff 25 ng/mL Semi-quantitative assay for screening purposes only. Unconfirmed screening result should not be used for non-medical purposes. *ALTERNATE METHOD CONFIRMATION DONE UPON REQUEST ONLY* Urine Urine specimen from urinary conduit / Unknown Non-blood Collection / Unknown 02/15/2025 11:26 PM EDT 02/16/2025 12:17 AM EDT us Jim Burns MD LAB URINE ORDERABLES Final Result Performing Organization Address [facility] Co de Phone Number [facility] [address] [place] [address], [place] [phone] * Creatinine, urine, random (02/15/2025 11:26 PM EDT) Only the most recent of2 resultswithin the time period is included. Creatinine, Urine 165.0 mg/dL LAB CHEMISTRY METHOD 02/16/2025 12:54 AM EDT [facility] Urine Urine specimen from urinary conduit / Unknown Non-blood Collection / Unknown 02/15/2025 11:26 PM EDT 02/16/2025 12:17 AM EDT us Jim Burns MD LAB URINE ORDERABLES Final Result Performing Organization Address [facility] de Phone Number [facility] [address] [place] [address], [place] [phone] * XR Chest 1 View (02/15/2025 6:24 PM EDT) Only the most recent of2 resultswithin the time period is included. Anatomical Region Laterality Modality Body Radiographic Amina [...] Signed Date: 02/16/2025 10:10 ET Workstation ID: [id number] Transcribed By: Self Edit Transcribed Date: 02/16/2025 [...] Signed Date: 02/16/2025 10:10 ET Workstation ID: [id number] Transcribed By: Self Edit Transcribed Date: 02/16/2025 10:09 ET us Jim Burns MD IMG XR PROCEDURES Final Res ult * ECG 12 lead (02/15/2025 6:10 PM EDT) Only the most recent of6 resultswithin the time period is included. Ventricular Rate ECG 88 BPM GEMUSE Atrial Rate 88 BPM GEMUSE P-R Interval 152 ms GEMUSE QRS Duration 90 ms GEMUSE Q-T Interval 378 ms GEMUSE QTc 457 ms GEMUSE P Wave [place] 39 degrees GEMUSE R [place] -21 degrees GEMUSE T [place] 50 degrees GEMUSE ECG Interpretation Normal sinus rhythm When compared with ECG of 18-DEC-2024 08:13, No significant change was found Confirmed by RUFUS BRAND ([id number]) on 02/16/2025 6:52:52 AM GEMUSE 02/15/2025 6:10 PM EDT 02/16/2025 6:52 AM EDT us Alberto Phelps MD ECG ORDERABLES Final Result [facility] * (ABNORMAL) Procalcitonin (02/15/2025 5:45 PM EDT) Only the most recent of2 resultswithin the time period is included. Procalcitonin 0.36(H) <=0.16 ng/mL LAB CHEMISTRY METHOD 02/16/2025 7:27 AM EDT [facility] Blood Venous blood specimen / Unknown Venipuncture / Unknown 02/15/2025 5:45 PM EDT 02/15/2025 6:01 PM EDT Narrative [facility] - 02/16/2025 7:27 AM EDT Procalcitonin [...] if any concentrations <2.0 ng/mL are obtained. us [facility] LAB BLOOD ORDERABLES Final Res ult [facility] [address] [place] [address], * Ethanol (02/15/2025 5:45 PM EDT) Ethanol Level <3 0 - 10 mg/dL LAB CHEMISTRY METHOD 02/15/2025 6:29 PM EDT [facility] Blood Venous blood specimen / Unknown Venipuncture / Unknown 02/15/2025 5:45 PM EDT 02/15/2025 6:01 PM EDT us Alberto Phelps MD LAB BLOOD ORDERABLES Final Res ult Performing Organization Address [facility]/ZIP Co de Phone Number [facility] [address] [place] [address], [place] [phone] * (ABNORMAL) Acetaminophen level (02/15/2025 5:45 PM EDT) Acetaminophen Level <2.0(L) 10.0 - 30.0 mcg/mL LAB CHEMISTRY METHOD 02/15/2025 6:29 PM EDT [facility] Blood Venous blood specimen / Unknown Venipuncture / Unknown 02/15/2025 5:45 PM EDT 02/15/2025 6:01 PM EDT us Alberto Phelps MD LAB BLOOD ORDERABLES Final Res ult Performing Organization Address [facility] de Phone Number [facility] [address] [place] [address], [place] [phone] * Salicylate level (02/15/2025 5:45 PM EDT) Salicylate Level 2.3 2.0 - 29.0 mg/dL LAB CHEMISTRY METHOD 02/15/2025 6:29 PM EDT [facility] Blood Venous blood specimen / Unknown Venipuncture / Unknown 02/15/2025 5:45 PM EDT 02/15/2025 6:01 PM EDT us Alberto Phelps MD LAB BLOOD ORDERABLES Final Res ult Performing Organization Address [facility]/ZIP Co de Phone Number [facility] [address] [place] [address], [place] [phone] * (ABNORMAL) C-reactive protein (12/21/2024 5:48 AM EDT) Only the most recent of4 resultswithin the time period is included. Pathologist [facility] C-Reactive Protein 9.09(H) <=0.50 mg/dL LAB CHEMISTRY METHOD 12/21/2024 7:18 AM EDT [facility] Blood Venous blood specimen / Unknown Venipuncture / Unknown 12/21/2024 5:48 AM EDT 12/21/2024 6:22 AM EDT us Prudencio Fontanez MD LAB BLOOD ORDERABLES Final Resu lt [facility] [address] [place] [address], [place] [phone] * SST tube (12/20/2024 8:15 AM EDT) [facility] Extra Tube Hold for add-ons. 12/20/2024 10:01 AM EDT [facility] Comment:Auto resulted. Blood Venous blood specimen / Unknown Venipuncture / Unknown 12/20/2024 8:15 AM EDT 12/20/2024 8:46 AM EDT us Prudencio Fontanez MD LAB BLOOD ORDERABLES Final Resu lt [facility] [address] [place] [address], [place] [phone] * (ABNORMAL) Thyroid stimulating hormone with reflex to free t4 and free t3 (12/20/2024 6:38 AM EDT) Only the most recent of2 resultswithin the time period is included. [facility] TSH 0.27(L) 0.40 - 4.00 mcIU/mL LAB CHEMISTRY METHOD 12/20/2024 9:51 PM EDT [facility] Blood Venous blood specimen / Unknown Venipuncture / Unknown 12/20/2024 6:38 AM EDT 12/20/2024 7:16 AM EDT us Prudencio Fontanez MD LAB BLOOD ORDERABLES Final Resu lt Performing Organization Address City/[facility]/ZIP Co de Phone Number [facility] [address] [place] [address], [place] [phone] * Free thyroxine with reflex to free triiodothyronine (12/20/2024 6:38 AM EDT) Only the most recent of2 resultswithin the time period is included. Free T4 0.97 0.70 - 1.80 ng/dL LAB CHEMISTRY METHOD 12/20/2024 10:22 PM EDT [facility] Blood Venous blood specimen / Unknown Venipuncture / Unknown 12/20/2024 6:38 AM EDT 12/20/2024 7:16 AM EDT us Prudencio Fontanez MD LAB BLOOD ORDERABLES Final Resu lt Performing Organization Address [facility] Co de Phone Number [facility] [address] [place] [address], [place] [phone] * (ABNORMAL) Triiodothyronine free (12/20/2024 6:38 AM EDT) Only the most recent of2 resultswithin the time period is included. T3, Free 134(L) 230 - 420 pcg/dL LAB CHEMISTRY METHOD 12/20/2024 10:50 PM EDT [facility] Blood Venous blood specimen / Unknown Venipuncture / Unknown 12/20/2024 6:38 AM EDT 12/20/2024 7:16 AM EDT us Prudencio Fontanez MD LAB BLOOD ORDERABLES Final Resu lt Performing Organization Address City/[facility]/ZIP Co de Phone Number [facility] [address] [place] [address], [place] [phone] * Creatine kinase (12/20/2024 6:38 AM EDT) Only the most recent of6 resultswithin the time period is included. [facility] Total CK 133 22 - 269 unit/L LAB CHEMISTRY METHOD 12/20/2024 8:07 AM EDT [facility] Blood Venous blood specimen / Unknown Venipuncture / Unknown 12/20/2024 6:38 AM EDT 12/20/2024 7:16 AM EDT Prudencio Fontanez MD LAB BLOOD ORDERABLES Final Resu lt Performing Organization Address City/[facility]/ZIP Co de Phone Number [facility] [address] [place] [address], * (ABNORMAL) Clostridium difficile toxin (12/19/2024 2:49 PM EDT) [facility] Clostridium difficile GDH Antigen Positive( A) Negative 12/19/2024 4:04 PM EDT [facility] C difficile Toxins A+B, EIA Positive( AA) Negative 12/19/2024 4:04 PM EDT [facility] Comment: CRITICAL RESULT POSITIVE FOR TOXIN PRODUCING CLOSTRIDIOIDES DIFFICILE, NO ADDITIONAL TESTING IS NECESSARY. REPEAT SAMPLES SHOULD NOT BE SUBMITTED FOR TEST OF CURE. Stool Rectum structure / Unknown Non-blood Collection / Unknown 12/19/2024 2:49 PM EDT 12/19/2024 3:32 PM EDT us Dayna ZEPEDA LAB MICROBIOLOGY - GENERAL ORDER YUN Final Result Performing Organization Address [facility]/ZIP Co de Phone Number [facility] [address] [place] [address], [place] [phone] * ECG-Annotated (12/19/2024) Only the most recent of3 resultswithin the time period is included. us Provider Onbase MD ECG ORDERABLES Final Result * Light blue tube (12/18/2024 3:03 PM EDT) Pathologist [facility] Extra Tube Hold for add-ons. 12/18/2024 5:01 PM EDT [facility] Comment:Auto resulted. Blood Venous blood specimen / Unknown 12/18/2024 3:03 PM EDT 12/18/2024 3:28 PM EDT Yanely Anderson MD LAB BLOOD ORDERABLES Final Res ult Performing Organization Address [facility]/ZIP Co de Phone Number [facility] [address] [place] [address], [place] [phone] * Cortisol (12/18/2024 3:03 PM EDT) Pathologist [facility] Cortisol 34.5 mcg/dL LAB CHEMISTRY METHOD 12/18/2024 6:09 PM EDT [facility] Blood Venous blood specimen / Unknown Venipuncture / Unknown 12/18/2024 3:03 PM EDT 12/18/2024 3:24 PM EDT Narrative [facility] - 12/18/2024 6:09 PM EDT CORTISOL REFERENCE RANGE 8 AM SPEC: 5.0-23.0 mcg/dL 4 PM SPEC: 3.0-16.0 mcg/dL 8 PM SPEC: <5.0 mcg/dL Yanely Anderson MD LAB BLOOD ORDERABLES Final Res ult [facility] [address] [place] [address], [place] [phone] * Protein, urine, random (12/18/2024 1:12 PM EDT) Protein, Urine 100 mg/dL LAB CHEMISTRY METHOD 12/18/2024 2:08 PM EDT [facility] Urine Urine specimen obtained by clean catch procedure / Unknown Non-blood Collection / Unknown 12/18/2024 1:12 PM EDT 12/18/2024 1:46 PM EDT us Dayna ZEPEDA LAB URINE ORDERABLES Final Resul t [facility] [address] [place] [address], [place] [phone] * CT Abdomen Pelvis wo Contrast (12/18/2024 11:12 AM EDT) Only the most recent of3 resultswithin the time period is included. Anatomical Region Laterality Modality Body Computed Tomogra phy 12/18/2024 11:3 5 AM EDT Impressions 12/18/2024 11:46 AM EDT 1. No renal collecting system calculus. 2. Patchy opacities in the lower lungs persist but are improved, suggesting an improving infectious/inflammatory process. -------- FINAL REPORT -------- Dictated By: Shawn Roldan Dictated Date: 12/18/2024 11:35 ET Assigned Physician: Shawn Roldan Reviewed and Electronically Signed By: Shawn Roldan Signed Date: 12/18/2024 11:46 ET Workstation ID: [id number] Transcribed By: Self Edit Transcribed Date: 12/18/2024 11:35 ET Narrative 12/18/2024 11:46 AM EDT PROCEDURE: CT of the abdomen and pelvis without intravenous contrast. HISTORY: Flank pain, kidney stone suspected. COMPARISON: 12/05/2024. TECHNIQUE: Noncontrast CT of the abdomen and pelvis with coronal and sagittal reformats. Dose length product: 1980 mGy-cm. FINDINGS: Lung bases: Patchy linear and groundglass opacities at both lung bases which appears slightly less confluent than on the previous exam. Cardiac: Mild cardiomegaly. Prominent mitral annular and mild coronary artery calcification. Liver: Limited evaluation without intravenous contrast. No visible abnormality. Biliary: Cholecystectomy. Prominence of the common duct, as is often seen in this postoperative setting secondary to a reservoir effect. Pancreas: Limited evaluation without intravenous contrast. Mild generalized parenchymal atrophy. Spleen: Limited evaluation without intravenous contrast. No visible abnormality. Adrenal glands: 18 mm fat-containing left adrenal adenoma. There is a small right adrenal nodule as well, which is too small for definitive characterization. Kidneys: Limited evaluation without intravenous contrast. No visible abnormality. Normal appearance of the ureters. Retroperitoneum: No mass or adenopathy. Abdominal vasculature: Moderate atherosclerotic calcifications. Bowel/mesentery: There are several hypoattenuating structures in the distal stomach suggestive of pill fragments. No obstruction or adenopathy. No mass or ascites. Abdominal wall: There is stable irregular somewhat masslike soft tissue thickening in the left paramedian supraumbilical region, possibly an area of scarring. Pelvic nodes: No adenopathy. Pelvic organs: Bladder is decompressed by Alexander catheter, with intraluminal air. Bones:. Degenerative changes of the spine, hips, SI joints, and pubic symphysis. Multilevel significant spinal stenoses, most prominent at L4-5. Procedure Note Shawn Roldan MD - 12/18/2024 PROCEDURE: CT of the abdomen and pelvis without intravenous contrast. HISTORY: Flank pain, kidney stone suspected. COMPARISON: 12/05/2024. TECHNIQUE: Noncontrast CT of the abdomen and pelvis with coronal andsagittal reformats. Dose length product: 1980 mGy-cm. FINDINGS: Lung bases: Patchy linear and groundglass opacities at both lung baseswhich appears slightly less confluent than on the previous exam. Cardiac: Mild cardiomegaly. Prominent mitral annular and mild coronaryartery calcification. Liver: Limited evaluation without intravenous contrast. No visibleabnormality. Biliary: Cholecystectomy. Prominence of the common duct, as is often seenin this postoperative setting secondary to a reservoir effect. Pancreas: Limited evaluation without intravenous contrast. Mildgeneralized parenchymal atrophy. Spleen: Limited evaluation without intravenous contrast. No visibleabnormality. Adrenal glands: 18 mm fat-containing left adrenal adenoma. There is asmall right adrenal nodule as well, which is too small for definitivecharacterization. Kidneys: Limited evaluation without intravenous contrast. No visibleabnormality. Normal appearance of the ureters. Retroperitoneum: No mass or adenopathy. Abdominal vasculature: Moderate atherosclerotic calcifications. Bowel/mesentery: There are several hypoattenuating structures in thedistal stomach suggestive of pill fragments. No obstruction oradenopathy. No mass or ascites. Abdominal wall: There is stable irregular somewhat masslike soft tissuethickening in the left paramedian supraumbilical region, possibly an areaof scarring. Pelvic nodes: No adenopathy. Pelvic organs: Bladder is decompressed by Alexander catheter, withintraluminal air. Bones:. Degenerative changes of the spine, hips, SI joints, and pubicsymphysis. Multilevel significant spinal stenoses, most prominent atL4-5. IMPRESSION: 1. No renal collecting system calculus. 2. Patchy opacities in the lower lungs persist but are improved,suggesting an improving infectious/inflammatory process. -------- FINAL REPORT -------- Dictated By: Shawn Roldan Dictated Date: 12/18/2024 11:35 ET Assigned Physician: Shawn Roldan Reviewed and Electronically Signed By: Shawn Roldan Signed Date: 12/18/2024 11:46 ET Workstation ID: [id number] Transcribed By: Self Edit Transcribed Date: 12/18/2024 11:35 ET Ravi Gan DO IMG CT PROCEDURES Final Res ult * (ABNORMAL) Urinalysis with reflex microscopic and culture (12/18/2024 10:57 AM EDT) Only the most recent of2 resultswithin the time period is included. Specific [place] Urine 1.019 1.003 - 1.030 LAB URINALYSIS - AUTOMATED METHOD 12/18/2024 12:15 PM EDT [facility] pH, Urine 5.0 5.0 - 8.0 pH LAB URINALYSIS - AUTOMATED METHOD 12/18/2024 12:15 PM T [facility] Leukocytes, Urine Trace(A) Negative LAB URINALYSIS - AUTOMATED METHOD 12/18/2024 12:15 PM [facility] Nitrite, Urine Negative Negative LAB URINALYSIS - AUTOMATED METHOD 12/18/2024 12:15 PM [facility] Protein, Urine 30(A) <=Trace mg/dL LAB URINALYSIS - AUTOMATED METHOD 12/18/2024 12:15 PM [facility] Glucose, Urine >=1000(A) Negative mg/dL LAB URINALYSIS - AUTOMATED METHOD 12/18/2024 12:15 PM [facility] Ketones, Urine Trace(A) Negative mg/dL LAB URINALYSIS - AUTOMATED METHOD 12/18/2024 12:15 PM [facility] Urobilinogen , Urine 1.0 0.2 - 1.0 mg/dL LAB URINALYSIS - AUTOMATED METHOD 12/18/2024 12:15 PM [facility] Bilirubin, Urine Negative Negative LAB URINALYSIS - AUTOMATED METHOD 12/18/2024 12:15 PM [facility] Blood, Urine Small(A) Negative LAB URINALYSIS - AUTOMATED METHOD 12/18/2024 12:15 PM [facility] RBC, Urine 20.0(H) 0 - 4 /HPF LAB URINALYSIS - AUTOMATED METHOD 12/18/2024 12:15 PM [facility] WBC, Urine 8.5(H) 0 - 4 /HPF LAB URINALYSIS - AUTOMATED METHOD 12/18/2024 12:15 PM [facility] Squamous Epithelial, Urine 20 0 - 60 /LPF LAB URINALYSIS - AUTOMATED METHOD 12/18/2024 12:15 PM [facility] Bacteria, Urine Negative Negative /HPF LAB URINALYSIS - AUTOMATED METHOD 12/18/2024 12:15 PM [facility] Hyaline Casts, Urine 5.0(H) 0 - 3 /LPF LAB URINALYSIS - AUTOMATED METHOD 12/18/2024 12:15 PM [facility] Urine Non-blood Collection / Unknown 12/18/2024 10:57 AM EDT 12/18/2024 11:17 AM EDT us Ravi Gan DO LAB URINE ORDERABLES Final Result Performing Organization Address [facility] Co de Phone Number [facility] [address] [place] [address], [place] [phone] * Field urine culture tube (12/18/2024 10:57 AM EDT) Only the most recent of2 resultswithin the time period is included. Extra Tube Hold for add-ons. 12/18/2024 1:01 PM EDT [facility] Comment:Auto resulted. Urine Non-blood Collection / Unknown 12/18/2024 10:57 AM EDT 12/18/2024 11:17 AM EDT Ravi Gan DO [facility] URINE ORDERABLES Final Result Performing Organization Address [facility] de Phone Number [facility] [address] [place] [address], [place] [phone] * Culture urine (12/18/2024 10:57 AM EDT) Only the most recent of2 resultswithin the time period is included. Culture, Urine No growth 12/19/2024 7:44 AM EDT [facility] Urine Non-blood Collection / Unknown 12/18/2024 10:57 AM EDT 12/18/2024 12:15 PM EDT us Ravi Gan DO LAB MICROBIOLOGY - GENERAL ORDERABLES Final Result Performing Organization Address [facility] Co de Phone Number [facility] [address] [place] [address], [place] [phone] * Troponin I high sensitivity (12/18/2024 10:27 AM EDT) Only the most recent of6 resultswithin the time period is included. [facility] High Sensitivity Troponin I 54 <=54 ng/L LAB CHEMISTRY METHOD 12/18/2024 11:06 AM EDT [facility] Blood Venous blood specimen / Unknown Venipuncture / Unknown 12/18/2024 10:27 AM EDT 12/18/2024 10:32 AM EDT Narrative [facility] - 12/18/2024 11:06 AM EDT High levels of biotin in samples may falsely decrease hsTroponin values. Use caution when interpreting hsTroponin results in patients taking biotin who exhibit renal impairment (eGFR <60) or in patients taking more than 20 mg/day of biotin. Ravi Gan DO LAB BLOOD ORDERABLES Final Result Performing Organization Address City/[facility]/ZIP Co de Phone Number [facility] [address] [place] [address], [place] [phone] * Lactate, with reflex (12/18/2024 8:41 AM EDT) [facility] LACTIC ACID 1.7 0.4 - 2.0 mmol/L LAB CHEMISTRY METHOD 12/18/2024 9:40 AM EDT [facility] Blood Venous blood specimen / Unknown Venipuncture / Unknown 12/18/2024 8:41 AM EDT 12/18/2024 9:00 AM EDT Ravi Gan DO LAB BLOOD ORDERABLES Final Result [facility] [address] [place] [address], [place] [phone] * (ABNORMAL) Manual differential (12/18/2024 8:41 AM EDT) [facility] Neutrophils % 93.0 % LAB HEMETOLOGY METHOD 12/18/2024 9:52 AM EDT [facility] Lymphocytes % 2.0 % LAB HEMETOLOGY METHOD 12/18/2024 9:52 AM [facility] Monocytes % 5.0 % LAB HEMETOLOGY METHOD 12/18/2024 9:52 AM [facility] Eosinophils % 0.0 % LAB HEMETOLOGY METHOD 12/18/2024 9:52 AM [facility] Basophils % 0.0 % LAB HEMETOLOGY METHOD 12/18/2024 9:52 AM [facility] Neutrophils Absolute Manual 32.46(H) 1.50 - 7.00 K/mcL LAB HEMETOLOGY METHOD 12/18/2024 9:52 AM [facility] Lymphocytes Absolute 0.70(L) 1.00 - 5.00 K/mcL LAB HEMETOLOGY METHOD 12/18/2024 9:52 AM [facility] Monocytes Absolute Manual 1.75(H) 0.20 - 1.00 K/mcL LAB HEMETOLOGY METHOD 12/18/2024 9:52 AM [facility] Eosinophils Absolute Manual 0.00 0.00 - 0.50 K/mcL LAB HEMETOLOGY METHOD 12/18/2024 9:52 AM [facility] Basophils Absolute Manual 0.00 0.00 - 0.20 K/mcL LAB HEMETOLOGY METHOD 12/18/2024 9:52 AM [facility] Rbc Morphology Consistent with indices Consistent with indices, Normal for LAB HEMETOLOGY METHOD 12/18/2024 9:52 AM [facility] Comment:This is an appended report. These results have been appended to a previously final verified report. Platelet Morphology - WAM Normal Normal LAB HEMETOLOGY METHOD 12/18/2024 9:52 AM [facility] Comment:This is an appended report. These results have been appended to a previously final verified report. Blood Venous blood specimen / Unknown Venipuncture / Unknown 12/18/2024 8:41 AM EDT 12/18/2024 9:01 AM EDT us Ravi Gan DO LAB BLOOD ORDERABLES Edited Result - Final Performing Organization Address [facility]/ZIP Co de Phone Number [facility] [address] [place] [address], [place] [phone] * Pathology review, blood smear (12/18/2024 8:41 AM EDT) Pathologist Review Blood Smear Granulocytosis - consider infection or other reactive process. Occasional hypersegmented neutrophils are noted. 12/18/2024 2:23 PM EDT [facility] Blood Venous blood specimen / Unknown Venipuncture / Unknown 12/18/2024 8:41 AM EDT 12/18/2024 9:01 AM EDT us Ravi PAULINO BLOOD ORDERABLES Final Result Performing Organization Address [facility] de Phone Number [facility] [address] [place] [address], [place] [phone] * Culture blood (12/18/2024 8:41 AM EDT) Only the most recent of4 resultswithin the time period is included. Culture, Blood No growth at 5 days 12/23/2024 10:01 AM EDT [facility] Blood Venous blood specimen / Unknown Venipuncture / Unknown 12/18/2024 8:41 AM EDT 12/18/2024 8:59 AM EDT us Ravi Gan DO LAB MICROBIOLOGY - GENERAL ORDERABLES Final Result Performing Organization Address City/[facility]/ZIP Co de Phone Number [facility] [address] [place] [address], [place] [phone] * (ABNORMAL) Hepatic function panel (12/18/2024 8:41 AM EDT) Only the most recent of3 resultswithin the time period is included. Total Protein 5.9(L) 6.0 - 8.0 g/dL LAB CHEMISTRY METHOD 12/18/2024 10:07 AM T [facility] Albumin 2.8(L) 3.2 - 5.0 g/dL LAB CHEMISTRY METHOD 12/18/2024 10:07 AM [facility] Total Bilirubin 0.7 0.0 - 1.4 mg/dL LAB CHEMISTRY METHOD 12/18/2024 10:07 AM [facility] Bilirubin, Direct 0.3 0.0 - 0.3 mg/dL LAB CHEMISTRY METHOD 12/18/2024 10:07 AM [facility] Bilirubin, Indirect 0.4 0.0 - 1.1 mg/dL LAB CHEMISTRY METHOD 12/18/2024 10:07 AM [facility] ALT (SGPT) 148(H) 10 - 60 unit/L LAB CHEMISTRY METHOD 12/18/2024 10:07 AM [facility] Comment:Results verified by repeat testing AST (SGOT) 89(H) 10 - 42 unit/L LAB CHEMISTRY METHOD 12/18/2024 10:07 AM [facility] Comment:Results verified by repeat testing Alkaline Phosphatase 127(H) 42 - 121 unit/L LAB CHEMISTRY METHOD 12/18/2024 10:07 AM [facility] Blood Venous blood specimen / Unknown Venipuncture / Unknown 12/18/2024 8:41 AM EDT 12/18/2024 9:01 AM EDT us Ravi Gan DO LAB BLOOD ORDERABLES Final Result [facility] [address] [place] [address], [place] [phone] * Green LI heparin tube (12/18/2024 8:39 AM EDT) Extra Tube Hold for add-ons. 12/18/2024 11:01 AM EDT [facility] Comment:Auto resulted. Blood Venous blood specimen / Unknown 12/18/2024 8:39 AM EDT 12/18/2024 9:01 AM EDT us Ravi Gan DO LAB BLOOD ORDERABLES Final Result [facility] [address] [place] [address], [place] [phone] * [place] CRITICAL CARE 30-74 MINUTES (12/18/2024 7:56 AM EDT) Narrative Ravi Gan DO - 12/18/2024 7:56 AM EDT Ravi Gan DO 12/18/2024 11:06 AM Critical Care Performed by: Ravi Gan DO Authorized by: Ravi Gan DO Critical care provider statement: Critical care time (minutes): 90 Total face to face critical care time (minutes): 90 Critical care time was exclusive of: Separately billable procedures and treating other patients Critical care was necessary to treat or prevent imminent or life-threatening deterioration of the following conditions: Renal failure, circulatory failure and metabolic crisis Critical care was time spent personally by me on the following activities: Blood draw for specimens, discussions with consultants, development of treatment plan with patient or surrogate, examination of patient, obtaining history from patient or surrogate, ordering and performing treatments and interventions, ordering and review of laboratory studies, ordering and review of radiographic studies, pulse oximetry, re-evaluation of patient's condition, review of old charts and evaluation of patient's response to treatment Face to face critical care was time spent personally by me on the following activities: Ordering and performing treatments and interventions, ordering and review of laboratory studies, ordering and review of radiographic studies, re-evaluation of patient's condition, review of old charts, discussions with consultants, evaluation of patient's response to treatment and examination of patient Comments: Acute kidney injury with acidosis and hyperkalemia. IV insulin dextrose calcium, high-dose albuterol, IV bicarb, IV fluid resuscitation, hypotension treatment Ravi Gan DO IN CLINIC/BEDSIDE ORDERABLE S Final Result * XR Chest 2 Views (12/12/2024 11:54 AM EDT) Only the most recent of4 resultswithin the time period is included. Anatomical Region Laterality Modality Body Radiographic Amina ging 12/12/2024 12:0 9 PM EDT Impressions 12/12/2024 12:12 PM EDT Significant improvement in diffuse bilateral alveolar infiltrates since 12/10/2024 consistent with improving pneumonia. Code 89271 -------- FINAL REPORT -------- Dictated By: James Mcnamara Dictated Date: 12/12/2024 12:09 ET Assigned Physician: James Mcnamara Reviewed and Electronically Signed By: James Mcnamara Signed Date: 12/12/2024 12:12 ET Workstation ID: [id number] Transcribed By: Self Edit Transcribed Date: 12/12/2024 12:09 ET Narrative 12/12/2024 12:12 PM EDT HISTORY: The patient is a 59-year-old female with dyspnea. FINDINGS: Sitting AP radiograph of the chest demonstrates degenerative changes of the thoracic spine as also seen on the prior study performed 12/10/2024. The cardiac silhouette remains at the upper limits of normal allowing for AP technique. The descending thoracic aorta is somewhat tortuous. There has been significant improvement in diffuse bilateral alveolar infiltrates since the prior study. No consolidation, mass, pulmonary vascular congestion, or pleural effusion is demonstrated. Procedure Note James Mcnamara MD - 12/12/2024 HISTORY: The patient is a 59-year-old female with dyspnea. FINDINGS: Sitting AP radiograph of the chest demonstrates degenerativechanges of the thoracic spine as also seen on the prior study performed12/10/2024. The cardiac silhouette remains at the upper limits of normalallowing for AP technique. The descending thoracic aorta is somewhattortuous. There has been significant improvement in diffuse bilateralalveolar infiltrates since the prior study. No consolidation, mass,pulmonary vascular congestion, or pleural effusion is demonstrated. IMPRESSION: Significant improvement in diffuse bilateral alveolar infiltrates since12/10/2024 consistent with improving pneumonia. Code 16992 -------- FINAL REPORT -------- Dictated By: James Mcnamara Dictated Date: 12/12/2024 12:09 ET Assigned Physician: James Mcnamara Reviewed and Electronically Signed By: James Mcnamara Signed Date: 12/12/2024 12:12 ET Workstation ID: [id number] Transcribed By: Self Edit Transcribed Date: 12/12/2024 12:09 ET Jyalon Rodgers MD IMG XR PROCEDURES Final Result * (ABNORMAL) Hemoglobin A1c (12/11/2024 5:15 AM EDT) Hemoglobin A1C 11.5(H) <6.5 % LAB CHEMISTRY METHOD 12/11/2024 10:43 AM EDT [facility] Mean Bld Glu Estim. 283 mg/dL LAB CHEMISTRY METHOD 12/11/2024 10:43 AM EDT [facility] Blood Venous blood specimen / Unknown Venipuncture / Unknown 12/11/2024 5:15 AM EDT 12/11/2024 5:54 AM EDT Jaylon Rodgers MD LAB BLOOD ORDERABLES Final Resul t [facility] [address] [place] [address], [place] [phone] * Vascular US duplex upper extremity venous left (12/08/2024 2:37 PM EDT) Anatomical Region Laterality Modality Vascular, Abdomen Ultrasound 12/08/2024 2:36 PM EDT Impressions 12/08/2024 2:40 PM EDT No evidence for DVT within the left upper extremity. Nonocclusive cephalic vein thrombus. -------- FINAL REPORT -------- Dictated By: Topher Sebastian Dictated Date: 12/08/2024 14:36 ET Assigned Physician: Topher Sebastian Reviewed and Electronically Signed By: Topher Sebastian Signed Date: 12/08/2024 14:40 ET Workstation ID: [id number] Transcribed By: Self Edit Transcribed Date: 12/08/2024 14:36 ET Narrative 12/08/2024 2:40 PM EDT STUDY: VAS US DUPLEX UPPER EXT VENOUS LEFT COMPARISON: None INDICATION: pain clot suspected while placing powerglide. R/o DVT EPISODE: Not applicable TECHNIQUE: Multiple sonographic images of the left upper extremity were obtained with and without color flow interrogation and spectral duplex waveform analysis. FINDINGS: On the left, the visualized internal jugular vein demonstrates color flow, normal phasic waveforms, and compressibility. The visualized subclavian vein demonstrates color flow and phasic waveforms. Color flow is demonstrated within the visualized axillary vein. The brachial veins demonstrates color flow, phasic waveforms and compressibility. Nonocclusive thrombus of the mid to distal left cephalic vein. Procedure Note Topher Sebastian MD - 12/08/2024 STUDY: VAS US DUPLEX UPPER EXT VENOUS LEFT COMPARISON: None INDICATION: pain clot suspected while placing powerglide. R/o DVT EPISODE: Not applicable TECHNIQUE: Multiple sonographic images of the left upper extremity wereobtained with and without color flow interrogation and spectral duplexwaveform analysis. FINDINGS: On the left, the visualized internal jugular vein demonstrates color flow,normal phasic waveforms, and compressibility. The visualized subclavianvein demonstrates color flow and phasic waveforms. Color flow isdemonstrated within the visualized axillary vein. The brachial veinsdemonstrates color flow, phasic waveforms and compressibility.Nonocclusive thrombus of the mid to distal left cephalic vein. IMPRESSION: No evidence for DVT within the left upper extremity. Nonocclusivecephalic vein thrombus. -------- FINAL REPORT -------- Dictated By: Topher Sebastian Dictated Date: 12/08/2024 14:36 ET Assigned Physician: Topher Sebastian Reviewed and Electronically Signed By: Topher Sebastian Signed Date: 12/08/2024 14:40 ET Workstation ID: [id number] Transcribed By: Self Edit Transcribed Date: 12/08/2024 14:36 ET Jarett Jones MD CV VASCULAR PROCEDURES Final Result * CT Angio Chest wo and/or w Contrast (12/08/2024 12:14 PM EDT) Anatomical Region Laterality Modality Body Computed Tomogra phy 12/08/2024 12:1 8 PM EDT Impressions 12/08/2024 12:20 PM EDT No acute pulmonary embolism. Worsening multifocal infectious/inflammatory process. -------- FINAL REPORT -------- Dictated By: Topher Sebastian Dictated Date: 12/08/2024 12:18 ET Assigned Physician: Topher Sebastian Reviewed and Electronically Signed By: Topher Sebastian Signed Date: 12/08/2024 12:20 ET Workstation ID: [id number] Transcribed By: Self Edit Transcribed Date: 12/08/2024 12:18 ET Narrative 12/08/2024 12:20 PM EDT PROCEDURE: CT ANGIO CHEST INDICATION: Respiratory failure r/o PE, eval for deam vs pneumonia. COMPARISON: 12/05/2024. TECHNIQUE: CT pulmonary angiogram performed following uneventful IV administration of ISOVUE contrast material with bolus timing technique from the thoracic inlet through the lung bases. 3-D multiplanar reformations were obtained by the technologist on an independent workstation. JW Player VCT dose reduction utilizing iterative reconstruction. Total exam DLP 730 (mGy-cm) FINDINGS: There is no CT evidence of acute pulmonary embolism to the lobar level. Evaluation of the segmental and subsegmental pulmonary arteries is limited due to [...] structures are within normal limits for technique. Procedure Note Topher Sebastian MD - 12/08/2024 PROCEDURE: CT ANGIO CHEST INDICATION: Respiratory failure r/o PE, eval for deam vs pneumonia. COMPARISON: 12/05/2024. TECHNIQUE: CT pulmonary angiogram performed following uneventful IVadministration of ISOVUE contrast material with bolus timing techniquefrom the thoracic inlet through the lung bases. 3-D multiplanar reformations were obtained by the technologist on anindependent workstation. JW Player VCT dose reduction utilizing iterative reconstruction. Total exam DLP 730 (mGy-cm) FINDINGS: There is no CT evidence of acute pulmonary embolism to the lobar level.Evaluation of the segmental and subsegmental pulmonary arteries is limiteddue to motion artifact and small peripheral pulmonary emboli cannot beexcluded. Cardiomegaly with coronary artery and valvular calcifications. No aorticdissection.. There is no evidence for mediastinal or hilar lymphadenopathy. Worsening confluent opacities throughout the lungs some of thesedemonstrate a crazy paving pattern. There are no pleural effusions. Stable left adrenal nodule. Cholecystectomy The included skeletal structures are within normal limits for technique. IMPRESSION: No acute pulmonary embolism. Worsening multifocal infectious/inflammatoryprocess. -------- FINAL REPORT -------- Dictated By: Topher Sebastian Dictated Date: 12/08/2024 12:18 ET Assigned Physician: Topher Sebastian Reviewed and Electronically Signed By: Topher Sebastian Signed Date: 12/08/2024 12:20 ET Workstation ID: [id number] Transcribed By: Self Edit Transcribed Date: 12/08/2024 12:18 ET us Estate Karen FLOR IMG CT PROCEDURES Final Resu lt * Routine EEG (12/06/2024 2:39 PM EDT) Narrative Vincent Barajas MD - 12/06/2024 5:44 PM EDT Vincent Barajas MD 12/06/2024 5:49 PM ROUTINE ELECTROENCEPHALOGRAPHY (EEG) REPORT Study Date: 12/06/2024 Clinical Information History: Estephania Ryan is a 59 y.o. woman with PMH of DM type II, CAD, atrial fibrillation on Eliquis, HTN, seizure disorder, rheumatoid arthritis, prior GI bleeding, GERD among others who presented on 12/05/2024 with altered mental status. Medications: Current Facility-Administered Medications: acetaminophen (TYLENOL) tablet 650 mg, 650 mg, oral, q6h PRN, DUANE Kapadia amLODIPine (NORVASC) tablet 10 mg, 10 mg, oral, Daily, DUANE Kapadia, 10 mg at 12/06/24 0822 aspirin chewable tablet 81 mg, 81 mg, oral, Daily, DUANE Kapadia, 81 mg at 12/06/24 0822 atorvastatin (LIPITOR) tablet 80 mg, 80 mg, oral, Daily, DUANE Kapadia, 80 mg at 12/06/24 0822 azithromycin (ZITHROMAX) 500 mg in sodium chloride 0.9 % 250 mL IVPB, 500 mg, intravenous, q24h, DUANE Kapadia, Stopped at 12/06/24 1626 cefTRIAXone (ROCEPHIN) 1 g in sterile water 10 mL IV syringe, 1 g, intravenous, q24h, DUANE Kapadia, 1 g at 12/06/24 1528 cloNIDine (CATAPRES) tablet 0.1 mg, 0.1 mg, oral, BID, DUANE Kapadia, 0.1 mg at 12/06/24 0822 cloNIDine (IISEPHUQ-FFR-4) 0.1 mg/24 hr 1 patch, 1 patch, transdermal, q7 days, DUANE Kapadia, 1 patch at 12/05/24 1620 dextrose (D50W) 50% injection 12.5 g, 12.5 g, intravenous, q15 min PRN, DUANE Kapadia dextrose (D50W) 50% injection 25 g, 25 g, intravenous, q15 min PRN, DUANE Kapadia dextrose 15 gram/60 mL oral solution 15 g, 15 g, oral, q15 min PRN, DUANE Kapadai dextrose 15 gram/60 mL oral solution 30 g, 30 g, oral, q15 min PRN, DUANE Kapadia Glucagon HCl (rDNA) injection 1 mg, 1 mg, intramuscular, Once PRN, DUANE Kapadia insulin glargine (LANTUS) injection 10 Units, 10 Units, subcutaneous, q AM, DUANE Kapadia, 10 Units at 12/06/24 0823 insulin lispro injection 1-6 Units, 1-6 Units, subcutaneous, Before meals & nightly, DUANE Kapadia, 2 Units at 12/06/24 1642 isosorbide mononitrate (IMDUR) 24 hr tablet 60 mg, 60 mg, oral, Daily, DUANE Kapadia, 60 mg at 12/06/24 0822 levETIRAcetam (KEPPRA) tablet 500 mg, 500 mg, oral, BID, DUANE Kapadia, 500 mg at 12/06/24 0822 ondansetron (PF) (ZOFRAN) injection 4 mg, 4 mg, intravenous, q6h PRN, DUANE Kapadia pantoprazole (PROTONIX) EC tablet 40 mg, 40 mg, oral, q AM AC, DUANE Kapadia, 40 mg at 12/06/24 0640 polyethylene glycol (MIRALAX) packet 17 g, 17 g, oral, Nightly, DUANE Kapadia, 17 g at 12/05/244 sertraline (ZOLOFT) tablet 150 mg, 150 mg, oral, Daily, DUANE Kapadia, 150 mg at 12/06/24 0822 Insert peripheral IV, , , Once AND Maintain IV access, , , Until discontinued AND Saline lock IV, , , Once AND sodium chloride 0.9 % flush 10 mL, 10 mL, intravenous, BID, 10 mL at 12/06/24 0826 AND sodium chloride 0.9 % flush 10 mL, 10 mL, intravenous, PRN, DUANE Kapadia sodium chloride 0.9 % infusion, 100 mL/hr, intravenous, Continuous, Jarett Jones MD, Last Rate: 100 mL/hr at 12/06/24 1634, 100 mL/hr at 12/06/24 1634 Recording Techniques A digital video EEG was performed using the standard international 10-20 electrode placement and single channel EKG electrode. Total Recording Time: 29 minutes Montages: Standard 10-20 system montages Type of Study: Routine EEG Video recorded: Yes Conditions of Recording: Awake - drowsy Results Background: The record was well organized. There was no clear posterior dominant rhythm. The background was variable and reactive and consisted of a mixture of theta>alpha frequencies. Sleep: During drowsiness, the alpha rhythm attenuated and diffuse background slowing appeared. Stage 2 sleep was not recorded. Focal slowing: There were no focal abnormalities or persistent asymmetries. Epileptiform discharges: None Activation Procedures: Hyperventilation: Hyperventilation was not performed. Photic Simulation: Did not produce an occipital driving response and did not result in any abnormal discharges. Other findings: Generalized rhythmic delta activity 1-2Hz Heart Rate: Normal sinus rhythm Classification of the findings: Background slowing, theta, generalized Impression This is an abnormal EEG in the awake, drowsy and asleep states indicative of mild diffuse cerebral dysfunction. There were no seizures or epileptiform discharges. The EEG shows generalized rhythmic delta activity, which is a nonspecific pattern associated with diffuse cerebral dysfunction but is not associated with seizures. There is no focal slowing or persistent focal asymmetries of the background rhythms. However, the absence of epileptiform abnormalities does not preclude a clinical diagnosis of seizures. Clinical correlation is advised. CC No ref. provider found Vincent Barajas MD Epileptologist [facility] us [facility] Karen FLOR NEUROLOGY ORDERABLES Final R esult * (ABNORMAL) Arterial blood gas (12/06/2024 1:09 PM EDT) pH, Arterial 7.30(L) 7.35 - 7.45 pH 12/06/2024 1:22 PM [facility] pCO2, Arterial 38 35 - 45 mmHg 12/06/2024 1:22 PM [facility] pO2, Arterial 61(L) 80 - 100 mmHg 12/06/2024 1:22 PM [facility] HCO3, Arterial 19.2(L) 22.0 - 26.0 mmol/L 12/06/2024 1:22 PM [facility] O2 Sat, Arterial 91.4(L) 95.0 - 98.0 % 12/06/2024 1:22 PM [facility] Base Excess, Arterial -7.1(L) -2.0 - 2.0 mmol/L 12/06/2024 1:22 PM EDT [facility] Chele Test Pass Pass, Unresponsi ve, Line 12/06/2024 1:22 PM EDT [facility] FIO2 12/06/2024 1:22 PM EDT [facility] Comment:2.5 lpm nc Blood Arterial blood specimen / Unknown Arterial Puncture / Unknown 12/06/2024 1:09 PM EDT 12/06/2024 1:17 PM EDT us [facility] Karen FLOR LAB BLOOD ORDERABLES Final R esult [facility] [address] [place] [address], [place] [phone] * (ABNORMAL) TRANSTHORACIC ECHOCARDIOGRAM (TTE) COMPLETE W/ CONTRAST (12/06/2024 9:04 AM EDT) Left Atrium Minor [place] 6.9 cm CV PACS Left Atrium Major [place] 6.9 cm CV PACS LA Area Sys (A2C) 32 cm2 CV PACS LA Area Sys (A4C) 31 cm2 CV PACS LA Volume (BP) 117 mL CV PACS RA Area 17.2 cm2 CV PACS RA 2D Volume 47 mL CV PACS AV Mean Gradient 18 mmHg CV PACS Ao VTI 51.0 cm CV PACS AV Peak Jorge Luis 3.0 m/s CV PACS AV Peak Gradient 35 mmHg CV PACS Aortic Sinus Valsalva 3.3 cm CV PACS LVOT Diameter 2.1 cm CV PACS MV E' Tissue Velocity Lateral 6 cm/s CV PACS MV E' Tissue Velocity Septal 5 cm/s CV PACS LVOT Area 3.5 cm2 CV PACS MV Deceleration [place] 4.3 m/s2 CV PACS E Wave Deceleration Time 245(A) 119 - 242 ms CV PACS MV PHT 72 ms CV PACS MV Peak A Jorge Luis 1.78 m/s CV PACS MV Peak E Jorge Luis 1.06 m/s CV PACS MV Area PHT 3.1 cm2 CV PACS RV S' 20 cm/s CV PACS TAPSE 27 mm CV PACS TR Peak Velocity 3.04 m/s CV PACS TR Peak Gradient 37 mmHg CV PACS E/E' Ratio Septal 21 CV PACS E/E' Ratio Averaged 19 CV PACS RA 2D Volume Index 24 mL/m2 CV PACS E/A Ratio 0.6 CV PACS E/E' Ratio Lateral 18 CV PACS LA Volume Index (BP) 59 mL/m2 CV PACS BSA 2.05 m2 CV PACS Right Ventricular Peak Systolic Pressure 40 mmHg CV PACS Est. RA Pressure 3 mmHg CV PACS Anatomical Region Laterality Modality Ultrasound Narrative 12/06/2024 11:26 AM EDT Left ventricle cavity size is normal. Hypertrophied left ventricle. No regional LV wall motion abnormalities noted.Left ventricular systolic function is hyperdynamic with an ejection fraction over 70%.There is a small outflow tract obstruction at rest of around 21 mmH and a more severe mid cavity obstruction at 80 mmHg. Valsalva was not performed. Right ventricle cavity is normal. Right ventricular systolic function is normal. Tricuspid Valve: Estimated RA pressure is 3 mmHg. The RVSP is estimated at 40 mmHg. Elevated left atrial filling pressure diastolic dysfunction Outflow tract gradient is much higher than previously documented at [facility] Left Ventricle Left ventricle cavity size is normal. Hypertrophied left ventricle. Systolic function is hyperdynamic with an ejection fraction over 70%. There are no regional LV wall motion abnormalities. There is a small outflow tract obstruction at rest of around 21 mmH and a more severe mid cavity obstruction at 80 mmHg. Valsalva was not performed. Right Ventricle Right ventricle cavity appears normal. Systolic function is normal. Left Atrium Left atrium cavity is severely dilated. Right Atrium Right atrium cavity is normal. IVC/SVC Inferior vena cava structure is normal. Mitral Valve The leaflets are mildly thickened. There is trace regurgitation. There is no evidence of mitral valve stenosis. Tricuspid Valve The leaflets exhibit normal excursion. There is trace regurgitation. There is no evidence of tricuspid valve stenosis. Estimated RA pressure is 3 mmHg. The RVSP is estimated at 40 mmHg. Aortic Valve Number of aortic valve cusps cannot be determined. There is no regurgitation. Pulmonic Valve The pulmonic valve was not well visualized. There is no evidence of pulmonic valve stenosis. Ascending Aorta The aorta appears normal in size. Pericardium Pericardium appears normal. There is no pericardial effusion. Study Details Overall the study quality was technically difficult. Definity contrast was given to enhance imaging. Study was difficult due to: patient body habitus and procedure performed with the patient in a supine position. us Lara ZEPEDA CV ECHO PROCEDURES Final Result * Lavender tube (12/05/2024 4:16 PM EDT) Pathologist [facility] Extra Tube Hold for add-ons. 12/05/2024 6:01 PM EDT [facility] Comment:Auto resulted. Blood Venous blood specimen / Unknown 12/05/2024 4:16 PM EDT 12/05/2024 4:41 PM EDT Lukas Yan MD LAB BLOOD ORDERABLES Final Re sult Performing Organization Address City/[facility]/ZIP Co de Phone Number [facility] [address] [place] [address], [place] [phone] * (ABNORMAL) Microalbumin creatinine urine ratio (12/05/2024 4:13 PM EDT) [facility] Creatinine, Urine 104.0 mg/dL LAB CHEMISTRY METHOD 12/05/2024 5:40 PM EDT [facility] Microalb, Ur 56.4(H) 0.0 - 29.0 mg/L LAB CHEMISTRY METHOD 12/05/2024 5:40 PM EDT [facility] Microalb/Crea t Ratio 54(H) <30 mg/g creat LAB CHEMISTRY METHOD 12/05/2024 5:40 PM EDT [facility] Urine Urine specimen obtained by clean catch procedure / Unknown Non-blood Collection / Unknown 12/05/2024 4:13 PM EDT 12/05/2024 4:41 PM EDT us Lara ZEPEDA LAB URINE ORDERABLES Final Resu lt [facility] [address] [place] [address], [place] [phone] * Legionella antigen urine, EIA (12/05/2024 4:13 PM EDT) Pathologist [facility] Legionella Antigen, Ur Negative Negative 12/08/2024 1:59 PM EDT [facility] Urine Urine specimen obtained by clean catch procedure / Unknown Non-blood Collection / Unknown 12/05/2024 4:13 PM EDT 12/05/2024 4:41 PM EDT Narrative [facility] - 12/08/2024 1:59 PM EDT Negative for Legionella pneumophilia serogroup 1 antigen. This presumptive result suggests no current or recent infection due to L. pneumophilia serogroup 1. Culture is recommended if Legionella infection is till suspected, as other serogroups and species of Legionella are not detected by this test. us Jarett Jones MD LAB URINE ORDERABLES Final R esult Performing Organization Address [facility] Co de Phone Number [facility] [address] [place] [address], [place] [phone] * (ABNORMAL) B-type natriuretic peptide (12/05/2024 12:48 PM EDT) Only the most recent of2 resultswithin the time period is included. Pathologist [facility] BNP 189(H) <=100 pcg/mL LAB CHEMISTRY METHOD 12/05/2024 2:12 PM EDT [facility] Blood Venous blood specimen / Unknown Venipuncture / Unknown 12/05/2024 12:48 PM EDT 12/05/2024 1:03 PM EDT us Lukas Yan MD LAB BLOOD ORDERABLES Final Re sult Performing Organization Address [facility]/ZIP Co de Phone Number [facility] [address] [place] [address], [place] [phone] * CT Chest wo Contrast (12/05/2024 12:26 PM EDT) Anatomical Region Laterality Modality Body Computed Tomogra phy 12/05/2024 1:32 PM EDT Impressions 12/05/2024 2:29 PM EDT Multifocal groundglass infiltrates are nonspecific and may represent pneumonia such as viral pneumonia, opportunistic infections or alveolar edema with other etiologies not excluded. -------- FINAL REPORT -------- Dictated By: Aminta Rodriguez Dictated Date: 12/05/2024 13:32 ET Assigned Physician: Aminta Rodriguez Reviewed and Electronically Signed By: Aminta Rodriguez Signed Date: 12/05/2024 14:29 ET Workstation ID: [id number] Transcribed By: Self Edit Transcribed Date: 12/05/2024 14:04 ET Narrative 12/05/2024 2:29 PM EDT INDICATION: Mental status changes, multifocal infiltrates noted within the lung bases are recent CT scan of the abdomen TECHNIQUE: CT scan of the chest obtained without contrast. Scanner: [employer] 64 slice VCT Dose reduction technique: ASIR (Adaptive statistical iterative reconstruction) and/or AEC (automated exposure control) Dose: total exam DLP 2234 mGY per cm COMPARISON: Chest CTA from April 14, 2024. Chest radiographs from December 05, 2024 as well as November 24, 2024 reviewed. FINDINGS: Lung martin demonstrate multifocal groundglass infiltrates within the upper and lower lobes located within the periphery as well as the central portion of the lung martin. Mild associated interstitial component. No discrete nodularity or associated honeycombing. Lung martin are hypoinflated. No pleural effusions. No thoracic lymphadenopathy. Trachea and esophagus are within normal limits. Heart mildly enlarged without pericardial effusion. Enlarged main pulmonary artery measuring 3.7 cm axially distal pulmonary artery hypertension. Bony structures of the thorax are within normal limits. Visualized portion upper abdomen are unremarkable. Procedure Note Aminta Rodriguez MD - 12/05/2024 INDICATION: Mental status changes, multifocal infiltrates noted within thelung bases are recent CT scan of the abdomen TECHNIQUE: CT scan of the chest obtained without contrast. Scanner: [employer] 64 slice VCT Dose reduction technique: ASIR (Adaptive statistical iterativereconstruction) and/or AEC (automated exposure control) Dose: total exam DLP 2234 mGY per cm COMPARISON: Chest CTA from April 14, 2024. Chest radiographs from 2024 as well as November 24, 2024 reviewed. FINDINGS: Lung martin demonstrate multifocal groundglass infiltrates within theupper and lower lobes located within the periphery as well as the centralportion of the lung martin. Mild associated interstitial component. Nodiscrete nodularity or associated honeycombing. Lung martin arehypoinflated. No pleural effusions. No thoracic lymphadenopathy. Trachea and esophagus are within normallimits. Heart mildly enlarged without pericardial effusion. Enlarged main pulmonary artery measuring 3.7 cm axially distal pulmonaryartery hypertension. Bony structures of the thorax are within normal limits. Visualized portion upper abdomen are unremarkable. IMPRESSION: Multifocal groundglass infiltrates are nonspecific and may representpneumonia such as viral pneumonia, opportunistic infections or alveolaredema with other etiologies not excluded. -------- FINAL REPORT -------- Dictated By: Aminta Rodriguez Dictated Date: 12/05/2024 13:32 ET Assigned Physician: Aminta Rodriguez Reviewed and Electronically Signed By: Aminta Rodriguez Signed Date: 12/05/2024 14:29 ET Workstation ID: [id number] Transcribed By: Self Edit Transcribed Date: 12/05/2024 14:04 ET Lara ZEPEDA IMG CT PROCEDURES Final Result * Hepatitis C antibody (12/05/2024 8:47 AM EDT) Hepatitis C Antibody Negative Negative LAB CHEMISTRY METHOD 12/05/2024 2:44 PM EDT [facility] Blood Venous blood specimen / Unknown Venipuncture / Unknown 12/05/2024 8:47 AM EDT 12/05/2024 9:13 AM EDT Lukas Yan MD LAB BLOOD ORDERABLES Final Re sult [facility]) [facility] [address] [place] [address], [place] [phone] * Hepatitis B surface antigen with reflex to confirmation (12/05/2024 8:47 AM EDT) [facility] Hepatitis B Surface Ag Negative Negative LAB CHEMISTRY METHOD 12/05/2024 2:15 PM EDT [facility] Blood Venous blood specimen / Unknown Venipuncture / Unknown 12/05/2024 8:47 AM EDT 12/05/2024 9:13 AM EDT Narrative [facility] - 12/05/2024 2:15 PM EDT Over the counter supplements containing high doses of biotin may interfere with this assay. If interference is suspected, patients shoud be retested after refraining from biotin supplements for 72 hours. us Lukas Yan MD LAB BLOOD ORDERABLES Final Re sult Performing Organization Address [facility]/ZIP Co de Phone Number [facility] [address] [place] [address], [place] [phone] * (ABNORMAL) Beta hydroxybutyrate (12/05/2024 8:47 AM EDT) Only the most recent of2 resultswithin the time period is included. [facility] Beta-Hydroxyb utyrate 39.9(H) 0.2 - 2.8 mg/dL LAB CHEMISTRY METHOD 12/05/2024 1:16 PM EDT [facility] Blood Venous blood specimen / Unknown Venipuncture / Unknown 12/05/2024 8:47 AM EDT 12/05/2024 9:13 AM EDT us Lukas Yan MD LAB BLOOD ORDERABLES Final Re sult Performing Organization Address City/[facility]/ZIP Co de Phone Number [facility] [address] [place] [address], [place] [phone] * Hepatitis A antibody IgM (12/05/2024 8:47 AM EDT) [facility] Hepatitis A Antibody IgM Negative Negative LAB CHEMISTRY METHOD 12/05/2024 4:28 PM EDT [facility] Blood Venous blood specimen / Unknown Venipuncture / Unknown 12/05/2024 8:47 AM EDT 12/05/2024 9:13 AM EDT Narrative [facility] - 12/05/2024 4:28 PM EDT Over the counter supplements containing high doses of biotin may interfere with this assay. If interference is suspected, patients shoud be retested after refraining from biotin supplements for 72 hours. us Lukas Yan MD LAB BLOOD ORDERABLES Final Re sult Performing Organization Address [place] [facility] de Phone Number [facility] [address] [place] [address], [place] [phone] * Hepatitis B core antibody IgM (12/05/2024 8:47 AM EDT) [facility] Hep B Core IgM Negative Negative LAB CHEMISTRY METHOD 12/05/2024 4:26 PM EDT [facility] Blood Venous blood specimen / Unknown Venipuncture / Unknown 12/05/2024 8:47 AM EDT 12/05/2024 9:13 AM EDT Narrative [facility] - 12/05/2024 4:26 PM EDT Over the counter supplements containing high doses of biotin may interfere with this assay. If interference is suspected, patients shoud be retested after refraining from biotin supplements for 72 hours. us Lukas Yan MD LAB BLOOD ORDERABLES Final Re sult Performing Organization Address City/[facility]/ZIP Co de Phone Number [facility] [address] [place] [address], * Prolactin (12/05/2024 8:47 AM EDT) [facility] Prolactin 28.70 See Comment ng/mL LAB CHEMISTRY METHOD 12/05/2024 9:48 AM EDT [facility] Comment: Prolactin Reference Ranges (ng/mL) Non 2.2 - 30.3 8.1 - 347.6 Postmenopausal 0.7 - 31.5 Blood Venous blood specimen / Unknown Venipuncture / Unknown 12/05/2024 8:47 AM EDT 12/05/2024 9:13 AM EDT Jim ZEPEDA LAB BLOOD ORDERABLES Valeri l Result Performing Organization Address [facility]/ZIP Co de Phone Number [facility] [address] [place] [address], * Hepatitis B surface antibody (12/05/2024 8:47 AM EDT) Hepatitis B Surface Ab Negative Negative LAB CHEMISTRY METHOD 12/05/2024 2:05 PM EDT [facility] Hepatitis B Surface Ab Quantitative <3.1 mIU/mL LAB CHEMISTRY METHOD 12/05/2024 2:05 PM EDT [facility] Blood Venous blood specimen / Unknown Venipuncture / Unknown 12/05/2024 8:47 AM EDT 12/05/2024 9:13 AM EDT Narrative [facility] - 12/05/2024 2:05 PM EDT >=10 mIU/mL is considered to be consistent with immunity. Lukas Yan MD LAB BLOOD ORDERABLES Final Re sult Performing Organization Address [facility]/ZIP Co de Phone Number [facility] [address] [place] [address], * (ABNORMAL) Uric acid (12/05/2024 8:47 AM EDT) Uric Acid 12.2(H) 3.1 - 7.8 mg/dL LAB CHEMISTRY METHOD 12/05/2024 3:00 PM EDT [facility] Blood Venous blood specimen / Unknown Venipuncture / Unknown 12/05/2024 8:47 AM EDT 12/05/2024 9:13 AM EDT Lara ZEPEDA LAB BLOOD ORDERABLES Final Resu lt Performing Organization Address [facility] Co de Phone Number [facility] [address] [place] [address], [place] [phone] * Lipase (12/05/2024 8:47 AM EDT) Only the most recent of2 resultswithin the time period is included. Lipase 13 13 - 75 unit/L LAB CHEMISTRY METHOD 12/05/2024 9:48 AM EDT [facility] Blood Venous blood specimen / Unknown Venipuncture / Unknown 12/05/2024 8:47 AM EDT 12/05/2024 9:13 AM EDT Jim ZEPEDA LAB BLOOD ORDERABLES Valeri l Result Performing Organization Address [facility] de Phone Number [facility] [address] [place] [address], * Ammonia (12/05/2024 8:47 AM EDT) Ammonia 25 11 - 35 mcmol/L LAB CHEMISTRY METHOD 12/05/2024 9:37 AM EDT [facility] Blood Venous blood specimen / Unknown Venipuncture / Unknown 12/05/2024 8:47 AM EDT 12/05/2024 9:12 AM EDT Liam Peralta MD LAB BLOOD ORDERABLES Final Resu lt Performing Organization Address [facility]/ZIP Co de Phone Number [facility] [address] [place] [address], [place] [phone] * CT Head wo Contrast (12/05/2024 8:18 AM EDT) Only the most recent of2 resultswithin the time period is included. Anatomical Region Laterality Modality Head and Neck Computed Tomogra phy 12/05/2024 8:33 AM EDT Impressions 12/05/2024 8:41 AM EDT Impression: No acute hemorrhage or intracranial mass effect. No significant change. [place] ([id number]) -------- FINAL REPORT -------- Dictated By: Fatuma Mcfarland Dictated Date: 12/05/2024 08:33 ET Assigned Physician: Fatuma Mcfarland Reviewed and Electronically Signed By: Fatuma Mcfarland Signed Date: 12/05/2024 08:41 ET Workstation ID: [id number] Transcribed By: Self Edit Transcribed Date: 12/05/2024 08:33 ET Narrative 12/05/2024 8:41 AM EDT History: Altered mental status of unknown cause. Comparison: 11/24/24 Technique: Contiguous axial images were obtained at 2.5 mm intervals through the posterior fossa and at 5 mm intervals through the remainder of the brain without intravenous contrast. DLP: 716.71 mGy/cm GE DINKlifepeed VCT Iterative reconstruction technique Findings: The study [...] the left ethmoid sinus, consistent with sinusitis. The mastoid air cells are clear. The calvarium is intact. Procedure Note Fatuma Mcfarland MD - 12/05/2024 History: Altered mental status of unknown cause. Comparison: 11/24/24 Technique: Contiguous axial images were obtained at 2.5 mm intervalsthrough the posterior fossa and at 5 mm intervals through the remainder ofthe brain without intravenous contrast. DLP: 716.71 mGy/cm GE DINKlifepeed VCT Iterative reconstruction technique Findings: The study is mildly degraded by motion artifact. The ventricular system is normal in size and configuration. There are mildto moderate cortical involutional changes for the stated age, favoring thefrontal and temporal lobes. Field-white differentiation is maintained. No abnormal intra- or extra-axial masses or fluid collections are seen.There is no evidence of acute intracranial hemorrhage. Minimal mucoperiosteal thickening is seen in the left ethmoid sinus,consistent with sinusitis. The mastoid air cells are clear. The calvariumis intact. IMPRESSION: Impression: No acute hemorrhage or intracranial mass effect. No significant change. Josee ZEPEDA ([id number]) -------- FINAL REPORT -------- Dictated By: Fatuma Mcfarland Dictated Date: 12/05/2024 08:33 ET Assigned Physician: Fatuma Mcfarland Reviewed and Electronically Signed By: Fatuma Mcfarland Signed Date: 12/05/2024 08:41 ET Workstation ID: [id number] Transcribed By: Self Edit Transcribed Date: 12/05/2024 08:33 ET Jim ZEPEDA IMG CT PROCEDURES Final R esult * Respiratory virus panel molecular study (12/05/2024 8:04 AM EDT) Adenovirus Detection by PCR Not Detected Not Detected LAB MICROBIOLOGY METHOD 12/05/2024 9:24 AM EDT [facility] Influenza A PCR Not Detected Not Detected LAB MICROBIOLOGY METHOD 12/05/2024 9:24 AM EDT [facility] Influenza B PCR Not Detected Not Detected LAB MICROBIOLOGY METHOD 12/05/2024 9:24 AM EDT [facility] Coronavirus 229E Not Detected Not Detected LAB MICROBIOLOGY METHOD 12/05/2024 9:24 AM EDT [facility] Coronavirus HKU1 Not Detected Not Detected LAB MICROBIOLOGY METHOD 12/05/2024 9:24 AM EDT [facility] Coronavirus OC43 Not Detected Not Detected LAB MICROBIOLOGY METHOD 12/05/2024 9:24 AM EDT [facility] Coronavirus NL63 Not Detected Not Detected LAB MICROBIOLOGY METHOD 12/05/2024 9:24 AM EDT [facility] Parainfluenza Virus 1 Not Detected Not Detected LAB MICROBIOLOGY METHOD 12/05/2024 9:24 AM EDT [facility] Parainfluenza Virus 2 Not Detected Not Detected LAB MICROBIOLOGY METHOD 12/05/2024 9:24 AM EDT [facility] Parainfluenza Virus 3 Not Detected Not Detected LAB MICROBIOLOGY METHOD 12/05/2024 9:24 AM EDT [facility] Parainfluenza Virus 4 Not Detected Not Detected LAB MICROBIOLOGY METHOD 12/05/2024 9:24 AM EDT [facility] RSV PCR Not Detected Not Detected LAB MICROBIOLOGY METHOD 12/05/2024 9:24 AM EDT [facility] Human Metapneumovirus A and B Not Detected Not Detected LAB MICROBIOLOGY METHOD 12/05/2024 9:24 AM EDT [facility] Rhinovirus/Entero virus Not Detected Not Detected LAB MICROBIOLOGY METHOD 12/05/2024 9:24 AM EDT [facility] Bordetella pertussis Not Detected Not Detected LAB MICROBIOLOGY METHOD 12/05/2024 9:24 AM EDT [facility] Bordetella parapertussis Not Detected Not Detected LAB MICROBIOLOGY METHOD 12/05/2024 9:24 AM EDT [facility] Mycoplasma pneumo by PCR Not Detected Not Detected LAB MICROBIOLOGY METHOD 12/05/2024 9:24 AM EDT [facility] Chlamydia pneumoniae Not Detected Not Detected LAB MICROBIOLOGY METHOD 12/05/2024 9:24 AM EDT [facility] SARS COV-2 Not Detected Not Detected LAB MICROBIOLOGY METHOD 12/05/2024 9:24 AM EDT [facility] Swab Both anterior nares / Unknown Non-blood Collection / Unknown 12/05/2024 8:04 AM EDT 12/05/2024 8:17 AM EDT [facility] - 12/05/2024 9:24 AM EDT Testing was performed using the [employer] Respiratory Pathogen PCR Assay. All results must be correlated with the clinical findings. Results should not be used as the sole basis for diagnosis. False Negative results may occur from the presence of sequence variants in the region targeted by the assay or the presence of inhibitors. Results may be affected by concurrent antiviral/antimicrobial therapy or levels of organisms that are below the limit of detection. Jim ZEPEDA LAB MICROBIOLOGY - GENERA L ORDERABLES Final Result [facility] [address] [place] [address], * MI DRAINAGE ABSCESS FINGER SIMPLE, HC I&D/EXCISION/BIOPSY BONE MARROW/TISSUE/TUMOR/HTOMA/ABSC/CYST LEVEL 1 (11/24/2024 9:51 PM EDT) Karina Silverio DO - 11/24/2024 9:51 PM EDT Karina Euceda DO 11/24/2024 9:53 PM Incision and Drainage Date/Time: 11/24/2024 9:51 PM Performed by: Karina Euceda DO Authorized by: Karina Euceda DO Consent: Consent obtained: Verbal Location: Type: Abscess Location: Upper extremity Upper extremity location: Finger Finger location: R long finger Pre-procedure details: Skin preparation: Chlorhexidine with alcohol Anesthesia: Anesthesia method: Nerve block Block needle gauge: 25 G Block anesthetic: Lidocaine 1% w/o epi Block technique: Digital block Procedure details: Incision types: Stab incision Drainage: Serosanguinous Wound treatment: Wound left open Packing materials: None Post-procedure details: Procedure completion: Tolerated well, no immediate complications Comments: Paronychia drained Karina Euceda DO IN CLINIC/BEDSIDE ORDERAB LES Final Result from Last 3 Months Insurance [place]ICA[place] Advance Directives Documents on File Type Date Recorded Patient House Mother Expl anation Advance Directives and Living Will 12/11/2024 11:15 AM Lilian Ryan Health Care Proxy * Full Code - Default (Latest Code Status on File) Date Activated Date Inactivated Comments 02/15/2025 7:25 PM This is order is used when code status has not been discussed with the patient, or code status is otherwise unknown/unconfirmed To update the patient's code status, place a code status order. Do not modify or discontinue any currently active code status orders. * Full Code - Default Date Activated Date Inactivated Comments 12/18/2024 10:50 AM 12/21/2024 7:26 PM This is ord er is used when code status has not been discussed with the patient, or code status is otherwise unknown/unconfirmed To update the patient's code status, place a code status order. Do not modify or discontinue any currently active code status orders. * Full Code - Default Date Activated Date Inactivated Comments 12/05/2024 12:23 PM 12/14/2024 6:34 PM This is ord er is used when code status has not been discussed with the patient, or code status is otherwise unknown/unconfirmed To update the patient's code status, place a code status order. Do not modify or discontinue any currently active code status orders. Healthcare Agents on File Name Relationship Healthcare Agent Relationshi p Communication Lilian Ryan Daughter Health Care Agent Care Teams Linux Engineer Relationship Specialty Start Date End Date Physician, No Pcp PCP - General 11/24/24
--- OUTSIDE RECORDS SUMMARY | 2025-02-22 13:29 | XMS_ITS | Clinical Summary ---
Author Organization Formerly [facility] Address [address] [place] [address] Care Team Providers Care Funeral Home Manager Name Role Phone Corinne Chappell APRN Primary Care Provider + Allergies Active Allergy Reactions Criticality Noted Date Comments Ibuprofen GI Intolerance/Nausea/Vomitin g Low 05/10/2016 History of peptic ulcer disease. Sumatriptan Palpitations Medium 05/10/2016 Rapid heart rate Rapid heart rate Medications * This document contains information received from the source organization and may not represent a complete record from that organization. albuterol (PROVENTIL HFA; VENTOLIN HFA) 108 (90 Base) MCG/ACT inhaler Inhale 2 puffs 4 (four) times a day as needed for wheezing or shortness of breath. Active acetaminophen (TYLENOL) 325 MG tablet Take 650 mg by mouth 4 times daily (every 6 hours) as needed for mild pain. Active famotidine (PEPCID) 20 MG tablet Take 1 tablet (20 mg total) by mouth 2 (two) times a day. 20 tablet 02/23/20 Active Additional Information Patient not taking.Reported on 02/13/2025 ALPRAZolam (XANAX) 0.5 MG tablet Take 1 tablet (0.5 mg total) by mouth 2 (two) times a day as needed. 09/18/19 25 Active gabapentin (NEURONTIN) 400 MG capsule Take 1 capsule (400 mg total) by mouth 3 (three) times a day. 09/18/19 25 Active sertraline (ZOLOFT) 50 MG tablet Take 3 tablets (150 mg total) by mouth daily. 09/18/19 25 Active traZODone (DESYREL) 50 MG tablet Take 1 tablet (50 mg total) by mouth nightly. 09/18/19 25 Active glucose blood (VivakorTouch Verio) test stripIndications: Type 2 Diabetes Mellitus Test blood glucose 4 times Daily with meals and at night. For lifetime 100 test strip 11/13/19 25 Active OneTouch Delica Lancets 30G Misc lancetIndications :Type 2 Diabetes Mellitus Test blood glucose 4 times Daily with meals and at night. For lifetime 100 Lancet 11/13/19 25 Active Blood Glucose Monitoring Suppl (VivakorTouch Verio Flex System) w/Device KitIndications:Ty pe 2 Diabetes Mellitus 1 Device by Does not apply route 1 time. Use as directed. For lifetime. 1 kit 11/13/19 25 Active empagliflozin (JARDIANCE) 25 MG tabletIndications :Controlled type 2 diabetes mellitus without complication, with long-term current use of insulin (HCC) Take 1 tablet (25 mg total) by mouth daily. 90 tablet 3 11/18/19 25 026 Active apixaban (ELIQUIS) 5 MG tabletIndications :Controlled type 2 diabetes mellitus without complication, with long-term current use of insulin (HCC),Paroxysmal atrial fibrillation (HCC) Take 1 tablet (5 mg total) by mouth every 12 (twelve) hours around the clock. 60 tablet 1 11/17/19 25 Active aspirin 81 MG chewable tabletIndications :Controlled type 2 diabetes mellitus without complication, with long-term current use of insulin (HCC),Paroxysmal atrial fibrillation (HCC) Chew 1 tablet (81 mg total) daily. 30 tablet 1 11/18/19 25 Active Alcohol Swabs 70 % PadsIndications:C ontrolled type 2 diabetes mellitus without complication, with long-term current use of insulin (HCC) Use as directed. 100 Pad 11/17/19 25 Active insulin glargine (LANtus/SEMGLEE SOLOSTAR) 100 units/mL prefilled pen injectionIndicati ons:Controlled type 2 diabetes mellitus without complication, with long-term current use of insulin ([facility]) Inject 24 Units under the skin daily. 15 mL 11/17/19 25 Active BD Pen Needle Madhuri U/F 32G X 4 MM MiscIndications:C ontrolled type 2 diabetes mellitus without complication, with long-term current use of insulin ([facility]) Use as directed 100 pen needle 11/17/19 25 Active insulin lispro (HumaLOG KWIKPEN) 100 UNIT/ML prefilled pen injectionIndicati ons:Controlled type 2 diabetes mellitus without complication, with long-term current use of insulin ([facility]) Inject 10 Units under the skin 3 (three) times a day before meals. 15 mL 11/17/19 25 Active BD Pen Needle Madhuri U/F 32G X 4 MM MiscIndications:C ontrolled type 2 diabetes mellitus without complication, with long-term current use of insulin ([facility]) Use as directed 100 pen needle 11/17/19 25 Active atorvastatin (LIPITOR) 80 MG tabletIndications :Chronic coronary microvascular dysfunction Take 1 tablet (80 mg total) by mouth daily. 90 tablet 11/21/19 25 Active Keppra 500 MG tabletIndications :Seizure disorder (HCC) Take 1 tablet (500 mg total) by mouth 2 (two) times a day. 60 tablet 1 11/21/19 25 Active Blood Pressure Monitoring (Blood Pressure Monitor Automat) DeviceIndications :Other secondary hypertension For life use for hypertension. Check Bp once daily everyday for lifetime 1 each 11/21/19 25 Active amLODIPine (NORVASC) 10 MG tabletIndications :Essential hypertension Take 1 tablet (10 mg total) by mouth daily. 30 tablet 1 11/28/19 25 Active OMEprazole (PriLOSEC) 20 MG capsule Take 1 capsule (20 mg total) by mouth 2 times a day. 01/19/20 25 Active lisinopril (PRINIVIL,ZeSTRIL ) 40 MG tabletIndications :Essential hypertension Take 1 tablet (40 mg total) by mouth daily. 90 tablet 3 02/14/20 25 026 Active tirzepatide (MOUNJARO) 2.5 mg/0.5 mL pen-injectorIndic ations:Type 2 diabetes mellitus with other specified complication, unspecified whether oil heaterman insulin use ([facility]) Inject 1 Pen (2.5 mg total) under the skin once a week. 2 mL 1 02/14/20 25 Active vilazodone (VIIBRYD) 40 MG tablet Take 40 mg by mouth daily. 025 Discontin ued(Med List Clean-up/ Old Med - No E-Cancel/ No AVS) HYDROcodone-aceta minophen (NORCO) 5-325 mg per tablet Take 1 tablet by mouth 4 times daily (every 6 hours) as needed for severe pain (pain). Max Daily Amount: 4 tablets 12 tablet 02/20/20 20 025 Discontin ued(Med List Clean-up/ Old Med - No E-Cancel/ No AVS) dicyclomine (BENTYL) 10 MG capsule Take 1 capsule (10 mg total) by mouth 4 (four) times a day. 20 capsule 02/22/20 20 025 Discontin ued(Med List Clean-up/ Old Med - No E-Cancel/ No AVS) cyclobenzaprine (FLEXERIL) 10 MG tablet Take 1 tablet (10 mg total) by mouth 2 times daily (every 12 hours) as needed for muscle spasms. 15 tablet 3 02/26/20 20 025 Discontin ued(Med List Clean-up/ Old Med - No E-Cancel/ No AVS) lisinopril (PRINIVIL,ZeSTRIL ) 20 MG tabletIndications :Essential hypertension Take 1 tablet (20 mg total) by mouth daily. Do not start before November 17, 2024. 90 tablet 3 11/18/19 25 025 Discontin ued(Dose adjustmen t) PANTOprazole (PROTONIX) 40 MG EC tabletIndications :Controlled type 2 diabetes mellitus without complication, with long-term current use of insulin (HCC) Take 1 tablet (40 mg total) by mouth daily. 30 tablet 11/18/19 25 025 Discontin ued(Med List Clean-up/ Old Med - No E-Cancel/ No AVS) furosemide (LASIX) 40 MG tabletIndications :Essential hypertension Take 1 tablet (40 mg total) by mouth daily. 30 tablet 11/17/19 25 025 Discontin ued(Med List Clean-up/ Old Med - No E-Cancel/ No AVS) oxyCODONE (ROXICODONE) 5 MG immediate release tabletIndications :Pain of left hip Take 1 tablet (5 mg total) by mouth 3 times daily (every 8 hours) as needed for severe pain. Max Daily Amount: 15 mg 10 tablet 11/17/19 25 025 Discontin ued(Med List Clean-up/ Old Med - No E-Cancel/ No AVS) spironolactone (ALDACTONE) 25 MG tabletIndications :Essential hypertension Take 1 tablet (25 mg total) by mouth every morning with breakfast. 30 tablet 11/28/19 25 025 Discontin ued(Med List Clean-up/ Old Med - No E-Cancel/ No AVS) cloNIDine ([id number]-3) 0.1 mg/24 hrIndications:Ess ential hypertension Place 1 patch on the skin once a week. 4 patch 1 11/28/19 25 025 Discontin ued(Med List Clean-up/ Old Med - No E-Cancel/ No AVS) isosorbide mononitrate (IMDUR) 30 MG 24 hr tabletIndications :Essential hypertension Take 2 tablets (60 mg total) by mouth daily. 60 tablet 11/28/19 25 025 Discontin ued(Med List Clean-up/ Old Med - No E-Cancel/ No AVS) Active Problems Problem Noted Date Diagnosed Date Seizure disorder 02/15/2025 Assessment & Plan (02/15/2025 5:31 AM EDT): - History of seizures. No recent seizure activity -Adherent with Keppra 500 mg twice daily -Needs to establish with local neurologist, referral placed Orders: Amb Referral to Neurology Type 2 diabetes mellitus with other specified co mplication 02/13/2025 Assessment & Plan (02/15/2025 5:31 AM EDT): -adherent Jardiance 25 mg daily. Has been prescribed Lantus 24 units and lispro before meals while hospitalized but not for several months - Last A1c 11.5% November 2024 -Plan is to start Mounjaro 2.5 mg weekly. She is to reach out with problems filling the prescription. Teaching information provided -Follow-up in 1 month Orders: tirzepatide (MOUNJARO) 2.5 mg/0.5 mL pen-injector; Inject 1 Pen (2.5 mg total) under the skin once a week. Comprehensive Metabolic Panel AFib/flutter s/p cardioversion; [id number] Assessment & Plan (02/15/2025 5:31 AM EDT): -BP today 150/100 -adherent with lisinopril 20mg daily, amlodipine 10mg daily -eliquis 5mg bid -referring to cardiology, needs to establish locally -increase lisinopril to 40mg daily. Complete labs -continue monitoring BP at home -follow up in one month Orders: lisinopril (PRINIVIL,ZeSTRIL) 40 MG tablet; Take 1 tablet (40 mg total) by mouth daily. Comprehensive Metabolic Panel Amb referral to Cardiology Assessment & Plan (11/09/2024 3:33 PM EDT): Obesity Acute on chronic back pain Anxiety/depression Seizure disorder Hypertensive emergency 11/08/2024 Assessment & Plan (11/09/2024 3:33 PM EDT): Obesity Acute on chronic back pain Anxiety/depression Seizure disorder Hypotension 11/17/2017 SONIA (acute kidney injury) 11/17/2017 Acute respiratory failure with hypoxia and hyper capnia 11/17/2017 Accidental drug overdose 11/17/2017 Overview (11/17/2017): Accidentally took double of all antihypertensives Hypoglycemia due to insulin 11/17/2017 Cuenca's esophagus without dysplasia 06/06/2017 Essential hypertension 05/10/2016 Assessment & Plan (02/15/2025 5:31 AM EDT): -BP today 150/100 -adherent with lisinopril 20mg daily, amlodipine 10mg daily -eliquis 5mg bid -referring to cardiology, needs to establish locally -increase lisinopril to 40mg daily. Complete labs -continue monitoring BP at home -follow up in one month Orders: lisinopril (PRINIVIL,ZeSTRIL) 40 MG tablet; Take 1 tablet (40 mg total) by mouth daily. Comprehensive Metabolic Panel Amb referral to Cardiology Assessment & Plan (11/09/2024 3:33 PM EDT): Obesity Acute on chronic back pain Anxiety/depression Seizure disorder Hyperlipemia 05/10/2016 Assessment & Plan (02/15/2025 5:31 AM EDT): - Adherent with atorvastatin 80 mg daily -Repeat lipid panel Orders: Lipid Panel Reflex Direct LDL Assessment & Plan (11/09/2024 3:33 PM EDT): Obesity Acute on chronic back pain Anxiety/depression Seizure disorder Morbid obesity with body mas s index (BMI) of 40.0 to 44.9 in adult 05/10/2016 Arthritis of knee 05/10/2016 Controlled type 2 diabetes mellitus without comp lication 05/10/2016 Assessment & Plan (11/09/2024 3:33 PM EDT): Obesity Acute on chronic back pain Anxiety/depression Seizure disorder Gastroesophageal reflux disease 05/10/2016 Assessment & Plan (11/09/2024 3:33 PM EDT): Obesity Acute on chronic back pain Anxiety/depression Seizure disorder Family history of deep venous thrombosis 016 Resolved Problems Problem Noted Date Diagnosed Date Resolved Date Joint pain 05/10/2016 05/10/2016 Pre-diabetes 05/10/2016 05/10/2016 Encounters Date Type Department Care Team Description 02/13/2025 10:30 AM EDT Office Visit [address] [phone] Corinne Chappell APRN Encounter to establish care (Primary Dx); Essential hypertension ; AFib/flutter s/p cardioversion; [id number]; Type 2 diabetes mellitus with other specified complication, unspecified whether oil heaterman insulin use (HCC); Anxiety and depression ; Hyperlipidemia, unspecified hyperlipidemia type ; Screening for diabetes mellitus; Screening, lipid; Screening for thyroid disorder; Screening for deficiency anemia; Seizure disorder (HCC) 02/13/[address] [phone] Corinne Chappell APRN Type 2 diabetes mellitus with other specified complication, unspecified whether oil heaterman insulin use (HCC) 02/13/2025 Travel 01/17/2025 12:01 PM EDT - 01/17/2025 11:59 PM EDT Hospital Encounter [facility] [address] [place] [address] Bonnie Joseph PA-C Discharge Disposition: Home or Self Care 01/17/2025 11:00 AM EDT Office Visit [facility] [address] [phone] Bar Luo MD Voss, Katherine E, PA-C Pain of left hip (Primary Dx); Primary osteoarthritis of left hip 01/17/2025 Travel 11/29/[address] [phone] Fatuma Kennedy CM Transition Of Care (TRANSITION OF CARE FOLLOW UP) 11/27/2024 11:30 AM EDT Office Visit [address] [phone] Jac Crawford MD Arthritis of knee (Primary Dx); Essential hypertension 11/27/2024 Travel 11/24/2024 Travel 11/23/2024 5:11 PM EDT - 11/24/2024 4:44 AM EDT Emergency [facility] Emergency Department [address] [place] [address] Gretta Duarte MD Headache (Primary Dx) Discharge Disposition: Home or Self Care 11/22/[address] [phone] Woodrow Baca MA Appointment from Last 3 Months Family History Medical History Relation Name Comments Colon cancer Father Heart disease Father Hyperlipidemia Father Hypertension Father Stroke Father Heart disease Sister Relation Name Status Comments Father Sister Social History Tobacco Use Types Packs/Day Years Used Date Smoking Tobacco: Former Cigarettes 0.3 10 1 08/14/2005 - 06/13/2016 Smokeless Tobacco: Never Tobacco Cessation:Counseling Given: Not Answered Alcohol Use Standard Drinks/Week Comments No 0 (1 standard drink = 0.6 oz pur e alcohol) [facility] Utilities Answer Date Recorded In the past 12 months has th e electric, gas, oil, or water company threatened to shut off services in your home? No 02/13/2025 Social Connection and Isolation Panel [NHANES] A nswer Date Recorded In a typical week, how many times do you talk on the phone with family, friends, or neighbors? Once a week 02/13/2025 Frequency of Social Gatherings with Friends and Family Not on file 02/13/2025 Attends Hinduism Services Not on file 02/13 Active Member [...] any time in the past 12 m [facility], were you homeless or living in a skilled nursing (including now)? No 02/13/2025 Education Answer Date [...] Orientation Heterosexual (straight) 11/08 7:39 AM EDT Last Filed Vital Signs Vital Sign Reading Time Taken Comments Blood Pressure 150/100 02/13/2025 10:11 AM EDT Pulse 74 02/13/2025 10:11 AM EDT Temperature 37.1 C (98.8 F) 01/17/2025 11:11 AM EDT Respiratory Rate 16 02/13/2025 10:11 AM EDT Oxygen Saturation 94% 02/13/2025 10:11 AM EDT Inhaled Oxygen Concentration - - Weight 99.8 kg (220 lb) 02/13/2025 10:11 AM EDT Height 165.1 cm (5' 5 ) 11/21/2024 11:56 AM EDT Body Mass Index 36.61 11/21/2024 11:56 AM EDT Plan of Treatment Upcoming Encounters Date Type Department Care Team (Late st Contact Info) Description 04/17/2025 1:15 PM EDT Office Visit [facility] [address] [place], [place] [phone] Corinne Chappell, ALEX [address] [place] [address] Health Maintenance Due Date Last Done Comments Hepatitis C Virus Screening 1966 Foot Exam 02/23/1976 Ophthalmology Exam 02/23/1976 HIV Screening 1979 Microalbumin/Creatinine Rati o Urine 02/23/1984 Physical 02/23/1984 DTaP/Tdap/Td Vaccines (1 - Tdap) 1985 Hepatitis B Vaccines (1 of 3 - 19+ 3-dose series) 1985 Pneumococcal Vaccines 50+ (1 of 2 - PCV) 1985 Pap Smear (Ages 21-65) 1987 Colonoscopy 2011 Lipid Panel 03/29/2015 03/29/2014 Zoster (Shingles) Vaccine (1 of 2) 02/23/2016 Diabetic Self-Management Tra ining (DSMT) 05/10/2016 Mammogram 08/21/2016 08/21/2014 COVID-19 Vaccine (1 2023-2 5 season) 2024 Medical Nutrition Therapy (MNT) 06/27/2024 06/05/2015, 05/06/2015, 03/18/2015 Influenza Vaccine 01/25/2025 09/16/2024 Hemoglobin A1C 03/13/2025 12/11/2024, 10/25, 03/31/2020, Additional history exists Creatinine with GFR 11/23/2025 11/23/2024, 11/16/2024, 11/15/2024, Additional history exists Goals Goal Patient Goal Type Associated Problems Recent Progress Patient-Stated? Author Eat more fruits and vegetables Diet On track( 8:28 AM EDT) Marbella Kitchen RD Have 3 meals a day Diet On track( 8:28 AM EDT) Marbella Kitchen RD Increase physical activity Lifestyle On track( 8:28 AM EDT) Marbella Kitchen RD Procedures Procedure Name Priority Date/Time Associated Diagnosis Comments XR HIP W PELVIS 2 OR 3 VIEWS-LEFT STAT 01/17/2025 12:12 PM EDT Pain of left hip XR CHEST 2 VIEWS STAT 11/23/2024 7:27 PM EDT HIGH SENSITIVITY TROPONIN T Routine 11/23/2024 6:17 PM EDT HIGH SENSITIVITY TROPONIN T CARD 11/23/2024 5:21 PM EDT BASIC METABOLIC PANEL STAT 11/23/2024 5:21 PM EDT COMPLETE BLOOD COUNT, WITH DIFFERENTIAL STAT 11/23/2024 5:21 PM EDT ECG 12-LEAD ED Critical 11/23/2024 5:16 PM EDT HEMOGLOBIN A1C WITH ESTIMATED AVERAGE GLUCOSE STAT 11/08/2024 8:18 AM EDT MM MAMMOGRAM DIGITAL BILAT SCREEN 41-49 Routine 08/21/2014 11:19 AM EST HXHOCC LIPID PANEL Routine 03/29/2014 5: 45 AM EDT from Last 3 Months or Most Recently Relevant to Health Maintenance Results * XR Hip w pelvis 2 or 3 views-Left (01/17/2025 12:12 PM EDT) Anatomical Region Laterality Modality Hip Left Computed Radiogr aphy 01/17/2025 12:1 4 PM EDT Impressions 01/17/2025 12:15 PM EDT Moderate osteoarthritis Narrative 01/17/2025 12:15 PM EDT EXAM: XR HIP W PELVIS 2 OR 3 VIEWS-LEFT on 01/17/2025 12:03 PM CLINICAL HISTORY: ESTEPHANIA RYAN is a 59 years old patient with a submitted history of worsening hip pain. ADDITIONAL HISTORY: Pain of left hip COMPARISONS: 2016 TECHNIQUE: 3 views of the pelvis/left hip performed. FINDINGS: Partly visualized lumbar scoliosis and disc degeneration Mild to moderate narrowing of the left femoral acetabular joint space, most pronounced superiorly. Marginal sclerosis and osteophytes present. No dislocation or fracture No diastases Procedure Note Harsh Wray MD - 01/17/2025 EXAM: XR HIP W PELVIS 2 OR 3 VIEWS-LEFT on 01/17/2025 12:03 PM CLINICAL HISTORY: ESTEPHANIA RYAN is a 59 years old patient with a submitted history ofworsening hip pain. ADDITIONAL HISTORY: Pain of left hip COMPARISONS: 2016 TECHNIQUE: 3 views of the pelvis/left hip performed. FINDINGS: Partly visualized lumbar scoliosis and disc degeneration Mild to moderate narrowing of the left femoral acetabular joint space,most pronounced superiorly. Marginal sclerosis and osteophytes present. No dislocation or fracture No diastases IMPRESSION: Moderate osteoarthritis Bonnie Joseph PA-C IMG DIAGNOSTIC IMAGING ORD ERABLES Final Result * XR Chest 2 views (11/23/2024 7:27 PM EDT) Anatomical Region Laterality Modality Chest Computed Radiogr aphy 11/23/2024 7:20 PM EDT Impressions 11/23/2024 8:58 PM EDT No acute cardiopulmonary findings. Narrative 11/23/2024 8:58 PM EDT EXAMINATION: XR CHEST CLINICAL INFORMATION: Chest pain COMPARISON: 11/12/2024 TECHNIQUE: PA and lateral radiographs of the chest were obtained. FINDINGS: No focal consolidation, pulmonary edema, or pleural effusion. Stable cardiomediastinal silhouette. Procedure Note Casey Mcghee MD - 11/23/2024 EXAMINATION: XR CHEST CLINICAL INFORMATION: Chest pain COMPARISON: 11/12/2024 TECHNIQUE: PA and lateral radiographs of the chest were obtained. FINDINGS: No focal consolidation, pulmonary edema, or pleural effusion. Stable cardiomediastinal silhouette. IMPRESSION: No acute cardiopulmonary findings. us Jim Alicea PA-C IMG DIAGNOSTIC IMAGING ORDERABLES Final Result * (ABNORMAL) High Sensitivity Troponin T (11/23/2024 6:17 PM EDT) Only the most recent of2 resultswithin the time period is included. [facility] High Sensitivity Troponin T 19(H) <15 ng/L 11/23/2024 7:40 PM EDT [facility] Delta (Change) NO CHANGE <3 11/23/2024 7:40 PM EDT [facility] 11/23/2024 6:17 PM EDT 11/23/2024 6:58 PM EDT us Jim Alicea PA-C LAB BLOOD ORDERABLES F inal Result [address] [address], [address] [address] * (ABNORMAL) Complete Blood Count, with Differential (11/23/2024 5:21 PM EDT) [facility] White Blood Cell Count 10.0 4.0 - 11.0 Thou/uL 11/23/2024 6:48 PM EDT [facility] Platelet Count 286 150 - 450 Thou/uL 11/23/2024 6:48 PM EDT [facility] Hemoglobin 14.4 11.7 - 15.7 g/dL 11/23/2024 6:48 PM EDT [facility] Hematocrit 45.8 35.0 - 47.0 % 11/23/2024 6:48 PM EDT [facility] Red Blood Cell Count 5.21 4.00 - 5.40 Mil/uL 11/23/2024 6:48 PM EDT [facility] MCV 88 80 - 100 fL 11/23/2024 6:48 PM EDT [facility] MCH 27.6 27.0 - 31.0 pg 11/23/2024 6:48 PM [facility] MCHC 31.4 30.0 - 36.0 g/dL 11/23/2024 6:48 PM EDT [facility] RDW 13.6 11.5 - 14.5 % 11/23/2024 6:48 PM [facility] MPV 10.5 7.5 - 12.5 fL 11/23/2024 6:48 PM [facility] Neutrophils Auto 65.9 % 11/24/19 6:48 PM [facility] Immature Granulocytes 1.1 % 11/23/2024 6:48 PM [facility] Lymphocytes Auto 19.5 % 11/24/19 6:48 PM [facility] Monocytes Auto 7.8 % 11/23/2024 6:48 PM [facility] Eosinophils Auto 5.0 % 11/24/19 6:48 PM [facility] Basophils Auto 0.7 % 11/23/2024 6:48 PM [facility] Abs Neutrophils Auto 6.55 2.00 - 7.50 Thou/uL 11/23/2024 6:48 PM [facility] Abs Immature Granulocytes 0.11(H) 0.00 - 0.10 Thou/uL 11/23/2024 6:48 PM [facility] Abs Lymphocytes Auto 1.94 1.50 - 4.50 Thou/uL 11/23/2024 6:48 PM [facility] Abs Monocytes Auto 0.78 0.20 - 1.50 Thou/uL 11/23/2024 6:48 PM EDT [facility] Abs Eosinophils Auto 0.50 0.00 - 0.70 Thou/uL 11/23/2024 6:48 PM [facility] Abs Basophils Auto 0.07 0.00 - 0.20 Thou/uL 11/23/2024 6:48 PM [facility] Blood Blood specimen / Unknown 11/23/2024 5:21 PM EDT 11/23/2024 6:25 PM EDT us Jim Alicea PA-C LAB BLOOD [place] [address], [place] [address] * (ABNORMAL) Basic Metabolic Panel (11/23/2024 5:21 PM EDT) Glucose 283(H) 65 - 99 mg/dL 11/23/2024 7:[address] [facility] Comment:Fasting: <100 mg/dL, Non-Fasting: <200 mg/dL (ADA 2004) Blood Urea Nitrogen (BUN) 25(H) 8 - 21 mg/dL 11/23/2024 7:[address] [facility] Creatinine 1.0 0.4 - 1.1 mg/dL 11/23/2024 7:[address] [facility] eGFR 65 >59 11/23/2024 7:[address] [facility] Comment:CKD-EPI (2020) in mL /min/1.73 sq meters. Sodium 141 136 - 145 mmol/L 11/23/2024 7:[address] [facility] Potassium 4.0 3.4 - 5.3 mmol/L 11/23/2024 7:[address] [facility] Chloride 104 98 - 107 mmol/L 11/23/2024 7:[address] [facility] CO2 21(L) 22 - 33 mmol/L 11/23/2024 7:[address] [facility] Anion Gap 16 7 - 17 11/23/2024 7:07 PM EDT [facility] Calcium 10.0 8.7 - 10.5 mg/dL 11/23/2024 7:07 PM EDT [facility] BUN/Creatinine Ratio 25 10.0 - 25.0 Ratio 11/23/2024 7:07 PM EDT [facility] Blood Blood specimen / Unknown 11/23/2024 5:21 PM EDT 11/23/2024 6:25 PM EDT Jim Alicea PA-C LAB BLOOD ORDERABLES F inal Result [address] [address], [address] [address] * 10 Min ECG 12 lead (11/23/2024 5:16 PM EDT) Ventricular rate 101 BPM EKG [facility] Atrial rate 101 BPM EKG [facility] P-R interval 164 ms EKG [facility] QRS duration 98 ms EKG [facility] Q-T interval 362 ms EKG [facility] QTC calculation (Bazett) 470 ms EKG [facility] P axis 47 degrees EKG [facility] R axis -40 degrees EKG [facility] T axis 77 degrees EKG [facility] 11/23/2024 5:16 PM EDT Narrative EKG [facility] - 11/23/2024 7:59 PM EDT Sinus tachycardia Left axis deviation Left ventricular hypertrophy with repolarization abnormality Abnormal ECG When compared with ECG of 08-Nov-2024 08:32, Non-specific change in ST segment in Lateral leads Confirmed by MD Crockett Ahmed [id number] on 11/23/2024 7:59:14 PM Procedure Note Romie Crockett MD - 11/23/2024 Sinus tachycardia Left axis deviation Left ventricular hypertrophy with repolarization abnormality Abnormal ECG When compared with ECG of 08-Nov-2024 08:32, Non-specific change in ST segment in Lateral leads Confirmed by MD Keira, [facility] ([id number]) on 11/23/2024 7:59:14 PM us Stephan Sebastian MD ECG ORDERABLES Final Result EKG [facility] * MM Mammogram Digital Bilat Screen 41-49 (08/21/2014 11:19 AM EST) Anatomical Region Laterality Modality Other 08/21/2014 11:1 9 AM EST Narrative 09/10/2014 1:33 PM EDT BILATERAL SCREENING MAMMOGRAPHY: August 21, 2014 FINDINGS: The examination was performed in the mediolateral and CC projection in conjunction with CAD using digital technique. FINDINGS: Density 25 to 50%. There are no apparent masses. Benign-appearing calcifications are seen. There is no evidence for skin thickening. There are no previous examinations available for comparison purposes. IMPRESSION: Benign-appearing calcifications. BI-RADS CATEGORY 2: BENIGN FINDING nd Procedure Note Orquidea Landrum L - 09/14/2016 BILATERAL SCREENING MAMMOGRAPHY: August 21, 2014 FINDINGS: The examination was performed in the mediolateral and CCprojection in conjunction with CAD using digital technique. FINDINGS: Density 25 to 50%. There are no apparent masses. Benign-appearing calcifications are seen.There is no evidence for skin thickening. There are no previousexaminations available for comparison purposes. IMPRESSION: Benign-appearing calcifications. BI-RADS CATEGORY 2: BENIGN FINDING nd us Lisa Grady MD IMG LEGACY PROCEDURES Final R esult * (ABNORMAL) Lipid Panel (03/29/2014 5:45 AM EDT) Cholesterol, Total 121 0 - 199 mg/dL CERNER CONVERSION Triglyceride 234(H) 0 - 199 mg/dL CERNER CONVERSION Cholesterol, HDL 29.0(L) >=40.0 mg/dL CERNER CONVERSION LDL Calculated <=159 mg/dL CERNER CONVERSION Risk Factor Interpretive Data: RISK FACTOR INTERPRETATION TABLE. MEN WOMEN. 1/2 AVERAGE 3.43 3.27. AVERAGE 4.97 4.44. 2X AVERAGE 9.55 7.05. 3X AVERAGE 23.39 11.04. . CERNER CONVERSION 03/29/2014 5:45 AM EDT Manisha Guerra MD HX LAB Final Res ult CERNER CONVERSION from Last 3 Months or Most Recently Relevant to Health Maintenance Insurance Advance Directives * Full Code (Latest Code Status on File) Date Activated Date Inactivated Comments 11/15/2024 5:06 PM 11/23/2024 4:57 PM * Full Code Date Activated Date Inactivated Comments 11/08/2024 11:18 AM 11/15/2024 5:06 PM * Full Code Date Activated Date Inactivated Comments 11/17/2017 3:11 AM 02/20/2020 10:57 AM Care Teams [employer] Manager Relationship Specialty Start Date End Date Corinne Chappell APRN [address] [place] [id number] PCP - General Internal Medicine 02/13/25
[2025-02-22 14:50] VITALS: BMI 38.7
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
[2025-02-22 16:46] LABS: Glucose, Whole Blood 138 mg/dL (60-115)
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
[2025-02-22 19:33] VITALS: BP 188/88; PULSE 83; RESP 18; TEMP 36.5; O2SAT 97
[2025-02-22 21:30] VITALS: BP 178/84; RESP 18
[2025-02-22 22:22] LABS: Glucose, Whole Blood 274 mg/dL (60-115)
[2025-02-22 22:31] VITALS: BP 190/90
[2025-02-22] MEDS: Insulin Glargine,Hum.rec.anlog 100 UNIT/ML 10 ML VIAL 26 UNIT SUBCUT (22:34)
[2025-02-23 07:38] VITALS: BP 171/87; PULSE 77; RESP 16; TEMP 37.4; O2SAT 97
[2025-02-23 08:14] LABS: Glucose, Whole Blood 130 mg/dL (60-115)
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
[2025-02-23 09:51] LABS: Hemoglobin A1C 282.8762 umol/L; Total Hemoglobin (HGBA1C) 3155.4768 umol/L
[2025-02-23 09:52] LABS: Alanine Aminotransferase 13 U/L (0-31); Albumin Level 3.8 g/dL (3.5-5.0); Alkaline Phosphatase 122 U/L (39-117); Anion Gap 14 (12-20); Aspartate Amino Transferase 22 U/L (5-31); Blood Urea Nitrogen 19 mg/dL (9-16); Calcium 9.0 mg/dL (8.4-10.2); Carbon Dioxide 27 mmol/L (22-29); Chloride 107 mmol/L (96-108); Cholesterol 124 mg/dL (<200); Creatinine Clr Calc Pharmacy 74.4; Estimated Glomerular Filt Rate > 60; HDL Cholesterol 35 mg/dL (>40); Potassium 4.5 mmol/L (3.3-5.1); Sodium 143 mmol/L (135-145); Total Protein 6.5 g/dL (6.5-8.0); Triglycerides 116 mg/dL (<150)
[2025-02-23 10:08] VITALS: BP 132/69; PULSE 76
[2025-02-23 10:11] LABS: Free T4 (Free Thyroxine) 1.32 ng/dL (0.71-1.85); Thyroid Stimulating Hormone 1.78 uIU/mL (0.32-4.0)
[2025-02-23 11:58] LABS: Glucose, Whole Blood 232 mg/dL (60-115)
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
[2025-02-23 16:53] LABS: Glucose, Whole Blood 117 mg/dL (60-115)
[2025-02-23 19:30] VITALS: BP 172/82; PULSE 72; RESP 18; TEMP 36.9; O2SAT 98
[2025-02-23 20:47] VITALS: BP 180/88; RESP 18
[2025-02-23 20:59] LABS: Glucose, Whole Blood 229 mg/dL (60-115)
[2025-02-23] MEDS: Insulin Glargine,Hum.rec.anlog 100 UNIT/ML 10 ML VIAL 26 UNIT SUBCUT (21:36)
[2025-02-24 07:31] LABS: Glucose, Whole Blood 156 mg/dL (60-115)
[2025-02-24 07:33] VITALS: BP 148/70; PULSE 78; RESP 16; TEMP 36.6; O2SAT 96
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
[2025-02-24 09:17] VITALS: BP 148/70
[2025-02-24 11:51] LABS: Glucose, Whole Blood 156 mg/dL (60-115)
[2025-02-24] MEDS: oxyCODONE HCl Immed Release 5 MG TABLET 10 MG PO (13:51)
[2025-02-24 17:06] LABS: Glucose, Whole Blood 163 mg/dL (60-115)
[2025-02-24 20:00] VITALS: BP 186/89; PULSE 66; RESP 16; TEMP 36.4; O2SAT 99
[2025-02-24 20:55] LABS: Glucose, Whole Blood 199 mg/dL (60-115)
[2025-02-24] MEDS: Insulin Glargine,Hum.rec.anlog 100 UNIT/ML 10 ML VIAL 26 UNIT SUBCUT (21:01)
--- NOTE | 2025-02-25 02:11 | PC.NURSE ---
Pt reports increased levels of pain (hips, spinal area, legs). Provider career technical education instructor notified of pt complaints of pain. PRN Tylenol available and given.
[2025-02-25 07:10] VITALS: BP 168/72; PULSE 74; RESP 16; TEMP 37.2; O2SAT 95
[2025-02-25 07:48] LABS: Glucose, Whole Blood 157 mg/dL (60-115)
[2025-02-25 10:38] VITALS: BP 138/82; PULSE 82; O2SAT 96
[2025-02-25 11:52] LABS: Glucose, Whole Blood 214 mg/dL (60-115)
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
--- NOTE | 2025-02-25 16:32 | MHC.CLN ---
CONSULT REPORTED 17# WEIGHT LOSS X ONE WEEK. SIGNIFICANT WEIGHT LOSS IMPROBABLE X ONE WEEK. BMI=38.7, WEIGHT=[address] IF PATIENT WITH POOR PO INTAKE.
[2025-02-25 16:55] LABS: Glucose, Whole Blood 263 mg/dL (60-115)
[2025-02-25 20:00] VITALS: BP 180/87; PULSE 70; RESP 18; TEMP 36.8; O2SAT 96
[2025-02-25 21:03] LABS: Glucose, Whole Blood 201 mg/dL (60-115)
[2025-02-25] MEDS: Insulin Glargine,Hum.rec.anlog 100 UNIT/ML 10 ML VIAL 26 UNIT SUBCUT (21:09)
[2025-02-26] VITALS (8 sets, daily range): BP systolic 168–222; BP diastolic 72–108; PULSE 64–75; RESP 16; TEMP 36.6; O2SAT 97–98
--- NOTE | 2025-02-26 | ECG_ITS ---
Test Reason : History of atrial fibrillation Blood Pressure : */* mmHG Vent. Rate : 72 BPM Atrial Rate : 72 BPM P-R Int : 164 ms QRS Dur : 88 ms QT Int : 440 ms P-R-T Axes : 57 -3 57 degrees QTcB Int : 481 ms Normal sinus rhythm Prolonged QT Abnormal ECG No previous ECGs available Referred By: Donte Nevarez Electronically Signed By: Timbo Bond
[2025-02-26 05:09] LABS: Levetiracetam Keppra <2.0 mcg/mL (6.0-46.0)
[2025-02-26 07:41] LABS: Glucose, Whole Blood 160 mg/dL (60-115)
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
[2025-02-26 11:45] LABS: Glucose, Whole Blood 157 mg/dL (60-115)
--- NOTE | 2025-02-26 13:14 | PC.NURSE ---
Pt requesting nursing look into her pain medications. States she fills at [facility] pharmacy. Call placed to pharmacy and they stated she has not filled her oxycodone since October with them. Provider aware.
[2025-02-26 16:57] LABS: Glucose, Whole Blood 228 mg/dL (60-115)
[2025-02-26 19:52] LABS: Glucose, Whole Blood 224 mg/dL (60-115)
[2025-02-26] MEDS: Insulin Glargine,Hum.rec.anlog 100 UNIT/ML 10 ML VIAL 26 UNIT SUBCUT (20:05)
--- NOTE | 2025-02-26 20:06 | HO.PM.IMCN ---
History of Present Illness Data of Consult Service Date: 02/26/25 Requesting physician: Giovanna Peña Primary Care Provider: Unknown Physician HPI Reason for consult: High blood pressure Estephania Ryan 60 years old woman with past medical history significant for essential hypertension, type 2 diabetes mellitus, CAD, RA atrial fibrillation on Eliquis and major depressive disorder who has been admitted to the psychiatric service after intentional overdose of Keppra. Today, around 19:40 a rapid response was activated as the patient's blood pressure was elevated 221/104. The patient report vague headache and blurry vision. She denied any dizziness, chest pain, palpitations or shortness on breath. She did not report any acute gastrointestinal symptoms. She recently received her clonidine 0.1 mg p.o.. Patient was taken her to her room so she can not lay down in bed. I rechecked the blood pressure myself and was 185/86 and normal heart rate. Her last blood workup on February 23, 2025 is unremarkable except for hemoglobin A1c of 10.4%. Review of Systems Review of Systems: All 12 systems were reviewed and normal except as noted in HPI. [facility] Functional capacity: independent ambulation Social History Household Members: Significant Other Housing: House Do you presently have visiting nurse or other home services: No Patient Tobacco Use Status: Former Tobacco user Currently Displaying Signs/Symptoms of Drug Intoxication Withdrawal: No Have you been hit, kicked, punched, or otherwise hurt by someone within the past year? If so, by whom?: No Do you feel safe in your current relationship?: Yes Is there a partner from a previous relationship who is making you feel unsafe now?: No Are you made to feel afraid or neglected: No Advance Directives: No Advance Directives Information Provided: No Do you have thoughts of harming others: None Do you have a plan to hurt others: No Plan Recently lost weight without trying: Yes How much weight loss: 14-23 pounds Eating poorly because of decreased appetite: No Nutrition screen score: 4 Nutrition Risks: No Nutritional Risk Patient : No : No Poor oral hygiene: No service: No Sexual orientation: Straight/Heterosexual Meds Allergies Allergy/AdvReac Type Severity Reaction Status Date / Time ibuprofen Allergy Unknown Verified 02/22/25 13:13 sumatriptan Allergy Unknown Verified 02/22/25 13:13 Active Medications: Current Medications Acetaminophen (Acetaminophen 325 Mg Tablet) 650 mg PO Q6H PRN PRN Reason: Headache/Pain, Scale 1-10 Last Admin: 02/26/25 20:03 Dose: 650 mg Al Hydroxide/Mg Hydroxide (Magnesium Hydrox/Alum Hydrox 30 Ml Oral.Susp) 30 ml PO Q6H PRN PRN Reason: Heartburn/Nausea Atorvastatin Calcium (Atorvastatin Calcium 80 Mg Tablet) 80 mg PO DAILY [facility] Last Admin: 02/26/25 07:54 Dose: 80 mg Clonidine HCl (Clonidine Hcl 0.1 Mg Tablet) 0.1 mg PO BID PRN; Protocol PRN Reason: severe anxiety Last Admin: 02/26/25 19:22 Dose: 0.1 mg Dextrose (Dextrose 50 % 25 Gm/50 Ml Syringe) 25 gm IVPUSH Q15M PRN; Protocol PRN Reason: per Hypoglycemia Standing Ord. Gabapentin (Gabapentin 400 Mg Capsule) 400 mg PO TID [facility] Last Admin: 02/26/25 20:04 Dose: 400 mg Glucose (Glucose Gel 15 Gm Gel..Gram.) 15 gm PO Q15M PRN; Protocol PRN Reason: per Hypoglycemia Standing Ord. Insulin Glargine (Insulin Glargine,Hum.Rec.Anlog 100 Unit/Ml 10 Ml Vial) 26 unit SUBCUT BEDTIME [facility] Last Admin: 02/26/25 20:05 Dose: 26 unit Insulin Human Lispro (Insulin Lispro 100 Unit/Ml 3 Ml Vial) 0 unit SUBCUT QIDACHS [facility]; Protocol Last Admin: 02/26/25 20:04 Dose: 4 unit Isosorbide Mononitrate (Isosorbide Mononitrate 60 Mg Tab.Er.24h) 60 mg PO DAILY [facility]; Protocol Last Admin: 02/26/25 07:54 Dose: 60 mg Levetiracetam (Levetiracetam 500 Mg Tablet) 500 mg PO BID [facility] Last Admin: 02/26/25 20:03 Dose: 500 mg Lisinopril (Lisinopril 20 Mg Tablet) 20 mg PO DAILY [facility]; Protocol Last Admin: 02/26/25 07:54 Dose: 20 mg Magnesium Hydroxide (Milk Of Magnesia 30 Ml Oral.Susp) 30 ml PO DAILY PRN PRN Reason: Constipation Nicotine Polacrilex (Nicotine Polacrilex 2 Mg Gum) 2 mg BUCCAL Q2H PRN PRN Reason: Nicotine Cravings Omeprazole (Omeprazole 20 Mg Capsule.Dr) 20 mg PO DAILY [facility] Last Admin: 02/26/25 07:54 Dose: 20 mg Sertraline HCl (Sertraline Hcl 100 Mg Tablet) 100 mg PO BEDTIME [facility] Last Admin: 02/26/25 20:04 Dose: 100 mg Trazodone HCl (Trazodone Hcl 100 Mg Tablet) 100 mg PO BEDTIME [facility] Last Admin: 02/26/25 20:03 Dose: 100 mg Trazodone HCl (Trazodone Hcl 50 Mg Tablet) 50 mg PO BEDTIME PRN PRN Reason: Insomnia Last Admin: 02/24/25 21:01 Dose: 50 mg Home Medications ?Medication ?Instructions ?Recorded ?Confirmed ?Last Taken ?Type alprazolam 0.5 mg tablet 0.5 mg PO BID PRN anxiety 02/22/25 02/22/25 Unknown History apixaban 5 mg tablet (Eliquis) 5 mg PO BID 02/22/25 02/22/25 Unknown History aspirin 81 mg chewable tablet 1 tab PO DAILY 02/22/25 02/22/25 Unknown History atorvastatin 80 mg tablet 80 mg PO DAILY 02/22/25 02/22/25 Unknown History clonidine HCl 0.1 mg tablet 0.1 mg PO BID 02/22/25 02/22/25 Unknown History gabapentin 400 mg capsule 400 mg PO TID 02/22/25 02/22/25 Unknown History insulin glargine 100 unit/mL (3 26 unit subcut BEDTIME 02/22/25 02/22/25 Unknown History mL) subcutaneous pen isosorbide mononitrate 30 mg 60 mg PO DAILY 02/22/25 02/22/25 Unknown History tablet,extended release 24 hr levetiracetam 500 mg tablet 500 mg PO BID 02/22/25 02/22/25 Unknown History lisinopril 10 mg tablet 10 mg PO DAILY 02/22/25 02/22/25 Unknown History omeprazole 20 mg capsule,delayed 20 mg PO DAILY 02/22/25 02/22/25 Unknown History release oxycodone-acetaminophen 10 mg-325 1 tab PO Q6H PRN severe pain 02/22/25 02/22/25 Unknown History mg tablet pantoprazole 40 mg tablet,delayed 40 mg PO DAILY 02/22/25 02/22/25 Unknown History release sertraline 25 mg tablet 25 mg PO BEDTIME 02/22/25 02/22/25 Unknown History trazodone 50 mg tablet 50 mg PO BEDTIME 02/22/25 02/22/25 Unknown History Physical Exam Vital Signs and Narrative: Vital Signs: Last Vital Signs Temp 97.8 F 02/26/25 07:34 Pulse 75 02/26/25 07:34 Resp 16 02/26/25 07:34 BP 221/104 H 02/26/25 19:22 Pulse Ox 97 02/26/25 07:34 O2 Del Method Room Air 02/26/25 07:34 BMI result Body Mass Index 38.7 Constitutional - Awake and Alert, No apparent distress HEENT - PERRL, EOMI Heart - S1S2, RRR, No murmurs Lungs - Normal lung expansion, Normal respiratory effort, No respiratory distress, CTA bilaterally Abdomen -non tenderness Extremities - no calf tenderness bilaterally, no swelling Musculoskeletal - Normal inspection, normal ROM Skin - Warm/Dry Neurological - Alert & oriented x3. Moving all extremities spontaneously. Normal speech. Psychological - Depressed affect Results Labs 02/23/25 08:29 Labs: Laboratory Results - last 24 hr 02/22/25 02/25/25 02/26/25 14:02 20:59 07:34 POC Glucose 201 H 160 H Levetiracetam <2.0 L 02/26/25 02/26/25 02/26/25 11:40 16:52 19:48 POC Glucose 157 H 228 H 224 H Levetiracetam Assessment and Plan (1) HTN (hypertension): Qualifiers: Hypertension type: primary hypertension Qualified Code(s): I10 - Essential (primary) hypertension Status: Acute (2) Diabetes mellitus: Qualifiers: Diabetes mellitus type: type 2 Diabetes mellitus intermediate insulin use: with intermediate use Diabetes mellitus complication status: without complication Qualified Code(s): E11.9 - Type 2 diabetes mellitus without complications; Z79.4 - manager long term care (current) use of insulin Status: Acute Plan Estephania Ryan 60 y/o woman admitted to psychiatric service has the following medical problems: Uncontrolled hypertension --> RR was activated today around 7:40 PM. Recheck BP at 9 pm. Change Clonidine to 0.1 mg PO bid shechuled instead of prn to avoid rebound hypertension. Add amlodipine 7.5 mg PO bedtime. Continue lisinopril. Uncontrolled type 2 diabetes mellitus. BG checks before meals at bedtime. Last hemoglobin A1c is 10.4%. Increase glargine to 30 units subQ at bedtime. Add insulin sliding scale. Consider diabetic diet. History of atrial fibrillation. Currently rate controlled. Check ECG. Continue Eliquis. Hyperlipidemia. Continue atorvastatin. Hx of CAD. On atorvastatin. GERD. Continue PPI. History of seizures. Check Keppra level in the morning. Continue Keppra as per home doses. Mood disorder, recent history of intentional overdose. Treatment per psychiatric service.
--- NOTE | 2025-02-26 23:10 | PC.NURSE ---
Notification was given by previous shifts ADDIS Mac of patients elevated BP (222/104) and funky vision with headache. RN states patient was pale faced. VS were not charted to know of exact time of this reading, but she did relay that manual BP was never checked. RN notified validation consultant provider RICHARD Martell who placed a hospitalist consult, and administered patients Clonidine 0.1mg BID early. Upon my priority assessment of patient, she is seen sitting at the dayroom table surrounded by a group of peers who were expressing their concern for her wellbeing. Patient was c/o blurred vision, headache 10/10, slight nausea, and dizziness. Patient was pale in the face and could not keep steady eye contact as patient was trying to focus on TW face. She reports adequate fluid and PO intake today. No diaphoresis, chest pain, or SOB. BP was taken manually at 19:36 198/106 A Rapid Response was activated due to the patients elevated BP and presentation. POC was checked 224. Hospitalist Beckie Nevarez MD examined patient and team assisted patient to her bedroom to lay down. Patient was unsteady but was able to walk with assistance. MD took manual BP herself, with reading of 185/86 at 19:53. Hospitalist ordered Amlodipine 7.5mg and EKG to be completed. Notify provider of BP in 1 hour after administering Amlodipine. Provider was notified at 21:55 of manual BP reading 168/72. No more interventions were deemed necessary by provider unless further concern arises. order desk caller provider RICHARD Martell was also informed of situation.
[2025-02-27] VITALS (8 sets, daily range): BP systolic 131–160; BP diastolic 68–78; PULSE 63–77; RESP 17–18; TEMP 36.4–36.8; O2SAT 96–97
[2025-02-27 07:55] LABS: Glucose, Whole Blood 165 mg/dL (60-115)
[2025-02-27 08:41] LABS: MANUAL DIFF FLAG NO
[2025-02-27 08:46] LABS: Hematocrit 35.8 % (37.0-47.0); Hemoglobin 11.2 g/dl (12.0-16.0); Imm Gran Abs Auto 0.08 X10*3/uL (0.00-0.03); Imm Gran Pct Auto 1.1 % (0.0-0.4); Lymphocytes Absolute Auto 1.9 X10*3/uL (1.2-4.9); Mean Corpuscular HGB Conc 31.3 g/dl (31.0-35.0); Mean Corpuscular Hemoglobin 26.2 pg (27.0-33.0); Mean Corpuscular Volume 83.8 fL (80.0-98.0); NRBC Abs Auto 0.000 X10*3/uL (0.0-0.012); NRBC Pct Auto 0.0 /100WBC (0.0-0.2); Platelet Count 251 X10*3/uL (160-400); Red Blood Count 4.27 X10*6/uL (4.20-5.50); White Blood Count 7.6 X10*3/uL (4.8-10.8)
[2025-02-27 09:02] LABS: Alanine Aminotransferase 16 U/L (0-31); Albumin Level 3.7 g/dL (3.5-5.0); Alkaline Phosphatase 117 U/L (39-117); Anion Gap 11 (12-20); Aspartate Amino Transferase 19 U/L (5-31); Blood Urea Nitrogen 27 mg/dL (9-16); Calcium 8.2 mg/dL (8.4-10.2); Carbon Dioxide 25 mmol/L (22-29); Chloride 109 mmol/L (96-108); Creatinine Clr Calc Pharmacy 76.9; Estimated Glomerular Filt Rate > 60; Potassium 4.2 mmol/L (3.3-5.1); Sodium 141 mmol/L (135-145); Total Protein 5.9 g/dL (6.5-8.0)
--- NOTE | 2025-02-27 09:19 | HO.PM.IMCN ---
History of Present Illness Data of Consult Service Date: 02/27/25 Primary Care Provider: Unknown Physician HPI Reason for consult: HTN, Afib Patient seen and examined, on exam she denies any shortness of breath, dizziness lightheadedness, visual changes or any other concerning symptoms. She is sitting comfortably at a table reading a book. Patient was recently hospitalized in January at [facility] for dizziness. She was found to have acute kidney injury, a UTI, and hyponatremia. Her workup at that time was negative. Her A1c noted to be 10.4, patient reports that in January her A1c was 14 at her primary care office. Insulin recently increased to 30 units. Blood sugar ranging 150s to 160s fasting. A rapid response called last evening due to hypertension and visual changes, her BP noted to be 146/76 and 131/78 on rechecks. Medications adjusted per recent discharge notes. Patient with a history of AFib, reports that she was taking Eliquis up until the time she was hospitalized and they have not given to her here. Will restart. Patient with a history of coronary artery disease, continues on aspirin and atorvastatin. Patient was recently established with a primary care in [place]. Has not had a follow up appointment yet. Review of Systems Review of Systems: Denies any shortness of breath, chest pain, dizziness, lightheadedness, abdominal pain or discomfort, nausea vomiting or diarrhea PMFSH Functional capacity: independent ambulation Social History Household Members: Significant Other Housing: House Do you presently have visiting nurse or other home services: No Patient Tobacco Use Status: Former Tobacco user Currently Displaying Signs/Symptoms of Drug Intoxication Withdrawal: No Have you been hit, kicked, punched, or otherwise hurt by someone within the past year? If so, by whom?: No Do you feel safe in your current relationship?: Yes Is there a partner from a previous relationship who is making you feel unsafe now?: No Are you made to feel afraid or neglected: No Advance Directives: No Advance Directives Information Provided: No Do you have thoughts of harming others: None Do you have a plan to hurt others: No Plan Recently lost weight without trying: Yes How much weight loss: 14-23 pounds Eating poorly because of decreased appetite: No Nutrition screen score: 4 Nutrition Risks: No Nutritional Risk Patient : No : No Poor oral hygiene: No service: No Sexual orientation: Straight/Heterosexual Meds Allergies Allergy/AdvReac Type Severity Reaction Status Date / Time ibuprofen Allergy Unknown Verified 02/22/25 13:13 sumatriptan Allergy Unknown Verified 02/22/25 13:13 Active Medications: Current Medications Acetaminophen (Acetaminophen 325 Mg Tablet) 650 mg PO Q6H PRN PRN Reason: Headache/Pain, Scale 1-10 Last Admin: 02/26/25 20:03 Dose: 650 mg Al Hydroxide/Mg Hydroxide (Magnesium Hydrox/Alum Hydrox 30 Ml Oral.Susp) 30 ml PO Q6H PRN PRN Reason: Heartburn/Nausea Amlodipine Besylate (Amlodipine Besylate 2.5 Mg Tablet) 7.5 mg PO BEDTIME [facility]; Protocol Last Admin: 02/26/25 20:39 Dose: 7.5 mg Atorvastatin Calcium (Atorvastatin Calcium 80 Mg Tablet) 80 mg PO DAILY [facility] Last Admin: 02/27/25 08:45 Dose: 80 mg Clonidine HCl (Clonidine Hcl 0.1 Mg Tablet) 0.1 mg PO DAILY@1800 [facility]; Protocol Clonidine HCl (Clonidine Hcl 0.1 Mg Tablet) 0.1 mg PO DAILY [facility]; Protocol Last Admin: 02/27/25 08:45 Dose: 0.1 mg Dextrose (Dextrose 50 % 25 Gm/50 Ml Syringe) 25 gm IVPUSH Q15M PRN; Protocol PRN Reason: per Hypoglycemia Standing Ord. Dextrose (Dextrose 50 % 25 Gm/50 Ml Syringe) 25 gm IVPUSH Q15M PRN; Protocol PRN Reason: per Hypoglycemia Standing Ord. Gabapentin (Gabapentin 400 Mg Capsule) 400 mg PO TID [facility] Last Admin: 02/27/25 08:46 Dose: 400 mg Glucose (Glucose Gel 15 Gm Gel..Gram.) 15 gm PO Q15M PRN; Protocol PRN Reason: per Hypoglycemia Standing Ord. Glucose (Glucose Gel 15 Gm Gel..Gram.) 15 gm PO Q15M PRN; Protocol PRN Reason: per Hypoglycemia Standing Ord. Insulin Glargine (Insulin Glargine,Hum.Rec.Anlog 100 Unit/Ml 10 Ml Vial) 30 unit SUBCUT BEDTIME [facility] Last Admin: 02/26/25 21:18 Dose: Not Given Insulin Human Lispro (Insulin Lispro 100 Unit/Ml 3 Ml Vial) 0 unit SUBCUT QIDACHS [facility]; Protocol Last Admin: 02/27/25 08:43 Dose: 2 unit Insulin Human Lispro (Insulin Lispro 100 Unit/Ml 3 Ml Vial) 0 unit SUBCUT QIDACHS [facility]; Protocol Last Admin: 02/27/25 09:01 Dose: Not Given Isosorbide Mononitrate (Isosorbide Mononitrate 60 Mg Tab.Er.24h) 60 mg PO DAILY [facility]; Protocol Last Admin: 02/27/25 08:46 Dose: 60 mg Levetiracetam (Levetiracetam 500 Mg Tablet) 500 mg PO BID [facility] Last Admin: 02/27/25 08:45 Dose: 500 mg Lisinopril (Lisinopril 20 Mg Tablet) 20 mg PO DAILY [facility]; Protocol Last Admin: 02/27/25 08:46 Dose: 20 mg Magnesium Hydroxide (Milk Of Magnesia 30 Ml Oral.Susp) 30 ml PO DAILY PRN PRN Reason: Constipation Nicotine Polacrilex (Nicotine Polacrilex 2 Mg Gum) 2 mg BUCCAL Q2H PRN PRN Reason: Nicotine Cravings Omeprazole (Omeprazole 20 Mg Capsule.Dr) 20 mg PO DAILY [facility] Last Admin: 02/27/25 08:45 Dose: 20 mg Sertraline HCl (Sertraline Hcl 100 Mg Tablet) 100 mg PO BEDTIME [facility] Last Admin: 02/26/25 20:04 Dose: 100 mg Trazodone HCl (Trazodone Hcl 100 Mg Tablet) 100 mg PO BEDTIME [facility] Last Admin: 02/26/25 20:03 Dose: 100 mg Trazodone HCl (Trazodone Hcl 50 Mg Tablet) 50 mg PO BEDTIME PRN PRN Reason: Insomnia Last Admin: 02/24/25 21:01 Dose: 50 mg Home Medications ?Medication ?Instructions ?Recorded ?Confirmed ?Last Taken ?Type alprazolam 0.5 mg tablet 0.5 mg PO BID PRN anxiety 02/22/25 02/22/25 Unknown History apixaban 5 mg tablet (Eliquis) 5 mg PO BID 02/22/25 02/22/25 Unknown History aspirin 81 mg chewable tablet 1 tab PO DAILY 02/22/25 02/22/25 Unknown History atorvastatin 80 mg tablet 80 mg PO DAILY 02/22/25 02/22/25 Unknown History clonidine HCl 0.1 mg tablet 0.1 mg PO BID 02/22/25 02/22/25 Unknown History gabapentin 400 mg capsule 400 mg PO TID 02/22/25 02/22/25 Unknown History insulin glargine 100 unit/mL (3 26 unit subcut BEDTIME 02/22/25 02/22/25 Unknown History mL) subcutaneous pen isosorbide mononitrate 30 mg 60 mg PO DAILY 02/22/25 02/22/25 Unknown History tablet,extended release 24 hr levetiracetam 500 mg tablet 500 mg PO BID 02/22/25 02/22/25 Unknown History lisinopril 10 mg tablet 10 mg PO DAILY 02/22/25 02/22/25 Unknown History omeprazole 20 mg capsule,delayed 20 mg PO DAILY 02/22/25 02/22/25 Unknown History release oxycodone-acetaminophen 10 mg-325 1 tab PO Q6H PRN severe pain 02/22/25 02/22/25 Unknown History mg tablet pantoprazole 40 mg tablet,delayed 40 mg PO DAILY 02/22/25 02/22/25 Unknown History release sertraline 25 mg tablet 25 mg PO BEDTIME 02/22/25 02/22/25 Unknown History trazodone 50 mg tablet 50 mg PO BEDTIME 02/22/25 02/22/25 Unknown History Physical Exam Vital Signs and Narrative: Vital Signs: Last Vital Signs Temp 98.2 F 02/27/25 07:20 Pulse 73 02/27/25 07:20 Resp 17 02/27/25 07:20 BP 146/76 H 02/27/25 08:46 Pulse Ox 96 02/27/25 07:20 O2 Del Method Room Air 02/27/25 07:20 BMI result Body Mass Index 38.7 CONST: Alert and oriented, in NAD. Well nourished HEENT: Normocephalic, atraumatic, MMM, Eyes clear, Neck supple RESP: Lungs clear, RRR even and regular HEART:,RRR, S1, S2. No murmur, no edema GI:Abdomen Soft NT, ND. + BS times four :Deferred SKIN: Warm dry and intact, no visible lesions or rashes NEURO:CN II-XII Intact bilaterally, Sensation intact. Speech clear PSYCH: Normal affect Results Labs 02/27/25 08:29 09/03/25 08:29 Labs: Laboratory Results - last 24 hr 02/26/25 02/26/25 02/26/25 11:40 16:52 19:48 MCV MCH MCHC RDW Plt Count MPV Immature Gran % (Auto) Neut % (Auto) Lymph % (Auto) [place] % (Auto) Eos % (Auto) Baso % (Auto) Lymph # (Auto) [place] # (Auto) Eos # (Auto) Baso # (Auto) Abs Immat Gran (auto) Absolute Neuts (auto) Absolute Nucleated RBC Nucleated RBC % (auto) Anion Gap Estim Creat Clear Calc Estimated GFR POC Glucose 157 H 228 H 224 H Random Glucose Calcium Total Bilirubin AST ALT Alkaline Phosphatase Total Protein Albumin 02/27/25 02/27/25 07:48 08:29 MCV 83.8 MCH 26.2 L MCHC 31.3 RDW 15.7 Plt Count 251 MPV 10.4 Immature Gran % (Auto) 1.1 H Neut % (Auto) 58.4 Lymph % (Auto) 24.6 [place] % (Auto) 8.8 Eos % (Auto) 6.2 H Baso % (Auto) 0.9 Lymph # (Auto) 1.9 [place] # (Auto) 0.7 Eos # (Auto) 0.5 H Baso # (Auto) 0.1 Abs Immat Gran (auto) 0.08 H Absolute Neuts (auto) 4.4 Absolute Nucleated RBC 0.000 Nucleated RBC % (auto) 0.0 Anion Gap 11 L Estim Creat Clear Calc 76.9 Estimated GFR > 60 POC Glucose 165 H Random Glucose 232 H Calcium 8.2 L D Total Bilirubin 0.2 AST 19 ALT 16 Alkaline Phosphatase 117 Total Protein 5.9 L Albumin 3.7 Assessment and Plan (1) HTN (hypertension): Qualifiers: Hypertension type: primary hypertension Qualified Code(s): I10 - Essential (primary) hypertension Status: Acute Plan 60-year-old female with a past medical history of MDD. Anxiety, AFib on eliquis, CAD, hypertension, seizure disorder, chronic pain, type 2 diabetes and a history of overdose. Patient presented from home to the ED for an apparent intentional overdose of medication with an attempt at self-harm. Depression/anxiety/SI Continue treatment plan per Psychiatry Hypertension Patient with a rapid response called last evening due to elevated blood pressure and visual changes Reviewed outside discharge records and reconciled meds with patient Updated medications, Blood pressure is improved, she is asymptomatic Insulin-dependent type 2 diabetes/diabetic peripheral neuropathy Per patient A1c in December was 14, now improved to 10.4 Fasting blood sugars 150s to 160s range Glargine increased to 30 units, we will continue to monitor. We will need follow up with her new PCP Continue Jardiance 25 mg per most recent discharge summary Continue gabapentin Seizure disorder Continue Keppra 500 mg b.i.d. Follow Keppra levels Suspect patient was not taking Keppra as ordered due to unavailability of PCP, which resulted in low Keppra levels. Has now established care with a new PCP, will recommend follow up as outpatient. Atrial fib/coronary artery disease Continue Eliquis b.i.d., aspirin and atorvastatin Lasix and spironolactone on hold since discharged from [facility] in January due to acute kidney injury She appears euvolemic on exam. Follow up with PCP. Thank you for allowing me to participate in the care of this patient. We will follow as needed. Please reconsult of any acute concerns or issues arise
[2025-02-27 12:05] LABS: Glucose, Whole Blood 179 mg/dL (60-115)
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
[2025-02-27 17:05] LABS: Glucose, Whole Blood 174 mg/dL (60-115)
[2025-02-27 21:04] LABS: Glucose, Whole Blood 234 mg/dL (60-115)
[2025-02-27] MEDS: Insulin Glargine,Hum.rec.anlog 100 UNIT/ML 10 ML VIAL 30 UNIT SUBCUT (21:09)
[2025-02-28 07:36] LABS: Glucose, Whole Blood 199 mg/dL (60-115)
[2025-02-28 08:00] VITALS: BP 139/76; PULSE 68; RESP 18; TEMP 36.4; O2SAT 98
[2025-02-28 08:04] VITALS: BP 139/76
[2025-02-28] MEDS: Aspirin Enteric Coated 81 MG TABLET.DR PO (08:04)
[2025-02-28 08:05] VITALS: BP 139/76
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
[2025-03-02 01:24] LABS: Levetiracetam Keppra 9.6 mcg/mL (6.0-46.0)
== END 2025-02-28 10:45 | disposition home or self-care (01) | DRG 751 ==
PROVIDERS: Internal Medicine; Nurse Practitioner Psychiatric/Mental Health; Admitting Provider Psychiatry & Neurology Psychiatry; Visit Provider Psychiatry & Neurology Psychiatry
DX: F33.9 Major depressive disorder, recurrent, unspecified (principal); G40.909 Epilepsy, unspecified, not intractable, without status epilepticus; E11.42 Type 2 diabetes mellitus with diabetic polyneuropathy; F41.9 Anxiety disorder, unspecified; I48.91 Unspecified atrial fibrillation; G89.29 Other chronic pain; T50.901A Poisoning by unspecified drugs, medicaments and biological substances, accidental (unintentional), initial encounter; Z79.4 Long term (current) use of insulin; Z91.148 Patient's other noncompliance with medication regimen for other reason; Z87.891 Personal history of nicotine dependence; Z79.82 Long term (current) use of aspirin; Z79.899 Other long term (current) drug therapy
CPT/HCPCS: 36415; 80053; 80061; 80177; 82947; 83036; 84439; 84443; 85025; 93005

== ENCOUNTER → 2025-02-22 12:58 | Outpatient (BNV) | payer MEDICAID, SELFPAY | PROVIDERS: Admitting Provider Psychiatry & Neurology Psychiatry; Visit Provider Physician Assistant | DX: I10 Essential (primary) hypertension (principal) | CPT/HCPCS: 99222; 99223 ==

== ENCOUNTER → 2025-02-22 12:58 | Outpatient (BNV) | payer MEDICAID, SELFPAY | PROVIDERS: Admitting Provider Psychiatry & Neurology Psychiatry; Visit Provider Registered Nurse | DX: F33.2 Major depressive disorder, recurrent severe without psychotic features (principal); T50.901A Poisoning by unspecified drugs, medicaments and biological substances, accidental (unintentional), initial encounter; R56.9 Unspecified convulsions; E11.9 Type 2 diabetes mellitus without complications | CPT/HCPCS: 90792; 99231; 99232 ==